=== PATIENT | female | born 1950 | race Caucasian/White ===

== ENCOUNTER → 2017-12-13 10:09 | Outpatient (CLI) | payer MEDICARE, SELFPAY ==
[2017-12-13 17:13] LABS: Anion Gap 7 (5-15); BUN 42 mg/dL (7-18); BUN/Creat Ratio 30.4 RATIO (10-20); Calcium,Total 9.6 mg/dL (8.5-10.1); Chloride 104 mmol/L (98-107); Creatinine, Serum 1.38 mg/dL (0.55-1.02); EST Glomerular Filtration Rate 40 mL/min (>60); Est Glom Filt Rate - Afr Amer 49 mL/min (>60); Glucose 86 mg/dL (74-106); Potassium 5.5 mmol/L (3.5-5.1); Sodium Level 139 mmol/L (136-145)
[2017-12-13 17:16] LABS: Absolute Lymphocyte Count 2.14 X10^3/ul (0.83-4.51); Absolute Neutrophil Count 5.7 X10^3/uL (2.0-7.7); Basophil# 0.07 X10^3/uL; Basophil% 0.8 % (0-1); Eosinophil# 0.08 X10^3/uL; Eosinophils% 0.9 % (0-5); Hemoglobin 6.2 g/dl (12.0-15.0); Lymphocyte # 2.14 X10^3/ul (4.0); Lymphocyte % 25.1 % (19-41); Mean Corp Hgb Conc 29.5 g/gl (32-36); Mean Corpuscular Hgb 25.9 pg (27.0-32.0); Mean Corpuscular Volume 87.9 fL (81-99); Mean Platelet Vol. 8.6 fl (6.2-12.0); Monocyte# 0.54 X10^3/uL; Monocyte% 6.3 % (0-10); Neutrophil # 5.69 X10^3/uL (2.7-7.7); Neutrophil % 66.8 % (47-70); Platelet Count 415 K/mm3 (150-450); RBC Distribution Width CV 15.2 % (11.6-14.6); RBC Distribution Width SD 49.8 fl (35.1-43.9); Red Blood Count 2.39 M/mm3 (4.2-5.4); White Blood Count 8.5 K/mm3 (4.4-11.0)
[2017-12-13 17:18] LABS: POSITIVE COUNT NO; POSITIVE DIFFERENTIAL NO; POSITIVE MORPHOLOGY NO
== END ==
PROVIDERS: Family Provider Family Medicine; PCP Family Medicine; Referring Provider Family Medicine; Visit Provider Family Medicine
DX: N18.3 Chronic kidney disease, stage 3 (moderate) (principal); D64.9 Anemia, unspecified
CPT/HCPCS: 36415; 80048; 85025

== ENCOUNTER 2017-12-17 10:31 | Emergency (ER) | payer MEDICARE, SELFPAY ==
[2017-12-17] VITALS (10 sets, daily range): BP systolic 116–158; BP diastolic 48–82; PULSE 64–98; RESP 15–22; TEMP 36.7–36.8; O2SAT 94–97; BMI 28.6
[2017-12-17 11:11] LABS: Absolute Lymphocyte Count 1.44 X10^3/ul (0.83-4.51); Absolute Neutrophil Count 4.5 X10^3/uL (2.0-7.7); Basophil# 0.04 X10^3/uL; Basophil% 0.6 % (0-1); Eosinophils% 1.5 % (0-5); Hematocrit 20.2 % (37-47); Lymphocyte # 1.44 X10^3/ul (4.0); Lymphocyte % 22.1 % (19-41); Mean Corp Hgb Conc 29.7 g/gl (32-36); Mean Corpuscular Volume 87.4 fL (81-99); Mean Platelet Vol. 7.6 fl (6.2-12.0); Monocyte# 0.46 X10^3/uL; Monocyte% 7.1 % (0-10); Neutrophil # 4.48 X10^3/uL (2.7-7.7); Neutrophil % 68.7 % (47-70); Platelet Count 316 K/mm3 (150-450); RBC Distribution Width CV 15.3 % (11.6-14.6); RBC Distribution Width SD 49.3 fl (35.1-43.9); Red Blood Count 2.31 M/mm3 (4.2-5.4); White Blood Count 6.5 K/mm3 (4.4-11.0)
[2017-12-17 11:12] LABS: POSITIVE COUNT NO; POSITIVE DIFFERENTIAL NO; POSITIVE MORPHOLOGY NO
[2017-12-17 11:24] LABS: AST(SGOT) 49 U/L (15-37); Alanine Aminotransfer ALT/SGPT 55 U/L (13-56); Albumin, Serum 3.9 g/dL (3.2-5.0); Alkaline Phosphatase 112 U/L (45-117); Anion Gap 7 (5-15); BUN 37 mg/dL (7-18); BUN/Creat Ratio 24.5 RATIO (10-20); Calcium,Total 9.2 mg/dL (8.5-10.1); Chloride 106 mmol/L (98-107); Creatinine, Serum 1.51 mg/dL (0.55-1.02); EST Glomerular Filtration Rate 36 mL/min (>60); Est Glom Filt Rate - Afr Amer 44 mL/min (>60); Estimated Creatinine Clearance 34.98 ml/min; Globulin 3.9 g/dL (2.2-4.2); Glucose 91 mg/dL (74-106); Potassium 5.2 mmol/L (3.5-5.1); Protein, Total 7.8 g/dL (6.4-8.2); Sodium Level 138 mmol/L (136-145)
--- NOTE | 2017-12-17 11:51 | ED.VISSUMM ---
- ER Visit Summary Date of Service: 12/17/17 Chief Complaint: Anemia History of Present Illness: The patient is a 67 F who presents with anemia. Patient had lab work done by her primary care physician 4 days ago. Patient states she was told to come to the emergency department because her blood counts are low. Patient admits to some shortness of breath but states she has a history of COPD and frequently gets short of breath. Patient denies any lightheadedness. Patient denies any chest pain. Patient denies any melena or hematochezia. Patient denies any abdominal pain. Patient denies any other symptoms. Patient states I feel good. Physical Examination: Vital signs are stable. Patient is afebrile. Patient is in no acute distress. Cranial nerves II through XII are intact. There are no focal motor or sensory deficits noted. Oral mucosa is pink and moist. Pupils are equal, round, and reactive to light bilaterally. Extraocular muscles are intact. Conjunctiva is clear. Neck is supple. Trachea is midline. There is no JVD noted. Heart was regular rate and rhythm. Lungs are diminished but clear bilaterally. There is good respiratory effort noted. Abdomen is soft nontender. Rectal exam showed brown stool which was Hemoccult negative. The remaining physical exam is within normal limits. Test Results: CBC shows a hemoglobin of 6.0. Hematocrit was 20.2. BUN and creatinine were slightly elevated at 37 1.51 but this is chronic for the patient. Emergency Department Course and Treatment: Patient was typed and crossmatched for 1 unit of packed red blood cells. Patient will be given a transfusion of 1 unit of packed red blood cells. Case was discussed with Dr. Trinidad, the patient's primary care physician. He will follow-up with patient as an outpatient. He recommended starting the patient on iron pills 325 mg twice daily. Patient understood and was agreeable with the plan. All questions were answered. Disposition: Discharged home Impression: Anemia This note was generated with [email or web address] dictation software. It may contain incorrect words, spelling, and punctuation that were not noted in review of the chart prior to signing ED Disposition - Plan for ED Patient: Disposition: Home or Assisted Living Chief Complaint: Abn Labs Diagnosis: Anemia Instructions: ED Anemia Type Not Specified Prescriptions: Ferrous Sulfate 325 mg PO BIDCM #20 tab Referrals: Akira Zhang MD [Primary Care Provider] -
--- NOTE | 2017-12-17 11:54 | ED.DCSUM_ITS ---
- ER Visit Summary Date of Service: 12/17/17 Chief Complaint: Anemia History of Present Illness: The patient is a 67 F who presents with anemia. Patient had lab work done by her primary care physician 4 days ago. Patient states she was told to come to the emergency department because her blood counts are low. Patient admits to some shortness of breath but states she has a history of COPD and frequently gets short of breath. Patient denies any lightheadedness. Patient denies any chest pain. Patient denies any melena or hematochezia. Patient denies any abdominal pain. Patient denies any other symptoms. Patient states I feel good. Physical Examination: Vital signs are stable. Patient is afebrile. Patient is in no acute distress. Cranial nerves II through XII are intact. There are no focal motor or sensory deficits noted. Oral mucosa is pink and moist. Pupils are equal, round, and reactive to light bilaterally. Extraocular muscles are intact. Conjunctiva is clear. Neck is supple. Trachea is midline. There is no JVD noted. Heart was regular rate and rhythm. Lungs are diminished but clear bilaterally. There is good respiratory effort noted. Abdomen is soft nontender. Rectal exam showed brown stool which was Hemoccult negative. The remaining physical exam is within normal limits. Test Results: CBC shows a hemoglobin of 6.0. Hematocrit was 20.2. BUN and creatinine were slightly elevated at 37 1.51 but this is chronic for the patient. Emergency Department Course and Treatment: Patient was typed and crossmatched for 1 unit of packed red blood cells. Patient will be given a transfusion of 1 unit of packed red blood cells. Case was discussed with Dr. Trinidad, the patient 's primary care physician. He will follow-up with patient as an outpatient. He recommended starting the patient on iron pills 325 mg twice daily. Patient understood and was agreeable with the plan. All questions were answered. Disposition: Discharged home Impression: Anemia This note was generated with [employer] dictation software. It may contain incorrect words, spelling, and punctuation that were not noted in review of the chart prior to signing ED Disposition - Plan for ED Patient: Disposition: Home or Assisted Living Chief Complaint: Abn Labs Diagnosis: Anemia Instructions: ED Anemia Type Not Specified Prescriptions: Ferrous Sulfate 325 mg PO BIDCM #20 tab Referrals: Akira Zhang MD [Primary Care Provider] -
== END 2017-12-17 15:30 | disposition home or self-care (01) ==
PROVIDERS: Emergency Provider Emergency Medicine; Family Provider Family Medicine; PCP Family Medicine
DX: D64.9 Anemia, unspecified (principal); J44.9 Chronic obstructive pulmonary disease, unspecified; I10 Essential (primary) hypertension; Z79.899 Other long term (current) drug therapy
CPT/HCPCS: 36430; 80053; 82274; 85025; 86850; 86900; 86920; 86921; 86922; 99285; J7040; P9016; A4216

== ENCOUNTER → 2017-12-22 14:13 | Outpatient (CLI) | payer MEDICARE, SELFPAY ==
[2017-12-22 16:31] LABS: Absolute Lymphocyte Count 1.68 X10^3/ul (0.83-4.51); Basophil# 0.04 X10^3/uL; Basophil% 0.5 % (0-1); Eosinophil# 0.16 X10^3/uL; Eosinophils% 1.9 % (0-5); Hematocrit 25.4 % (37-47); Hemoglobin 7.5 g/dl (12.0-15.0); Lymphocyte # 1.68 X10^3/ul (4.0); Lymphocyte % 19.6 % (19-41); Mean Corp Hgb Conc 29.5 g/gl (32-36); Mean Corpuscular Hgb 26.6 pg (27.0-32.0); Mean Corpuscular Volume 90.1 fL (81-99); Mean Platelet Vol. 8.9 fl (6.2-12.0); Monocyte# 0.66 X10^3/uL; Monocyte% 7.7 % (0-10); Neutrophil # 6.03 X10^3/uL (2.7-7.7); Neutrophil % 70.3 % (47-70); Platelet Count 413 K/mm3 (150-450); RBC Distribution Width CV 16.2 % (11.6-14.6); RBC Distribution Width SD 51.3 fl (35.1-43.9); Red Blood Count 2.82 M/mm3 (4.2-5.4); White Blood Count 8.6 K/mm3 (4.4-11.0)
[2017-12-22 16:33] LABS: POSITIVE COUNT NO; POSITIVE DIFFERENTIAL NO; POSITIVE MORPHOLOGY NO
[2017-12-22 16:43] LABS: Anion Gap 7 (5-15); BUN 34 mg/dL (7-18); BUN/Creat Ratio 28.6 RATIO (10-20); Calcium,Total 9.2 mg/dL (8.5-10.1); Chloride 106 mmol/L (98-107); Creatinine, Serum 1.19 mg/dL (0.55-1.02); EST Glomerular Filtration Rate 48 mL/min (>60); Est Glom Filt Rate - Afr Amer 58 mL/min (>60); Glucose 79 mg/dL (74-106); Potassium 4.7 mmol/L (3.5-5.1); Sodium Level 141 mmol/L (136-145)
== END ==
PROVIDERS: Family Provider Family Medicine; PCP Family Medicine; Visit Provider Family Medicine
DX: D64.9 Anemia, unspecified (principal); E61.1 Iron deficiency; E78.5 Hyperlipidemia, unspecified
CPT/HCPCS: 36415; 80048; 85025

== ENCOUNTER → 2018-02-03 15:25 | Outpatient (CLI) | payer MEDICARE, SELFPAY ==
[2018-02-03 18:00] LABS: Absolute Lymphocyte Count 1.83 X10^3/ul (0.83-4.51); Absolute Neutrophil Count 4.8 X10^3/uL (2.0-7.7); Basophil# 0.03 X10^3/uL; Basophil% 0.4 % (0-1); Eosinophil# 0.11 X10^3/uL; Eosinophils% 1.5 % (0-5); Hematocrit 32.3 % (37-47); Hemoglobin 10.3 g/dl (12.0-15.0); Lymphocyte # 1.83 X10^3/ul (4.0); Lymphocyte % 24.4 % (19-41); Mean Corp Hgb Conc 31.9 g/gl (32-36); Mean Corpuscular Hgb 30.9 pg (27.0-32.0); Mean Platelet Vol. 9.3 fl (6.2-12.0); Monocyte# 0.72 X10^3/uL; Monocyte% 9.6 % (0-10); Neutrophil # 4.82 X10^3/uL (2.7-7.7); Neutrophil % 64.1 % (47-70); Platelet Count 322 K/mm3 (150-450); RBC Distribution Width CV 19.3 % (11.6-14.6); RBC Distribution Width SD 67.2 fl (35.1-43.9); Red Blood Count 3.33 M/mm3 (4.2-5.4); White Blood Count 7.5 K/mm3 (4.4-11.0)
[2018-02-03 18:01] LABS: Differential Indicated SCAN CRITERIA MET; POSITIVE COUNT NO; POSITIVE DIFFERENTIAL NO; POSITIVE MORPHOLOGY YES
[2018-02-03 18:28] LABS: Anion Gap 9 (5-15); BUN 43 mg/dL (7-18); BUN/Creat Ratio 31.9 RATIO (10-20); Chloride 104 mmol/L (98-107); Creatinine, Serum 1.35 mg/dL (0.55-1.02); EST Glomerular Filtration Rate 41 mL/min (>60); Est Glom Filt Rate - Afr Amer 50 mL/min (>60); Ferritin 26 ng/mL (8-252); Glucose 95 mg/dL (74-106); Iron 55 ug/dL (50-170); Potassium 5.2 mmol/L (3.5-5.1); Sodium Level 139 mmol/L (136-145)
[2018-02-03 18:30] LABS: Anisocytosis 1+; Macrocytosis 1+; Platelet Estimate ADEQUATE (ADEQ)
== END ==
PROVIDERS: Family Provider Family Medicine; PCP Family Medicine; Visit Provider Family Medicine
DX: D64.9 Anemia, unspecified (principal); I10 Essential (primary) hypertension; K92.2 Gastrointestinal hemorrhage, unspecified
CPT/HCPCS: 36415; 80048; 82728; 83540; 85025

== ENCOUNTER → 2018-03-14 13:55 | Outpatient (CLI) | payer MEDICARE, SELFPAY ==
[2018-03-14 15:26] LABS: Absolute Lymphocyte Count 1.69 X10^3/ul (0.83-4.51); Absolute Neutrophil Count 3.7 X10^3/uL (2.0-7.7); Basophil# 0.04 X10^3/uL; Basophil% 0.6 % (0-1); Eosinophil# 0.13 X10^3/uL; Eosinophils% 2.1 % (0-5); Hematocrit 33.9 % (37-47); Hemoglobin 10.7 g/dl (12.0-15.0); Lymphocyte # 1.69 X10^3/ul (4.0); Lymphocyte % 27.4 % (19-41); Mean Corp Hgb Conc 31.6 g/gl (32-36); Mean Corpuscular Hgb 31.8 pg (27.0-32.0); Mean Corpuscular Volume 100.6 fL (81-99); Mean Platelet Vol. 9.2 fl (6.2-12.0); Monocyte# 0.62 X10^3/uL; Monocyte% 10.1 % (0-10); Neutrophil # 3.68 X10^3/uL (2.7-7.7); Neutrophil % 59.8 % (47-70); POSITIVE COUNT NO; POSITIVE DIFFERENTIAL NO; POSITIVE MORPHOLOGY NO; Platelet Count 330 K/mm3 (150-450); RBC Distribution Width CV 15.7 % (11.6-14.6); RBC Distribution Width SD 54.8 fl (35.1-43.9); Red Blood Count 3.37 M/mm3 (4.2-5.4); White Blood Count 6.2 K/mm3 (4.4-11.0)
[2018-03-14 15:42] LABS: Anion Gap 6 (5-15); BUN 25 mg/dL (7-18); BUN/Creat Ratio 20.3 RATIO (10-20); Calcium,Total 9.1 mg/dL (8.5-10.1); Chloride 105 mmol/L (98-107); Creatinine, Serum 1.23 mg/dL (0.55-1.02); EST Glomerular Filtration Rate 46 mL/min (>60); Est Glom Filt Rate - Afr Amer 56 mL/min (>60); Ferritin 33 ng/mL (8-252); Glucose 80 mg/dL (74-106); Iron 71 ug/dL (50-170); Potassium 5.2 mmol/L (3.5-5.1); Sodium Level 139 mmol/L (136-145)
== END ==
PROVIDERS: Family Provider Family Medicine; PCP Family Medicine; Visit Provider Family Medicine
DX: N18.3 Chronic kidney disease, stage 3 (moderate) (principal); D64.9 Anemia, unspecified
CPT/HCPCS: 36415; 80048; 82728; 83540; 85025

== ENCOUNTER → 2018-07-05 13:48 | Outpatient (CLI) | payer MEDICARE, SELFPAY ==
[2018-07-05 15:34] LABS: Absolute Lymphocyte Count 1.46 X10^3/ul (0.83-4.51); Absolute Neutrophil Count 4.3 X10^3/uL (2.0-7.7); Basophil# 0.03 X10^3/uL; Basophil% 0.5 % (0-1); Eosinophil# 0.09 X10^3/uL; Eosinophils% 1.4 % (0-5); Hematocrit 36.6 % (37-47); Hemoglobin 11.6 g/dl (12.0-15.0); Lymphocyte # 1.46 X10^3/ul (4.0); Lymphocyte % 23.3 % (19-41); Mean Corp Hgb Conc 31.7 g/gl (32-36); Mean Corpuscular Hgb 33.5 pg (27.0-32.0); Mean Corpuscular Volume 105.8 fL (81-99); Mean Platelet Vol. 9.4 fl (6.2-12.0); Monocyte# 0.41 X10^3/uL; Monocyte% 6.5 % (0-10); Neutrophil # 4.27 X10^3/uL (2.7-7.7); Neutrophil % 68.1 % (47-70); Platelet Count 329 K/mm3 (150-450); RBC Distribution Width CV 13.8 % (11.6-14.6); RBC Distribution Width SD 53.3 fl (35.1-43.9); Red Blood Count 3.46 M/mm3 (4.2-5.4); White Blood Count 6.3 K/mm3 (4.4-11.0)
[2018-07-05 15:36] LABS: POSITIVE COUNT NO; POSITIVE DIFFERENTIAL NO; POSITIVE MORPHOLOGY NO
[2018-07-05 15:47] LABS: Anion Gap 4 (5-15); BUN 24 mg/dL (7-18); BUN/Creat Ratio 18.8 RATIO (10-20); Chloride 104 mmol/L (98-107); Creatinine, Serum 1.28 mg/dL (0.55-1.02); EST Glomerular Filtration Rate 44 mL/min (>60); Est Glom Filt Rate - Afr Amer 53 mL/min (>60); Ferritin 27 ng/mL (8-252); Glucose 90 mg/dL (74-106); Iron 71 ug/dL (50-170); Potassium 4.6 mmol/L (3.5-5.1); Sodium Level 138 mmol/L (136-145)
== END ==
PROVIDERS: Family Provider Family Medicine; PCP Family Medicine; Visit Provider Family Medicine
DX: N18.3 Chronic kidney disease, stage 3 (moderate) (principal); D64.9 Anemia, unspecified
CPT/HCPCS: 36415; 80048; 82728; 83540; 85025

== ENCOUNTER → 2018-09-27 13:40 | Outpatient (CLI) | payer MEDICARE, SELFPAY ==
[2018-09-27 15:23] LABS: Absolute Lymphocyte Count 2.33 X10^3/ul (0.83-4.51); Absolute Neutrophil Count 5.1 X10^3/uL (2.0-7.7); Basophil# 0.05 X10^3/uL; Basophil% 0.6 % (0-1); Eosinophil# 0.19 X10^3/uL; Eosinophils% 2.3 % (0-5); Hematocrit 37.3 % (37-47); Hemoglobin 12.3 g/dl (12.0-15.0); Lymphocyte # 2.33 X10^3/ul (4.0); Mean Corpuscular Hgb 33.2 pg (27.0-32.0); Mean Corpuscular Volume 100.5 fL (81-99); Mean Platelet Vol. 9.6 fl (6.2-12.0); Monocyte# 0.68 X10^3/uL; Monocyte% 8.2 % (0-10); Neutrophil # 5.05 X10^3/uL (2.7-7.7); Neutrophil % 60.8 % (47-70); Platelet Count 359 K/mm3 (150-450); RBC Distribution Width CV 13.4 % (11.6-14.6); Red Blood Count 3.71 M/mm3 (4.2-5.4); White Blood Count 8.3 K/mm3 (4.4-11.0)
[2018-09-27 15:30] LABS: POSITIVE COUNT NO; POSITIVE DIFFERENTIAL NO; POSITIVE MORPHOLOGY NO
[2018-09-27 15:49] LABS: AST(SGOT) 33 U/L (15-37); Alanine Aminotransfer ALT/SGPT 52 U/L (13-56); Albumin, Serum 3.9 g/dL (3.2-5.0); Alkaline Phosphatase 108 U/L (45-117); Anion Gap 7 (5-15); BUN 28 mg/dL (7-18); BUN/Creat Ratio 24.3 RATIO (10-20); Calcium,Total 9.4 mg/dL (8.5-10.1); Chloride 104 mmol/L (98-107); Creatinine, Serum 1.15 mg/dL (0.55-1.02); EST Glomerular Filtration Rate 50 mL/min (>60); Est Glom Filt Rate - Afr Amer 60 mL/min (>60); Ferritin 23 ng/mL (8-252); Globulin 3.8 g/dL (2.2-4.2); Glucose 80 mg/dL (74-106); Iron 67 ug/dL (50-170); Potassium 4.8 mmol/L (3.5-5.1); Protein, Total 7.7 g/dL (6.4-8.2); Sodium Level 139 mmol/L (136-145); T4 Free Direct 1.03 ng/dL (0.76-1.46); Thyroid Stim Hormone (TSH) 1.46 uIU/mL (0.358-3.74)
== END ==
PROVIDERS: Family Provider Family Medicine; PCP Family Medicine; Visit Provider Family Medicine
DX: I12.9 Hypertensive chronic kidney disease with stage 1 through stage 4 chronic kidney disease, or unspecified chronic kidney disease (principal); N18.3 Chronic kidney disease, stage 3 (moderate); D64.9 Anemia, unspecified; R63.4 Abnormal weight loss
CPT/HCPCS: 36415; 80053; 82728; 83540; 84439; 84443; 85025

== ENCOUNTER → 2018-10-04 13:03 | Outpatient (CLI) | payer MEDICARE, SELFPAY ==
--- NOTE | 2018-10-04 13:10 | BD_ITS ---
STUDY: DUAL ENERGY X-RAY ABSORPTIOMETRY / DXA REASON FOR EXAM: Female, 68 years old. The patient is postmenopausal. Loss of height. TECHNIQUE: Bone Mineral Density (BMD) measurements of lumbar spine and bilateral hips were obtained. COMPARISON: None. FINDINGS: Lumbar Spine (L1-L4): g/cm2 (1.513) / T-score (2.9) / Z-score (4.6) Findings are suggestive of normal bone density with a low fracture risk. Left Femur Total: g/cm2 (0.743) / T-score (-2.1) / Z-score (-0.7) Left Femoral Neck: g/cm2 (0.722) / T-score (-2.3) / Z-score (-0.6) Right Femur Total: g/cm2 (0.679) / T-score (-2.6) / Z-score (-1.2) Right Femoral Neck: g/cm2 (0.672) / T-score (-2.6) / Z-score (-1.0) BD/Dexa Bone Density Study IMPRESSION: The patient is considered osteoporotic as outlined below according to World [employer] Organization (WHO) criteria with a high fracture risk. Reference Information: The T-score is the number of standard deviations above or below the standard which is normal for young adults at their peak bone mineral density. The World Health Organization (WHO) interprets the T-scores as follows: Above -1 Normal bone density Between -1 and -2.5 Osteopenia Equal to / or below -2.5 Osteoporosis As a practical clinical guideline, osteopenia may be graded as follows: Mild -1 through -1.5 Moderate -1.6 through -2.0 Severe -2.1 through -2.4 The Z-score is the number of standard deviations above or below age-matched controls. A Z-score of less than -1.5 would be considered abnormal. References: 1. NIH Osteoporosis and Related Bone Diseases http://www.osteo.org 2. International Society for Clinical Densitometry http://www.iscd.org 3. National Osteoporosis Foundation http://www.nof.org Electronically Signed: Shilo Lowe, at 14:47 EDT , Service support ,
== END ==
PROVIDERS: Family Provider Family Medicine; PCP Family Medicine; Referring Provider Family Medicine; Visit Provider Family Medicine
DX: Z78.0 Asymptomatic menopausal state (principal); M81.0 Age-related osteoporosis without current pathological fracture
CPT/HCPCS: 77080

== ENCOUNTER 2019-03-17 18:06 | Inpatient (IN) | payer MEDICARE, SELFPAY ==
[2019-03-17] VITALS (15 sets, daily range): BP systolic 104–137; BP diastolic 50–95; PULSE 59–100; RESP 12–53; TEMP 36.4–36.7; O2SAT 78–99; BMI 26.7; BMI 26.8; BMI 25.7
--- NOTE | 2019-03-17 18:40 | RAD_ITS ---
STUDY: X-RAY CHEST REASON FOR EXAM: Female, 69 years old. Chest pain. TECHNIQUE: Single frontal view of the chest. COMPARISON: None. FINDINGS: There is an ill-defined opacity projecting over the right mid and lower lung. There is a linear opacity within the right midlung. There is a left basilar patchy opacity. Normal size heart. Normal mediastinum and jazzy. Normal visualized pulmonary arteries. Normal visualized aortic arch and descending thoracic aorta. Normal visualized thoracic spine. Normal visualized ribs, clavicles, and shoulders. There are postsurgical changes of the lower cervical spine. There is no demonstrated abnormality of the visualized soft tissue structures of the upper abdomen. RAD/Chest 1 View (Portable) IMPRESSION: Indeterminate opacity within the right mid and lower lung this may be secondary to underlying atelectasis and or pneumonia with a possible associated effusion, cannot exclude an underlying neoplastic process. Consider a CT for further characterization. Electronically Signed: Sarai Smith MD at 19:12 EDT Tel , Service support ,
--- NOTE | 2019-03-17 18:41 | EKG12_ITS ---
Test Reason : DYSRHYTHMIA Blood Pressure : / mmHG Vent. Rate : 068 BPM Atrial Rate : 068 BPM P-R Int : 132 ms QRS Dur : 072 ms QT Int : 334 ms P-R-T Axes : 050 031 018 degrees QTc Int : 355 ms Normal sinus rhythm with sinus arrhythmia Normal ECG Confirmed by BO ESTEVEZ, MALICK ([id number]), school photograph editor JERONIMO MORENO ([id number]) on 03/22/2019 9:44:52 A M Referred By: CHU Confirmed By:JAVIER SORIANO MD
--- NOTE | 2019-03-17 18:44 | ED.VISSUMM ---
- ER Visit Summary Date of Service: 03/17/19 Chief Complaint: Shortness of breath History of Present Illness: The patient is a 69 F history of COPD not on home oxygen. Also hypertension, hiatal hernia and prior cervical stenosis. Patient states she has been more short of breath for the last 8 days starting last . No chest pain. No fever. No cough. No hemoptysis. She does have trace swelling in both hands and feet. No history of cardiac disease or CHF. No history of DVT or PE. No calf pain. No recent travel, surgery or immobilization. Physical Examination: Older female vital signs stable. Her initial pulse ox is 97% on room air. HEENT exam unremarkable. Neck nontender no JVD. No lymphadenopathy. Lungs prolonged expiratory phase bilaterally. Expiratory wheezing. No rales or rhonchi. Heart regular rhythm rate about 80 no murmur. Abdomen is soft and nontender normal bowel sounds no peritoneal signs. She is moving all 4 extremities. Calves are nontender without cords. Does have trace edema both feet and ankles. It symmetrical. Neurologically she is awake and alert with no focal motor deficits. Test Results: CBC shows a white count of 10. Hemoglobin is 6.4 previously hemoglobin was 12. No bands. Electrolytes potassium 6.1. CO2 35. BUN/creatinine 84 and 2.06 consistent with acute dehydration, prerenal azotemia and acute kidney injury. Troponin normal. Lactic acid is pending. Blood gas showed a pH 7.27 with PCO2 of 76 and a PO2 of 66. Consistent with a respiratory acidosis. Blood cultures pending. EKG sinus rhythm rate of 68 with no acute signs of AL or ischemia. Chest x-ray portable one view read both by myself and radiologist shows a right lower lobe pneumonia not rule out effusion or even mass. This will be treated as pneumonia until proven otherwise. Emergency Department Course and Treatment: Patient treated with IV Solu-Medrol along with both albuterol and DuoNeb aerosols. Patient was treated with BiPAP which she tolerated for period of time and then wanted that taken off. She was started on IV Rocephin and Zithromax for her right lower lobe pneumonia. Due to her dehydration she was given 2 L of normal saline IV. And she is been typed and crossed for 4 units of blood and being transfused 2. Repeat exam is setting some signs of improvement. Her lactic acid is pending. Treatment Plan: Admission to the ICU. I very spoken to the hospitalist and have the senior lead java developer on page. Disposition: Admission Impression: Acute dyspnea Acute exacerbation COPD and right lower lobe pneumonia Severe dehydration with acute kidney injury Acute hyperkalemia Acute anemia requiring blood transfusion x2 units Respiratory acidosis Critical care time 35 minutes. This note was generated with [employer] dictation software. It may contain incorrect words, spelling, and punctuation that were not noted in review of the chart prior to signing ED Disposition - Plan for ED Patient: Referrals: Akira Zhang MD [Primary Care Provider] -
[2019-03-17] MEDS: Ipratropium/Albuterol Sulfate 3 ML AMPUL.NEB INHALATION ×2 (18:53→23:00)
[2019-03-17] MEDS: MethylPREDNISolone 125 MG/2 ML Vial IV (18:56)
[2019-03-17 19:06] LABS: Absolute Neutrophil Count 8.6 X10^3/uL (2.0-7.7); Basophil# 0.05 X10^3/uL; Basophil% 0.5 % (0-1); Eosinophil# 0.08 X10^3/uL; Eosinophils% 0.7 % (0-5); Hematocrit 22.5 % (37-47); Hemoglobin 6.4 g/dL (12.0-15.0); Lymphocyte % 9.2 % (19-41); Mean Corp Hgb Conc 28.4 g/dL (32-36); Mean Corpuscular Hgb 26.3 pg (27.0-32.0); Mean Corpuscular Volume 92.6 fL (81-99); Mean Platelet Vol. 9.8 fl (6.2-12.0); Monocyte# 1.12 X10^3/uL; Monocyte% 10.3 % (0-10); NRBC Flagged by Analyzer 0.4 % (0-5); Neutrophil # 8.56 X10^3/uL (2.7-7.7); Neutrophil % 78.8 % (47-70); Platelet Count 450 K/mm3 (150-450); RBC Distribution Width CV 16.6 % (11.6-14.6); RBC Distribution Width SD 56.1 fl (35.1-43.9); Red Blood Count 2.43 M/mm3 (4.2-5.4); White Blood Count 10.9 K/mm3 (4.4-11.0)
[2019-03-17 19:35] LABS: Allen Test POS; Base Excess 8 mmol/L (-2 to +2); Bicarbonate 34.9 mmol/L (22-26); Blood Gas Specimen Type ART; O2 Delivery Device Nasal Can; PO2 66 mmHG (75-100); SITE L Radial; SO2 89 % (95-99); Time Given 1925; Total Carbon Dioxide 37 mmol/L; pCO2 76.1 mmHg (35-45); pH 7.27 (7.35-7.45)
[2019-03-17] MEDS: Ceftriaxone 1 GM/50 ML BAG IV (19:49)
[2019-03-17] MEDS: Albuterol 2.5 MG/3 ML VIAL.NEB. INHALATION ×3 (19:54)
--- NOTE | 2019-03-17 20:01 | CPS ---
Critical values read to Dr. Baig
--- NOTE | 2019-03-17 20:02 | CPS ---
Addendum entered and electronically signed by Morgan Barclay 03/17/19 20:05: Albuterol tx's started at 1953 Original Note: x3 Albuterol given to pt. in ED as well as the Duoneb
--- NOTE | 2019-03-17 20:10 | PCM.HP.STD ---
Problem List (1) Acute respiratory failure with hypoxia and hypercapnia Status: Acute (2) Bilateral pneumonia Status: Acute (3) COPD exacerbation Status: Acute (4) Acute anemia Status: Acute (5) Cervical spondylosis with myelopathy Status: Chronic (6) Acute renal failure superimposed on stage 3 chronic kidney disease Status: Acute (7) HH (hiatus hernia) Status: Chronic History of Present Illness Date of Admission: 03/17/19 Chief Complaint: SOB The patient is a 69 year old F WITH H/o COPD admitted with severe SOB FOR about 1 week, with gradual progressive worsening of shortness of breath for 1 week. She follows [facility] sorting grapple operator Dr Holley and is seen about a week ago. She just Pulmicort nebulization and albuterol nebulizer by sorting grapple operator. Symptoms got worse. She denies cough, sputum, fever or chills or chest pain/pressure. She denies URI symptoms including sinus congestion, sore throat or postnasal drip. She also has history of cervical spondylosis with myelopathy status post fusion and takes Motrin 800 mg 3 times daily for more than to 3 years. Denies obvious GI blood loss, hematuria or hemoptysis In ED, she was found severe short of breath, respiratory rate 53/min, blood pressure 104/50, heart rate 76 with no fever. Patient was 78% on room air. ABG 7.27/70 6/66 on 2 L of nasal cannula and then was put on BiPAP. CBC shows H&H 6.4/22.5, WBC 10.9 thousand with neutrophils 78%, lymphocyte 9%. Platelet count 450,000. BMP shows K6.1, BUN/creatinine 84/2.06, bicarb 35, anion gap 2, glucose 112 and troponin negative. Lactic acid 1.5. [] Past Medical History Past Medical History (Chronic Problems): Chronic Problems Cervical spondylosis with myelopathy (Chronic) HH (hiatus hernia) (Chronic) Allergies nickel Allergy (Verified 03/17/19 18:10) Other Home Medications: Ambulatory Orders Medication Instructions Recorded Albuterol IH (ProAir) [Proair Hfa] 2 puff INHALATION Q4H PRN 12/17/17 Furosemide [Lasix] 20 mg PO QODAY 12/17/17 Lisinopril [Zestril] 10 mg PO DAILY 12/17/17 Ascorbic Acid [Vitamin C] 500 mg PO BID 03/17/19 Aspirin E.C. [Ecotrin] 1 tab PO DAILY 03/17/19 Budesonide [Pulmicort] 0.5 mg IH DAILY 03/17/19 Cholecalciferol (VIT D3) [Vitamin 1,000 unit PO DAILY 03/17/19 D] Cyanocobalamin (Vitamin B-12) 1,000 mcg PO DAILY 03/17/19 [Vitamin B-12] Ipratropium/Albuterol Sulfate 3 ml INHALATION Q4HWA.RT 03/17/19 [Duoneb] Magnesium Chloride 70 mg PO DAILY 03/17/19 [place]-3 Fatty Acids/Fish Oil [Fish 2 ea PO DAILY 03/17/19 Oil 1,000 mg Capsule] Pyridoxine HCl (Vitamin B6) 600 mg PO DAILY 03/17/19 [Vitamin B-6] cycloBENZAPRine HCl [Flexeril] 10 mg PO BID 03/17/19 Smoking Status: Current every day smoker - *Family History Paternal History Items: COPD Review of Systems Constitutional: Denies: Chills, Fever, Weight Change HEENT: Denies: Head Aches, Sinus Congestion, Sinus Drainage Cardiovascular: Denies: Chest Pain, Palpitations Respiratory: Reports: Shortness of breath at rest, Wheezing. Denies: Cough, Sputum production Gastrointestinal: Denies: Abdominal Pain, Nausea, Vomiting Genitourinary: Denies: Dysuria, Frequency, Hematuria, Urgency Musculoskeletal: Reports: Back Pain, Joint Pain, Neck Pain. Denies: Joint Tenderness Skin: Denies: Rash, Wounds Neurological: Reports: Balance problems. Denies: Focal weakness, Numbness, Tingling Psychiatric: Denies: Anxiety, Depression, Homicidal Ideations, Suicidal Ideations Hematologic/ Lymphatic: Denies: Easy Bruising, Easy Bleeding VTE Information - Inpt Only VTE Present on Admission: No VTE Mechan Device Prophylaxis: SCD's Reason prophylaxis not ordered:: Medical Contraindication - Severe anemia Patient Problems: Active and Suspected Problems Acute respiratory failure with hypoxia and hypercapnia (Acute) Bilateral pneumonia (Acute) COPD exacerbation (Acute) Acute anemia (Acute) Acute renal failure superimposed on stage 3 chronic kidney disease (Acute) - Physical Exam General: Oriented x3, Cooperative, Lethargic - Lethargic very short of breath. HEENT: Atraumatic, PERRLA, EOMI, Normocephalic Oral: Dry Mucosa Neck: Supple, No JVD, Negative Carotid Bruits Lungs: Diminished - Air entry severely diminished in all lung fuller. Bilateral wheezing. Bilateral pleural effusion, right more than left, Rhonchi, Short of Breath, Tachypneic, Using Accessory Muscles, Wheezes Cardiovascular: Regular rate, Regular Rhythm, Normal S1, Normal S2, No murmurs Abdomen: Bowel Sounds Present, Soft, Non Tender, Non-Distended Extremities: No edema, Capillary Refill Less than 3 Seconds Skin: No rashes, No breakdown Musculoskeletal: No Tenderness to Palpation of Joints or Extremities, Arthritic Changes Neurological: Cranial nerves II-XII grossly intact, Deep Tendon Reflexes 2+/4 and Symmetrical, Neuro grossly intact Psych/Mental Status: Normal Affect, Appropriate Vital Signs Temp Pulse Resp BP Pulse Ox 97.8 F 59 L 24 H 109/95 H 99 03/17/19 19:21 03/17/19 19:58 03/17/19 19:58 03/17/19 19:21 03/17/19 19:58 Oxygen Flow Rate (L/min) 2.5 Oxygen Delivery Method Bi-pap Weight: 137 lb Body Mass Index (BMI) 26.7 Laboratory Tests Past 24 Hrs 03/17/19 03/17/19 03/17/19 18:35 18:35 19:28 WBC 10.9 RBC 2.43 L Hgb 6.4 L Hct 22.5 L MCV 92.6 MCH 26.3 L MCHC 28.4 L RDW Std Deviation 56.1 H RDW Coeff of Mya 16.6 H Plt Count 450 MPV 9.8 Immature Gran % (Auto) 0.500 Neut % (Auto) 78.8 H Lymph % (Auto) 9.2 L [place] % (Auto) 10.3 H Eos % (Auto) 0.7 Baso % (Auto) 0.5 Absolute Neuts (auto) 8.6 H Absolute Lymphs (auto) 1.00 Nucleated RBC % 0.4 Specimen Type ART Sample Site L Radial pH 7.27 L Bicarbonate Actual 34.9 H POC Total CO2 37 Base Excess 8 H O2 Saturation 89 L ABG pCO2 76.1 H* ABG pO2 66 L Kevin Test POS O2 Delivery Device Nasal Can Liter Flow 2.0 Blood Gas Notified Whom ED Blood Gas Notified Time 1924 Sodium Pending Potassium Pending Chloride Pending Carbon Dioxide Pending Anion Gap Pending BUN Pending Creatinine Pending Est GFR (MDRD) Af Amer Pending Est GFR (MDRD) Non-Af Pending BUN/Creatinine Ratio Pending Glucose Pending Calcium Pending Troponin I Pending Assessment/Plan All Active Problems Acute respiratory failure with hypoxia and hypercapnia (Acute) Bilateral pneumonia (Acute) COPD exacerbation (Acute) Acute anemia (Acute) Acute renal failure superimposed on stage 3 chronic kidney disease (Acute) The patient is a 69 year old F WITH H/o COPD admitted with severe SOB FOR about 1 week, with gradual progressive worsening of shortness of breath for 1 week. No fevers chills cough or chest pain. In ED, she was found severe short of breath, respiratory rate 53/min, blood pressure 104/50, heart rate 76 with no fever. Patient was 78% on room air. ABG 7.27/70 6/66 on 2 L of nasal cannula and then was put on BiPAP. CBC shows H&H 6.4/22.5, WBC 10.9 thousand with neutrophils 78%, lymphocyte 9%. Platelet count 450,000. BMP shows K6.1, BUN/creatinine 84/2.06, bicarb 35, anion gap 2, glucose 112 and troponin negative. Lactic acid 1.5. EKG normal sinus rhythm with sinus rhythm at 68 bpm. QTc 355 ms. [] 1. Acute hypoxic and hypercarbic combined respiratory failure secondary to COPD exacerbation and pneumonia: Patient is being admitted in ICU. Discussed with skin piler. IV fluid resuscitation as per severe sepsis protocol. Started on broad-spectrum IV antibiotic vancomycin and Zosyn. Patient got 1 dose of Rocephin and Zithromax in ED. Pneumonia/sepsis work-up ordered including blood cultures x2, urinary antigens, sputum culture and respiratory panel. MRSA nasal screen. 2. Severe sepsis (tachypnea, severe hypoxia, borderline leukocytosis with hypotension responded to IV fluid) bilateral lower lobe community-acquired pneumonia with bilateral small pleural effusion: Rest of the sepsis screen labs ordered including PT/INR and LFT. Lactic acid normal 3. COPD exacerbation with chronic smoker/nicotine dependence: On bronchodilator DuoNeb every 4 hourly. IV Solu-Medrol, incentive spirometry, BiPAP oxygen support. It seems patient is not a chronic retainer. CO2 was 28 on 09/27/2018. Patient has been smoking about a pack per day since teenage. Currently 3 to 4 cigars/day 4. Acute anemia mostly secondary to large dose of ibuprofen/NSAID use/obscure/slow GI bleed: Patient has been using Motrin milligrams 3 times daily for 2 to 3 years. Patient also has large hiatus hernia and as per the patient, she has stomach and bowel in thoracic cavity. IV Protonix 40 g every 12. Monitored H&H. 4 units of PRBC ordered by ER physician. Patient will need further EGD/colonoscopy evaluation after she is stabilized or as an outpatient. 5. Acute kidney injury on CKD stage III with hyperkalemia: Patient BUN/creatinine 84/2.06. Seems mainly prerenal with BUN/creatinine ratio more than 20: 1. IV fluid resuscitation. High BUN possible suggestive of GI bleed too. Monitor intake and output, kidney function electrolytes. 6. Other comorbidities include cervical spondylosis with myelopathy status post cervical spine fusion, chronic smoker with nicotine dependence, CKD stage III: Home medication reconciliation done. DVT prophylaxis: Pharmacological prophylaxis contraindicated because of severe anemia. Bilateral SCDs. Plan of care discussed with patient sister near the bedside. Advanced directive/living will: Patient stated she wants intubation if needed along with other resuscitation measures including CPR's, vasopressor with central line insertion, tube feed. Full code. Total time spent in [id number] encounter in discussion of advanced directive 18 minutes. Code Visit Inpatient E&M: 48011 Init Hosp L3 Procedures: 64946 Advncd Care Plan 30 Min
--- NOTE | 2019-03-17 20:13 | ED.RN ---
notified Dr. Baig of K+ 6.1
[2019-03-17 20:14] LABS: Anion Gap 2 (5-15); BUN 84 mg/dL (7-18); BUN/Creat Ratio 40.8 RATIO (10-20); Calcium,Total 9.3 mg/dL (8.5-10.1); Chloride 102 mmol/L (98-107); Creatinine, Serum 2.06 mg/dL (0.55-1.02); EST Glomerular Filtration Rate 25 mL/min (>60); Est Glom Filt Rate - Afr Amer 31 mL/min (>60); Estimated Creatinine Clearance 18.25 ml/min; Glucose 112 mg/dL (74-106); Potassium 6.1 mmol/L (3.5-5.1); Sodium Level 139 mmol/L (136-145)
--- NOTE | 2019-03-17 20:22 | CPS ---
Pt. wanted to be taken off BiPaP; pt. placed back on to 2L NC, O2 saturation 95%
[2019-03-17 20:33] LABS: Lactic Acid 1.5 mmol/L (0.4-2.0)
[2019-03-17] MEDS: 0.9% Normal Saline 1,000 ML 999 ML IV ×2 (20:44→21:56)
[2019-03-17] MEDS: Insulin Lispro 100 UNIT/ML INSULN.PEN SC (22:25)
[2019-03-17 22:30] LABS: Hematocrit 23.5 % (37-47); Hemoglobin 6.6 g/dL (12.0-15.0)
[2019-03-17 22:36] LABS: International Normalized Ratio 1.2; Partial Thromboplast Time 28.1 Seconds (24.1-36.2); Prothrombin Time (Protime)PT. 14.7 SECONDS (11.7-14.9)
[2019-03-17] MEDS: Sodium Bicarbonate 8.4% 50 ML Syringe 100 MEQ IV (22:38)
[2019-03-17] MEDS: Dextrose 50%-Water 25 GM/50 ML DISP.SYRIN IV (22:40)
[2019-03-17] MEDS: Insulin Lispro 10 UNIT in Syringe 0 ML 6 UNIT IV (22:45)
[2019-03-17] MEDS: Vancomycin IV 1,000 MG/200 ML BAG 200 MG IV (22:48)
[2019-03-17 22:51] LABS: AST(SGOT) 62 U/L (15-37); Alanine Aminotransfer ALT/SGPT 117 U/L (13-56); Albumin, Serum 3.1 g/dL (3.2-5.0); Alkaline Phosphatase 172 U/L (45-117); Bilirubin, Direct 0.12 mg/dL (0.00-0.30); Globulin 3.6 g/dL (2.2-4.2); Protein, Total 6.7 g/dL (6.4-8.2)
[2019-03-17] MEDS: 0.9% Normal Saline 1,000 ML 100 ML IV (22:51)
[2019-03-17 22:55] LABS: Bedside Glucose 168 mg/dL (70-110)
[2019-03-17 23:16] LABS: M R Staph aureus DNA By PCR Negative (Negative); Probe Check PASS; Specimen Processing Control PASS
--- NOTE | 2019-03-17 23:45 | PCM.RX.CS ---
Consult Pharmacy has been consulted to manage selected antiobiotic: Vancomycin Type of Consult: New start Suspected Infection: Pneumonia Prior Doses of Antibiotics Received/Current Regimen: Medications Discontinued Medications Vancomycin HCl (Vancomycin) 1,000 mg in 200 mls @ 200 mls/hr IV X1 ONE Stop: 03/17/19 22:59 Last Admin: 03/17/19 22:48 Dose: 200 mls/hr Documented by: Labs: Sodium 139 mmol/L (136-145) 03/17/19 18:35 Potassium 6.1 mmol/L (3.5-5.1) H* 03/17/19 18:35 Chloride 102 mmol/L (98-107) 03/17/19 18:35 Carbon Dioxide 35.0 mmol/L (21.0-32.0) H 03/17/19 18:35 Anion Gap 2 (5-15) L 03/17/19 18:35 BUN 84 mg/dL (7-18) H 03/17/19 18:35 Creatinine 2.06 mg/dL (0.55-1.02) H 03/17/19 18:35 Est GFR (MDRD) Af Amer 31 mL/min (>60) L 03/17/19 18:35 Est GFR (MDRD) Non-Af 25 mL/min (>60) L 03/17/19 18:35 BUN/Creatinine Ratio 40.8 RATIO (10-20) H 03/17/19 18:35 Glucose 112 mg/dL (74-106) H 03/17/19 18:35 Weight used for dosin kg Estimated Creatinine Clearance: 20 mL/min Goal Trough: 15-20 mcg/mL Pharmacy Plan for Drug Dosing: Initial vancomycin dose 1000mg IV x1, continue with 500mg IV q24h per policy with trough prior to 3rd dose. Pharmacy Service will continue to monitor and adjust dosing as required. Follow-Up Labs: Trough Vancomycin - 03/19 @ 4890
[2019-03-17 23:56] LABS: Bedside Glucose 164 mg/dL (70-110)
[2019-03-18] VITALS (45 sets, daily range): BP systolic 94–147; BP diastolic 45–78; PULSE 57–95; RESP 16–36; TEMP 36–37.3; O2SAT 88–100
[2019-03-18 00:06] LABS: Color, Urine Yellow (Yellow); Glucose, Dipstick Normal (Normal); Ketone-Dipstick Negative (Negative); Leukocyte Esterase-Dipstick Negative /ul (Negative); Nitrite-Dipstick Negative (Negative); Occult Blood-Urine Negative /ul (Negative); Protein-Dipstick 30 mg/dl (Negative); Urine Bilirubin Dipstick Negative (Negative); Urine Clarity Clear (Clear); Urine Urobilinogen Normal (Normal)
[2019-03-18 02:11] LABS: Allen Test POS; Base Excess 5 mmol/L (-2 to +2); Bicarbonate 34.4 mmol/L (22-26); Blood Gas Specimen Type ART; EPAP 7; FI02 45; IPAP 14; PO2 78 mmHG (75-100); RR 12; SITE R Radial; SO2 89 % (95-99); Total Carbon Dioxide 38 mmol/L; pCO2 105.7 mmHg (35-45); pH 7.12 (7.35-7.45)
--- NOTE | 2019-03-18 02:39 | NURSING ---
Dr. lincoln at bedside to intubate. RT present 0250 0252 etomidate given IV per dr lincoln. pt bagged prior to intubation 0253 attempt at intubation successful 0254 good color change noted IBETH breath sounds noted by RT
[2019-03-18] MEDS: Etomidate 20 MG/10 ML Vial 15 MG IV (02:53)
[2019-03-18] MEDS: fentaNYL drip 100 ML 5 MCG IV (03:00)
[2019-03-18] MEDS: Propofol 10MG/Ml 1,000 MG/100 ML Bottle 4 MG CONT INF (03:00)
--- NOTE | 2019-03-18 03:15 | RAD_ITS ---
STUDY: X-RAY CHEST REASON FOR EXAM: Female, 69 years old. Dyspnea. TECHNIQUE: Single AP portable view of the chest. COMPARISON: 03/17/2019 FINDINGS: Endotracheal tube is seen its tip is 4 cm superior to the debbie. An NG tube is seen its tip is below the diaphragm is in good position. There is worsening airspace disease in the right lower lobe and right middle lobe suggesting pneumonia. Ill-defined opacities are seen in left lung base also suggesting pneumonia. There is no demonstrated pleural abnormality. Normal size heart. Normal mediastinum and jazzy. Normal visualized pulmonary arteries. Normal visualized aortic arch and descending thoracic aorta. Normal visualized thoracic spine. There is degenerative osteoarthritis of the bilateral shoulders. There is no demonstrated abnormality of the visualized soft tissue structures of the upper abdomen. RAD/Chest 1 View (Portable) IMPRESSION: Worsening right middle lobe and right lower lobe pneumonia. Electronically Signed: Theodore Irizarry, at 7:09 EDT Tel , Service support ,
[2019-03-18 03:38] LABS: Absolute Lymphocyte Count 0.21 X10^3/uL (0.83-4.51); Absolute Neutrophil Count 10.1 X10^3/uL (2.0-7.7); Basophil# 0.02 X10^3/uL; Basophil% 0.2 % (0-1); Hematocrit 29.1 % (37-47); Hemoglobin 8.4 g/dL (12.0-15.0); Lymphocyte # 0.21 X10^3/ul (4.0); Mean Corp Hgb Conc 28.9 g/dL (32-36); Mean Corpuscular Hgb 27.4 pg (27.0-32.0); Mean Corpuscular Volume 94.8 fL (81-99); Mean Platelet Vol. 9.9 fl (6.2-12.0); Monocyte# 0.11 X10^3/uL; NRBC Flagged by Analyzer 0.5 % (0-5); Neutrophil # 10.06 X10^3/uL (2.7-7.7); Neutrophil % 95.8 % (47-70); POSITIVE DIFFERENTIAL YES; Platelet Count 450 K/mm3 (150-450); RBC Distribution Width CV 15.9 % (11.6-14.6); RBC Distribution Width SD 55.5 fl (35.1-43.9); Red Blood Count 3.07 M/mm3 (4.2-5.4); White Blood Count 10.5 K/mm3 (4.4-11.0)
[2019-03-18] MEDS: Ipratropium/Albuterol Sulfate 3 ML AMPUL.NEB INHALATION ×6 (03:38→22:43)
[2019-03-18 03:40] LABS: Differential Indicated SCAN CRITERIA MET
--- NOTE | 2019-03-18 03:48 | PCM.OP.PRO ---
Problem List (1) Acute respiratory failure with hypoxia and hypercapnia Status: Acute (2) Bilateral pneumonia Status: Acute (3) COPD exacerbation Status: Acute (4) Acute anemia Status: Acute (5) Cervical spondylosis with myelopathy Status: Chronic (6) Acute renal failure superimposed on stage 3 chronic kidney disease Status: Acute (7) HH (hiatus hernia) Status: Chronic Procedure Report Date of Procedure: 03/18/19 The patient was found very obtunded with minimal reflex. Not responding to verbal command. ABG repeated shows 7.12/105 0.7/78 on BiPAP at 14/7. Indication: Acute encephalopathy, metabolic from CO2 narcosis, it was decided to intubate With rapid sequence intubation, etomidate 15 mg IV given. Endoscope was inserted gradually and there was secretion noticed at the vallecula. Suction was done. Epiglottis was visualized and 7.5 mm endotracheal tube advanced. CO2 colorimeter gas change was noticed. Tube was secured at the patient of 21 cm at the level of an incisors Chest x-ray ordered and confirmed. ET tube about 2 cm proximal to the debbie. Right lower two third with dense consolidation possible effusion at the base. Left lower atelectasis. IV fentanyl and propofol to maintain for sedation. Code Visit Procedures: [id number] Insert Emergency Airway
[2019-03-18] MEDS: DiphenhydrAMINE 50 MG/ML Syringe 25 MG IV (03:55)
[2019-03-18 04:22] LABS: CPK Total, Creatine Kinase 71 U/L (26-192); Triglycerides 47 mg/dL
[2019-03-18 04:28] LABS: ALB/GLOB Ratio 0.8 RATIO (0.9-2.4); AST(SGOT) 68 U/L (15-37); Alanine Aminotransfer ALT/SGPT 122 U/L (13-56); Alkaline Phosphatase 163 U/L (45-117); Anion Gap 6 (5-15); BUN 76 mg/dL (7-18); BUN/Creat Ratio 41.5 RATIO (10-20); Calcium,Total 8.2 mg/dL (8.5-10.1); Chloride 108 mmol/L (98-107); Creatinine, Serum 1.83 mg/dL (0.55-1.02); EST Glomerular Filtration Rate 29 mL/min (>60); Est Glom Filt Rate - Afr Amer 35 mL/min (>60); Estimated Creatinine Clearance 23.66 ml/min; Globulin 3.6 g/dL (2.2-4.2); Glucose 105 mg/dL (74-106); Magnesium 3.7 mg/dL (1.6-2.6); Phosphorus 5.9 mg/dL (2.5-4.9); Potassium 6.6 mmol/L (3.5-5.1); Protein, Total 6.6 g/dL (6.4-8.2); Sodium Level 144 mmol/L (136-145); Thyroid Stim Hormone (TSH) 0.92 uIU/mL (0.358-3.74)
[2019-03-18 04:56] LABS: Allen Test POS; Base Excess 5 mmol/L (-2 to +2); Bicarbonate 30.4 mmol/L (22-26); Blood Gas Specimen Type ART; FI02 45; Mode A-C; O2 Delivery Device Vent; PEEP 5; PO2 64 mmHG (75-100); RR 16; SITE R Radial; SO2 91 % (95-99); Time Given 450; Total Carbon Dioxide 32 mmol/L; Vt 400; pCO2 54.5 mmHg (35-45); pH 7.35 (7.35-7.45)
--- NOTE | 2019-03-18 06:13 | PCM.CON.CC ---
Reason for Consult Date of Consultation: 03/18/19 Reason for Consultation: Acute respiratory failure History of Present Illness: The patient is a 69-year-old female, with a history as outlined below, who presented to the emergency department on March 17 with complaints of shortness of breath. History was obtained primarily via chart review, as the patient is currently intubated and there are no family members available at the bedside. On presentation to the emergency department, the patient was noted to be afebrile and hemodynamically stable. She was exceedingly tachypneic and hypoxic, initially requiring supplemental oxygen. Laboratory evaluation revealed no evidence of a leukocytosis. The patient was, nevertheless, anemic with a presenting hemoglobin of 6.4 g/dL. Previously, the patient was noted to have a hemoglobin of 12.3 g/dL in September 2018. Coagulation profile was within normal limits. Initial arterial blood gas obtained on 2 L/min revealed a pH of 7.27 with a corresponding PCO2 of 76 and PO2 of 66. Chemistry profile was notable for a potassium of 6.1, bicarbonate of 35 and creatinine of 2.06. Prior creatinine in September 2018 was noted to be 1.15. AST and ALT were increased to 62 and 117, respectively. Alkaline phosphatase was increased to 172. Troponin was negative. Urinalysis was largely unremarkable. MRSA screen was negative. Plain film chest x-ray revealed opacification of the right mid and lower lung fuller. The patient was initially treated with aerosols and IV Solu-Medrol. She was placed on BiPAP therapy and started on antimicrobials. Supplemental IV fluids were also administered. The patient was typed and crossed for 4 units of packed red blood cells with instructions to infuse 1 unit. She was subsequently admitted to the medical intensive care unit for further management. Overnight, the patient received 1 unit of packed red blood cells. Hemoglobin increased to 8.4 g/dL this morning. Unfortunately, despite the use of noninvasive positive pressure ventilation, the patient continued to decompensate from a respiratory perspective. A follow-up arterial blood gas on BiPAP revealed a pH of 7.12 with a corresponding PCO2 of 106 and PO2 of 78. Therefore, the decision was made to intubate the patient, as she had become progressively obtunded. A follow-up arterial blood gas after intubation revealed a pH of 7.35 with a corresponding PCO2 of 54 and PO2 of 64. The patient is currently on both propofol and fentanyl for sedation. Antibiotics were broadened last evening to include Zosyn and vancomycin. No significant amount of secretions were noted overnight by the nursing or respiratory staff. Past Medical History Past Medical History (Chronic Problems): Chronic Problems Cervical spondylosis with myelopathy (Chronic) HH (hiatus hernia) (Chronic) Allergies nickel Allergy (Verified 03/17/19 18:10) Other Home Medications: Ambulatory Orders Medication Instructions Recorded Albuterol IH (ProAir) [Proair Hfa] 2 puff INHALATION Q4H PRN 12/17/17 Furosemide [Lasix] 20 mg PO QODAY 12/17/17 Lisinopril [Zestril] 10 mg PO DAILY 12/17/17 Ascorbic Acid [Vitamin C] 500 mg PO BID 03/17/19 Aspirin E.C. [Ecotrin] 1 tab PO DAILY 03/17/19 Budesonide [Pulmicort] 0.5 mg IH DAILY 03/17/19 Cholecalciferol (VIT D3) [Vitamin 1,000 unit PO DAILY 03/17/19 D] Cyanocobalamin (Vitamin B-12) 1,000 mcg PO DAILY 03/17/19 [Vitamin B-12] Ipratropium/Albuterol Sulfate 3 ml INHALATION Q4HWA.RT 03/17/19 [Duoneb] Magnesium Chloride 70 mg PO DAILY 03/17/19 [place]-3 Fatty Acids/Fish Oil [Fish 2,000 mg PO DAILY 03/17/19 Oil 1,000 mg Capsule] Pyridoxine HCl (Vitamin B6) 600 mg PO DAILY 03/17/19 [Vitamin B-6] cycloBENZAPRine HCl [Flexeril] 10 mg PO BID PRN PRN 03/17/19 Smoking Status: Current every day smoker Tobacco Use: Cigarettes - *Family History Paternal History Items: COPD Review of Systems Unable to obtain accurate/complete ROS d/t: Due to current intubation and mechanical ventilation status Patient Problems: Active and Suspected Problems Acute respiratory failure with hypoxia and hypercapnia (Acute) Bilateral pneumonia (Acute) COPD exacerbation (Acute) Acute anemia (Acute) Acute renal failure superimposed on stage 3 chronic kidney disease (Acute) Objective: The patient's most recent lab work, culture data and imaging studies have all been personally reviewed. - Physical Exam General: - - Currently intubated, sedated and mechanically ventilated. HEENT: Atraumatic, PERRLA, Normocephalic Oral: No Gingival or Mucosal Lesions/ Ulcerations, - - Endotracheal and OG tubes currently in place. Neck: Supple, No Nodes, Trachea Midline Lungs: No rhonchi, No wheeze, No rales, Diminished Cardiovascular: Regular rate, Regular Rhythm, Normal S1, Normal S2, No murmurs Abdomen: Bowel Sounds Present, Soft, Non Tender Extremities: No clubbing, No cyanosis, Edema Skin: No breakdown Musculoskeletal: No Tenderness to Palpation of Joints or Extremities Lymphatic: No Cervical, Supraclavicular, or Inguinal Adenopathy Neurological: - - No focal neurological deficits. Currently sedated. Vital Signs Temp Pulse Resp BP Pulse Ox 96.9 F L 71 16 109/67 96 03/18/19 04:00 03/18/19 06:00 03/18/19 06:00 03/18/19 06:00 03/18/19 06:00 Oxygen Flow Rate (L/min) 45 Oxygen Delivery Method Mechanical Ventilator Weight: 151 lb 3.794 oz Body Mass Index (BMI) 25.7 Intake and Output for Last 24 Hours 03/16/19 03/17/19 03/18/19 23:59 23:59 23:59 Intake Total 2415 / 2414 1426.98 / 1426.98 Output Total 400 / 400 Balance 2414 1026.98 / 1026.98 Microbiology Past 72 Hours 03/17/19 23:40 Streptococcus pneumoniae Antigen (M - Final Urine Catheter - Catheter 03/17/19 23:40 Legionella Antigen - Final Urine Catheter - Catheter Laboratory Tests Past 24 Hrs 03/17/19 03/17/19 03/17/19 18:35 18:35 18:55 WBC 10.9 RBC 2.43 L Hgb 6.4 L Hct 22.5 L MCV 92.6 MCH 26.3 L MCHC 28.4 L RDW Std Deviation 56.1 H RDW Coeff of Mya 16.6 H Plt Count 450 MPV 9.8 Immature Gran % (Auto) 0.500 Neut % (Auto) 78.8 H Lymph % (Auto) 9.2 L Sharkey % (Auto) 10.3 H Eos % (Auto) 0.7 Baso % (Auto) 0.5 Absolute Neuts (auto) 8.6 H Absolute Lymphs (auto) 1.00 Nucleated RBC % 0.4 PT INR APTT Specimen Type Sample Site pH Bicarbonate Actual POC Total CO2 Base Excess O2 Saturation O2 % ABG pCO2 ABG pO2 Kevin Test Respiration Rate O2 Delivery Device Liter Flow Minute Volume Vent Mode Tidal Volume POC PEEP EPAP IPAP Blood Gas Notified Whom Blood Gas Notified Time Sodium 139 Potassium 6.1 H* Chloride 102 Carbon Dioxide 35.0 H Anion Gap 2 L BUN 84 H Creatinine 2.06 H Estim Creat Clear Calc 18.25 Est GFR (MDRD) Af Amer 31 L Est GFR (MDRD) Non-Af 25 L BUN/Creatinine Ratio 40.8 H Glucose 112 H Lactic Acid 1.5 Calcium 9.3 Phosphorus Magnesium Total Bilirubin Direct Bilirubin AST ALT Alkaline Phosphatase Total Creatine Kinase Troponin I < 0.015 Total Protein Albumin Globulin Albumin/Globulin Ratio Triglycerides TSH Urine Color Urine Clarity Urine pH Ur Specific [place] Urine Protein Urine Glucose (UA) Urine Ketones Urine Occult Blood Urine Nitrite Urine Bilirubin Urine Urobilinogen Ur Leukocyte Esterase MRSA (PCR) Blood Type Antibody Screen Crossmatch 03/17/19 03/17/19 03/17/19 19:28 22:00 22:05 WBC RBC Hgb Hct MCV MCH MCHC RDW Std Deviation RDW Coeff of Mya Plt Count MPV Immature Gran % (Auto) Neut % (Auto) Lymph % (Auto) Sharkey % (Auto) Eos % (Auto) Baso % (Auto) Absolute Neuts (auto) Absolute Lymphs (auto) Nucleated RBC % PT INR APTT Specimen Type ART Sample Site L Radial pH 7.27 L Bicarbonate Actual 34.9 H POC Total CO2 37 Base Excess 8 H O2 Saturation 89 L O2 % ABG pCO2 76.1 H* ABG pO2 66 L Kevin Test POS Respiration Rate O2 Delivery Device Nasal Can Liter Flow 2.0 Minute Volume Vent Mode Tidal Volume POC PEEP EPAP IPAP Blood Gas Notified Whom ED Blood Gas Notified Time 1924 Sodium Potassium Chloride Carbon Dioxide Anion Gap BUN Creatinine Estim Creat Clear Calc Est GFR (MDRD) Af Amer Est GFR (MDRD) Non-Af BUN/Creatinine Ratio Glucose Lactic Acid Calcium Phosphorus Magnesium Total Bilirubin Direct Bilirubin AST ALT Alkaline Phosphatase Total Creatine Kinase Troponin I Total Protein Albumin Globulin Albumin/Globulin Ratio Triglycerides TSH Urine Color Urine Clarity Urine pH Ur Specific [place] Urine Protein Urine Glucose (UA) Urine Ketones Urine Occult Blood Urine Nitrite Urine Bilirubin Urine Urobilinogen Ur Leukocyte Esterase MRSA (PCR) Negative Blood Type O POSITIVE Antibody Screen NEGATIVE Crossmatch See Detail 03/17/19 03/17/19 03/17/19 22:05 22:05 22:05 WBC RBC Hgb 6.6 L Hct 23.5 L MCV MCH MCHC RDW Std Deviation RDW Coeff of Mya Plt Count MPV Immature Gran % (Auto) Neut % (Auto) Lymph % (Auto) Sharkey % (Auto) Eos % (Auto) Baso % (Auto) Absolute Neuts (auto) Absolute Lymphs (auto) Nucleated RBC % PT 14.7 INR 1.2 APTT 28.1 Specimen Type Sample Site pH Bicarbonate Actual POC Total CO2 Base Excess O2 Saturation O2 % ABG pCO2 ABG pO2 Kevin Test Respiration Rate O2 Delivery Device Liter Flow Minute Volume Vent Mode Tidal Volume POC PEEP EPAP IPAP Blood Gas Notified Whom Blood Gas Notified Time Sodium Potassium Chloride Carbon Dioxide Anion Gap BUN Creatinine Estim Creat Clear Calc Est GFR (MDRD) Af Amer Est GFR (MDRD) Non-Af BUN/Creatinine Ratio Glucose Lactic Acid Calcium Phosphorus Magnesium Total Bilirubin 0.20 Direct Bilirubin 0.12 AST 62 H ALT 117 H Alkaline Phosphatase 172 H Total Creatine Kinase Troponin I Total Protein 6.7 Albumin 3.1 L Globulin 3.6 Albumin/Globulin Ratio Triglycerides TSH Urine Color Urine Clarity Urine pH Ur Specific [place] Urine Protein Urine Glucose (UA) Urine Ketones Urine Occult Blood Urine Nitrite Urine Bilirubin Urine Urobilinogen Ur Leukocyte Esterase MRSA (PCR) Blood Type Antibody Screen Crossmatch 03/17/19 03/18/19 03/18/19 23:40 02:04 03:30 WBC 10.5 RBC 3.07 L Hgb 8.4 L Hct 29.1 L MCV 94.8 MCH 27.4 MCHC 28.9 L RDW Std Deviation 55.5 H RDW Coeff of Mya 15.9 H Plt Count 450 MPV 9.9 Immature Gran % (Auto) 1.000 H Neut % (Auto) 95.8 H Lymph % (Auto) 2.0 L Sharkey % (Auto) 1.0 Eos % (Auto) 0.0 Baso % (Auto) 0.2 Absolute Neuts (auto) 10.1 H Absolute Lymphs (auto) 0.21 L Nucleated RBC % 0.5 PT INR APTT Specimen Type ART Sample Site R Radial pH 7.12 L* Bicarbonate Actual 34.4 H POC Total CO2 38 Base Excess 5 H O2 Saturation 89 L O2 % 45 ABG pCO2 105.7 H* ABG pO2 78 Kevin Test POS Respiration Rate 12 O2 Delivery Device Bi / C PAP Liter Flow Minute Volume Vent Mode Tidal Volume POC PEEP EPAP 7 IPAP 14 Blood Gas Notified Whom HOSP Blood Gas Notified Time Sodium Potassium Chloride Carbon Dioxide Anion Gap BUN Creatinine Estim Creat Clear Calc Est GFR (MDRD) Af Amer Est GFR (MDRD) Non-Af BUN/Creatinine Ratio Glucose Lactic Acid Calcium Phosphorus Magnesium Total Bilirubin Direct Bilirubin AST ALT Alkaline Phosphatase Total Creatine Kinase Troponin I Total Protein Albumin Globulin Albumin/Globulin Ratio Triglycerides TSH Urine Color Yellow Urine Clarity Clear Urine pH 6.0 Ur Specific [place] 1.020 Urine Protein 30 H Urine Glucose (UA) Normal Urine Ketones Negative Urine Occult Blood Negative Urine Nitrite Negative Urine Bilirubin Negative Urine Urobilinogen Normal Ur Leukocyte Esterase Negative MRSA (PCR) Blood Type Antibody Screen Crossmatch 03/18/19 03/18/19 03/18/19 03:30 03:30 04:52 WBC RBC Hgb Hct MCV MCH MCHC RDW Std Deviation RDW Coeff of Mya Plt Count MPV Immature Gran % (Auto) Neut % (Auto) Lymph % (Auto) Sharkey % (Auto) Eos % (Auto) Baso % (Auto) Absolute Neuts (auto) Absolute Lymphs (auto) Nucleated RBC % PT INR APTT Specimen Type ART Sample Site R Radial pH 7.35 Bicarbonate Actual 30.4 H POC Total CO2 32 Base Excess 5 H O2 Saturation 91 L O2 % 45 ABG pCO2 54.5 H ABG pO2 64 L Kevin Test POS Respiration Rate 16 O2 Delivery Device Vent Liter Flow Minute Volume 7.00 Vent Mode A-C Tidal Volume 400 POC PEEP 5 EPAP IPAP Blood Gas Notified Whom ICU Blood Gas Notified Time 450 Sodium 144 Potassium 6.6 H* Chloride 108 H Carbon Dioxide 30.0 Anion Gap 6 BUN 76 H Creatinine 1.83 H Estim Creat Clear Calc 23.66 Est GFR (MDRD) Af Amer 35 L Est GFR (MDRD) Non-Af 29 L BUN/Creatinine Ratio 41.5 H Glucose 105 Lactic Acid Calcium 8.2 L Phosphorus 5.9 H Magnesium 3.7 H Total Bilirubin 0.50 Direct Bilirubin AST 68 H ALT 122 H Alkaline Phosphatase 163 H Total Creatine Kinase 71 Troponin I Total Protein 6.6 Albumin 3.0 L Globulin 3.6 Albumin/Globulin Ratio 0.8 L Triglycerides 47 TSH 0.92 Urine Color Urine Clarity Urine pH Ur Specific [place] Urine Protein Urine Glucose (UA) Urine Ketones Urine Occult Blood Urine Nitrite Urine Bilirubin Urine Urobilinogen Ur Leukocyte Esterase MRSA (PCR) Blood Type Antibody Screen Crossmatch POC Glucose 03/17/19 03/17/19 23:49 22:21 POC Glucose 164 H 168 H Clinical Impression(s) from Imaging Studies Chest X-Ray 03/17/19 18:40 IMPRESSION: Indeterminate opacity within the right mid and lower lung this may be secondary to underlying atelectasis and or pneumonia with a possible associated effusion, cannot exclude an underlying neoplastic process. Consider a CT for further characterization. Electronically Signed: Sarai Smith MD at 19:12 EDT Tel , Service support , Assessment/Plan Active and Suspected Problems Acute respiratory failure with hypoxia and hypercapnia (Acute) Bilateral pneumonia (Acute) COPD exacerbation (Acute) Acute anemia (Acute) Acute renal failure superimposed on stage 3 chronic kidney disease (Acute) RECOMMENDATIONS: 1. Wean FiO2 to maintain oxygen saturations at or above 90%. 2. Obtain sputum and send for culture. 3. Continue broad-spectrum antimicrobial coverage, pending infectious work-up. 4. Medical management of hyperkalemia. 5. Monitor blood counts daily. No indication for transfusion of additional blood products. 6. Avoid NSAIDs. Continue PPI therapy twice daily. 7. Start tube feeds today. 8. Continue bronchodilators and steroids. IMPRESSIONS: 1. Acute combined respiratory failure The patient is apparently followed by Dr. Holley at [facility] for COPD. The patient was admitted with impending respiratory failure, which did not respond to the use of noninvasive positive pressure ventilatory support. Therefore, the patient had to be intubated. For now, she will remain on broad-spectrum antimicrobials, pending infectious work-up. FiO2 can be weaned to maintain an oxygen saturation at or above 90%. Continue bronchodilators as ordered along with IV steroids. Tube feeds can be initiated today from my perspective. Plan to perform spontaneous awakening and breathing trial beginning tomorrow. 2. Severe sepsis with concerns for underlying pulmonary infectious process The patient is currently on appropriate antimicrobials and remains hemodynamically stable following IV fluid resuscitation. Continue current supportive measures as noted above. 3. Anemia Potentially related to an upper GI source of blood loss in the setting of chronic NSAID utilization. The patient has been transfused 1 unit of packed red blood cells with appropriate incrementation in her hemoglobin. Plan to continue to monitor H&H daily, with plan to transfuse if hemoglobin drops below 7 g/dL. Continue to hold all NSAIDs. Continue PPI therapy as ordered. 4. Acute on chronic kidney disease/hyperkalemia Potentially prerenal in etiology in the setting of the above. Continue current medical management for underlying hyperkalemia. Recommend stopping continuous normal saline, as the patient's sodium and chloride levels are climbing. 5. Elevated transaminases Unclear etiology at this time. Recommend checking GGT level. We will also obtain right upper quadrant ultrasound. TIME: 45 minutes of critical care time, independent of procedures, was spent addressing the patient's acute combined respiratory failure, severe sepsis with concerns for underlying pulmonary infectious process, anemia, acute on chronic kidney disease, hyperkalemia, elevated transaminases, review of all data and collaboration with the care team. ([id number]) Code Visit 9xxxx: [id number] Critical care first hour
[2019-03-18] MEDS: Sodium Polystyrene Sulfonate 15 GM/60 ML UDC 30 GM NG (06:34)
[2019-03-18] MEDS: Sodium Bicarbonate 8.4% 50 ML Syringe 100 MEQ IV (06:48)
[2019-03-18 06:50] LABS: Bedside Glucose 89 mg/dL (70-110)
--- NOTE | 2019-03-18 07:01 | ECHOD_ITS ---
Reason For Study: Dyspnea/SOB Procedure This was a 2D Doppler, Color Flow transthoracic echocardiogram. The study was technically difficult. Patient on Vent. Exam performed portable in ICU/CCU. Left Ventricle Normal LV size. The estimated ejection fraction is 60 %. Normal diastology for age. No regional wall motion abnormalities noted. Right Ventricle Moderately dilated right ventricle. Normal systolic function. Atria Normal left atrium. Normal right atrium. No doppler evidence for ASD. Mitral Valve There is no mitral valve stenosis. No mitral valve insufficiency. Tricuspid Valve There is no tricuspid stenosis. Trivial tricuspid valve insufficiency. Pulmonary artery systolic pressure is 40-45 mmHg. Aortic Valve Trisinus/trileaflet aortic valve. There is no aortic stenosis. No aortic valve insufficiency. Pulmonic Valve There is no pulmonic valvular stenosis. No pulmonic valve insufficiency identified. Great Vessels Normal aortic root. Pericardium/Pleural No pericardial effusion. MMode/2D Measurements & Calculations LVIDd: 3.7 cm IVSd: 1.0 cm LAV(MOD-bp): 40.0 ml LVIDs: 2.3 cm LVPWd: 1.1 cm LAV(MOD-sp2): 46.3 ml FS: 38.2 % LAV(MOD-sp4): 32.8 ml LA A4 area: 14.9 cm2 RA A4 area: 14.2 cm2 Time Measurements MV dec time: 0.33 sec Doppler Measurements & Calculations MV E max jagdeep: 108.4 cm/sec Lat Peak E' Jagdeep: 12.5 cm/sec Med Peak E' Jagdeep: 10.5 cm/sec MV A max jagdeep: 120.2 cm/sec E/E' lat: 8.7 E/E' med: 10.4 MV E/A: 0.90 MV V2 max: 141.6 cm/sec MV P1/2t max jagdeep: 120.4 cm/sec Ao V2 max: 184.2 cm/sec MV max P.0 mmHg MV P1/2t: 102.7 msec Ao max P.6 mmHg MV V2 mean: 78.9 cm/sec MV dec slope: 343.3 cm/sec2 MV mean P.9 mmHg MVA(P1/2t): 2.1 cm2 MV V2 VTI: 42.2 cm LV V1 max: 177.9 cm/sec PA V2 max: 102.1 cm/sec TR max jagdeep: 307.8 cm/sec LV V1 max P.7 mmHg TR max P.9 mmHg Interpretation Summary The estimated ejection fraction is 60 %. Normal diastology for age. Pulmonary artery systolic pressure is 40-45 mmHg. Ordering Physician: Jose Hutson Referring Physician: Akira Zhang Performed By: Varghese Palacios RCS
--- NOTE | 2019-03-18 07:02 | US_ITS ---
STUDY: ABDOMINAL ULTRASOUND - RIGHT UPPER QUADRANT REASON FOR VISIT: Female, 69 years old. Elevated LFTs. TECHNIQUE: Ultrasound evaluation of the right upper quadrant was performed with real-time and static fernandez-scale imaging. TECHNICAL QUALITY: Limited by patient condition. COMPARISON: None. FINDINGS: Liver: The liver measures 17.5 cm. The left lobe of the liver is not well-visualized. There is normal echogenicity of the liver. The bile ducts are within normal limits. There is hepatic color flow. The direction of portal flow is hepatopetal. There is no demonstrated mass lesion. Gallbladder: Normal distended gallbladder. The gallbladder wall measures 2 mm. There is a negative sonographic Dudley's sign. There is no pericholecystic fluid. There are no gallstones. Common Bile Duct (C.B.D.): The common bile duct measures 4 mm. Pancreas: There is nonvisualization of the pancreas. Right Kidney: Normal size of the right kidney. The right kidney measures 11.5 cm. Normal renal cortex. There are cysts noted in the right kidney with the largest measuring 4.8 x 4.3 cm. There is no right hydronephrosis. US/Liver IMPRESSION: Limited study. Left lobe of the liver not well visualized. The visualized liver is within normal limits. Normal gallbladder. Pancreas not visualized. Right renal cysts. No hydronephrosis. Electronically Signed: Saurav Torres, at 13:12 EDT Tel , Service support ,
--- NOTE | 2019-03-18 07:12 | PN_ITS ---
Patient Problems: Active and Suspected Problems Acute respiratory failure with hypoxia and hypercapnia (Acute) Bilateral pneumonia (Acute) COPD exacerbation (Acute) Acute anemia (Acute) Acute renal failure superimposed on stage 3 chronic kidney disease (Acute) Subjective: CC follow-up acute respiratory failure Patient is a 69-year-old lady with history of COPD admitted with progressive shortness of breath and weakness. An assessment of acute hypoxic and hypercapnic respiratory failure was made admitted to the intensive care unit. Patient condition deteriorated resulting in patient being intubated Objective: GENERAL: Sedated on the vent HEENT: Tongue and lips swelling, ET tube in place EYES; Anicteric, Normal Conjunctiva NECK; supple, normal thyroid, RESPIRATORY: Diminished to auscultation with wheezes bilaterally CARDIOVASCULAR: Regular S1 S2, GI: soft, non-tender, normoactive bowel sounds, : No Renal angle tenderness; EXTREMITIES: Trace bipedal edema. MUSCULOSKELETAL: no muscle waisting NEURO: Sedated on the vent SKIN: No Rash PSYCH; unable to assess patient on the vent Vitals/I&O's: Vital Signs Temp Pulse Resp BP Pulse Ox 96.9 F L 71 16 122/66 H 100 03/18/19 04:00 03/18/19 06:59 03/18/19 06:59 03/18/19 06:59 03/18/19 06:59 Oxygen Flow Rate (L/min) 45 Oxygen Delivery Method Mechanical Ventilator Weight: 68.6 kg Body Mass Index (BMI) 25.7 Intake and Output for Last 24 Hours 03/16/19 03/17/19 03/18/19 23:59 23:59 23:59 Intake Total 2415 / 2415 1525.55 / 1525.55 Output Total 400 / 400 Balance 2414 1125.55 / 1125.55 Microbiology Past 72 Hours 03/17/19 23:40 Urine Catheter - Catheter Streptococcus pneumoniae Antigen (M - Final 03/17/19 23:40 Urine Catheter - Catheter Legionella Antigen - Final Laboratory Results 03/17/19 18:35: WBC 10.9, RBC 2.43 L, Hgb 6.4 L, Hct 22.5 L, MCV 92.6, MCH 26.3 L, MCHC 28.4 L, RDW Std Deviation 56.1 H, RDW Coeff of Mya 16.6 H, Plt Count 450, MPV 9.8, Immature Gran % (Auto) 0.500, Neut % (Auto) 78.8 H, Lymph % (Auto) 9.2 L, [place] % (Auto) 10.3 H, Eos % (Auto) 0.7, Baso % (Auto) 0.5, Absolute Neuts (auto) 8.6 H, Absolute Lymphs (auto) 1.00, Nucleated RBC % 0.4 03/17/19 18:35: Sodium 139, Potassium 6.1 H*, Chloride 102, Carbon Dioxide 35.0 H, Anion Gap 2 L, BUN 84 H, Creatinine 2.06 H, Estim Creat Clear Calc 18.25, Est GFR (MDRD) Af Amer 31 L, Est GFR (MDRD) Non-Af 25 L, BUN/Creatinine Ratio 40.8 H , Glucose 112 H, Calcium 9.3, Troponin I < 0.015 03/17/19 18:55: Lactic Acid 1.5 03/17/19 19:28: Specimen Type ART, Sample Site L Radial, pH 7.27 L, Bicarbonate Actual 34.9 H, POC Total CO2 37, Base Excess 8 H, O2 Saturation 89 L, ABG pCO2 76.1 H*, ABG pO2 66 L, Kevin Test POS, O2 Delivery Device Nasal Can, Liter Flow 2.0, Blood Gas Notified Whom ED , Blood Gas Notified Time 192403/17/19 22:00: MRSA (PCR) Negative 03/17/19 22:05: Blood Type O POSITIVE, Antibody Screen NEGATIVE, Crossmatch See Detail 03/17/19 22:05: Hgb 6.6 L, Hct 23.5 L 03/17/19 22:05: PT 14.7, INR 1.2, APTT 28.1 03/17/19 22:05: Total Bilirubin 0.20, Direct Bilirubin 0.12, AST 62 H, ALT 117 H , Alkaline Phosphatase 172 H, Total Protein 6.7, Albumin 3.1 L, Globulin 3.6 03/17/19 22:21: POC Glucose 168 H 03/17/19 23:40: Urine Color Yellow, Urine Clarity Clear, Urine pH 6.0, Ur Specific [place] 1.020, Urine Protein 30 H, Urine Glucose (UA) Normal, Urine Ketones Negative, Urine Occult Blood Negative, Urine Nitrite Negative, Urine Bilirubin Negative, Urine Urobilinogen Normal, Ur Leukocyte Esterase Negative 03/17/19 23:49: POC Glucose 164 H 03/18/19 02:04: Specimen Type ART, Sample Site R Radial, pH 7.12 L*, Bicarbonate Actual 34.4 H, POC Total CO2 38, Base Excess 5 H, O2 Saturation 89 L, O2 % 45, ABG pCO2 105.7 H*, ABG pO2 78, Kevin Test POS, Respiration Rate 12, O2 Delivery Device Bi / C PAP, EPAP 7, IPAP 14, Blood Gas Notified Whom HOSP 03/18/19 03:20: B-Natriuretic Peptide Pending 03/18/19 03:20: GGT Pending 03/18/19 03:30: WBC 10.5, RBC 3.07 L, Hgb 8.4 L, Hct 29.1 L, MCV 94.8, MCH 27.4, MCHC 28.9 L, RDW Std Deviation 55.5 H, RDW Coeff of Mya 15.9 H, Plt Count 450, MPV 9.9, Immature Gran % (Auto) 1.000 H, Neut % (Auto) 95.8 H, Lymph % (Auto) 2.0 L, [place] % (Auto) 1.0, Eos % (Auto) 0.0, Baso % (Auto) 0.2, Absolute Neuts (auto) 10.1 H, Absolute Lymphs (auto) 0.21 L, Nucleated RBC % 0.5 03/18/19 03:30: Sodium 144, Potassium 6.6 H*, Chloride 108 H, Carbon Dioxide 30.0, Anion Gap 6, BUN 76 H, Creatinine 1.83 H, Estim Creat Clear Calc 23.66, Est GFR (MDRD) Af Amer 35 L, Est GFR (MDRD) Non-Af 29 L, BUN/Creatinine Ratio 41.5 H, Glucose 105, Calcium 8.2 L, Phosphorus 5.9 H, Magnesium 3.7 H, Total Bilirubin 0.50, AST 68 H, ALT 122 H, Alkaline Phosphatase 163 H, Total Protein 6.6, Albumin 3.0 L, Globulin 3.6, Albumin/Globulin Ratio 0.8 L, TSH 0.92 03/18/19 03:30: Total Creatine Kinase 71, Triglycerides 47 03/18/19 04:52: Specimen Type ART, Sample Site R Radial, pH 7.35, Bicarbonate Actual 30.4 H, POC Total CO2 32, Base Excess 5 H, O2 Saturation 91 L, O2 % 45, ABG pCO2 54.5 H, ABG pO2 64 L, Kevin Test POS, Respiration Rate 16, O2 Delivery Device Vent, Minute Volume 7.00, Vent Mode A-C, Tidal Volume 400, POC PEEP 5, Blood Gas Notified Whom ICU MD, Blood Gas Notified Time 450 03/18/19 06:42: POC Glucose 89 Current Medications Acetaminophen (Tylenol Liquid) 650 mg PO Q6H PRN PRN PRN Reason: Pain Score 1-3/Temp > 100.7 F Albuterol Sulfate (Ventolin Aerosols) 2.5 mg INHALATION Q2H PRN PRN PRN Reason: SHORTNESS OF BREATH Albuterol/Ipratropium (Duoneb) 3 ml INHALATION Q4H.RT [facility] Last Admin: 03/18/19 06:44 Dose: 3 ml Documented by: Chlorhexidine Gluconate () 15 ml PO BID [facility] Chlorhexidine Gluconate () 1 each TOPICAL DAILY [facility] Dextrose (D50w Syringe) 0 gm IV X1 PRN; Protocol PRN Reason: Hypoglycemia Diphenhydramine HCl (Benadryl) 25 mg IV Q4H PRN PRN PRN Reason: allergy/rash Last Admin: 03/18/19 03:55 Dose: 25 mg Documented by: Glucagon () 1 mg IM .X1 PRN PRN Reason: Hypoglycemia Guaifenesin (Mucinex) 1,200 mg PO BID [facility] Last Admin: 03/17/19 22:46 Dose: Not Given Documented by: Piperacillin Sod/Tazobactam (Sod 3.375 gm/ Sodium Chloride) 50 mls @ 12.5 mls/hr IV Q12 [facility] Last Infusion: 03/18/19 04:01 Dose: Infused Documented by: Pantoprazole Sodium 40 mg/ (Sodium Chloride) 110 mls @ 330 mls/hr IV Q12 [facility] Last Infusion: 03/17/19 22:52 Dose: Infused Documented by: Vancomycin IV Pharmacy to Dose (1 ea/ Sodium Chloride) 500 mls @ 250 mls/hr IV PRN PRN; Protocol PRN Reason: VANC Vancomycin HCl () 500 mg in 100 mls @ 100 mls/hr IV Q24H [facility] Sodium Chloride () 250 mls @ 15 mls/hr IV .[id number] PRN PRN Reason: SALINE FLUSH Sodium Chloride () 500 mls @ 15 mls/hr IV .[id number] PRN PRN Reason: SALINE FLUSH Propofol (Diprivan) 1,000 mg in 100 mls @ 3.954 mls/hr CONT INF .Q12H [facility]; Protocol Last Titration: 03/18/19 07:00 Dose: 30 mcg/kg/min, 11.9 mls/hr Documented by: Fentanyl () 100 mls @ 5 mls/hr IV UD [facility]; Protocol Last Titration: 03/18/19 07:00 Dose: 150 mcg/hr, 15 mls/hr Documented by: Famotidine 20 mg/ Sodium (Chloride) 10 mls @ 300 mls/hr IV Q24 [facility] Insulin Human Lispro (Humalog Kwikpen (Bkc)) 0 unit SC ACHS [facility]; Protocol Last Admin: 03/18/19 06:54 Dose: Not Given Documented by: Methylprednisolone (Solu-Medrol) 40 mg IV Q8 [facility] Last Admin: 03/18/19 05:33 Dose: 40 mg Documented by: Ondansetron HCl (Zofran) 4 mg IV Q8H PRN PRN PRN Reason: NAUSEA/VOMITING Senna/Docusate Sodium (Senokot-S, Francoise-Colace) 2 tablet GT BID PRN PRN PRN Reason: Constipation Sodium Chloride () 5 - 15 ml IV UD PRN PRN Reason: SALINE FLUSH Medical Necessity - Tobacco Use Smoking Status: Current every day smoker Tobacco Use: Cigarettes Assessment/Plan All Active Problems Acute respiratory failure with hypoxia and hypercapnia (Acute) Bilateral pneumonia (Acute) COPD exacerbation (Acute) Acute anemia (Acute) Acute renal failure superimposed on stage 3 chronic kidney disease (Acute) Patient is a 69-year-old lady with history of COPD admitted with progressive shortness of breath and weakness. An assessment of acute hypoxic and hypercapnic respiratory failure was made admitted to the intensive care unit. Patient condition deteriorated resulting in patient being intubated 1. Acute hypoxic and hypercapnic respiratory failure ~Patient condition deteriorated resulting in patient being intubated on 1219. Currently being managed in the ICU management of the vent defer to the safety technician 2. COPD with acute exacerbation ~Contributed to above patient currently on broad-spectrum antibiotic therapy, aerosol treatment in addition to systemic steroids. Also on the vent. 3. Pneumonia with suspected drug resistance organisms ~Respiratory status deteriorated resulting in patient being intubated. Her antibiotic therapy was broadened to cover for Pseudomonas as well as MRSA subsequently started on Zosyn and vancomycin. Chest obtained on admission demonstrated Indeterminate opacity within the right mid and lower lung this may be secondary to underlying atelectasis and or pneumonia with a possible associated effusion, cannot exclude an underlying neoplastic process. Plan is to obtain CT of the chest to further evaluate once patient is medically stable 4. Hyperkalemia ~secondary to acute kidney injury superimposed on chronic kidney disease the patient did receive calcium gluconate in addition to serial cardiac enzymes subsequent serial BMPs ordered for monitoring 5. Acute kidney injury ~Baseline creatinine 1.2- 1.3 creatinine on admission was 2.06 started on fluids with subsequent monitoring of electrolyte 6. Chronic kidney disease ~stage II baseline creatinine 1.2-1.3 7. Anemia (normocytic anemia) ~Undetermined etiology however there was high suspicion for possible GI source given patient use of nonsteroidal anti-inflammatory medication. Patient did receive 1 unit PRBC. Subsequently started on Protonix plan is for patient to undergo endoscopic evaluation when medically stable 8. Tobacco dependence ~do plan to credit counselor once patient is extubated 9. History of cervical spondylosis with myelopathy ~status post cervical spine fusion 10. DVT prophylaxis Avoided the use of chemoprophylaxis in view of patient's severe anemia as well as suspicion for possible GI bleed. Subsequently initiated SCDs Active Medications Acetaminophen (Tylenol Liquid) 650 mg PO Q6H PRN PRN PRN Reason: Pain Score 1-3/Temp > 100.7 F Albuterol Sulfate (Ventolin Aerosols) 2.5 mg INHALATION Q2H PRN PRN PRN Reason: SHORTNESS OF BREATH Albuterol/Ipratropium (Duoneb) 3 ml INHALATION Q4H.RT [facility] Last Admin: 03/18/19 06:44 Dose: 3 ml Documented by: Chlorhexidine Gluconate () 15 ml PO BID [facility] Chlorhexidine Gluconate () 1 each TOPICAL DAILY [facility] Dextrose (D50w Syringe) 0 gm IV X1 PRN; Protocol PRN Reason: Hypoglycemia Diphenhydramine HCl (Benadryl) 25 mg IV Q4H PRN PRN PRN Reason: allergy/rash Last Admin: 03/18/19 03:55 Dose: 25 mg Documented by: Glucagon () 1 mg IM .X1 PRN PRN Reason: Hypoglycemia Guaifenesin (Mucinex) 1,200 mg PO BID [facility] Last Admin: 03/17/19 22:46 Dose: Not Given Documented by: Piperacillin Sod/Tazobactam (Sod 3.375 gm/ Sodium Chloride) 50 mls @ 12.5 mls/hr IV Q12 [facility] Last Infusion: 03/18/19 04:01 Dose: Infused Documented by: Pantoprazole Sodium 40 mg/ (Sodium Chloride) 110 mls @ 330 mls/hr IV Q12 [facility] Last Infusion: 03/17/19 22:52 Dose: Infused Documented by: Vancomycin IV Pharmacy to Dose (1 ea/ Sodium Chloride) 500 mls @ 250 mls/hr IV PRN PRN; Protocol PRN Reason: VANC Vancomycin HCl () 500 mg in 100 mls @ 100 mls/hr IV Q24H [facility] Sodium Chloride () 250 mls @ 15 mls/hr IV .[id number] PRN PRN Reason: SALINE FLUSH Sodium Chloride () 500 mls @ 15 mls/hr IV .[id number] PRN PRN Reason: SALINE FLUSH Propofol (Diprivan) 1,000 mg in 100 mls @ 4.116 mls/hr CONT INF .Q12H [facility]; Protocol Last Titration: 03/18/19 08:00 Dose: 30 mcg/kg/min, 12.3 mls/hr Documented by: Fentanyl () 100 mls @ 5 mls/hr IV UD [facility]; Protocol Last Titration: 03/18/19 08:01 Dose: 150 mcg/hr, 15 mls/hr Documented by: Famotidine 20 mg/ Sodium (Chloride) 10 mls @ 300 mls/hr IV Q24 [facility] Insulin Human Lispro (Humalog Kwikpen (Bkc)) 0 unit SC ACHS [facility]; Protocol Last Admin: 03/18/19 06:54 Dose: Not Given Documented by: Methylprednisolone (Solu-Medrol) 40 mg IV Q8 [facility] Last Admin: 03/18/19 05:33 Dose: 40 mg Documented by: Ondansetron HCl (Zofran) 4 mg IV Q8H PRN PRN PRN Reason: NAUSEA/VOMITING Senna/Docusate Sodium (Senokot-S, Francoise-Colace) 2 tablet GT BID PRN PRN PRN Reason: Constipation Sodium Chloride () 5 - 15 ml IV UD PRN PRN Reason: SALINE FLUSH Clinical Impression(s) from Imaging Studies Chest X-Ray 03/17/19 18:40 IMPRESSION: Indeterminate opacity within the right mid and lower lung this may be secondary to underlying atelectasis and or pneumonia with a possible associated effusion, cannot exclude an underlying neoplastic process. Consider a CT for further characterization. Electronically Signed: Sarai Smith MD at 19:12 EDT Tel , Service support , Chest X-Ray 03/18/19 03:15 IMPRESSION: Worsening right middle lobe and right lower lobe pneumonia. Electronically Signed: Theodore Irizarry, at 7:09 EDT Tel , Service support , Code Visit Inpatient E&M: [id number] Init Hosp L3
[2019-03-18 07:34] LABS: GGTP 85 U/L (5-55)
[2019-03-18] MEDS: TITRATION PARAMETER CHANGE 1 EACH IV (07:59)
--- NOTE | 2019-03-18 08:00 | NURSING ---
hold eval till 03/19. intubated less than 12 hours
[2019-03-18] MEDS: Propofol 10MG/Ml 1,000 MG/100 ML Bottle 12.3 MG CONT INF ×2 (09:34→17:47)
[2019-03-18] MEDS: Chlorhexidine 15 ML PO ×2 (09:35→21:22)
[2019-03-18] MEDS: fentaNYL drip 100 ML 15 MCG IV ×3 (09:56→23:36)
--- NOTE | 2019-03-18 10:16 | CM.UR ---
This CM participated in interdisciplinary rounds this am. No family present for rounds. Patient remains in droplet precautions. Patient was intubated and remains on mech vent at this time. Will attempted SBT tomorrow am.
--- NOTE | 2019-03-18 10:21 | CM.UR ---
RN CM Assessment Introduced role of RN CM to SisterVesta. [facility] showed up after rounds. [facility] to participate in RN CM Assessment. Care providers, pharmacy, and demographics verified. Presentation: Increasing sob Admit Dx: resp failure Re-Admit: no Barriers/Issues: Unable to fully assess at this time. PCP: Aviva Zhang Preferred Pharmacy: [facility] Insurance: [place] MCR LNOK: Sister Luanne lives with her. LW/HPOA: none on file. Living Arrangements: Lives with sister Luanne. Patient is on second floor. She crawls up and down stairs. ADL?s: Independent Transportation: drives self DME: cane and w/c. Sister thinks she has a nebulizer too. HHC: yes but sister vesta can't remember where. SNF: None previously that she is aware of. [facility] need [facility]. Goal: Unable to determine patient's goal at this time. DC PLAN: Instructed on possible need for SNF placement and sister's are agreeable if deemed necessary. Unable to discuss with patient d/t intubation and sedated. Will alert SW to possibility. Gina Sung RN, CCM.
[2019-03-18] MEDS: CHLORHEXIDINE GLUC 2% CLOTH 1 EACH TOWELETTE TOPICAL (10:27)
[2019-03-18 12:45] LABS: Bedside Glucose 83 mg/dL (70-110)
[2019-03-18] MEDS: 0.9% NaCl Peripheral Flush Adult/Peds IV ×4 (14:10→21:28)
[2019-03-18] MEDS: Vital AF 1.2 Cal Liq 1,500 ML 40 ML GT (15:48)
[2019-03-18 18:26] LABS: Bedside Glucose 111 mg/dL (70-110)
--- NOTE | 2019-03-18 19:34 | NURSING ---
Med titration not working appropriately for fentanyl. No changes made. Medication running at 15ml (150mcg)/hr through the left antecubital
--- NOTE | 2019-03-18 19:37 | NURSING ---
Med titration not working appropriately for fentanyl. No changes made. Medication running at 15ml (150mcg)/hr through the left antecubital
--- NOTE | 2019-03-18 20:28 | NURSING ---
Titrate button is missing from AUG. When I try to enter the current rate, it keeps telling this RN that the bag is infused. Fentanyl gtt is currently infusing at 150mcg/hr or 15ml/hr. No change from previous shift.
--- NOTE | 2019-03-18 21:00 | NURSING ---
Unable to chart titration on flowsheet for Fentanyl. Fentanyl gtt remains at 150mcg/hr or 15ml/hr.
[2019-03-18] MEDS: 0.9% NaCl IVPB Med Flush (250 mL) 15 ML IV (21:35)
[2019-03-18 21:57] LABS: Vancomycin, Trough Level 10.8 ug/mL (5.0-15.0)
--- NOTE | 2019-03-18 22:00 | NURSING ---
Unable to document on Fentanyl on titration flowsheet. Fentanyl gtt remains at 150mcg/hr or 15ml/hr.
[2019-03-18] MEDS: Vancomycin IV 500 MG/100 ML BAG 100 MG IV (22:32)
--- NOTE | 2019-03-18 23:00 | NURSING ---
Unable to chart on titration flowsheet for fentanyl gtt. Fentanyl gtt remains at 150mcg/hr or 15ml/hr.
--- NOTE | 2019-03-18 23:40 | NURSING ---
Unable to complete Fentanyl gtt under titration flowsheet. Wasted 10ml Fentanyl with Sherlyn Butcher RN. Documented intake of Fentanyl under I&O's.
[2019-03-19] VITALS (40 sets, daily range): BP systolic 96–123; BP diastolic 46–62; PULSE 60–114; RESP 16–22; TEMP 36.7–37.1; O2SAT 91–98
[2019-03-19] LABS: Bedside Glucose 128 mg/dL (70-110)
[2019-03-19] MEDS: Propofol 10MG/Ml 1,000 MG/100 ML Bottle 8.2 MG CONT INF (01:36)
[2019-03-19] MEDS: Ipratropium/Albuterol Sulfate 3 ML AMPUL.NEB INHALATION ×6 (02:25→22:20)
[2019-03-19 04:10] LABS: Absolute Neutrophil Count 12.2 X10^3/uL (2.0-7.7); Basophil# 0.01 X10^3/uL; Basophil% 0.1 % (0-1); Hematocrit 24.2 % (37-47); Hemoglobin 7.4 g/dL (12.0-15.0); Lymphocyte % 2.2 % (19-41); Mean Corp Hgb Conc 30.6 g/dL (32-36); Mean Corpuscular Hgb 27.7 pg (27.0-32.0); Mean Corpuscular Volume 90.6 fL (81-99); Mean Platelet Vol. 9.7 fl (6.2-12.0); Monocyte# 0.83 X10^3/uL; Monocyte% 6.2 % (0-10); NRBC Flagged by Analyzer 0.5 % (0-5); Neutrophil # 12.22 X10^3/uL (2.7-7.7); Neutrophil % 90.8 % (47-70); POSITIVE DIFFERENTIAL YES; Platelet Count 355 K/mm3 (150-450); RBC Distribution Width CV 16.2 % (11.6-14.6); RBC Distribution Width SD 53.6 fl (35.1-43.9); Red Blood Count 2.67 M/mm3 (4.2-5.4); White Blood Count 13.5 K/mm3 (4.4-11.0)
[2019-03-19 04:12] LABS: Differential Indicated SCAN CRITERIA MET
[2019-03-19 04:26] LABS: Anion Gap 6 (5-15); BUN 75 mg/dL (7-18); BUN/Creat Ratio 36.6 RATIO (10-20); Calcium,Total 8.2 mg/dL (8.5-10.1); Chloride 109 mmol/L (98-107); Creatinine, Serum 2.05 mg/dL (0.55-1.02); EST Glomerular Filtration Rate 25 mL/min (>60); Est Glom Filt Rate - Afr Amer 31 mL/min (>60); Estimated Creatinine Clearance 21.12 ml/min; Glucose 136 mg/dL (74-106); Magnesium 3.8 mg/dL (1.6-2.6); Potassium 4.9 mmol/L (3.5-5.1); Sodium Level 148 mmol/L (136-145)
[2019-03-19] MEDS: CHLORHEXIDINE GLUC 2% CLOTH 1 EACH TOWELETTE TOPICAL (04:52)
[2019-03-19] MEDS: 0.9% NaCl Peripheral Flush Adult/Peds IV ×3 (04:52→13:12)
[2019-03-19] MEDS: TITRATION PARAMETER CHANGE 1 EACH IV (05:14)
--- NOTE | 2019-03-19 05:31 | NURSING ---
Restarted sedation d/t increased work of breathing, high RR, and more tachycardic than previously. Failed SBT.
[2019-03-19 05:58] LABS: Differential Comment SCANNED; Hypochromasia 3+; Microcytosis 1+; Spherocyte 1+
[2019-03-19 05:59] LABS: Macrocytosis 2+
[2019-03-19] MEDS: Insulin Lispro 100 UNIT/ML INSULN.PEN SC (06:02)
[2019-03-19 06:06] LABS: Bedside Glucose 151 mg/dL (70-110)
--- NOTE | 2019-03-19 06:28 | PCM.PN.INT ---
Subjective: The patient was seen and examined at the bedside this morning. Events from the last 24 hours have been reviewed. The patient is currently afebrile, hemodynamically stable and maintaining appropriate oxygen saturations on assist control mode of mechanical ventilation with an FiO2 requirement of 35%. Although the patient did well with her spontaneous awakening trial this morning, she did fail her spontaneous breathing trial due to significant tachypnea, work of breathing and hypoxemia. The patient has since been placed back on propofol at 10 and fentanyl at 50. She is currently tolerating tube feeds without issue. She is currently documented to be overall net +4.1 L for the admission. Hemoglobin was noted to be 7.4 g/dL this morning, down from 8.4 yesterday. Creatinine remains elevated at 2.05. Objective: The patient's most recent lab work, culture data and imaging studies have all been personally reviewed. Surface echocardiogram revealed normal LV size and function with an ejection fraction of 60%. Pulmonary artery systolic pressure was estimated to be 40 to 45 mmHg. The RV was noted to be moderately dilated with normal systolic function. Liver ultrasound was largely unremarkable. Respiratory viral panel was negative. Strep and urine Legionella antigens were negative. Blood and sputum cultures are pending. General: - - Remains intubated, sedated and mechanically ventilated. HEENT: Atraumatic, PERRLA, Normocephalic Oral: No Gingival or Mucosal Lesions/ Ulcerations, - - Endotracheal and OG tubes remain in place Neck: Supple, No Nodes, Trachea Midline Lungs: No rhonchi, No wheeze, No rales, Diminished Cardiovascular: Regular rate, Regular Rhythm, Normal S1, Normal S2, No murmurs Abdomen: Bowel Sounds Present, Soft, Non Tender Extremities: No clubbing, No cyanosis, Edema Skin: No breakdown Musculoskeletal: No Tenderness to Palpation of Joints or Extremities Lymphatic: No Cervical, Supraclavicular, or Inguinal Adenopathy Neurological: Neuro grossly intact Vital Signs Temp Pulse Resp BP Pulse Ox 98.5 F 90 16 111/50 L 91 03/19/19 04:00 03/19/19 06:00 03/19/19 06:00 03/19/19 06:00 03/19/19 06:00 Oxygen Flow Rate (L/min) 50 Oxygen Delivery Method Mechanical Ventilator Weight: 154 lb 1.65 oz Body Mass Index (BMI) 25.7 Intake and Output for Last 24 Hours 03/17/19 03/18/19 03/19/19 23:59 23:59 23:59 Intake Total 241 / 241 2713.02 / 2731.32 548.85 / 548.85 Output Total 1400 / 1400 175 / 175 Balance 2414 1313.02 / 1331.32 373.85 / 373.85 Labs (Last 48 Hours) 03/17/19 03/17/19 03/17/19 18:35 18:35 18:55 WBC 10.9 RBC 2.43 L Hgb 6.4 L Hct 22.5 L MCV 92.6 MCH 26.3 L MCHC 28.4 L RDW Std Deviation 56.1 H RDW Coeff of Mya 16.6 H Plt Count 450 MPV 9.8 Immature Gran % (Auto) 0.500 Neut % (Auto) 78.8 H Lymph % (Auto) 9.2 L [place] % (Auto) 10.3 H Eos % (Auto) 0.7 Baso % (Auto) 0.5 Absolute Neuts (auto) 8.6 H Absolute Lymphs (auto) 1.00 Nucleated RBC % 0.4 Differential Comment Diff Path Review Hypochromasia Microcytosis Macrocytosis Spherocytes PT INR APTT Specimen Type Sample Site pH Bicarbonate Actual POC Total CO2 Base Excess O2 Saturation O2 % ABG pCO2 ABG pO2 Kevin Test Respiration Rate O2 Delivery Device Liter Flow Minute Volume Vent Mode Tidal Volume POC PEEP EPAP IPAP Blood Gas Notified Whom Blood Gas Notified Time Sodium 139 Potassium 6.1 H* Chloride 102 Carbon Dioxide 35.0 H Anion Gap 2 L BUN 84 H Creatinine 2.06 H Estim Creat Clear Calc 18.25 Est GFR (MDRD) Af Amer 31 L Est GFR (MDRD) Non-Af 25 L BUN/Creatinine Ratio 40.8 H Glucose 112 H Lactic Acid 1.5 Calcium 9.3 Phosphorus Magnesium Total Bilirubin Direct Bilirubin GGT AST ALT Alkaline Phosphatase Total Creatine Kinase Troponin I < 0.015 B-Natriuretic Peptide Total Protein Albumin Globulin Albumin/Globulin Ratio Triglycerides TSH Urine Color Urine Clarity Urine pH Ur Specific [place] Urine Protein Urine Glucose (UA) Urine Ketones Urine Occult Blood Urine Nitrite Urine Bilirubin Urine Urobilinogen Ur Leukocyte Esterase Vancomycin Trough MRSA (PCR) POC Glucose Blood Type Antibody Screen Crossmatch 03/17/19 03/17/19 03/17/19 19:28 22:00 22:05 WBC RBC Hgb Hct MCV MCH MCHC RDW Std Deviation RDW Coeff of Mya Plt Count MPV Immature Gran % (Auto) Neut % (Auto) Lymph % (Auto) [place] % (Auto) Eos % (Auto) Baso % (Auto) Absolute Neuts (auto) Absolute Lymphs (auto) Nucleated RBC % Differential Comment Diff Path Review Hypochromasia Microcytosis Macrocytosis Spherocytes PT INR APTT Specimen Type ART Sample Site L Radial pH 7.27 L Bicarbonate Actual 34.9 H POC Total CO2 37 Base Excess 8 H O2 Saturation 89 L O2 % ABG pCO2 76.1 H* ABG pO2 66 L Kevin Test POS Respiration Rate O2 Delivery Device Nasal Can Liter Flow 2.0 Minute Volume Vent Mode Tidal Volume POC PEEP EPAP IPAP Blood Gas Notified Whom ED MD Blood Gas Notified Time 1924 Sodium Potassium Chloride Carbon Dioxide Anion Gap BUN Creatinine Estim Creat Clear Calc Est GFR (MDRD) Af Amer Est GFR (MDRD) Non-Af BUN/Creatinine Ratio Glucose Lactic Acid Calcium Phosphorus Magnesium Total Bilirubin Direct Bilirubin GGT AST ALT Alkaline Phosphatase Total Creatine Kinase Troponin I B-Natriuretic Peptide Total Protein Albumin Globulin Albumin/Globulin Ratio Triglycerides TSH Urine Color Urine Clarity Urine pH Ur Specific [place] Urine Protein Urine Glucose (UA) Urine Ketones Urine Occult Blood Urine Nitrite Urine Bilirubin Urine Urobilinogen Ur Leukocyte Esterase Vancomycin Trough MRSA (PCR) Negative POC Glucose Blood Type O POSITIVE Antibody Screen NEGATIVE Crossmatch See Detail 03/17/19 03/17/19 03/17/19 22:05 22:05 22:05 WBC RBC Hgb 6.6 L Hct 23.5 L MCV MCH MCHC RDW Std Deviation RDW Coeff of Mya Plt Count MPV Immature Gran % (Auto) Neut % (Auto) Lymph % (Auto) [place] % (Auto) Eos % (Auto) Baso % (Auto) Absolute Neuts (auto) Absolute Lymphs (auto) Nucleated RBC % Differential Comment Diff Path Review Hypochromasia Microcytosis Macrocytosis Spherocytes PT 14.7 INR 1.2 APTT 28.1 Specimen Type Sample Site pH Bicarbonate Actual POC Total CO2 Base Excess O2 Saturation O2 % ABG pCO2 ABG pO2 Kevin Test Respiration Rate O2 Delivery Device Liter Flow Minute Volume Vent Mode Tidal Volume POC PEEP EPAP IPAP Blood Gas Notified Whom Blood Gas Notified Time Sodium Potassium Chloride Carbon Dioxide Anion Gap BUN Creatinine Estim Creat Clear Calc Est GFR (MDRD) Af Amer Est GFR (MDRD) Non-Af BUN/Creatinine Ratio Glucose Lactic Acid Calcium Phosphorus Magnesium Total Bilirubin 0.20 Direct Bilirubin 0.12 GGT AST 62 H ALT 117 H Alkaline Phosphatase 172 H Total Creatine Kinase Troponin I B-Natriuretic Peptide Total Protein 6.7 Albumin 3.1 L Globulin 3.6 Albumin/Globulin Ratio Triglycerides TSH Urine Color Urine Clarity Urine pH Ur Specific [place] Urine Protein Urine Glucose (UA) Urine Ketones Urine Occult Blood Urine Nitrite Urine Bilirubin Urine Urobilinogen Ur Leukocyte Esterase Vancomycin Trough MRSA (PCR) POC Glucose Blood Type Antibody Screen Crossmatch 03/17/19 03/17/19 03/17/19 22:21 23:40 23:49 WBC RBC Hgb Hct MCV MCH MCHC RDW Std Deviation RDW Coeff of Mya Plt Count MPV Immature Gran % (Auto) Neut % (Auto) Lymph % (Auto) [place] % (Auto) Eos % (Auto) Baso % (Auto) Absolute Neuts (auto) Absolute Lymphs (auto) Nucleated RBC % Differential Comment Diff Path Review Hypochromasia Microcytosis Macrocytosis Spherocytes PT INR APTT Specimen Type Sample Site pH Bicarbonate Actual POC Total CO2 Base Excess O2 Saturation O2 % ABG pCO2 ABG pO2 Kevin Test Respiration Rate O2 Delivery Device Liter Flow Minute Volume Vent Mode Tidal Volume POC PEEP EPAP IPAP Blood Gas Notified Whom Blood Gas Notified Time Sodium Potassium Chloride Carbon Dioxide Anion Gap BUN Creatinine Estim Creat Clear Calc Est GFR (MDRD) Af Amer Est GFR (MDRD) Non-Af BUN/Creatinine Ratio Glucose Lactic Acid Calcium Phosphorus Magnesium Total Bilirubin Direct Bilirubin GGT AST ALT Alkaline Phosphatase Total Creatine Kinase Troponin I B-Natriuretic Peptide Total Protein Albumin Globulin Albumin/Globulin Ratio Triglycerides TSH Urine Color Yellow Urine Clarity Clear Urine pH 6.0 Ur Specific [place] 1.020 Urine Protein 30 H Urine Glucose (UA) Normal Urine Ketones Negative Urine Occult Blood Negative Urine Nitrite Negative Urine Bilirubin Negative Urine Urobilinogen Normal Ur Leukocyte Esterase Negative Vancomycin Trough MRSA (PCR) POC Glucose 168 H 164 H Blood Type Antibody Screen Crossmatch 03/18/19 03/18/19 03/18/19 02:04 03:20 03:20 WBC RBC Hgb Hct MCV MCH MCHC RDW Std Deviation RDW Coeff of Mya Plt Count MPV Immature Gran % (Auto) Neut % (Auto) Lymph % (Auto) [place] % (Auto) Eos % (Auto) Baso % (Auto) Absolute Neuts (auto) Absolute Lymphs (auto) Nucleated RBC % Differential Comment Diff Path Review Hypochromasia Microcytosis Macrocytosis Spherocytes PT INR APTT Specimen Type ART Sample Site R Radial pH 7.12 L* Bicarbonate Actual 34.4 H POC Total CO2 38 Base Excess 5 H O2 Saturation 89 L O2 % 45 ABG pCO2 105.7 H* ABG pO2 78 Kevin Test POS Respiration Rate 12 O2 Delivery Device Bi / C PAP Liter Flow Minute Volume Vent Mode Tidal Volume POC PEEP EPAP 7 IPAP 14 Blood Gas Notified Whom [facility] Blood Gas Notified Time Sodium Potassium Chloride Carbon Dioxide Anion Gap BUN Creatinine Estim Creat Clear Calc Est GFR (MDRD) Af Amer Est GFR (MDRD) Non-Af BUN/Creatinine Ratio Glucose Lactic Acid Calcium Phosphorus Magnesium Total Bilirubin Direct Bilirubin GGT 85 H AST ALT Alkaline Phosphatase Total Creatine Kinase Troponin I B-Natriuretic Peptide 257.0 H Total Protein Albumin Globulin Albumin/Globulin Ratio Triglycerides TSH Urine Color Urine Clarity Urine pH Ur Specific [place] Urine Protein Urine Glucose (UA) Urine Ketones Urine Occult Blood Urine Nitrite Urine Bilirubin Urine Urobilinogen Ur Leukocyte Esterase Vancomycin Trough MRSA (PCR) POC Glucose Blood Type Antibody Screen Crossmatch 03/18/19 03/18/19 03/18/19 03:30 03:30 03:30 WBC 10.5 RBC 3.07 L Hgb 8.4 L Hct 29.1 L MCV 94.8 MCH 27.4 MCHC 28.9 L RDW Std Deviation 55.5 H RDW Coeff of Mya 15.9 H Plt Count 450 MPV 9.9 Immature Gran % (Auto) 1.000 H Neut % (Auto) 95.8 H Lymph % (Auto) 2.0 L [place] % (Auto) 1.0 Eos % (Auto) 0.0 Baso % (Auto) 0.2 Absolute Neuts (auto) 10.1 H Absolute Lymphs (auto) 0.21 L Nucleated RBC % 0.5 Differential Comment Diff Path Review Hypochromasia Microcytosis Macrocytosis Spherocytes PT INR APTT Specimen Type Sample Site pH Bicarbonate Actual POC Total CO2 Base Excess O2 Saturation O2 % ABG pCO2 ABG pO2 Kevin Test Respiration Rate O2 Delivery Device Liter Flow Minute Volume Vent Mode Tidal Volume POC PEEP EPAP IPAP Blood Gas Notified Whom Blood Gas Notified Time Sodium 144 Potassium 6.6 H* Chloride 108 H Carbon Dioxide 30.0 Anion Gap 6 BUN 76 H Creatinine 1.83 H Estim Creat Clear Calc 23.66 Est GFR (MDRD) Af Amer 35 L Est GFR (MDRD) Non-Af 29 L BUN/Creatinine Ratio 41.5 H Glucose 105 Lactic Acid Calcium 8.2 L Phosphorus 5.9 H Magnesium 3.7 H Total Bilirubin 0.50 Direct Bilirubin GGT AST 68 H ALT 122 H Alkaline Phosphatase 163 H Total Creatine Kinase 71 Troponin I B-Natriuretic Peptide Total Protein 6.6 Albumin 3.0 L Globulin 3.6 Albumin/Globulin Ratio 0.8 L Triglycerides 47 TSH 0.92 Urine Color Urine Clarity Urine pH Ur Specific [place] Urine Protein Urine Glucose (UA) Urine Ketones Urine Occult Blood Urine Nitrite Urine Bilirubin Urine Urobilinogen Ur Leukocyte Esterase Vancomycin Trough MRSA (PCR) POC Glucose Blood Type Antibody Screen Crossmatch 03/18/19 03/18/19 03/18/19 04:52 06:42 12:11 WBC RBC Hgb Hct MCV MCH MCHC RDW Std Deviation RDW Coeff of Mya Plt Count MPV Immature Gran % (Auto) Neut % (Auto) Lymph % (Auto) [place] % (Auto) Eos % (Auto) Baso % (Auto) Absolute Neuts (auto) Absolute Lymphs (auto) Nucleated RBC % Differential Comment Diff Path Review Hypochromasia Microcytosis Macrocytosis Spherocytes PT INR APTT Specimen Type ART Sample Site R Radial pH 7.35 Bicarbonate Actual 30.4 H POC Total CO2 32 Base Excess 5 H O2 Saturation 91 L O2 % 45 ABG pCO2 54.5 H ABG pO2 64 L Kevin Test POS Respiration Rate 16 O2 Delivery Device Vent Liter Flow Minute Volume 7.00 Vent Mode A-C Tidal Volume 400 POC PEEP 5 EPAP IPAP Blood Gas Notified Whom ICU MD Blood Gas Notified Time 450 Sodium Potassium Chloride Carbon Dioxide Anion Gap BUN Creatinine Estim Creat Clear Calc Est GFR (MDRD) Af Amer Est GFR (MDRD) Non-Af BUN/Creatinine Ratio Glucose Lactic Acid Calcium Phosphorus Magnesium Total Bilirubin Direct Bilirubin GGT AST ALT Alkaline Phosphatase Total Creatine Kinase Troponin I B-Natriuretic Peptide Total Protein Albumin Globulin Albumin/Globulin Ratio Triglycerides TSH Urine Color Urine Clarity Urine pH Ur Specific [place] Urine Protein Urine Glucose (UA) Urine Ketones Urine Occult Blood Urine Nitrite Urine Bilirubin Urine Urobilinogen Ur Leukocyte Esterase Vancomycin Trough MRSA (PCR) POC Glucose 89 83 Blood Type Antibody Screen Crossmatch 03/18/19 03/18/19 03/18/19 17:59 21:20 23:56 WBC RBC Hgb Hct MCV MCH MCHC RDW Std Deviation RDW Coeff of Mya Plt Count MPV Immature Gran % (Auto) Neut % (Auto) Lymph % (Auto) [place] % (Auto) Eos % (Auto) Baso % (Auto) Absolute Neuts (auto) Absolute Lymphs (auto) Nucleated RBC % Differential Comment Diff Path Review Hypochromasia Microcytosis Macrocytosis Spherocytes PT INR APTT Specimen Type Sample Site pH Bicarbonate Actual POC Total CO2 Base Excess O2 Saturation O2 % ABG pCO2 ABG pO2 Kevin Test Respiration Rate O2 Delivery Device Liter Flow Minute Volume Vent Mode Tidal Volume POC PEEP EPAP IPAP Blood Gas Notified Whom Blood Gas Notified Time Sodium Potassium Chloride Carbon Dioxide Anion Gap BUN Creatinine Estim Creat Clear Calc Est GFR (MDRD) Af Amer Est GFR (MDRD) Non-Af BUN/Creatinine Ratio Glucose Lactic Acid Calcium Phosphorus Magnesium Total Bilirubin Direct Bilirubin GGT AST ALT Alkaline Phosphatase Total Creatine Kinase Troponin I B-Natriuretic Peptide Total Protein Albumin Globulin Albumin/Globulin Ratio Triglycerides TSH Urine Color Urine Clarity Urine pH Ur Specific [place] Urine Protein Urine Glucose (UA) Urine Ketones Urine Occult Blood Urine Nitrite Urine Bilirubin Urine Urobilinogen Ur Leukocyte Esterase Vancomycin Trough 10.8 MRSA (PCR) POC Glucose 111 H 128 H Blood Type Antibody Screen Crossmatch 03/19/19 03/19/19 03/19/19 04:00 04:00 05:54 WBC 13.5 H RBC 2.67 L Hgb 7.4 L Hct 24.2 L MCV 90.6 MCH 27.7 MCHC 30.6 L RDW Std Deviation 53.6 H RDW Coeff of Mya 16.2 H Plt Count 355 MPV 9.7 Immature Gran % (Auto) 0.700 Neut % (Auto) 90.8 H Lymph % (Auto) 2.2 L [place] % (Auto) 6.2 Eos % (Auto) 0.0 Baso % (Auto) 0.1 Absolute Neuts (auto) 12.2 H Absolute Lymphs (auto) 0.30 L Nucleated RBC % 0.5 Differential Comment SCANNED Diff Path Review May foll Hypochromasia 3+ Microcytosis 1+ Macrocytosis 2+ Spherocytes 1+ H PT INR APTT Specimen Type Sample Site pH Bicarbonate Actual POC Total CO2 Base Excess O2 Saturation O2 % ABG pCO2 ABG pO2 Kevin Test Respiration Rate O2 Delivery Device Liter Flow Minute Volume Vent Mode Tidal Volume POC PEEP EPAP IPAP Blood Gas Notified Whom Blood Gas Notified Time Sodium 148 H Potassium 4.9 Chloride 109 H Carbon Dioxide 33.0 H Anion Gap 6 BUN 75 H Creatinine 2.05 H Estim Creat Clear Calc 21.12 Est GFR (MDRD) Af Amer 31 L Est GFR (MDRD) Non-Af 25 L BUN/Creatinine Ratio 36.6 H Glucose 136 H Lactic Acid Calcium 8.2 L Phosphorus Magnesium 3.8 H Total Bilirubin Direct Bilirubin GGT AST ALT Alkaline Phosphatase Total Creatine Kinase Troponin I B-Natriuretic Peptide Total Protein Albumin Globulin Albumin/Globulin Ratio Triglycerides TSH Urine Color Urine Clarity Urine pH Ur Specific [place] Urine Protein Urine Glucose (UA) Urine Ketones Urine Occult Blood Urine Nitrite Urine Bilirubin Urine Urobilinogen Ur Leukocyte Esterase Vancomycin Trough MRSA (PCR) POC Glucose 151 H Blood Type Antibody Screen Crossmatch Microbiology 03/18/19 06:52 Sputum, Tracheal Aspirate Gram Stain - Final 03/18/19 00:50 Mucosa - Nasopharyngeal Respiratory Panel (PCR) - Final 03/17/19 23:40 Urine Catheter - Catheter Streptococcus pneumoniae Antigen (M - Final 03/17/19 23:40 Urine Catheter - Catheter Legionella Antigen - Final Clinical Impression(s) from Imaging Studies Chest X-Ray 03/17/19 18:40 IMPRESSION: Indeterminate opacity within the right mid and lower lung this may be secondary to underlying atelectasis and or pneumonia with a possible associated effusion, cannot exclude an underlying neoplastic process. Consider a CT for further characterization. Electronically Signed: Sarai Smith MD at 19:12 EDT Tel , Service support , Chest X-Ray 03/18/19 03:15 IMPRESSION: Worsening right middle lobe and right lower lobe pneumonia. Electronically Signed: Theodore Irizarry at 7:09 EDT Tel , Service support , Liver Ultrasound 03/18/19 07:02 IMPRESSION: Limited study. Left lobe of the liver not well visualized. The visualized liver is within normal limits. Normal gallbladder. Pancreas not visualized. Right renal cysts. No hydronephrosis. Electronically Signed: Saurav Torres, at 13:12 EDT Tel , Service support , Medical Necessity - Tobacco Use Smoking Status: Current every day smoker Tobacco Use: Cigarettes Assessment/Plan All Active Problems Acute respiratory failure with hypoxia and hypercapnia (Acute) Bilateral pneumonia (Acute) COPD exacerbation (Acute) Acute anemia (Acute) Acute renal failure superimposed on stage 3 chronic kidney disease (Acute) RECOMMENDATIONS: 1. Wean FiO2 to maintain oxygen saturations at or above 90%. 2. Continue broad-spectrum antimicrobial coverage, pending infectious work-up. 3. Transfuse blood products if hemoglobin drops below 7 g/dL. 4. Recheck hepatic function profile. 5. Avoid NSAIDs. Continue PPI therapy twice daily. 6. Continue tube feeds. 7. Continue bronchodilators and steroids. IMPRESSIONS: 1. Acute combined respiratory failure The patient is apparently followed by Dr. Holley at [facility] for COPD. The patient was admitted with impending respiratory failure, which did not respond to the use of noninvasive positive pressure ventilatory support. Therefore, the patient had to be intubated. For now, she will remain on broad-spectrum antimicrobials, pending infectious work-up. FiO2 can be weaned to maintain an oxygen saturation at or above 90%. Continue bronchodilators as ordered along with IV steroids. Tube feeds can be continued. Plan to perform spontaneous awakening and breathing trial daily. 2. Severe sepsis with concerns for underlying pulmonary infectious process The patient is currently on appropriate antimicrobials and remains hemodynamically stable following IV fluid resuscitation. Continue current supportive measures as noted above. 3. Anemia Potentially related to an upper GI source of blood loss in the setting of chronic NSAID utilization. The patient has been transfused 1 unit of packed red blood cells with appropriate incrementation in her hemoglobin. Plan to continue to monitor H&H daily, with plan to transfuse if hemoglobin drops below 7 g/dL. Continue to hold all NSAIDs. Continue PPI therapy as ordered. 4. Acute on chronic kidney disease/hyperkalemia Potentially prerenal in etiology in the setting of the above. Creatinine is stable and hyperkalemia has resolved. Continue to monitor urine output. No current indication for renal replacement therapy. 5. Elevated transaminases Unclear etiology at this time. Although may be related to presenting sepsis. Liver ultrasound was unremarkable. Plan to recheck liver function profile today to ensure improvement. TIME: 38 minutes of critical care time, independent of procedures, was spent addressing the patient's acute combined respiratory failure, severe sepsis with concerns for underlying pulmonary infectious process, anemia, acute on chronic kidney disease, hyperkalemia, elevated transaminases, review of all data and collaboration with the care team. ([id number]) Code Visit [id number]: [id number] Critical care first hour
--- NOTE | 2019-03-19 07:21 | PCM.PN.HOSP ---
Patient Problems: Active and Suspected Problems Acute respiratory failure with hypoxia and hypercapnia (Acute) Bilateral pneumonia (Acute) COPD exacerbation (Acute) Acute anemia (Acute) Acute renal failure superimposed on stage 3 chronic kidney disease (Acute) Subjective: CC follow-up acute respiratory failure Patient seen still remains on the vent attempted weaning this a.m. was unsuccessful. Hemoglobin did drop to 7.4 Objective: GENERAL: awake on the vent HEENT: Tongue and lips swelling, ET tube in place EYES; Anicteric, Normal Conjunctiva NECK; supple, normal thyroid, RESPIRATORY: Diminished to auscultation with wheezes bilaterally CARDIOVASCULAR: Regular S1 S2, GI: soft, non-tender, normoactive bowel sounds, : No Renal angle tenderness; EXTREMITIES: Trace bipedal edema. MUSCULOSKELETAL: no muscle waisting NEURO: on the vent SKIN: No Rash PSYCH; unable to assess patient on the vent Vitals/I&O's: Vital Signs Temp Pulse Resp BP Pulse Ox 98.5 F 90 16 111/50 L 91 03/19/19 04:00 03/19/19 06:00 03/19/19 06:00 03/19/19 06:00 03/19/19 06:00 Oxygen Flow Rate (L/min) 50 Oxygen Delivery Method Mechanical Ventilator Weight: 69.9 kg Body Mass Index (BMI) 25.7 Intake and Output for Last 24 Hours 03/17/19 03/18/19 03/19/19 23:59 23:59 23:59 Intake Total 2415 / 2415 2713.02 / 2731.32 548.85 / 548.85 Output Total 1400 / 1400 175 / 175 Balance 2414 1313.02 / 1331.32 373.85 / 373.85 Microbiology Past 72 Hours 03/18/19 06:52 Sputum, Tracheal Aspirate Gram Stain - Final 03/18/19 00:50 Mucosa - Nasopharyngeal Respiratory Panel (PCR) - Final 03/17/19 23:40 Urine Catheter - Catheter Streptococcus pneumoniae Antigen (M - Final 03/17/19 23:40 Urine Catheter - Catheter Legionella Antigen - Final Laboratory Results 03/18/19 03:20: B-Natriuretic Peptide 257.0 H 03/18/19 03:20: GGT 85 H 03/18/19 12:11: POC Glucose 83 03/18/19 17:59: POC Glucose 111 H 03/18/19 21:20: Vancomycin Trough 10.8 03/18/19 23:56: POC Glucose 128 H 03/19/19 04:00: WBC 13.5 H, RBC 2.67 L, Hgb 7.4 L, Hct 24.2 L, MCV 90.6, MCH 27.7, MCHC 30.6 L, RDW Std Deviation 53.6 H, RDW Coeff of Mya 16.2 H, Plt Count 355, MPV 9.7, Immature Gran % (Auto) 0.700, Neut % (Auto) 90.8 H, Lymph % (Auto) 2.2 L, [place] % (Auto) 6.2, Eos % (Auto) 0.0, Baso % (Auto) 0.1, Absolute Neuts (auto) 12.2 H, Absolute Lymphs (auto) 0.30 L, Nucleated RBC % 0.5, Differential Comment SCANNED, Diff Path Review May foll, Hypochromasia 3+, Microcytosis 1+, Macrocytosis 2+, Spherocytes 1+ H 03/19/19 04:00: Sodium 148 H, Potassium 4.9, Chloride 109 H, Carbon Dioxide 33.0 H, Anion Gap 6, BUN 75 H, Creatinine 2.05 H, Estim Creat Clear Calc 21.12, Est GFR (MDRD) Af Amer 31 L, Est GFR (MDRD) Non-Af 25 L, BUN/Creatinine Ratio 36.6 H, Glucose 136 H, Calcium 8.2 L, Magnesium 3.8 H 03/19/19 04:00: Total Bilirubin Pending, Direct Bilirubin Pending, AST Pending, ALT Pending, Alkaline Phosphatase Pending, Total Protein Pending, Albumin Pending 03/19/19 05:54: POC Glucose 151 H Current Medications Acetaminophen (Tylenol Liquid) 650 mg PO Q6H PRN PRN PRN Reason: Pain Score 1-3/Temp > 100.7 F Albuterol Sulfate (Ventolin Aerosols) 2.5 mg INHALATION Q2H PRN PRN PRN Reason: SHORTNESS OF BREATH Albuterol/Ipratropium (Duoneb) 3 ml INHALATION Q4H.RT SARI Last Admin: 03/19/19 06:38 Dose: 3 ml Documented by: Chlorhexidine Gluconate () 15 ml PO BID SARI Last Admin: 03/18/19 21:22 Dose: 15 ml Documented by: Chlorhexidine Gluconate () 1 each TOPICAL DAILY SARI Last Admin: 03/19/19 04:52 Dose: 1 each Documented by: Dextrose (D50w Syringe) 0 gm IV X1 PRN; Protocol PRN Reason: Hypoglycemia Diphenhydramine HCl (Benadryl) 25 mg IV Q4H PRN PRN PRN Reason: allergy/rash Last Admin: 03/18/19 03:55 Dose: 25 mg Documented by: Glucagon () 1 mg IM .X1 PRN PRN Reason: Hypoglycemia Guaifenesin (Mucinex) 1,200 mg PO BID SARI Last Admin: 03/18/19 21:22 Dose: Not Given Documented by: Piperacillin Sod/Tazobactam (Sod 3.375 gm/ Sodium Chloride) 50 mls @ 12.5 mls/hr IV Q12 SARI Last Infusion: 03/19/19 01:42 Dose: Infused Documented by: Pantoprazole Sodium 40 mg/ (Sodium Chloride) 110 mls @ 330 mls/hr IV Q12 [facility] Last Infusion: 03/18/19 21:46 Dose: Infused Documented by: Vancomycin IV Pharmacy to Dose (1 ea/ Sodium Chloride) 500 mls @ 250 mls/hr IV PRN PRN; Protocol PRN Reason: VANC Vancomycin HCl () 500 mg in 100 mls @ 100 mls/hr IV Q24H [facility] Last Infusion: 03/18/19 23:32 Dose: Infused Documented by: Sodium Chloride () 250 mls @ 15 mls/hr IV .[id number] PRN PRN Reason: SALINE FLUSH Last Infusion: 03/19/19 03:30 Dose: 0 mls/hr Documented by: Sodium Chloride () 500 mls @ 15 mls/hr IV .[id number] PRN PRN Reason: SALINE FLUSH Propofol (Diprivan) 1,000 mg in 100 mls @ 4.194 mls/hr CONT INF .Q12H [facility]; Protocol Last Titration: 03/19/19 06:25 Dose: 10 mcg/kg/min, 4.2 mls/hr Documented by: Fentanyl () 100 mls @ 5 mls/hr IV UD [facility]; Protocol Last Titration: 03/19/19 06:25 Dose: 50 mcg/hr, 5 mls/hr Documented by: Nutritional Form-Impair Digest-Fibe (Vital Af 1.2 Matheus Liquid) 1,500 mls @ 40 mls/hr GT .[id number] [facility] Last Admin: 03/18/19 15:48 Dose: 40 mls/hr Documented by: Insulin Human Lispro (Humalog Kwikpen (Bkc)) 0 unit SC Q6H SARI; Protocol Last Admin: 03/19/19 06:02 Dose: 2 units Documented by: Methylprednisolone (Solu-Medrol) 40 mg IV Q8 SARI Last Admin: 03/19/19 05:05 Dose: 40 mg Documented by: Ondansetron HCl (Zofran) 4 mg IV Q8H PRN PRN PRN Reason: NAUSEA/VOMITING Senna/Docusate Sodium (Senokot-S, Francoise-Colace) 2 tablet GT BID PRN PRN PRN Reason: Constipation Sodium Chloride () 5 - 15 ml IV UD PRN PRN Reason: SALINE FLUSH Last Admin: 03/19/19 05:06 Dose: 10 ml Documented by: Medical Necessity - Tobacco Use Smoking Status: Current every day smoker Tobacco Use: Cigarettes Assessment/Plan All Active Problems Acute respiratory failure with hypoxia and hypercapnia (Acute) Bilateral pneumonia (Acute) COPD exacerbation (Acute) Acute anemia (Acute) Acute renal failure superimposed on stage 3 chronic kidney disease (Acute) Patient is a 69-year-old lady with history of COPD admitted with progressive shortness of breath and weakness. An assessment of acute hypoxic and hypercapnic respiratory failure was made admitted to the intensive care unit. Patient condition deteriorated resulting in patient being intubated 1. Acute hypoxic and hypercapnic respiratory failure ~Patient condition deteriorated resulting in patient being intubated on 1219. Currently being managed in the ICU management of the vent defer to the independent insurance adjuster ?03/19/2019: Patient seen still remains on the vent attempted weaning this a.m. was unsuccessful. 2. COPD with acute exacerbation ~Contributed to above patient currently on broad-spectrum antibiotic therapy, aerosol treatment in addition to systemic steroids. Also on the vent. 3. Pneumonia with suspected drug resistance organisms ~Respiratory status deteriorated resulting in patient being intubated. Her antibiotic therapy was broadened to cover for Pseudomonas as well as MRSA subsequently started on Zosyn and vancomycin. Chest obtained on admission demonstrated Indeterminate opacity within the right mid and lower lung this may be secondary to underlying atelectasis and or pneumonia with a possible associated effusion, cannot exclude an underlying neoplastic process. Plan is to obtain CT of the chest to further evaluate once patient is medically stable 03/19/2019. Cultures have so far remain negative to date did continue with current antibiotic therapy 4. Hyperkalemia ~secondary to acute kidney injury superimposed on chronic kidney disease the patient did receive calcium gluconate in addition to serial cardiac enzymes subsequent serial BMPs ordered for monitoring 5. Acute kidney injury ~Baseline creatinine 1.2- 1.3 creatinine on admission was 2.06 started on fluids with subsequent monitoring of electrolyte 6. Chronic kidney disease ~stage II baseline creatinine 1.2-1.3 7. Anemia (normocytic anemia) ~Undetermined etiology however there was high suspicion for possible GI source given patient use of nonsteroidal anti-inflammatory medication. Patient did receive 1 unit PRBC. Subsequently started on Protonix plan is for patient to undergo endoscopic evaluation when medically stable ?03/19/2019; patient hemoglobin did drop to 7.4 we will continue with monitoring and transfuse if hemoglobin drops below 7 8. Tobacco dependence ~do plan to certified travel counselor once patient is extubated 9. History of cervical spondylosis with myelopathy ~status post cervical spine fusion 10. DVT prophylaxis Avoided the use of chemoprophylaxis in view of patient's severe anemia as well as suspicion for possible GI bleed. Subsequently initiated SCDs Code Visit Inpatient E&M: [id number] [facility] Hosp L3
[2019-03-19 07:36] LABS: AST(SGOT) 44 U/L (15-37); Alanine Aminotransfer ALT/SGPT 99 U/L (13-56); Albumin, Serum 2.9 g/dL (3.2-5.0); Alkaline Phosphatase 125 U/L (45-117); Bilirubin, Direct 0.17 mg/dL (0.00-0.30); Globulin 3.1 g/dL (2.2-4.2)
[2019-03-19] MEDS: Chlorhexidine 15 ML PO ×2 (09:45→20:44)
[2019-03-19 11:51] LABS: Bedside Glucose 133 mg/dL (70-110)
[2019-03-19] MEDS: Propofol 10MG/Ml 1,000 MG/100 ML Bottle 4.2 MG CONT INF (13:11)
[2019-03-19] MEDS: fentaNYL drip 100 ML 5 MCG IV (17:19)
[2019-03-19 17:26] LABS: Bedside Glucose 122 mg/dL (70-110)
[2019-03-20] VITALS (44 sets, daily range): BP systolic 99–147; BP diastolic 54–71; PULSE 50–514; RESP 16–27; TEMP 36.3–37.1; O2SAT 89–99
[2019-03-20] MEDS: Insulin Lispro 100 UNIT/ML INSULN.PEN SC (00:19)
[2019-03-20 00:25] LABS: Bedside Glucose 150 mg/dL (70-110)
[2019-03-20] MEDS: Ipratropium/Albuterol Sulfate 3 ML AMPUL.NEB INHALATION ×6 (02:43→23:05)
[2019-03-20] MEDS: Propofol 10MG/Ml 1,000 MG/100 ML Bottle 4.2 MG CONT INF (03:02)
[2019-03-20] MEDS: Vital AF 1.2 Cal Liq 1,500 ML 40 ML GT (03:22)
[2019-03-20 04:36] LABS: Absolute Lymphocyte Count 0.32 X10^3/uL (0.83-4.51); Absolute Neutrophil Count 14.6 X10^3/uL (2.0-7.7); Basophil# 0.01 X10^3/uL; Basophil% 0.1 % (0-1); Hematocrit 25.5 % (37-47); Hemoglobin 7.5 g/dL (12.0-15.0); Lymphocyte # 0.32 X10^3/ul (4.0); Mean Corp Hgb Conc 29.4 g/dL (32-36); Mean Corpuscular Hgb 26.9 pg (27.0-32.0); Mean Corpuscular Volume 91.4 fL (81-99); Mean Platelet Vol. 10.1 fl (6.2-12.0); Monocyte# 0.88 X10^3/uL; Monocyte% 5.5 % (0-10); NRBC Flagged by Analyzer 0.2 % (0-5); Neutrophil # 14.63 X10^3/uL (2.7-7.7); Neutrophil % 91.6 % (47-70); POSITIVE DIFFERENTIAL YES; Platelet Count 342 K/mm3 (150-450); RBC Distribution Width CV 16.6 % (11.6-14.6); RBC Distribution Width SD 55.8 fl (35.1-43.9); Red Blood Count 2.79 M/mm3 (4.2-5.4)
[2019-03-20 04:41] LABS: Anion Gap 5 (5-15); BUN 84 mg/dL (7-18); BUN/Creat Ratio 41.4 RATIO (10-20); Calcium,Total 8.1 mg/dL (8.5-10.1); Chloride 111 mmol/L (98-107); Creatinine, Serum 2.03 mg/dL (0.55-1.02); EST Glomerular Filtration Rate 26 mL/min (>60); Est Glom Filt Rate - Afr Amer 31 mL/min (>60); Estimated Creatinine Clearance 21.33 ml/min; Glucose 130 mg/dL (74-106); Potassium 4.7 mmol/L (3.5-5.1); Sodium Level 149 mmol/L (136-145)
[2019-03-20 04:47] LABS: Differential Indicated SCAN CRITERIA MET
[2019-03-20] MEDS: CHLORHEXIDINE GLUC 2% CLOTH 1 EACH TOWELETTE TOPICAL (05:24)
[2019-03-20] MEDS: 0.9% NaCl Peripheral Flush Adult/Peds IV ×2 (05:25→10:02)
[2019-03-20 05:27] LABS: Differential Comment SCANNED; Hypochromasia 2+; Macrocytosis 3+; Target Cells 2+
[2019-03-20 05:36] LABS: Bedside Glucose 126 mg/dL (70-110)
[2019-03-20] MEDS: TITRATION PARAMETER CHANGE 1 EACH IV (05:51)
[2019-03-20 06:16] LABS: Allen Test POS; Base Excess 12 mmol/L (-2 to +2); Bicarbonate 35.5 mmol/L (22-26); Blood Gas Specimen Type ART; FI02 35; Mode CPAP PS; O2 Delivery Device Vent; PEEP 5; PO2 59 mmHG (75-100); PS 5; SITE L Radial; SO2 91 % (95-99); Time Given 602; Total Carbon Dioxide 37 mmol/L; pCO2 49.5 mmHg (35-45); pH 7.46 (7.35-7.45)
--- NOTE | 2019-03-20 07:04 | PCM.PN.INT ---
Subjective: Patient did well overnight. No acute issues were reported. Patient was able to have a spontaneous breathing trial this morning, but became hypoxic to 88% at the end of the trial and was placed back on assist control. Patient was very tearful following the news, but still has good vent synchrony. General: Alert, Cooperative, - - Good vent synchrony. RASS 0 to +1 during trial. Anasarca appreciated, right side greater than left HEENT: Atraumatic, PERRLA, EOMI, Normocephalic, - - No scleral icterus or injection noted Oral: Moist Mucosa, No Gingival or Mucosal Lesions/ Ulcerations Neck: Supple, No JVD, No Nodes, Trachea Midline Lungs: No rhonchi, No wheeze, No rales, Diminished, - - Symmetric expansion. Cardiovascular: Regular rate, Regular Rhythm, Normal S1, Normal S2, No murmurs, No rub noted, No Gallop Abdomen: Bowel Sounds Present, Soft, Non Tender, Non-Distended Extremities: No clubbing, No cyanosis, Capillary Refill Less than 3 Seconds, Edema - Bilateral feet and right upper extremity more than left Skin: No rashes, No breakdown Musculoskeletal: No Tenderness to Palpation of Joints or Extremities Lymphatic: No Cervical, Supraclavicular, or Inguinal Adenopathy Neurological: Cranial nerves II-XII grossly intact, Neuro grossly intact, Motor Exam 5/5 strength throughout Psych/Mental Status: Anxious, Impulsive Vital Signs Temp Pulse Resp BP Pulse Ox 37.1 C 71 25 H 133/68 H 91 03/20/19 04:00 03/20/19 06:00 03/20/19 06:00 03/20/19 06:00 03/20/19 06:00 Oxygen Flow Rate (L/min) 50 Oxygen Delivery Method Mechanical Ventilator Weight: 69.3 kg Body Mass Index (BMI) 25.7 Intake and Output for Last 24 Hours 03/18/19 03/19/19 03/20/19 23:59 23:59 23:59 Intake Total 2713.02 / 2731.32 2295.92 / 2305.12 441.75 / 441.75 Output Total 1400 / 1400 825 / 825 300 / 300 Balance 1313.02 / 1331.32 1470.92 / 1480.12 141.75 / 141.75 Labs (Last 48 Hours) 03/18/19 03/18/1903/18/19 03:20 03:20 12:11 WBC RBC Hgb Hct MCV MCH MCHC RDW Std Deviation RDW Coeff of Mya Plt Count MPV Immature Gran % (Auto) Neut % (Auto) Lymph % (Auto) [place] % (Auto) Eos % (Auto) Baso % (Auto) Absolute Neuts (auto) Absolute Lymphs (auto) Nucleated RBC % Differential Comment Diff Path Review Hypochromasia Microcytosis Macrocytosis Spherocytes Target Cells Specimen Type Sample Site pH Bicarbonate Actual POC Total CO2 Base Excess O2 Saturation O2 % ABG pCO2 ABG pO2 Kevin Test O2 Delivery Device Vent Mode POC PEEP POC Pressure Suppt Blood Gas Notified Whom Blood Gas Notified Time Sodium Potassium Chloride Carbon Dioxide Anion Gap BUN Creatinine Estim Creat Clear Calc Est GFR (MDRD) Af Amer Est GFR (MDRD) Non-Af BUN/Creatinine Ratio Glucose Calcium Magnesium Total Bilirubin Direct Bilirubin GGT 85 H AST ALT Alkaline Phosphatase B-Natriuretic Peptide 257.0 H Total Protein Albumin Globulin Vancomycin Trough POC Glucose 83 03/18/19 03/18/19 03/18/19 17:59 21:20 23:56 WBC RBC Hgb Hct MCV MCH MCHC RDW Std Deviation RDW Coeff of Mya Plt Count MPV Immature Gran % (Auto) Neut % (Auto) Lymph % (Auto) [place] % (Auto) Eos % (Auto) Baso % (Auto) Absolute Neuts (auto) Absolute Lymphs (auto) Nucleated RBC % Differential Comment Diff Path Review Hypochromasia Microcytosis Macrocytosis Spherocytes Target Cells Specimen Type Sample Site pH Bicarbonate Actual POC Total CO2 Base Excess O2 Saturation O2 % ABG pCO2 ABG pO2 Kevin Test O2 Delivery Device Vent Mode POC PEEP POC Pressure Suppt Blood Gas Notified Whom Blood Gas Notified Time Sodium Potassium Chloride Carbon Dioxide Anion Gap BUN Creatinine Estim Creat Clear Calc Est GFR (MDRD) Af Amer Est GFR (MDRD) Non-Af BUN/Creatinine Ratio Glucose Calcium Magnesium Total Bilirubin Direct Bilirubin GGT AST ALT Alkaline Phosphatase B-Natriuretic Peptide Total Protein Albumin Globulin Vancomycin Trough 10.8 POC Glucose 111 H 128 H 03/19/19 03/19/19 03/19/19 04:00 04:00 04:00 WBC 13.5 H RBC 2.67 L Hgb 7.4 L Hct 24.2 L MCV 90.6 MCH 27.7 MCHC 30.6 L RDW Std Deviation 53.6 H RDW Coeff of Mya 16.2 H Plt Count 355 MPV 9.7 Immature Gran % (Auto) 0.700 Neut % (Auto) 90.8 H Lymph % (Auto) 2.2 L [place] % (Auto) 6.2 Eos % (Auto) 0.0 Baso % (Auto) 0.1 Absolute Neuts (auto) 12.2 H Absolute Lymphs (auto) 0.30 L Nucleated RBC % 0.5 Differential Comment SCANNED Diff Path Review May foll Hypochromasia 3+ Microcytosis 1+ Macrocytosis 2+ Spherocytes 1+ H Target Cells Specimen Type Sample Site pH Bicarbonate Actual POC Total CO2 Base Excess O2 Saturation O2 % ABG pCO2 ABG pO2 Kevin Test O2 Delivery Device Vent Mode POC PEEP POC Pressure Suppt Blood Gas Notified Whom Blood Gas Notified Time Sodium 148 H Potassium 4.9 Chloride 109 H Carbon Dioxide 33.0 H Anion Gap 6 BUN 75 H Creatinine 2.05 H Estim Creat Clear Calc 21.12 Est GFR (MDRD) Af Amer 31 L Est GFR (MDRD) Non-Af 25 L BUN/Creatinine Ratio 36.6 H Glucose 136 H Calcium 8.2 L Magnesium 3.8 H Total Bilirubin 0.40 Direct Bilirubin 0.17 GGT AST 44 H ALT 99 H Alkaline Phosphatase 125 H B-Natriuretic Peptide Total Protein 6.0 L Albumin 2.9 L Globulin 3.1 Vancomycin Trough POC Glucose 03/19/19 03/19/19 03/19/19 05:54 11:46 17:18 WBC RBC Hgb Hct MCV MCH MCHC RDW Std Deviation RDW Coeff of Mya Plt Count MPV Immature Gran % (Auto) Neut % (Auto) Lymph % (Auto) [place] % (Auto) Eos % (Auto) Baso % (Auto) Absolute Neuts (auto) Absolute Lymphs (auto) Nucleated RBC % Differential Comment Diff Path Review Hypochromasia Microcytosis Macrocytosis Spherocytes Target Cells Specimen Type Sample Site pH Bicarbonate Actual POC Total CO2 Base Excess O2 Saturation O2 % ABG pCO2 ABG pO2 Kevin Test O2 Delivery Device Vent Mode POC PEEP POC Pressure Suppt Blood Gas Notified Whom Blood Gas Notified Time Sodium Potassium Chloride Carbon Dioxide Anion Gap BUN Creatinine Estim Creat Clear Calc Est GFR (MDRD) Af Amer Est GFR (MDRD) Non-Af BUN/Creatinine Ratio Glucose Calcium Magnesium Total Bilirubin Direct Bilirubin GGT AST ALT Alkaline Phosphatase B-Natriuretic Peptide Total Protein Albumin Globulin Vancomycin Trough POC Glucose 151 H 133 H 122 H 03/20/19 03/20/19 03/20/19 00:18 04:05 04:05 WBC 16.0 H RBC 2.79 L Hgb 7.5 L Hct 25.5 L MCV 91.4 MCH 26.9 L MCHC 29.4 L RDW Std Deviation 55.8 H RDW Coeff of Mya 16.6 H Plt Count 342 MPV 10.1 Immature Gran % (Auto) 0.800 Neut % (Auto) 91.6 H Lymph % (Auto) 2.0 L [place] % (Auto) 5.5 Eos % (Auto) 0.0 Baso % (Auto) 0.1 Absolute Neuts (auto) 14.6 H Absolute Lymphs (auto) 0.32 L Nucleated RBC % 0.2 Differential Comment SCANNED Diff Path Review Hypochromasia 2+ Microcytosis Macrocytosis 3+ Spherocytes Target Cells 2+ Specimen Type Sample Site pH Bicarbonate Actual POC Total CO2 Base Excess O2 Saturation O2 % ABG pCO2 ABG pO2 Kevin Test O2 Delivery Device Vent Mode POC PEEP POC Pressure Suppt Blood Gas Notified Whom Blood Gas Notified Time Sodium 149 H Potassium 4.7 Chloride 111 H Carbon Dioxide 33.0 H Anion Gap 5 BUN 84 H Creatinine 2.03 H Estim Creat Clear Calc 21.33 Est GFR (MDRD) Af Amer 31 L Est GFR (MDRD) Non-Af 26 L BUN/Creatinine Ratio 41.4 H Glucose 130 H Calcium 8.1 L Magnesium Total Bilirubin Direct Bilirubin GGT AST ALT Alkaline Phosphatase B-Natriuretic Peptide Total Protein Albumin Globulin Vancomycin Trough POC Glucose 150 H 03/20/19 03/20/19 05:28 06:12 WBC RBC Hgb Hct MCV MCH MCHC RDW Std Deviation RDW Coeff of Mya Plt Count MPV Immature Gran % (Auto) Neut % (Auto) Lymph % (Auto) [place] % (Auto) Eos % (Auto) Baso % (Auto) Absolute Neuts (auto) Absolute Lymphs (auto) Nucleated RBC % Differential Comment Diff Path Review Hypochromasia Microcytosis Macrocytosis Spherocytes Target Cells Specimen Type ART Sample Site L Radial pH 7.46 H Bicarbonate Actual 35.5 H POC Total CO2 37 Base Excess 12 H O2 Saturation 91 L O2 % 35 ABG pCO2 49.5 H ABG pO2 59 L Kevin Test POS O2 Delivery Device Vent Vent Mode CPAP PS POC PEEP 5 POC Pressure Suppt 5 Blood Gas Notified Whom ICU MD Blood Gas Notified Time 602 Sodium Potassium Chloride Carbon Dioxide Anion Gap BUN Creatinine Estim Creat Clear Calc Est GFR (MDRD) Af Amer Est GFR (MDRD) Non-Af BUN/Creatinine Ratio Glucose Calcium Magnesium Total Bilirubin Direct Bilirubin GGT AST ALT Alkaline Phosphatase B-Natriuretic Peptide Total Protein Albumin Globulin Vancomycin Trough POC Glucose 126 H Microbiology 03/18/19 06:52 Sputum, Tracheal Aspirate Gram Stain - Final 03/18/19 06:52 Sputum, Tracheal Aspirate Respiratory Culture - Preliminary Presumptive C albicans 03/18/19 00:50 Mucosa - Nasopharyngeal Respiratory Panel (PCR) - Final Medical Necessity - Tobacco Use Smoking Status: Current every day smoker Tobacco Use: Cigarettes Assessment/Plan All Active Problems Acute respiratory failure with hypoxia and hypercapnia (Acute) Bilateral pneumonia (Acute) COPD exacerbation (Acute) Acute anemia (Acute) Acute renal failure superimposed on stage 3 chronic kidney disease (Acute) RECOMMENDATIONS: 1. Wean FiO2 to maintain oxygen saturations at or above 90%. 2. Continue broad-spectrum antimicrobial coverage, pending infectious work-up to complete 7 days. 3. Transfuse blood products if hemoglobin drops below 7 g/dL. 4. Continue steroids at current dosing, along with bronchodilators 5. Avoid NSAIDs. Continue PPI therapy twice daily. 6. Continue tube feeds. Increase free water 7. Activity per mobility protocol IMPRESSIONS: 1. Acute combined respiratory failure Patient appears to be doing better today than described yesterday. Patient still with marginal saturations on spontaneous breathing trial. We will give patient another 24 hours of steroids at the current level and recheck. We will also attempt to increase free water to avoid hyperchloremic metabolic acidosis. Continue with spontaneous awakening and breathing trials per protocol. 2. Severe sepsis with concerns for underlying pulmonary infectious process The patient is currently on appropriate antimicrobials and remains hemodynamically stable following IV fluid resuscitation. Continue current supportive measures as noted above. Patient will likely be treated for 7 days empirically given baseline status 3. Anemia Potentially related to an upper GI source of blood loss in the setting of chronic NSAID utilization. The patient has been transfused 1 unit of packed red blood cells with appropriate incrementation in her hemoglobin. Plan to continue to monitor H&H daily, with plan to transfuse if hemoglobin drops below 7 g/dL. Continue to hold all NSAIDs. Continue PPI therapy as ordered. No indication for transfusion today. 4. Acute on chronic kidney disease/hyperkalemia Potentially prerenal in etiology in the setting of the above. Creatinine is stable and hyperkalemia has resolved. Continue to monitor urine output. No current indication for renal replacement therapy. Patient does have significant peripheral edema, but this appears to be secondary to low oncotic pressure with an albumin of 2.9 yesterday. Would NOT recommend albumin with Lasix. 5. Elevated transaminases Unclear etiology at this time. Although may be related to presenting sepsis. Liver ultrasound was unremarkable. Recheck liver functions periodically. TIME: 45 minutes of critical care time, independent of procedures, was spent addressing the patient's acute combined respiratory failure, severe sepsis with concerns for underlying pulmonary infectious process, anemia, acute on chronic kidney disease, hyperkalemia, elevated transaminases, review of all data and collaboration with the care team. (5:50 AM to 7 AM) Code Visit Procedures: [id number] [facility] Care 1st Hr
--- NOTE | 2019-03-20 09:58 | CASEMGMT ---
Social Work SW participated in interdisciplinary rounds. Pt awake and understanding however still on the vent. Pt sister Luanne present. After rounds SW met with pt and sister. Per Luanne, pt and Luanne live together but both are independent and able to care for themselves. Pt bed and bath are on the second floor and pt will need to be able to go upstairs when she returns home. SW discussed discharge options with pt and Luanne including short term stay in SNF and home with home health care. Written list of facilities provided to pt sister who states if pt needs SNF, family prefers [facility] or [facility]. SW will continue to follow for support and d/c planning. DESTIN Marroquin
[2019-03-20] MEDS: Chlorhexidine 15 ML PO ×2 (10:04→21:16)
[2019-03-20 12:05] LABS: Bedside Glucose 127 mg/dL (70-110)
[2019-03-20 12:27] LABS: Pathologist Review Reviewed
--- NOTE | 2019-03-20 15:04 | PN_ITS ---
Patient Problems: Active and Suspected Problems Acute respiratory failure with hypoxia and hypercapnia (Acute) Bilateral pneumonia (Acute) COPD exacerbation (Acute) Acute anemia (Acute) Acute renal failure superimposed on stage 3 chronic kidney disease (Acute) Subjective: Failed SBT. Vitals/I&O's: Vital Signs Temp Pulse Resp BP Pulse Ox 36.8 C 72 16 121/66 H 95 03/20/19 14:00 03/20/19 14:00 03/20/19 14:00 03/20/19 14:00 03/20/19 14:00 Oxygen Flow Rate (L/min) 50 Oxygen Delivery Method Mechanical Ventilator Weight: 69.3 kg Body Mass Index (BMI) 25.7 Intake and Output for Last 24 Hours 03/18/19 03/19/19 03/20/19 23:59 23:59 23:59 Intake Total 2713.02 / 2731.32 2295.92 / 2305.12 1157.96 / 1157.96 Output Total 1400 / 1400 825 / 825 650 / 650 Balance 1313.02 / 1331.32 1470.92 / 1480.12 507.96 / 507.96 General: - - awake, on vent. HEENT: Atraumatic, Normocephalic, - - ETT and OG in place. Oral: Moist Mucosa, No Gingival or Mucosal Lesions/ Ulcerations Neck: No Nodes, Thyroid Normal Size and Texture Lungs: - - coarse breath sounds bilaterally. Cardiovascular: Regular rate, Regular Rhythm, Normal S1, Normal S2, No murmurs Abdomen: Bowel Sounds Present, Soft, Non Tender, Non-Distended, No Hepato- splenomegaly Extremities: No edema, No Calf Tenderness Skin: No rashes, No breakdown Musculoskeletal: No Tenderness to Palpation of Joints or Extremities, No Muscle Wasting Neurological: Muscle tone normal, - - no clonus. Psych/Mental Status: Normal Affect, Appropriate Microbiology Past 72 Hours 03/18/19 06:52 Sputum, Tracheal Aspirate Gram Stain - Final 03/18/19 06:52 Sputum, Tracheal Aspirate Respiratory Culture - Final Presumptive C albicans Haemophilus influenzae 03/17/19 19:45 Blood Culture (Wb) - Left Forearm Blood Culture - Preliminary No growth in 48 hours. 03/17/19 18:55 Blood Culture (Wb) - Anticubital Left Blood Culture - Preliminary No growth in 48 hours. 03/18/19 00:50 Mucosa - Nasopharyngeal Respiratory Panel (PCR) - Final 03/17/19 23:40 Urine Catheter - Catheter Streptococcus pneumoniae Antigen (M - Final 03/17/19 23:40 Urine Catheter - Catheter Legionella Antigen - Final Laboratory Results 03/17/19 22:05: Crossmatch See Detail 03/19/19 04:00: Diff Path Review Reviewed 03/19/19 17:18: POC Glucose 122 H 03/20/19 00:18: POC Glucose 150 H 03/20/19 04:05: WBC 16.0 H, RBC 2.79 L, Hgb 7.5 L, Hct 25.5 L, MCV 91.4, MCH 26.9 L, MCHC 29.4 L, RDW Std Deviation 55.8 H, RDW Coeff of Mya 16.6 H, Plt Count 342, MPV 10.1, Immature Gran % (Auto) 0.800, Neut % (Auto) 91.6 H, Lymph % (Auto) 2.0 L, Mor[place] % (Auto) 5.5, Eos % (Auto) 0.0, Baso % (Auto) 0.1, Absolute Neuts (auto) 14.6 H, Absolute Lymphs (auto) 0.32 L, Nucleated RBC % 0.2, Differential Comment SCANNED, Hypochromasia 2+, Macrocytosis 3+, Target Cells 2+ 03/20/19 04:05: Sodium 149 H, Potassium 4.7, Chloride 111 H, Carbon Dioxide 33.0 H, Anion Gap 5, BUN 84 H, Creatinine 2.03 H, Estim Creat Clear Calc 21.33, Est GFR (MDRD) Af Amer 31 L, Est GFR (MDRD) Non-Af 26 L, BUN/Creatinine Ratio 41.4 H , Glucose 130 H, Calcium 8.1 L 03/20/19 05:28: POC Glucose 126 H 03/20/19 06:12: Specimen Type ART, Sample Site L Radial, pH 7.46 H, Bicarbonate Actual 35.5 H, POC Total CO2 37, Base Excess 12 H, O2 Saturation 91 L, O2 % 35, ABG pCO2 49.5 H, ABG pO2 59 L, Kevin Test POS, O2 Delivery Device Vent, Vent Mode CPAP PS, POC PEEP 5, POC Pressure Suppt 5, Blood Gas Notified Whom ICU MD, Blood Gas Notified Time 602 03/20/19 11:59: POC Glucose 127 H Current Medications Acetaminophen (Tylenol Liquid) 650 mg PO Q6H PRN PRN PRN Reason: Pain Score 1-3/Temp > 100.7 F Albuterol Sulfate (Ventolin Aerosols) 2.5 mg INHALATION Q2H PRN PRN PRN Reason: SHORTNESS OF BREATH Albuterol/Ipratropium (Duoneb) 3 ml INHALATION Q4H.RT SARI Last Admin: 03/20/19 10:36 Dose: 3 ml Documented by: Chlorhexidine Gluconate () 15 ml PO BID SARI Last Admin: 03/20/19 10:04 Dose: 15 ml Documented by: Chlorhexidine Gluconate () 1 each TOPICAL DAILY SARI Last Admin: 03/20/19 05:24 Dose: 1 each Documented by: Dextrose (D50w Syringe) 0 gm IV X1 PRN; Protocol PRN Reason: Hypoglycemia Glucagon () 1 mg IM .X1 PRN PRN Reason: Hypoglycemia Piperacillin Sod/Tazobactam (Sod 3.375 gm/ Sodium Chloride) 50 mls @ 12.5 mls/hr IV Q12 SARI Stop: 03/24/19 22:01 Last Infusion: 03/20/19 14:31 Dose: Infused Documented by: Pantoprazole Sodium 40 mg/ (Sodium Chloride) 110 mls @ 330 mls/hr IV Q12 SARI Last Infusion: 03/20/19 10:21 Dose: Infused Documented by: Sodium Chloride () 250 mls @ 15 mls/hr IV .[id number] PRN PRN Reason: SALINE FLUSH Last Infusion: 03/20/19 14:31 Dose: 15 mls/hr Documented by: Sodium Chloride () 500 mls @ 15 mls/hr IV .[id number] PRN PRN Reason: SALINE FLUSH Propofol (Diprivan) 1,000 mg in 100 mls @ 4.158 mls/hr CONT INF .Q12H SARI; Protocol Last Titration: 03/20/19 14:00 Dose: 20 mcg/kg/min, 8.3 mls/hr Documented by: Fentanyl () 100 mls @ 5 mls/hr IV UD [facility]; Protocol Last Titration: 03/20/19 14:00 Dose: 50 mcg/hr, 5 mls/hr Documented by: Nutritional Form-Impair Digest-Fibe (Vital Af 1.2 Matheus Liquid) 1,500 mls @ 40 mls/hr GT .[id number] [facility] Last Admin: 03/20/19 03:22 Dose: 40 mls/hr Documented by: Insulin Human Lispro (Humalog Kwikpen (Bkc)) 0 unit SC Q6H SARI; Protocol Last Admin: 03/20/19 12:06 Dose: Not Given Documented by: Methylprednisolone (Solu-Medrol) 40 mg IV Q8 SARI Last Admin: 03/20/19 14:16 Dose: 40 mg Documented by: Ondansetron HCl (Zofran) 4 mg IV Q8H PRN PRN PRN Reason: NAUSEA/VOMITING Senna/Docusate Sodium (Senokot-S, Francoise-Colace) 2 tablet GT BID PRN PRN PRN Reason: Constipation Sodium Chloride () 5 - 15 ml IV UD PRN PRN Reason: SALINE FLUSH Last Admin: 03/20/19 10:02 Dose: 10 ml Documented by: STROKE Vital Signs/Narrative: Vital Signs Temp Pulse Resp BP BP Pulse Ox 03/20/19 14:00 36.8 C 72 16 121/66 H 95 03/20/19 13:33 63 17 96 03/20/19 13:00 64 16 110/58 L 96 03/20/19 12:00 36.8 C 64 16 107/60 96 03/20/19 11:45 56 L Medical Necessity - Tobacco Use Smoking Status: Current every day smoker Tobacco Use: Cigarettes Assessment/Plan All Active Problems Acute respiratory failure with hypoxia and hypercapnia (Acute) Bilateral pneumonia (Acute) COPD exacerbation (Acute) Acute anemia (Acute) Acute renal failure superimposed on stage 3 chronic kidney disease (Acute) 1. acute hypoxic and hypercapnic respiratory failure * ongoing * + H flu pneumonia, COPD * on methylpred, pip/tazo, BDs * wean vent as able * CCM following. 2. H. flu pneumonia * on pip/tazo * pulm toilet 3. AECOPD * BDs * methylpred 4. CHANTEL * baseline around 1.15 * monitor 5. acute blood loss anemia * Hg in September was 12.3 * transfused 1 unit PRBCs * monitor 6. VTE prophylaxis: SCDs Code Visit Inpatient E&M: 98585 Subs Hosp L3
[2019-03-20 15:24] LABS: Magnesium 3.5 mg/dL (1.6-2.6); Phosphorus 4.4 mg/dL (2.5-4.9)
[2019-03-20] MEDS: Propofol 10MG/Ml 1,000 MG/100 ML Bottle 8.3 MG CONT INF (15:24)
[2019-03-20] MEDS: fentaNYL drip 100 ML 5 MCG IV (15:25)
[2019-03-20] MEDS: Senna/Docusate Sodium 1 Tablet 2 TABLET GT (17:11)
[2019-03-20 17:15] LABS: Bedside Glucose 130 mg/dL (70-110)
[2019-03-20 23:36] LABS: Bedside Glucose 133 mg/dL (70-110)
[2019-03-20] MEDS: Propofol 10MG/Ml 1,000 MG/100 ML Bottle 10.4 MG CONT INF (23:43)
[2019-03-21] VITALS (39 sets, daily range): BP systolic 104–182; BP diastolic 52–89; PULSE 46–114; RESP 14–32; TEMP 35.9–37.2; O2SAT 85–98
[2019-03-21] MEDS: CHLORHEXIDINE GLUC 2% CLOTH 1 EACH TOWELETTE TOPICAL (03:21)
[2019-03-21] MEDS: 0.9% NaCl Peripheral Flush Adult/Peds IV ×5 (03:21→21:00)
[2019-03-21] MEDS: TITRATION PARAMETER CHANGE 1 EACH IV (04:16)
[2019-03-21 05:14] LABS: Absolute Lymphocyte Count 0.44 X10^3/uL (0.83-4.51); Absolute Neutrophil Count 12.7 X10^3/uL (2.0-7.7); Basophil# 0.01 X10^3/uL; Basophil% 0.1 % (0-1); Hematocrit 26.9 % (37-47); Hemoglobin 7.8 g/dL (12.0-15.0); Lymphocyte # 0.44 X10^3/ul (4.0); Lymphocyte % 3.1 % (19-41); Mean Corpuscular Hgb 26.8 pg (27.0-32.0); Mean Corpuscular Volume 92.4 fL (81-99); Mean Platelet Vol. 10.3 fl (6.2-12.0); Monocyte# 0.93 X10^3/uL; Monocyte% 6.6 % (0-10); NRBC Flagged by Analyzer 0 % (0-5); Neutrophil # 12.72 X10^3/uL (2.7-7.7); Neutrophil % 89.6 % (47-70); POSITIVE DIFFERENTIAL YES; Platelet Count 284 K/mm3 (150-450); RBC Distribution Width CV 16.7 % (11.6-14.6); RBC Distribution Width SD 57.1 fl (35.1-43.9); Red Blood Count 2.91 M/mm3 (4.2-5.4); White Blood Count 14.2 K/mm3 (4.4-11.0)
[2019-03-21 05:25] LABS: Anion Gap 5 (5-15); BUN 81 mg/dL (7-18); BUN/Creat Ratio 48.2 RATIO (10-20); Calcium,Total 8.1 mg/dL (8.5-10.1); Chloride 112 mmol/L (98-107); Creatinine, Serum 1.68 mg/dL (0.55-1.02); EST Glomerular Filtration Rate 32 mL/min (>60); Est Glom Filt Rate - Afr Amer 39 mL/min (>60); Estimated Creatinine Clearance 25.78 ml/min; Glucose 137 mg/dL (74-106); Potassium 4.5 mmol/L (3.5-5.1); Sodium Level 148 mmol/L (136-145)
[2019-03-21 05:26] LABS: Bedside Glucose 134 mg/dL (70-110)
[2019-03-21 05:58] LABS: Differential Indicated SCAN CRITERIA MET
[2019-03-21 06:20] LABS: Differential Comment SCANNED; Hypochromasia 2+; Macrocytosis 2+; Target Cells 2+
[2019-03-21 06:36] LABS: Allen Test POS; Base Excess 8 mmol/L (-2 to +2); Bicarbonate 32.2 mmol/L (22-26); Blood Gas Specimen Type ART; FI02 35; Mode CPAP PS; O2 Delivery Device Vent; PEEP 5; PO2 62 mmHG (75-100); PS 5; SITE L Radial; SO2 91 % (95-99); Time Given 615; Total Carbon Dioxide 34 mmol/L; pCO2 50.5 mmHg (35-45); pH 7.41 (7.35-7.45)
--- NOTE | 2019-03-21 06:40 | NURSING ---
Pt. extubated by respiratory to 4L NC. Pt. tolerated well.
--- NOTE | 2019-03-21 06:51 | NURSING ---
After pt. extubated took Fentnayl bag down and wasted 60ml of Fentanyl with Da Piper RN.
[2019-03-21] MEDS: Ipratropium/Albuterol Sulfate 3 ML AMPUL.NEB INHALATION ×5 (06:56→23:02)
--- NOTE | 2019-03-21 07:15 | PN_ITS ---
Subjective: Patient did well overnight. No acute issues were reported. Nursing did report patient having more oral secretions than endotracheal secretions. Patient did have a spontaneous awakening and breathing trial this morning and was successfully liberated from the ventilator. Patient does report a mild sore throat, but otherwise is doing well. Patient had tolerated tube feeds up until extubation. General: Alert, Oriented x3, Cooperative, No apparent distress, Well developed, Well nourished, - - Slightly hoarse voice. No stridor appreciated. HEENT: Atraumatic, PERRLA, EOMI, Normocephalic, - - No scleral icterus or injection noted Oral: Moist Mucosa, No Gingival or Mucosal Lesions/ Ulcerations Neck: Supple, No JVD, No Nodes, Trachea Midline Lungs: No rhonchi, No rales, Diminished, - - End expiratory wheezes noted. Cardiovascular: Regular Rhythm, Normal S1, Normal S2, No murmurs, Bradycardic, No rub noted, No Gallop Abdomen: Bowel Sounds Present, Soft, Non Tender, Non-Distended Extremities: No clubbing, No cyanosis, Edema Skin: No rashes, No breakdown Musculoskeletal: No Tenderness to Palpation of Joints or Extremities Lymphatic: No Cervical, Supraclavicular, or Inguinal Adenopathy Neurological: Cranial nerves II-XII grossly intact, Neuro grossly intact, Motor Exam 5/5 strength throughout Psych/Mental Status: Alert and oriented to time, place, person, mood and affect Vital Signs Temp Pulse Resp BP Pulse Ox 36.2 C L 84 15 136/71 H 91 03/21/19 04:00 03/21/19 06:58 03/21/19 06:58 03/21/19 06:00 03/21/19 06:58 Oxygen Flow Rate (L/min) 4 Oxygen Delivery Method Nasal Cannula Weight: 71.4 kg Body Mass Index (BMI) 25.7 Intake and Output for Last 24 Hours 03/19/19 03/20/19 03/21/19 23:59 23:59 23:59 Intake Total 2295.92 / 2305.12 2263.49 / 2263.49 523.92 / 523.92 Output Total 825 / 825 1275 / 1275 275 / 275 Balance 1470.92 / 1480.12 988.49 / 988.49 248.92 / 248.92 Labs (Last 48 Hours) 03/17/19 03/19/19 03/19/19 22:05 04:00 04:00 WBC RBC Hgb Hct MCV MCH MCHC RDW Std Deviation RDW Coeff of Mya Plt Count MPV Immature Gran % (Auto) Neut % (Auto) Lymph % (Auto) [place] % (Auto) Eos % (Auto) Baso % (Auto) Absolute Neuts (auto) Absolute Lymphs (auto) Nucleated RBC % Differential Comment Diff Path Review Reviewed Hypochromasia Macrocytosis Target Cells Specimen Type Sample Site pH Bicarbonate Actual POC Total CO2 Base Excess O2 Saturation O2 % ABG pCO2 ABG pO2 Kevin Test O2 Delivery Device Vent Mode POC PEEP POC Pressure Suppt Blood Gas Notified Whom Blood Gas Notified Time Sodium Potassium Chloride Carbon Dioxide Anion Gap BUN Creatinine Estim Creat Clear Calc Est GFR (MDRD) Af Amer Est GFR (MDRD) Non-Af BUN/Creatinine Ratio Glucose Calcium Phosphorus Magnesium Total Bilirubin 0.40 Direct Bilirubin 0.17 AST 44 H ALT 99 H Alkaline Phosphatase 125 H Total Protein 6.0 L Albumin 2.9 L Globulin 3.1 POC Glucose Crossmatch See Detail 03/19/19 03/19/19 03/20/19 11:46 17:18 00:18 WBC RBC Hgb Hct MCV MCH MCHC RDW Std Deviation RDW Coeff of Mya Plt Count MPV Immature Gran % (Auto) Neut % (Auto) Lymph % (Auto) [place] % (Auto) Eos % (Auto) Baso % (Auto) Absolute Neuts (auto) Absolute Lymphs (auto) Nucleated RBC % Differential Comment Diff Path Review Hypochromasia Macrocytosis Target Cells Specimen Type Sample Site pH Bicarbonate Actual POC Total CO2 Base Excess O2 Saturation O2 % ABG pCO2 ABG pO2 Kevin Test O2 Delivery Device Vent Mode POC PEEP POC Pressure Suppt Blood Gas Notified Whom Blood Gas Notified Time Sodium Potassium Chloride Carbon Dioxide Anion Gap BUN Creatinine Estim Creat Clear Calc Est GFR (MDRD) Af Amer Est GFR (MDRD) Non-Af BUN/Creatinine Ratio Glucose Calcium Phosphorus Magnesium Total Bilirubin Direct Bilirubin AST ALT Alkaline Phosphatase Total Protein Albumin Globulin POC Glucose 133 H 122 H 150 H Crossmatch 03/20/19 03/20/19 03/20/19 04:05 04:05 04:05 WBC 16.0 H RBC 2.79 L Hgb 7.5 L Hct 25.5 L MCV 91.4 MCH 26.9 L MCHC 29.4 L RDW Std Deviation 55.8 H RDW Coeff of Mya 16.6 H Plt Count 342 MPV 10.1 Immature Gran % (Auto) 0.800 Neut % (Auto) 91.6 H Lymph % (Auto) 2.[address] % (Auto) 5.5 Eos % (Auto) 0.0 Baso % (Auto) 0.1 Absolute Neuts (auto) 14.6 H Absolute Lymphs (auto) 0.32 L Nucleated RBC % 0.2 Differential Comment SCANNED Diff Path Review Hypochromasia 2+ Macrocytosis 3+ Target Cells 2+ Specimen Type Sample Site pH Bicarbonate Actual POC Total CO2 Base Excess O2 Saturation O2 % ABG pCO2 ABG pO2 Kevin Test O2 Delivery Device Vent Mode POC PEEP POC Pressure Suppt Blood Gas Notified Whom Blood Gas Notified Time Sodium 149 H Potassium 4.7 Chloride 111 H Carbon Dioxide 33.0 H Anion Gap 5 BUN 84 H Creatinine 2.03 H Estim Creat Clear Calc 21.33 Est GFR (MDRD) Af Amer 31 L Est GFR (MDRD) Non-Af 26 L BUN/Creatinine Ratio 41.4 H Glucose 130 H Calcium 8.1 L Phosphorus 4.4 Magnesium 3.5 H Total Bilirubin Direct Bilirubin AST ALT Alkaline Phosphatase Total Protein Albumin Globulin POC Glucose Crossmatch 03/20/19 03/20/19 03/20/19 05:28 06:12 11:59 WBC RBC Hgb Hct MCV MCH MCHC RDW Std Deviation RDW Coeff of Mya Plt Count MPV Immature Gran % (Auto) Neut % (Auto) Lymph % (Auto) [place] % (Auto) Eos % (Auto) Baso % (Auto) Absolute Neuts (auto) Absolute Lymphs (auto) Nucleated RBC % Differential Comment Diff Path Review Hypochromasia Macrocytosis Target Cells Specimen Type ART Sample Site L Radial pH 7.46 H Bicarbonate Actual 35.5 H POC Total CO2 37 Base Excess 12 H O2 Saturation 91 L O2 % 35 ABG pCO2 49.5 H ABG pO2 59 L Kevin Test POS O2 Delivery Device Vent Vent Mode CPAP PS POC PEEP 5 POC Pressure Suppt 5 Blood Gas Notified Whom ICU MD Blood Gas Notified Time 602 Sodium Potassium Chloride Carbon Dioxide Anion Gap BUN Creatinine Estim Creat Clear Calc Est GFR (MDRD) Af Amer Est GFR (MDRD) Non-Af BUN/Creatinine Ratio Glucose Calcium Phosphorus Magnesium Total Bilirubin Direct Bilirubin AST ALT Alkaline Phosphatase Total Protein Albumin Globulin POC Glucose 126 H 127 H Crossmatch 03/20/19 03/20/19 03/21/19 17:06 23:32 05:00 WBC 14.2 H RBC 2.91 L Hgb 7.8 L Hct 26.9 L MCV 92.4 MCH 26.8 L MCHC 29.0 L RDW Std Deviation 57.1 H RDW Coeff of Mya 16.7 H Plt Count 284 MPV 10.3 Immature Gran % (Auto) 0.600 Neut % (Auto) 89.6 H Lymph % (Auto) 3.[address] % (Auto) 6.6 Eos % (Auto) 0.0 Baso % (Auto) 0.1 Absolute Neuts (auto) 12.7 H Absolute Lymphs (auto) 0.44 L Nucleated RBC % 0 Differential Comment SCANNED Diff Path Review Hypochromasia 2+ Macrocytosis 2+ Target Cells 2+ Specimen Type Sample Site pH Bicarbonate Actual POC Total CO2 Base Excess O2 Saturation O2 % ABG pCO2 ABG pO2 Kevin Test O2 Delivery Device Vent Mode POC PEEP POC Pressure Suppt Blood Gas Notified Whom Blood Gas Notified Time Sodium Potassium Chloride Carbon Dioxide Anion Gap BUN Creatinine Estim Creat Clear Calc Est GFR (MDRD) Af Amer Est GFR (MDRD) Non-Af BUN/Creatinine Ratio Glucose Calcium Phosphorus Magnesium Total Bilirubin Direct Bilirubin AST ALT Alkaline Phosphatase Total Protein Albumin Globulin POC Glucose 130 H 133 H Crossmatch 03/21/19 03/21/19 03/21/19 05:00 05:11 06:28 WBC RBC Hgb Hct MCV MCH MCHC RDW Std Deviation RDW Coeff of Mya Plt Count MPV Immature Gran % (Auto) Neut % (Auto) Lymph % (Auto) [place] % (Auto) Eos % (Auto) Baso % (Auto) Absolute Neuts (auto) Absolute Lymphs (auto) Nucleated RBC % Differential Comment Diff Path Review Hypochromasia Macrocytosis Target Cells Specimen Type ART Sample Site L Radial pH 7.41 Bicarbonate Actual 32.2 H POC Total CO2 34 Base Excess 8 H O2 Saturation 91 L O2 % 35 ABG pCO2 50.5 H ABG pO2 62 L Kevin Test POS O2 Delivery Device Vent Vent Mode CPAP PS POC PEEP 5 POC Pressure Suppt 5 Blood Gas Notified Whom ICU MD Blood Gas Notified Time 615 Sodium 148 H Potassium 4.5 Chloride 112 H Carbon Dioxide 31.0 Anion Gap 5 BUN 81 H Creatinine 1.68 H Estim Creat Clear Calc 25.78 Est GFR (MDRD) Af Amer 39 L Est GFR (MDRD) Non-Af 32 L BUN/Creatinine Ratio 48.2 H Glucose 137 H Calcium 8.1 L Phosphorus Magnesium Total Bilirubin Direct Bilirubin AST ALT Alkaline Phosphatase Total Protein Albumin Globulin POC Glucose 134 H Crossmatch Microbiology 03/18/19 06:52 Sputum, Tracheal Aspirate Gram Stain - Final 03/18/19 06:52 Sputum, Tracheal Aspirate Respiratory Culture - Final Presumptive C albicans Haemophilus influenzae 03/17/19 19:45 Blood Culture (Wb) - Left Forearm Blood Culture - Preliminary No growth in 48 hours. 03/17/19 18:55 Blood Culture (Wb) - Anticubital Left Blood Culture - Preliminary No growth in 48 hours. Medical Necessity - Tobacco Use Smoking Status: Current every day smoker Tobacco Use: Cigarettes Assessment/Plan All Active Problems Acute respiratory failure with hypoxia and hypercapnia (Acute) Bilateral pneumonia (Acute) COPD exacerbation (Acute) Acute anemia (Acute) Acute renal failure superimposed on stage 3 chronic kidney disease (Acute) RECOMMENDATIONS: 1. Wean FiO2 to maintain oxygen saturations at or above 90%. 2. Wean antibiotic spectrum once sensitivities are available and complete 7 days. 3. Transfuse blood products if hemoglobin drops below 7 g/dL. 4. Continue steroids at current dosing, along with bronchodilators. Likely wean steroids tomorrow 5. Avoid NSAIDs. Continue PPI therapy twice daily. 6. Bedside swallow evaluation 7. Activity per mobility protocol IMPRESSIONS: 1. Acute combined respiratory failure secondary to H. influenzae pneumonia Able to be liberated from the ventilator this morning. Patient has come back positive for H. influenzae and is on appropriate antibiotics at this time. Likely narrow antibiotic spectrum once sensitivities are available. C albicans likely contaminant. Wean oxygen as tolerated. No indication for BiPAP at this time, but will monitor closely. Increase activity as tolerated 2. Severe sepsis with concerns for underlying H. influenzae pneumonia The patient is currently on appropriate antimicrobials and remains hemodynamically stable following IV fluid resuscitation. Continue current supportive measures as noted above. Patient will likely be treated for 7 days empirically given baseline status 3. Anemia Potentially related to an upper GI source of blood loss in the setting of chronic NSAID utilization. The patient has been transfused 1 unit of packed red blood cells with appropriate incrementation in her hemoglobin. Plan to continue to monitor H&H daily, with plan to transfuse if hemoglobin drops below 7 g/dL. Continue to hold all NSAIDs. Continue PPI therapy as ordered. No indication for transfusion today. 4. Acute on chronic kidney disease/hyperkalemia Potentially prerenal in etiology in the setting of the above. Creatinine is stable and hyperkalemia has resolved. Continue to monitor urine output. No current indication for renal replacement therapy. Patient does have significant peripheral edema, but this appears to be secondary to low oncotic pressure with an albumin of 2.9. Would NOT recommend albumin with Lasix. Potentially treat with diuretics in the next 24 to 48 hours 5. Elevated transaminases Unclear etiology at this time. Although may be related to presenting sepsis. Liver ultrasound was unremarkable. Recheck liver functions periodically. TIME: 33 minutes of critical care time, independent of procedures, was spent addressing the patient's acute combined respiratory failure, severe sepsis with concerns for underlying pulmonary infectious process, anemia, acute on chronic kidney disease, hyperkalemia, elevated transaminases, review of all data and collaboration with the care team. (5:50 AM to 6:50 AM) Code Visit Procedures: [id number]
--- NOTE | 2019-03-21 08:35 | PN_ITS ---
Patient Problems: Active and Suspected Problems Acute respiratory failure with hypoxia and hypercapnia (Acute) Bilateral pneumonia (Acute) COPD exacerbation (Acute) Acute anemia (Acute) Acute renal failure superimposed on stage 3 chronic kidney disease (Acute) Subjective: Extubated this AM. Breathing well post-extubation. Vitals/I&O's: Vital Signs Temp Pulse Resp BP Pulse Ox 36.2 C L 96 26 H 152/75 H 93 03/21/19 04:00 03/21/19 07:51 03/21/19 07:00 03/21/19 07:00 03/21/19 07:00 Oxygen Flow Rate (L/min) 4 Oxygen Delivery Method Nasal Cannula Weight: 71.4 kg Body Mass Index (BMI) 25.7 Intake and Output for Last 24 Hours 03/19/19 03/20/19 03/21/19 23:59 23:59 23:59 Intake Total 2295.92 / 2305.12 2263.49 / 2263.49 523.92 / 523.92 Output Total 825 / 825 1275 / 1275 275 / 275 Balance 1470.92 / 1480.12 988.49 / 988.49 248.92 / 248.92 General: Alert, No apparent distress, - - no respiratory distress. no conversational dyspnea. HEENT: Atraumatic, Normocephalic Oral: Moist Mucosa, No Gingival or Mucosal Lesions/ Ulcerations Neck: No Nodes, Trachea Midline Lungs: Normal air movement, - - coarse breath sounds bilaterally. Cardiovascular: Regular rate, Regular Rhythm, Normal S1, Normal S2, No murmurs Abdomen: Bowel Sounds Present, Soft, Non Tender, Non-Distended, No Hepato- splenomegaly Extremities: No edema, No Calf Tenderness Skin: No rashes, No breakdown Musculoskeletal: No Tenderness to Palpation of Joints or Extremities, No Muscle Wasting Psych/Mental Status: Normal Affect, Appropriate Microbiology Past 72 Hours 03/18/19 06:52 Sputum, Tracheal Aspirate Gram Stain - Final 03/18/19 06:52 Sputum, Tracheal Aspirate Respiratory Culture - Final Presumptive C albicans Haemophilus influenzae 03/17/19 19:45 Blood Culture (Wb) - Left Forearm Blood Culture - Preliminary No growth in 48 hours. 03/17/19 18:55 Blood Culture (Wb) - Anticubital Left Blood Culture - Preliminary No growth in 48 hours. 03/18/19 00:50 Mucosa - Nasopharyngeal Respiratory Panel (PCR) - Final Laboratory Results 03/17/19 22:05: Crossmatch See Detail 03/19/19 04:00: Diff Path Review Reviewed 03/20/19 04:05: Phosphorus 4.4, Magnesium 3.5 H 03/20/19 11:59: POC Glucose 127 H 03/20/19 17:06: POC Glucose 130 H 03/20/19 23:32: POC Glucose 133 H 03/21/19 05:00: WBC 14.2 H, RBC 2.91 L, Hgb 7.8 L, Hct 26.9 L, MCV 92.4, MCH 26.8 L, MCHC 29.0 L, RDW Std Deviation 57.1 H, RDW Coeff of Mya 16.7 H, Plt Count 284, MPV 10.3, Immature Gran % (Auto) 0.600, Neut % (Auto) 89.6 H, Lymph % (Auto) 3.1 L, [place] % (Auto) 6.6, Eos % (Auto) 0.0, Baso % (Auto) 0.1, Absolute Neuts (auto) 12.7 H, Absolute Lymphs (auto) 0.44 L, Nucleated RBC % 0, Differential Comment SCANNED, Hypochromasia 2+, Macrocytosis 2+, Target Cells 2+ 03/21/19 05:00: Sodium 148 H, Potassium 4.5, Chloride 112 H, Carbon Dioxide 31.0, Anion Gap 5, BUN 81 H, Creatinine 1.68 H, Estim Creat Clear Calc 25.78, Est GFR (MDRD) Af Amer 39 L, Est GFR (MDRD) Non-Af 32 L, BUN/Creatinine Ratio 48.2 H, Glucose 137 H, Calcium 8.1 L 03/21/19 05:11: POC Glucose 134 H 03/21/19 06:28: Specimen Type ART, Sample Site L Radial, pH 7.41, Bicarbonate Actual 32.2 H, POC Total CO2 34, Base Excess 8 H, O2 Saturation 91 L, O2 % 35, ABG pCO2 50.5 H, ABG pO2 62 L, Kevin Test POS, O2 Delivery Device Vent, Vent Mode CPAP PS, POC PEEP 5, POC Pressure Suppt 5, Blood Gas Notified Whom ICU MD, Blood Gas Notified Time 615 Current Medications Acetaminophen (Tylenol Liquid) 650 mg PO Q6H PRN PRN PRN Reason: Pain Score 1-3/Temp > 100.7 F Albuterol Sulfate (Ventolin Aerosols) 2.5 mg INHALATION Q2H PRN PRN PRN Reason: SHORTNESS OF BREATH Albuterol/Ipratropium (Duoneb) 3 ml INHALATION Q4H.RT [facility] Last Admin: 03/21/19 06:56 Dose: 3 ml Documented by: Chlorhexidine Gluconate () 1 each TOPICAL DAILY [facility] Last Admin: 03/21/19 03:21 Dose: 1 each Documented by: Dextrose (D50w Syringe) 0 gm IV X1 PRN; Protocol PRN Reason: Hypoglycemia Glucagon () 1 mg IM .X1 PRN PRN Reason: Hypoglycemia Piperacillin Sod/Tazobactam (Sod 3.375 gm/ Sodium Chloride) 50 mls @ 12.5 mls/hr IV Q12 [facility] Stop: 03/24/19 22:01 Last Infusion: 03/21/19 02:31 Dose: Infused Documented by: Pantoprazole Sodium 40 mg/ (Sodium Chloride) 110 mls @ 330 mls/hr IV Q12 [facility] Last Infusion: 03/20/19 21:27 Dose: Infused Documented by: Sodium Chloride () 250 mls @ 15 mls/hr IV .[id number] PRN PRN Reason: SALINE FLUSH Last Infusion: 03/21/19 03:24 Dose: 0 mls/hr Documented by: Sodium Chloride () 500 mls @ 15 mls/hr IV .[id number] PRN PRN Reason: SALINE FLUSH Insulin Human Lispro (Humalog Kwmainpen (Bkc)) 0 unit SC Q6H [facility]; Protocol Last Admin: 03/21/19 05:20 Dose: Not Given Documented by: Methylprednisolone (Solu-Medrol) 40 mg IV Q8 [facility] Last Admin: 03/21/19 05:07 Dose: 40 mg Documented by: Ondansetron HCl (Zofran) 4 mg IV Q8H PRN PRN PRN Reason: NAUSEA/VOMITING Senna/Docusate Sodium (Senokot-S, Francoise-Colace) 2 tablet PO BID PRN PRN PRN Reason: Constipation Sodium Chloride () 5 - 15 ml IV UD PRN PRN Reason: SALINE FLUSH Last Admin: 03/21/19 05:07 Dose: 15 ml Documented by: STROKE Vital Signs/Narrative: Vital Signs Pulse Resp BP Pulse Ox 03/21/19 07:51 96 03/21/19 07:00 98 26 H 152/75 H 93 03/21/19 06:58 84 15 91 03/21/19 06:00 60 24 H 136/71 H 93 03/21/19 05:10 56 L 15 93 03/21/19 05:00 62 15 118/64 93 Medical Necessity - Tobacco Use Smoking Status: Current every day smoker Tobacco Use: Cigarettes Assessment/Plan All Active Problems Acute respiratory failure with hypoxia and hypercapnia (Acute) Bilateral pneumonia (Acute) COPD exacerbation (Acute) Acute anemia (Acute) Acute renal failure superimposed on stage 3 chronic kidney disease (Acute) 1. acute hypoxic and hypercapnic respiratory failure * improved * extubated 03/21 * + H flu pneumonia, COPD * on methylpred, pip/tazo, BDs * wean vent as able * CCM following. 2. H. flu pneumonia * Beta-lactamase positive * DC pip/tazo, start CTX * pulm toilet 3. AECOPD * BDs * methylpred 4. CHANTEL * improving * baseline around 1.15 * suspect prerenal etiology * monitor 5. acute blood loss anemia * Hg in September was 12.3 * transfused 1 unit PRBCs * currently stable. * check iron studies, B12, folate * TSH normal on 03/18 6. VTE prophylaxis: SCDs Code Visit Inpatient E&M: 30296 Subs Hosp L2
[2019-03-21 09:31] LABS: Ferritin 11 ng/mL (8-252); Iron 18 ug/dL (50-170); Iron Binding Capacity,Total 407 ug/dL (250-450); PERCENT IRON SATURATION 4.4 % (15.0-55.0)
[2019-03-21 09:38] LABS: Vitamin B12 1049 pg/mL (211-911)
[2019-03-21] MEDS: Ceftriaxone 1 GM/50 ML BAG IV (10:41)
--- NOTE | 2019-03-21 13:54 | CASEMGMT ---
Addendum entered by Moira Wright 03/21/19 14:47: [facility] does have beds available. Referral information faxed. DESTIN Marroquin Original Note: SW met with pt and sister and reviewed d/c plan with pt. Pt stating she would like to return home but feels she will likely need short term SNF for rehab prior to returning home. Written list of in network facilities provided to pt. Pt first choice is [facility]. Phone call to TCU and they do not have any beds available. Pt made aware of this and second choice is [facility] and third choice [facility]. Phone call to [facility] and left checking bed availability. SW will await return call. DESTIN Marroquin
[2019-03-22] VITALS (42 sets, daily range): BP systolic 118–177; BP diastolic 60–94; PULSE 56–108; RESP 14–36; TEMP 36.6–37.2; O2SAT 85–100
[2019-03-22] MEDS: Ipratropium/Albuterol Sulfate 3 ML AMPUL.NEB INHALATION ×6 (03:45→23:05)
[2019-03-22] MEDS: 0.9% NaCl Peripheral Flush Adult/Peds IV ×2 (05:15→21:20)
--- NOTE | 2019-03-22 08:42 | PN_ITS ---
Patient Problems: Active and Suspected Problems Acute respiratory failure with hypoxia and hypercapnia (Acute) Bilateral pneumonia (Acute) COPD exacerbation (Acute) Acute anemia (Acute) Acute renal failure superimposed on stage 3 chronic kidney disease (Acute) Subjective: Breathing well, though did require BiPAP rescue last night. Vitals/I&O's: Vital Signs Temp Pulse Resp BP Pulse Ox 36.6 C 71 30 H 136/61 H 92 03/22/19 04:00 03/22/19 08:00 03/22/19 08:00 03/22/19 08:00 03/22/19 08:00 Oxygen Flow Rate (L/min) 6 Oxygen Delivery Method Bi-pap Weight: 70.6 kg Body Mass Index (BMI) 25.7 Intake and Output for Last 24 Hours 03/20/19 03/21/19 03/22/19 23:59 23:59 23:59 Intake Total 2263.49 / 2263.49 1594.42 / 1594.42 240 / 240 Output Total 1275 / 1275 1050 / 1050 250 / 250 Balance 988.49 / 988.49 544.42 / 544.42 -10 10 General: Alert, No apparent distress, - - on BiPAP HEENT: Atraumatic, Normocephalic Oral: Moist Mucosa, No Gingival or Mucosal Lesions/ Ulcerations Neck: No Nodes, Thyroid Normal Size and Texture Lungs: Normal air movement, - - coarse breath sounds bilaterally. Cardiovascular: Regular rate, Regular Rhythm, Normal S1, Normal S2, No murmurs Abdomen: Bowel Sounds Present, Soft, Non Tender, Non-Distended Extremities: No edema, No Calf Tenderness Skin: No rashes, No breakdown Psych/Mental Status: Normal Affect, Appropriate Microbiology Past 72 Hours 03/18/19 06:52 Sputum, Tracheal Aspirate Gram Stain - Final 03/18/19 06:52 Sputum, Tracheal Aspirate Respiratory Culture - Final Presumptive C albicans Haemophilus influenzae 03/17/19 19:45 Blood Culture (Wb) - Left Forearm Blood Culture - Preliminary No growth in 48 hours. 03/17/19 18:55 Blood Culture (Wb) - Anticubital Left Blood Culture - Preliminary No growth in 48 hours. Laboratory Results 03/21/19 05:00: Vitamin B12 1049 H 03/21/19 05:00: Iron 18 L, TIBC 407, Iron Saturation 4.4 L, Ferritin 11 03/21/19 11:00: RBC Folate Hemolysate Pending, RBC Folate Pending, Hematocrit Pending Current Medications Acetaminophen (Tylenol Liquid) 650 mg PO Q6H PRN PRN PRN Reason: Pain Score 1-3/Temp > 100.7 F Albuterol Sulfate (Ventolin Aerosols) 2.5 mg INHALATION Q2H PRN PRN PRN Reason: SHORTNESS OF BREATH Albuterol/Ipratropium (Duoneb) 3 ml INHALATION Q4H.RT [facility] Last Admin: 03/22/19 06:30 Dose: 3 ml Documented by: Chlorhexidine Gluconate () 1 each TOPICAL DAILY [facility] Last Admin: 03/21/19 03:21 Dose: 1 each Documented by: Dextrose (D50w Syringe) 0 gm IV X1 PRN; Protocol PRN Reason: Hypoglycemia Glucagon () 1 mg IM .X1 PRN PRN Reason: Hypoglycemia Ceftriaxone Sodium (Rocephin) 1 gm in 50 mls @ 100 mls/hr IV Q24 [facility] Stop: 03/24/19 10:01 Last Infusion: 03/21/19 11:11 Dose: Infused Documented by: Sodium Chloride () 250 mls @ 15 mls/hr IV .[id number] PRN PRN Reason: Saline Flush Last Infusion: 03/21/19 15:12 Dose: 0 mls/hr Documented by: Methylprednisolone (Solu-Medrol) 40 mg IV Q8 [facility] Last Admin: 03/22/19 05:15 Dose: 40 mg Documented by: Ondansetron HCl (Zofran) 4 mg IV Q8H PRN PRN PRN Reason: NAUSEA/VOMITING Senna/Docusate Sodium (Senokot-S, Francoise-Colace) 2 tablet PO BID PRN PRN PRN Reason: Constipation Sodium Chloride () 5 - 15 ml IV UD PRN PRN Reason: SALINE FLUSH Last Admin: 03/22/19 05:15 Dose: 15 ml Documented by: STROKE Vital Signs/Narrative: Vital Signs Pulse Resp BP Pulse Ox 03/22/19 08:00 71 30 H 136/61 H 92 03/22/19 07:53 60 03/22/19 07:05 65 18 95 03/22/19 07:00 63 28 H 131/71 H 94 03/22/19 06:30 59 L 22 H 96 03/22/19 06:00 75 17 135/66 H 95 03/22/19 05:00 66 17 133/68 H 96 03/22/19 04:56 62 23 H 96 Medical Necessity - Tobacco Use Smoking Status: Current every day smoker Tobacco Use: Cigarettes Assessment/Plan All Active Problems Acute respiratory failure with hypoxia and hypercapnia (Acute) Bilateral pneumonia (Acute) COPD exacerbation (Acute) Acute anemia (Acute) Acute renal failure superimposed on stage 3 chronic kidney disease (Acute) 1. acute hypoxic and hypercapnic respiratory failure * improved * extubated 03/21 * + H flu pneumonia, COPD * on methylpred, CTX, BDs * on BiPAP currently, will continue to monitor in ICU for now, could possibly be deescalated to PCU later today or tomorrow. * CCM following. 2. H. flu pneumonia * Beta-lactamase positive * continue CTX, continue abx through 03/24 * pulm toilet 3. AECOPD * BDs * methylpred 4. CHANTEL * iron-deficient * improving * baseline around 1.15 * suspect prerenal etiology * monitor 5. acute blood loss anemia * Hg in September was 12.3 * transfused 1 unit PRBCs * currently stable. * iron, ferritin low * B12 high * folate pending * TSH normal on 03/18 * 03/22: give dose of iron sucrose 6. VTE prophylaxis: SCDs ERIC Lopez. Code Visit Inpatient E&M: 04139 Subs Hosp L2
[2019-03-22 09:08] LABS: Absolute Lymphocyte Count 0.47 X10^3/uL (0.83-4.51); Absolute Neutrophil Count 13.8 X10^3/uL (2.0-7.7); Basophil# 0.01 X10^3/uL; Basophil% 0.1 % (0-1); Hematocrit 32.4 % (37-47); Hemoglobin 9.2 g/dL (12.0-15.0); Lymphocyte # 0.47 X10^3/ul (4.0); Lymphocyte % 3.1 % (19-41); Mean Corp Hgb Conc 28.4 g/dL (32-36); Mean Corpuscular Hgb 26.6 pg (27.0-32.0); Mean Corpuscular Volume 93.6 fL (81-99); Mean Platelet Vol. 9.9 fl (6.2-12.0); Monocyte# 0.84 X10^3/uL; Monocyte% 5.5 % (0-10); NRBC Flagged by Analyzer 0.1 % (0-5); Neutrophil # 13.77 X10^3/uL (2.7-7.7); Neutrophil % 90.6 % (47-70); POSITIVE DIFFERENTIAL YES; Platelet Count 295 K/mm3 (150-450); RBC Distribution Width CV 16.7 % (11.6-14.6); RBC Distribution Width SD 57.1 fl (35.1-43.9); Red Blood Count 3.46 M/mm3 (4.2-5.4); White Blood Count 15.2 K/mm3 (4.4-11.0)
[2019-03-22 09:10] LABS: Differential Indicated SCAN CRITERIA MET
[2019-03-22 09:24] LABS: Anion Gap 4 (5-15); BUN 60 mg/dL (7-18); BUN/Creat Ratio 49.2 RATIO (10-20); Calcium,Total 8.9 mg/dL (8.5-10.1); Chloride 107 mmol/L (98-107); Creatinine, Serum 1.22 mg/dL (0.55-1.02); EST Glomerular Filtration Rate 46 mL/min (>60); Est Glom Filt Rate - Afr Amer 56 mL/min (>60); Estimated Creatinine Clearance 35.49 ml/min; Glucose 94 mg/dL (74-106); Sodium Level 146 mmol/L (136-145)
[2019-03-22 09:36] LABS: Hypochromasia 1+
--- NOTE | 2019-03-22 10:01 | CASEMGMT ---
SW received a message from Lori at [facility] stating they can likely take pt, asked about bi-kelvin and if pt is getting a blood transfusion. Lori also reminded SW that they are a no smoking facility and asked when to start precert. SW spoke w/pt and pt's sister in room. SW explained that [facility] can likely take pt. Pt and sister not certain if pt will need bipapp at discharge at night, but it is anticipated she will. Pt does not have bipapp at home. SW reminded pt and pt's sister that pt cannot smoke at [facility]. Pt states understanding, does not plan to smoke. Pt talked about being on the vent and states that she does not ever want to go through that again. Support given. SW explained that once we have a better idea when pt is ready for discharge, we will go to insurance to ask for authorization. Pt and sister state understanding. SW called Lori at [facility] back, message left. SW explained that pt did get a blood transfusion. Also, SW let her know pt does not have bipapp but will likely need it when she comes there. Additionally, SW left in message pt does not plan to smoke, and that SW will let her know when to start precert. SW also faxed clinical updates to [facility]. SW will continue to follow for plan of discharge to [facility], and will let [facility] know when to start precert. CHRISTOPHER Saravia
[2019-03-22] MEDS: Ceftriaxone 1 GM/50 ML BAG IV (10:17)
--- NOTE | 2019-03-22 10:26 | PN_ITS ---
Subjective: Patient did okay overnight. Patient has been requiring high flow nasal cannula oxygen at 50% to maintain saturations and did use BiPAP overnight. Patient reported subjective improvement following BiPAP therapy. Patient denies any chest pain. Patient continues to have edema. General: Alert, Oriented x3, Cooperative, - - Mild conversational dyspnea. HEENT: Atraumatic, PERRLA, EOMI, Normocephalic, - - Slight scleral injection Oral: Moist Mucosa, No Gingival or Mucosal Lesions/ Ulcerations Neck: Supple, No Nodes, Trachea Midline, JVD, Right Lungs: No rhonchi, No wheeze, Diminished, Rales, - - Symmetric expansion. Cardiovascular: Regular rate, Regular Rhythm, Normal S1, Normal S2, No murmurs, No rub noted, No Gallop Abdomen: Bowel Sounds Present, Soft, Non Tender, Non-Distended Extremities: No cyanosis, Capillary Refill Less than 3 Seconds, Clubbing, Edema Skin: - - No change compared to previous Musculoskeletal: No Tenderness to Palpation of Joints or Extremities Lymphatic: No Cervical, Supraclavicular, or Inguinal Adenopathy Neurological: Cranial nerves II-XII grossly intact, Neuro grossly intact, Motor Exam 5/5 strength throughout Psych/Mental Status: Appropriate, Anxious Vital Signs Temp Pulse Resp BP Pulse Ox 36.6 C 71 30 H 136/61 H 92 03/22/19 04:00 03/22/19 08:00 03/22/19 08:00 03/22/19 08:00 03/22/19 08:00 Oxygen Flow Rate (L/min) 6 Oxygen Delivery Method Bi-pap Weight: 70.6 kg Body Mass Index (BMI) 25.7 Intake and Output for Last 24 Hours 03/20/19 03/21/19 03/22/19 23:59 23:59 23:59 Intake Total 2263.49 / 2263.49 1594.42 / 1594.42 240 / 240 Output Total 1275 / 1275 1050 / 1050 250 / 250 Balance 988.49 / 988.49 544.42 / 544.42 -10 10 Labs (Last 48 Hours) 03/17/19 03/19/19 03/20/19 22:05 04:00 04:05 WBC RBC Hgb Hct MCV MCH MCHC RDW Std Deviation RDW Coeff of Mya Plt Count MPV Immature Gran % (Auto) Neut % (Auto) Lymph % (Auto) [place] % (Auto) Eos % (Auto) Baso % (Auto) Absolute Neuts (auto) Absolute Lymphs (auto) Nucleated RBC % Differential Comment Diff Path Review Reviewed Hypochromasia Macrocytosis Target Cells Specimen Type Sample Site pH Bicarbonate Actual POC Total CO2 Base Excess O2 Saturation O2 % ABG pCO2 ABG pO2 Kevin Test O2 Delivery Device Vent Mode POC PEEP POC Pressure Suppt Blood Gas Notified Whom Blood Gas Notified Time Sodium Potassium Chloride Carbon Dioxide Anion Gap BUN Creatinine Estim Creat Clear Calc Est GFR (MDRD) Af Amer Est GFR (MDRD) Non-Af BUN/Creatinine Ratio Glucose Calcium Phosphorus 4.4 Magnesium 3.5 H Iron TIBC Iron Saturation Ferritin Vitamin B12 RBC Folate Hemolysate RBC Folate Hematocrit POC Glucose Crossmatch See Detail 03/20/19 03/20/19 03/20/19 11:59 17:06 23:32 WBC RBC Hgb Hct MCV MCH MCHC RDW Std Deviation RDW Coeff of Mya Plt Count MPV Immature Gran % (Auto) Neut % (Auto) Lymph % (Auto) [place] % (Auto) Eos % (Auto) Baso % (Auto) Absolute Neuts (auto) Absolute Lymphs (auto) Nucleated RBC % Differential Comment Diff Path Review Hypochromasia Macrocytosis Target Cells Specimen Type Sample Site pH Bicarbonate Actual POC Total CO2 Base Excess O2 Saturation O2 % ABG pCO2 ABG pO2 Kevin Test O2 Delivery Device Vent Mode POC PEEP POC Pressure Suppt Blood Gas Notified Whom Blood Gas Notified Time Sodium Potassium Chloride Carbon Dioxide Anion Gap BUN Creatinine Estim Creat Clear Calc Est GFR (MDRD) Af Amer Est GFR (MDRD) Non-Af BUN/Creatinine Ratio Glucose Calcium Phosphorus Magnesium Iron TIBC Iron Saturation Ferritin Vitamin B12 RBC Folate Hemolysate RBC Folate Hematocrit POC Glucose 127 H 130 H 133 H Crossmatch 03/21/19 03/21/19 03/21/19 05:00 05:00 05:00 WBC 14.2 H RBC 2.91 L Hgb 7.8 L Hct 26.9 L MCV 92.4 MCH 26.8 L MCHC 29.0 L RDW Std Deviation 57.1 H RDW Coeff of Mya 16.7 H Plt Count 284 MPV 10.3 Immature Gran % (Auto) 0.600 Neut % (Auto) 89.6 H Lymph % (Auto) 3.1 L [place] % (Auto) 6.6 Eos % (Auto) 0.0 Baso % (Auto) 0.1 Absolute Neuts (auto) 12.7 H Absolute Lymphs (auto) 0.44 L Nucleated RBC % 0 Differential Comment SCANNED Diff Path Review Hypochromasia 2+ Macrocytosis 2+ Target Cells 2+ Specimen Type Sample Site pH Bicarbonate Actual POC Total CO2 Base Excess O2 Saturation O2 % ABG pCO2 ABG pO2 Kevin Test O2 Delivery Device Vent Mode POC PEEP POC Pressure Suppt Blood Gas Notified Whom Blood Gas Notified Time Sodium 148 H Potassium 4.5 Chloride 112 H Carbon Dioxide 31.0 Anion Gap 5 BUN 81 H Creatinine 1.68 H Estim Creat Clear Calc 25.78 Est GFR (MDRD) Af Amer 39 L Est GFR (MDRD) Non-Af 32 L BUN/Creatinine Ratio 48.2 H Glucose 137 H Calcium 8.1 L Phosphorus Magnesium Iron TIBC Iron Saturation Ferritin Vitamin B12 1049 H RBC Folate Hemolysate RBC Folate Hematocrit POC Glucose Crossmatch 03/21/19 03/21/19 03/21/19 05:00 05:11 06:28 WBC RBC Hgb Hct MCV MCH MCHC RDW Std Deviation RDW Coeff of Mya Plt Count MPV Immature Gran % (Auto) Neut % (Auto) Lymph % (Auto) [place] % (Auto) Eos % (Auto) Baso % (Auto) Absolute Neuts (auto) Absolute Lymphs (auto) Nucleated RBC % Differential Comment Diff Path Review Hypochromasia Macrocytosis Target Cells Specimen Type ART Sample Site L Radial pH 7.41 Bicarbonate Actual 32.2 H POC Total CO2 34 Base Excess 8 H O2 Saturation 91 L O2 % 35 ABG pCO2 50.5 H ABG pO2 62 L Kevin Test POS O2 Delivery Device Vent Vent Mode CPAP PS POC PEEP 5 POC Pressure Suppt 5 Blood Gas Notified Whom ICU MD Blood Gas Notified Time 615 Sodium Potassium Chloride Carbon Dioxide Anion Gap BUN Creatinine Estim Creat Clear Calc Est GFR (MDRD) Af Amer Est GFR (MDRD) Non-Af BUN/Creatinine Ratio Glucose Calcium Phosphorus Magnesium Iron 18 L TIBC 407 Iron Saturation 4.4 L Ferritin 11 Vitamin B12 RBC Folate Hemolysate RBC Folate Hematocrit POC Glucose 134 H Crossmatch 03/21/19 03/22/19 03/22/19 11:00 08:50 08:50 WBC 15.2 H RBC 3.46 L Hgb 9.2 L Hct 32.4 L MCV 93.6 MCH 26.6 L MCHC 28.4 L RDW Std Deviation 57.1 H RDW Coeff of Mya 16.7 H Plt Count 295 MPV 9.9 Immature Gran % (Auto) 0.700 Neut % (Auto) 90.6 H Lymph % (Auto) 3.1 L [place] % (Auto) 5.5 Eos % (Auto) 0.0 Baso % (Auto) 0.1 Absolute Neuts (auto) 13.8 H Absolute Lymphs (auto) 0.47 L Nucleated RBC % 0.1 Differential Comment Diff Path Review Hypochromasia 1+ Macrocytosis Target Cells Specimen Type Sample Site pH Bicarbonate Actual POC Total CO2 Base Excess O2 Saturation O2 % ABG pCO2 ABG pO2 Kevin Test O2 Delivery Device Vent Mode POC PEEP POC Pressure Suppt Blood Gas Notified Whom Blood Gas Notified Time Sodium 146 H Potassium 5.0 Chloride 107 Carbon Dioxide 35.0 H Anion Gap 4 L BUN 60 H Creatinine 1.22 H Estim Creat Clear Calc 35.49 Est GFR (MDRD) Af Amer 56 L Est GFR (MDRD) Non-Af 46 L BUN/Creatinine Ratio 49.2 H Glucose 94 Calcium 8.9 Phosphorus Magnesium Iron TIBC Iron Saturation Ferritin Vitamin B12 RBC Folate Hemolysate Pending RBC Folate Pending Hematocrit Pending POC Glucose Crossmatch Microbiology 03/18/19 06:52 Sputum, Tracheal Aspirate Gram Stain - Final 03/18/19 06:52 Sputum, Tracheal Aspirate Respiratory Culture - Final Presumptive C albicans Haemophilus influenzae 03/17/19 19:45 Blood Culture (Wb) - Left Forearm Blood Culture - Preliminary No growth in 48 hours. 03/17/19 18:55 Blood Culture (Wb) - Anticubital Left Blood Culture - Pre liminary No growth in 48 hours. Medical Necessity - Tobacco Use Smoking Status: Current every day smoker Tobacco Use: Cigarettes Assessment/Plan All Active Problems Acute respiratory failure with hypoxia and hypercapnia (Acute) Bilateral pneumonia (Acute) COPD exacerbation (Acute) Acute anemia (Acute) Acute renal failure superimposed on stage 3 chronic kidney disease (Acute) RECOMMENDATIONS: 1. Wean FiO2 to maintain oxygen saturations at or above 90%. 2. Complete 7 days total of antibiotic therapy. 3. Transfuse blood products if hemoglobin drops below 7 g/dL. 4. Continue steroids at current dosing, along with bronchodilators. Likely wean steroids tomorrow 5. Avoid NSAIDs. Continue PPI therapy twice daily. 6. Trial of diuretic therapy 7. Activity per mobility protocol IMPRESSIONS: 1. Acute combined respiratory failure secondary to H. influenzae pneumonia Able to be liberated from the ventilator, but is still having significant oxygen requirements. Patient has come back positive for H. influenzae and is on appropriate antibiotics at this time. Antibiotic spectrum has been narrowed and should complete 7 days. C albicans likely contaminant. Wean oxygen as tolerated. Continue to use BiPAP with sleep. Increase activity as tolerated patient will be given a trial of diuretic therapy 2. Severe sepsis with concerns for underlying H. influenzae pneumonia The patient is currently on appropriate antimicrobials and remains hemodynamically stable following IV fluid resuscitation. Continue current supportive measures as noted above. Patient will likely be treated for 7 days empirically given baseline status 3. Anemia Potentially related to an upper GI source of blood loss in the setting of chronic NSAID utilization. The patient has been transfused 1 unit of packed red blood cells with appropriate incrementation in her hemoglobin. Plan to continue to monitor H&H daily, with plan to transfuse if hemoglobin drops below 7 g/dL. Continue to hold all NSAIDs. Continue PPI therapy as ordered. No indication for transfusion today. Patient is to receive iron today. 4. Acute on chronic kidney disease/hyperkalemia Potentially prerenal in etiology in the setting of the above. Creatinine is stable and hyperkalemia has resolved. Continue to monitor urine output. No current indication for renal replacement therapy. Patient does have significant peripheral edema, but this appears to be secondary to low oncotic pressure with an albumin of 2.9. Would NOT recommend albumin with Lasix. Will attempt Lasix alone given renal function improvement. 5. Elevated transaminases Unclear etiology at this time. Although may be related to presenting sepsis. Liver ultrasound was unremarkable. Recheck liver functions periodically. Code Visit Inpatient E&M: 47697 [facility] Hosp L3
--- NOTE | 2019-03-22 10:53 | VDUE_ITS ---
Reason For Study: Possible clot, Swelling Right Proximal Left Proximal Right jugular vein is spontaneous, widely Left subclavian vein is spontaneous, widely patent, phasic, with no intraluminal patent, phasic, with no intraluminal echogenicity noted. echogenicity noted. Right subclavian vein is spontaneous, widely patent, phasic, with no intraluminal echogenicity noted. Right Lower Arm Right radial vein is compressible. Right ulnar vein is compressible. Right Arm Right axillary vein is spontaneous, patent, phasic, competent, compressible and demonstrates augmentation. Right brachial vein is compressible. Acute superficial vein thrombosis is noted in the right cephalic vein from wrist to below antecube. Rt Cephalic vein is difficult to visualize above antecube. Acute superficial vein thombosis is noted throughout the right basilic vein. Interpretation Summary There is no evidence of right upper extremity deep vein thrombosis. Superficial thrombophlebitis right forearm cephalic vein Superficial thrombophlebitis right basilic vein Normal flow patterns left subclavian vein Ordering Physician: Heriberto Satnana Referring Physician: Akira Zhang Performed By: Viry Chen RVT ?
[2019-03-22] MEDS: Furosemide 20 MG/2 ML VIAL IV (12:13)
[2019-03-22 16:07] LABS: Folate, Hemolysate Test > 620.0 ng/mL (Not Estab.); Folate, RBC (Hct) Test 28.1 % (34.0-46.6)
[2019-03-23] VITALS (38 sets, daily range): BP systolic 115–154; BP diastolic 54–82; PULSE 58–119; RESP 14–35; TEMP 36.1–37.1; O2SAT 85–98
[2019-03-23] MEDS: Ipratropium/Albuterol Sulfate 3 ML AMPUL.NEB INHALATION ×5 (03:30→18:34)
[2019-03-23 04:31] LABS: Absolute Lymphocyte Count 0.52 X10^3/uL (0.83-4.51); Absolute Neutrophil Count 13.3 X10^3/uL (2.0-7.7); Basophil# 0.01 X10^3/uL; Basophil% 0.1 % (0-1); Hematocrit 27.9 % (37-47); Lymphocyte # 0.52 X10^3/ul (4.0); Lymphocyte % 3.5 % (19-41); Mean Corp Hgb Conc 28.7 g/dL (32-36); Mean Corpuscular Hgb 26.8 pg (27.0-32.0); Mean Corpuscular Volume 93.6 fL (81-99); Mean Platelet Vol. 9.9 fl (6.2-12.0); Monocyte# 0.95 X10^3/uL; Monocyte% 6.4 % (0-10); NRBC Flagged by Analyzer 0.2 % (0-5); Neutrophil # 13.33 X10^3/uL (2.7-7.7); Neutrophil % 89.5 % (47-70); POSITIVE DIFFERENTIAL YES; POSITIVE MORPHOLOGY YES; Platelet Count 238 K/mm3 (150-450); RBC Distribution Width CV 16.6 % (11.6-14.6); RBC Distribution Width SD 56.2 fl (35.1-43.9); Red Blood Count 2.98 M/mm3 (4.2-5.4); White Blood Count 14.9 K/mm3 (4.4-11.0)
[2019-03-23 04:33] LABS: Differential Indicated SCAN CRITERIA MET
[2019-03-23 04:42] LABS: Anion Gap 3 (5-15); BUN 54 mg/dL (7-18); BUN/Creat Ratio 52.9 RATIO (10-20); Calcium,Total 8.7 mg/dL (8.5-10.1); Chloride 105 mmol/L (98-107); Creatinine, Serum 1.02 mg/dL (0.55-1.02); EST Glomerular Filtration Rate 57 mL/min (>60); Est Glom Filt Rate - Afr Amer 69 mL/min (>60); Estimated Creatinine Clearance 42.45 ml/min; Glucose 113 mg/dL (74-106); Sodium Level 143 mmol/L (136-145)
[2019-03-23 05:06] LABS: Differential Comment SCANNED
[2019-03-23] MEDS: 0.9% NaCl Peripheral Flush Adult/Peds IV ×5 (05:47→22:19)
[2019-03-23] MEDS: Furosemide 20 MG/2 ML VIAL IV ×2 (06:38→17:09)
--- NOTE | 2019-03-23 07:31 | RAD_ITS ---
STUDY: X-RAY CHEST REASON FOR EXAM: Female, 69 years old. Shortness of breath. TECHNIQUE: Single AP portable view of the chest. COMPARISON: Comparison is made with prior study dated March 18, 2019. FINDINGS: The endotracheal tube and nasogastric tube have been removed. EKG electrodes are seen. There is a opacification of the right hemithorax. There has been improved aeration of the right lung. Findings are suggestive of a right diaphragmatic hernia versus possible abscesses within the lung. Correlation with the CT scan of the thorax is recommended. There is blunting of both costophrenic angles. There is mild cardiac enlargement. Normal mediastinum and jazzy. Normal visualized pulmonary arteries. There is atherosclerotic tortuosity of the aortic arch and descending thoracic aorta. Normal visualized thoracic spine. Prior laminectomy fusion of the lower cervical and upper thoracic spine. There is no demonstrated abnormality of the visualized soft tissue structures of the upper abdomen. RAD/Chest 1 View (Portable) IMPRESSION: Improved aeration of the right hemithorax as compared to prior study. 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 Correlation with the CT scan of the thorax is recommended for further evaluation. Electronically Signed: Shilo Lowe, at 13:09 EDT , Service support ,
--- NOTE | 2019-03-23 09:43 | PCM.PN.INT ---
Subjective: Patient did okay overnight. Patient continues to have significant desaturation with exertion. Patient does have occasional SVT, but no significant V. tach or other ventricular rhythms appreciated. Patient has been able to come down slightly on flow with high flow nasal cannula, but oxygen remains at 50%. Patient has not had a bowel movement. Objective: Chest x-ray from this morning was personally reviewed. Predominantly right-sided infiltrates, but appears improved compared to previous General: Alert, Oriented x3, Cooperative, - - Mild to moderate conversational dyspnea. HEENT: Atraumatic, PERRLA, EOMI, Normocephalic, - - Slight scleral injection without icterus Oral: Moist Mucosa, No Gingival or Mucosal Lesions/ Ulcerations Neck: Supple, No Nodes, Trachea Midline, JVD, Right Lungs: No wheeze, Diminished, Rales - Right greater than left, - - Symmetric expansion. No dullness to percussion. Cardiovascular: Regular rate, Regular Rhythm, Normal S1, Normal S2, No murmurs, No rub noted, No Gallop Abdomen: Bowel Sounds Present, Soft, Non Tender, Non-Distended Extremities: No clubbing, No cyanosis, Edema - Improved Skin: - - No change compared to previous Musculoskeletal: No Tenderness to Palpation of Joints or Extremities Lymphatic: No Cervical, Supraclavicular, or Inguinal Adenopathy Neurological: Cranial nerves II-XII grossly intact, Neuro grossly intact, Motor Exam 5/5 strength throughout Psych/Mental Status: Appropriate, Anxious Vital Signs Temp Pulse Resp BP Pulse Ox 36.8 C 85 18 135/65 H 96 03/23/19 00:00 03/23/19 07:50 03/23/19 07:00 03/23/19 07:00 03/23/19 07:00 Oxygen Flow Rate (L/min) 60 Oxygen Delivery Method Bi-pap Weight: 70.2 kg Body Mass Index (BMI) 25.7 Intake and Output for Last 24 Hours 03/21/19 03/22/19 03/23/19 23:59 23:59 23:59 Intake Total 1594.42 / 1594.42 1120 / 1340 310 / 310 Output Total 1050 / 1050 1850 / 2250 950 / 950 Balance 544.42 / 544.42 -730 / -910 -640 / -640 Labs (Last 48 Hours) 03/21/19 03/22/19 03/22/19 11:00 08:50 08:50 WBC 15.2 H RBC 3.46 L Hgb 9.2 L Hct 32.4 L MCV 93.6 MCH 26.6 L MCHC 28.4 L RDW Std Deviation 57.1 H RDW Coeff of Mya 16.7 H Plt Count 295 MPV 9.9 Immature Gran % (Auto) 0.700 Neut % (Auto) 90.6 H Lymph % (Auto) 3.[address] [place] % (Auto) 5.5 Eos % (Auto) 0.0 Baso % (Auto) 0.1 Absolute Neuts (auto) 13.8 H Absolute Lymphs (auto) 0.47 L Nucleated RBC % 0.1 Differential Comment Hypochromasia 1+ Sodium 146 H Potassium 5.0 Chloride 107 Carbon Dioxide 35.0 H Anion Gap 4 L BUN 60 H Creatinine 1.22 H Estim Creat Clear Calc 35.49 Est GFR (MDRD) Af Amer 56 L Est GFR (MDRD) Non-Af 46 L BUN/Creatinine Ratio 49.2 H Glucose 94 Calcium 8.9 RBC Folate Hemolysate > 620.0 RBC Folate > 2206 Hematocrit 28.1 L 03/23/19 03/23/19 04:20 04:20 WBC 14.9 H RBC 2.98 L Hgb 8.0 L Hct 27.9 L MCV 93.6 MCH 26.8 L MCHC 28.7 L RDW Std Deviation 56.2 H RDW Coeff of Mya 16.6 H Plt Count 238 MPV 9.9 Immature Gran % (Auto) 0.500 Neut % (Auto) 89.5 H Lymph % (Auto) 3.[address] [place] % (Auto) 6.4 Eos % (Auto) 0.0 Baso % (Auto) 0.1 Absolute Neuts (auto) 13.3 H Absolute Lymphs (auto) 0.52 L Nucleated RBC % 0.2 Differential Comment SCANNED Hypochromasia Sodium 143 Potassium 5.0 Chloride 105 Carbon Dioxide 35.0 H Anion Gap 3 L BUN 54 H Creatinine 1.02 Estim Creat Clear Calc 42.45 Est GFR (MDRD) Af Amer 69 Est GFR (MDRD) Non-Af 57 L BUN/Creatinine Ratio 52.9 H Glucose 113 H Calcium 8.7 RBC Folate Hemolysate RBC Folate Hematocrit Microbiology 03/17/19 19:45 Blood Culture (Wb) - Left Forearm Blood Culture - Final No growth in 5 days. 03/17/19 18:55 Blood Culture (Wb) - Anticubital Left Blood Culture - Final No growth in 5 days. Medical Necessity - Tobacco Use Smoking Status: Current every day smoker Tobacco Use: Cigarettes Assessment/Plan All Active Problems Acute respiratory failure with hypoxia and hypercapnia (Acute) Bilateral pneumonia (Acute) COPD exacerbation (Acute) Acute anemia (Acute) Acute renal failure superimposed on stage 3 chronic kidney disease (Acute) RECOMMENDATIONS: 1. Wean FiO2 to maintain oxygen saturations at or above 90%. 2. Complete 7 days total of antibiotic therapy. 3. Transfuse blood products if hemoglobin drops below 7 g/dL. 4. Continue steroids at current dosing, along with bronchodilators. Okay to transition to p.o. prednisone 5. Avoid NSAIDs. Continue PPI therapy twice daily. 6. Transition to more aggressive diuretic use. Goal -1 to 2 L by tomorrow 7. Activity per mobility protocol IMPRESSIONS: 1. Acute combined respiratory failure secondary to H. influenzae pneumonia Able to be liberated from the ventilator, but is still having significant oxygen requirements. Patient has come back positive for H. influenzae and is on appropriate antibiotics at this time. Antibiotic spectrum has been narrowed and should complete 7 days. C albicans likely contaminant. Wean oxygen as tolerated. Continue to use BiPAP with sleep. Patient appears to have tolerated diuretic trial well. Will schedule diuretic therapy with a goal of -1 to 2 L by tomorrow. 2. Severe sepsis with concerns for underlying H. influenzae pneumonia The patient is currently on appropriate antimicrobials and remains hemodynamically stable following IV fluid resuscitation. Continue current supportive measures as noted above. Patient will likely be treated for 7 days empirically given baseline status. Patient has remained hemodynamically stable. 3. Anemia Potentially related to an upper GI source of blood loss in the setting of chronic NSAID utilization. The patient has been transfused 1 unit of packed red blood cells with appropriate incrementation in her hemoglobin. Plan to continue to monitor H&H daily, with plan to transfuse if hemoglobin drops below 7 g/dL. Continue to hold all NSAIDs. Continue PPI therapy as ordered. No indication for transfusion today. 4. Acute on chronic kidney disease/hyperkalemia Potentially prerenal in etiology in the setting of the above. Creatinine is stable and hyperkalemia has resolved. Continue to monitor urine output. No current indication for renal replacement therapy. Patient does have significant peripheral edema, but this appears to be secondary to low oncotic pressure with an albumin of 2.9. Would NOT recommend albumin with Lasix. Patient has responded well to Lasix alone. Renal function improved to the point that cardiac diet is likely sufficient. 5. Elevated transaminases Unclear etiology at this time. Although may be related to presenting sepsis. Liver ultrasound was unremarkable. Recheck liver functions periodically. Code Visit Inpatient E&M: 38546 [facility] L3
[2019-03-23] MEDS: Ceftriaxone 1 GM/50 ML BAG IV (09:50)
[2019-03-23] MEDS: CHLORHEXIDINE GLUC 2% CLOTH 1 EACH TOWELETTE TOPICAL (09:50)
--- NOTE | 2019-03-23 09:55 | CASEMGMT ---
Addendum entered by Fifi Kennedy 03/23/19 10:40: SW left message for Lori at [facility] letting her know pt is not ready for discharge yet, and is too soon to start precert. SW will call Lori again tomorrow in regard to pt and anticipated discharge time frame. CHRISTOPHER Saravia Original Note: SW spoke w/pt and two of pt's sisters in room. SW will continue to follow, plan continues to be for pt to go to [facility], however pt continues to be on high flow oxygen and is not ready for discharge. CHRISTOPHER Saravia
[2019-03-23] MEDS: Pantoprazole Sodium 40 MG Tablet PO ×2 (10:02→21:29)
[2019-03-23] MEDS: Magnesium Hydroxide 30 ML UDC PO (10:02)
--- NOTE | 2019-03-23 12:44 | PN_ITS ---
Patient Problems: Active and Suspected Problems Acute respiratory failure with hypoxia and hypercapnia (Acute) Bilateral pneumonia (Acute) COPD exacerbation (Acute) Acute anemia (Acute) Acute renal failure superimposed on stage 3 chronic kidney disease (Acute) Subjective: Breathing well. Vitals/I&O's: Vital Signs Temp Pulse Resp BP Pulse Ox 36.9 C 111 H 27 H 127/74 H 95 03/23/19 12:00 03/23/19 12:00 03/23/19 12:00 03/23/19 12:00 03/23/19 12:00 Oxygen Flow Rate (L/min) 60 Oxygen Delivery Method Nasal Cannula Weight: 70.2 kg Body Mass Index (BMI) 25.7 Intake and Output for Last 24 Hours 03/21/19 03/22/19 03/23/19 23:59 23:59 23:59 Intake Total 1594.42 / 1594.42 1120 / 1340 865.25 / 865.25 Output Total 1050 / 1050 1850 / 2250 2150 / 2150 Balance 544.42 / 544.42 -730 / -910 -1284.75 / -1284.75 General: Alert, No apparent distress HEENT: Atraumatic, Normocephalic Oral: Moist Mucosa, No Gingival or Mucosal Lesions/ Ulcerations Neck: No Nodes, Thyroid Normal Size and Texture Lungs: Normal air movement, - - coarse breath sounds bilaterally. Cardiovascular: Regular rate, Regular Rhythm, Normal S1, Normal S2 Abdomen: Bowel Sounds Present, Soft, Non Tender, Non-Distended Microbiology Past 72 Hours 03/17/19 19:45 Blood Culture (Wb) - Left Forearm Blood Culture - Final No growth in 5 days. 03/17/19 18:55 Blood Culture (Wb) - Anticubital Left Blood Culture - Final No growth in 5 days. 03/18/19 06:52 Sputum, Tracheal Aspirate Gram Stain - Final 03/18/19 06:52 Sputum, Tracheal Aspirate Respiratory Culture - Final Presumptive C albicans Haemophilus influenzae Laboratory Results 03/21/19 11:00: RBC Folate Hemolysate > 620.0, RBC Folate > 2206, Hematocrit 28.1 L 03/23/19 04:20: WBC 14.9 H, RBC 2.98 L, Hgb 8.0 L, Hct 27.9 L, MCV 93.6, MCH 26.8 L, MCHC 28.7 L, RDW Std Deviation 56.2 H, RDW Coeff of Mya 16.6 H, Plt Count 238, MPV 9.9, Immature Gran % (Auto) 0.500, Neut % (Auto) 89.5 H, Lymph % (Auto) 3.5 L, [place] % (Auto) 6.4, Eos % (Auto) 0.0, Baso % (Auto) 0.1, Absolute Neuts (auto) 13.3 H, Absolute Lymphs (auto) 0.52 L, Nucleated RBC % 0.2, Differential Comment SCANNED 03/23/19 04:20: Sodium 143, Potassium 5.0, Chloride 105, Carbon Dioxide 35.0 H, Anion Gap 3 L, BUN 54 H, Creatinine 1.02, Estim Creat Clear Calc 42.45, Est GFR (MDRD) Af Amer 69, Est GFR (MDRD) Non-Af 57 L, BUN/Creatinine Ratio 52.9 H, Glucose 113 H, Calcium 8.7 Current Medications Acetaminophen (Tylenol Liquid) 650 mg PO Q6H PRN PRN PRN Reason: Pain Score 1-3/Temp > 100.7 F Albuterol Sulfate (Ventolin Aerosols) 2.5 mg INHALATION Q2H PRN PRN PRN Reason: SHORTNESS OF BREATH Albuterol/Ipratropium (Duoneb) 3 ml INHALATION Q4H.RT SARI Last Admin: 03/23/19 11:10 Dose: 3 ml Documented by: Chlorhexidine Gluconate () 1 each TOPICAL DAILY SARI Last Admin: 03/23/19 09:50 Dose: 1 each Documented by: Dextrose (D50w Syringe) 0 gm IV X1 PRN; Protocol PRN Reason: Hypoglycemia Furosemide (Lasix) 20 mg IV BID@1000,1800 SARI Glucagon () 1 mg IM .X1 PRN PRN Reason: Hypoglycemia Ceftriaxone Sodium (Rocephin) 1 gm in 50 mls @ 100 mls/hr IV Q24 SARI Stop: 03/24/19 10:01 Last Infusion: 03/23/19 10:20 Dose: Infused Documented by: Sodium Chloride () 250 mls @ 15 mls/hr IV .[id number] PRN PRN Reason: Saline Flush Last Infusion: 03/23/19 12:01 Dose: 0 mls/hr Documented by: Methylprednisolone (Solu-Medrol) 40 mg IV Q12 SARI Ondansetron HCl (Zofran) 4 mg IV Q8H PRN PRN PRN Reason: NAUSEA/VOMITING Pantoprazole Sodium (Protonix) 40 mg PO BID SARI Last Admin: 03/23/19 10:02 Dose: 40 mg Documented by: Senna/Docusate Sodium (Senokot-S, Francoise-Colace) 2 tablet PO BID PRN PRN PRN Reason: Constipation Sodium Chloride () 5 - 15 ml IV UD PRN PRN Reason: SALINE FLUSH Last Admin: 03/23/19 09:50 Dose: 10 ml Documented by: STROKE Vital Signs/Narrative: Vital Signs Temp Pulse Resp BP BP Pulse Ox 03/23/19 12:00 36.9 C 111 H 27 H 127/74 H 95 03/23/19 11:54 106 H 03/23/19 11:10 86 22 H 93 03/23/19 11:00 101 H 26 H 134/80 H 93 03/23/19 10:00 36.6 C 103 H 35 H 134/61 H 91 03/23/19 09:30 94 03/23/19 09:00 102 H 23 H 154/82 H 95 Medical Necessity - Tobacco Use Smoking Status: Current every day smoker Tobacco Use: Cigarettes Assessment/Plan All Active Problems Acute respiratory failure with hypoxia and hypercapnia (Acute) Bilateral pneumonia (Acute) COPD exacerbation (Acute) Acute anemia (Acute) Acute renal failure superimposed on stage 3 chronic kidney disease (Acute) 1. acute hypoxic and hypercapnic respiratory failure * improved * extubated 03/21 * + H flu pneumonia, COPD * on methylpred, CTX, BDs * on BiPAP currently, will continue to monitor in ICU for now, could possibly be deescalated to PCU later today or tomorrow. * CCM following. 2. H. flu pneumonia * Beta-lactamase positive * continue CTX, continue abx through 03/24 * pulm toilet 3. AECOPD * BDs * methylpred 4. CHANTEL * iron-deficient * improving * baseline around 1.15 * suspect prerenal etiology * monitor 5. acute blood loss anemia * Hg in September was 12.3 * transfused 1 unit PRBCs * currently stable. * iron, ferritin low * B12 high * folate pending * TSH normal on 03/18 * 03/22: give dose of iron sucrose 6. VTE prophylaxis: SCDs 7. acute HFpEF * EF 60% * weight up 8kg from admission * continue furosemide. Code Visit Inpatient E&M: 46046 [facility] L2
[2019-03-23] MEDS: Calcium Carbonate 500 MG Tablet 1000 MG PO (22:14)
[2019-03-23] MEDS: 0.9% Saline Lock 10 ML Syringe IV (22:19)
[2019-03-24] VITALS (32 sets, daily range): BP systolic 105–141; BP diastolic 45–87; PULSE 61–113; RESP 13–33; TEMP 36–36.9; O2SAT 86–100
--- NOTE | 2019-03-24 02:50 | NURSING ---
Report received, care of pt taken over.
[2019-03-24 06:17] LABS: Absolute Lymphocyte Count 1.71 X10^3/uL (0.83-4.51); Absolute Neutrophil Count 13.3 X10^3/uL (2.0-7.7); Basophil# 0.01 X10^3/uL; Basophil% 0.1 % (0-1); Eosinophil# 0.11 X10^3/uL; Eosinophils% 0.7 % (0-5); Hematocrit 30.2 % (37-47); Hemoglobin 8.8 g/dL (12.0-15.0); Lymphocyte # 1.71 X10^3/ul (4.0); Lymphocyte % 10.2 % (19-41); Mean Corp Hgb Conc 29.1 g/dL (32-36); Mean Corpuscular Hgb 26.6 pg (27.0-32.0); Mean Corpuscular Volume 91.2 fL (81-99); Mean Platelet Vol. 10.5 fl (6.2-12.0); Monocyte# 1.54 X10^3/uL; Monocyte% 9.2 % (0-10); NRBC Flagged by Analyzer 0 % (0-5); Neutrophil # 13.25 X10^3/uL (2.7-7.7); Neutrophil % 79.1 % (47-70); POSITIVE DIFFERENTIAL YES; Platelet Count 263 K/mm3 (150-450); RBC Distribution Width CV 16.6 % (11.6-14.6); RBC Distribution Width SD 55.5 fl (35.1-43.9); Red Blood Count 3.31 M/mm3 (4.2-5.4); White Blood Count 16.7 K/mm3 (4.4-11.0)
[2019-03-24 06:28] LABS: Differential Indicated SCAN CRITERIA MET
[2019-03-24 06:39] LABS: Anion Gap 1 (5-15); BUN 45 mg/dL (7-18); BUN/Creat Ratio 48.9 RATIO (10-20); Chloride 104 mmol/L (98-107); Creatinine, Serum 0.92 mg/dL (0.55-1.02); EST Glomerular Filtration Rate 64 mL/min (>60); Est Glom Filt Rate - Afr Amer 78 mL/min (>60); Estimated Creatinine Clearance 47.07 ml/min; Glucose 85 mg/dL (74-106); Potassium 4.9 mmol/L (3.5-5.1); Sodium Level 141 mmol/L (136-145)
[2019-03-24 06:42] LABS: Anisocytosis 1+; Hypochromasia 1+
[2019-03-24 06:43] LABS: Macrocytosis RARE
--- NOTE | 2019-03-24 07:05 | CT_ITS ---
STUDY: CT CHEST WITH CONTRAST REASON FOR EXAM: Female, 69 years old. Acute respiratory failure and hypoxia. RADIATION DOSAGE (If Supplied By Facility): CTDIvol = ( 10.78 ) mGy, DLP = ( 416.07 ) mGycm TECHNIQUE: Transaxial imaging was performed following intravenous administration of IV Isovue 300 100. Multiplanar coronal and sagittal images were reformatted. Individualized dose optimization techniques were used for this CT. COMPARISON: None. FINDINGS: Inhomogeneous enlargement of the thyroid worse on the left side with substernal extension. Focal calcifications are seen within a hypodense nodule in the posterior inferior aspect of the left lobe of the thyroid. There is a 6.6 mm hypodensity in the midportion of the right lobe of the thyroid. Mild degree of emphysematous changes. There is evidence of eventration of the right hemidiaphragm with the distended colon with fecal material within the right hemithorax. Small right pleural effusion with underlying atelectasis and/or infiltration. Small left pleural effusion with left basilar atelectasis and/or infiltration. There are calcifications of the coronary arteries. Normal mediastinum. Normal hilar regions. Normal enhanced pulmonary arteries. There is atherosclerotic calcification of the aortic arch with tortuosity and elongation of the aortic arch and descending thoracic aorta. There are multi-level degenerative changes of the thoracic spine. There is no demonstrated abnormality of the visualized upper abdomen. 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 Small bilateral pleural effusions with bibasilar atelectasis and/or infiltrate slightly worse on the left side. Inhomogeneous enlargement of the thyroid as described. Electronically Signed: Shilo Lowe, at 10:46 EDT , Service support ,
[2019-03-24] MEDS: Ipratropium/Albuterol Sulfate 3 ML AMPUL.NEB INHALATION ×4 (07:06→18:50)
--- NOTE | 2019-03-24 07:20 | PCM.PN.INT ---
Subjective: Patient did well overnight. Patient has had multiple bowel movements overnight. Patient feels subjectively improved and her dyspnea. Nursing reports patient had better stability with getting to the bedside commode overnight. Patient will still get tachycardic, but is not desaturating as quickly. Patient was able to be weaned to 40% FiO2 via high flow nasal cannula. General: Alert, Oriented x3, Cooperative, - - Improved conversational dyspnea HEENT: Atraumatic, PERRLA, EOMI, Normocephalic, - - No scleral icterus or injection noted Oral: Moist Mucosa, No Gingival or Mucosal Lesions/ Ulcerations Neck: Supple, No JVD, No Nodes, Trachea Midline Lungs: No rhonchi, No wheeze, Diminished, Rales, - - Symmetric expansion. Cardiovascular: Regular rate, Normal S1, Normal S2, No murmurs, No rub noted, No Gallop Abdomen: Bowel Sounds Present, Soft, Non Tender, Non-Distended Extremities: No clubbing, No cyanosis, Edema - Improving Skin: - - No change compared to previous Musculoskeletal: No Tenderness to Palpation of Joints or Extremities, No Muscle Wasting Lymphatic: No Cervical, Supraclavicular, or Inguinal Adenopathy Neurological: Cranial nerves II-XII grossly intact, Neuro grossly intact, Motor Exam 5/5 strength throughout Psych/Mental Status: Alert and oriented to time, place, person, mood and affect Vital Signs Temp Pulse Resp BP Pulse Ox 36.8 C 66 30 H 125/64 H 96 03/24/19 04:00 03/24/19 06:00 03/24/19 06:00 03/24/19 06:00 03/24/19 06:00 Oxygen Flow Rate (L/min) 60 Oxygen Delivery Method Bi-pap Weight: 67.4 kg Body Mass Index (BMI) 25.7 Intake and Output for Last 24 Hours 03/22/19 03/23/19 03/24/19 23:59 23:59 23:59 Intake Total 1120 / 1340 1705.25 / 1705.25 Output Total 1850 / 2250 3300 / 3300 500 / 500 Balance -730 / -910 -1594.75 / -1594.75 -500 / -500 Labs (Last 48 Hours) 03/21/19 03/22/19 03/22/19 11:00 08:50 08:50 WBC 15.2 H RBC 3.46 L Hgb 9.2 L Hct 32.4 L MCV 93.6 MCH 26.6 L MCHC 28.4 L RDW Std Deviation 57.1 H RDW Coeff of Mya 16.7 H Plt Count 295 MPV 9.9 Immature Gran % (Auto) 0.700 Neut % (Auto) 90.6 H Lymph % (Auto) 3.1 L [place] % (Auto) 5.5 Eos % (Auto) 0.0 Baso % (Auto) 0.1 Absolute Neuts (auto) 13.8 H Absolute Lymphs (auto) 0.47 L Nucleated RBC % 0.1 Differential Comment Diff Path Review Hypochromasia 1+ Anisocytosis Macrocytosis Sodium 146 H Potassium 5.0 Chloride 107 Carbon Dioxide 35.0 H Anion Gap 4 L BUN 60 H Creatinine 1.22 H Estim Creat Clear Calc 35.49 Est GFR (MDRD) Af Amer 56 L Est GFR (MDRD) Non-Af 46 L BUN/Creatinine Ratio 49.2 H Glucose 94 Calcium 8.9 RBC Folate Hemolysate > 620.0 RBC Folate > 2206 Hematocrit 28.1 L 03/23/19 03/23/19 03/24/19 04:20 04:20 06:07 WBC 14.9 H 16.7 H RBC 2.98 L 3.31 L Hgb 8.0 L 8.8 L Hct 27.9 L 30.2 L MCV 93.6 91.2 MCH 26.8 L 26.6 L MCHC 28.7 L 29.1 L RDW Std Deviation 56.2 H 55.5 H RDW Coeff of Mya 16.6 H 16.6 H Plt Count 238 263 MPV 9.9 10.5 Immature Gran % (Auto) 0.500 0.700 Neut % (Auto) 89.5 H 79.1 H Lymph % (Auto) 3.5 L 10.2 L [place] % (Auto) 6.4 9.2 Eos % (Auto) 0.0 0.7 Baso % (Auto) 0.1 0.1 Absolute Neuts (auto) 13.3 H 13.3 H Absolute Lymphs (auto) 0.52 L 1.71 Nucleated RBC % 0.2 0 Differential Comment SCANNED Diff Path Review May foll Hypochromasia 1+ Anisocytosis 1+ Macrocytosis RARE Sodium 143 Potassium 5.0 Chloride 105 Carbon Dioxide 35.0 H Anion Gap 3 L BUN 54 H Creatinine 1.02 Estim Creat Clear Calc 42.45 Est GFR (MDRD) Af Amer 69 Est GFR (MDRD) Non-Af 57 L BUN/Creatinine Ratio 52.9 H Glucose 113 H Calcium 8.7 RBC Folate Hemolysate RBC Folate Hematocrit 03/24/19 06:07 WBC RBC Hgb Hct MCV MCH MCHC RDW Std Deviation RDW Coeff of Mya Plt Count MPV Immature Gran % (Auto) Neut % (Auto) Lymph % (Auto) [place] % (Auto) Eos % (Auto) Baso % (Auto) Absolute Neuts (auto) Absolute Lymphs (auto) Nucleated RBC % Differential Comment Diff Path Review Hypochromasia Anisocytosis Macrocytosis Sodium 141 Potassium 4.9 Chloride 104 Carbon Dioxide 36.0 H Anion Gap 1 L BUN 45 H Creatinine 0.92 Estim Creat Clear Calc 47.07 Est GFR (MDRD) Af Amer 78 Est GFR (MDRD) Non-Af 64 BUN/Creatinine Ratio 48.9 H Glucose 85 Calcium 9.0 RBC Folate Hemolysate RBC Folate Hematocrit Microbiology 03/17/19 19:45 Blood Culture (Wb) - Left Forearm Blood Culture - Final No growth in 5 days. 03/17/19 18:55 Blood Culture (Wb) - Anticubital Left Blood Culture - Final No growth in 5 days. Clinical Impression(s) from Imaging Studies Chest X-Ray 03/23/19 07:31 IMPRESSION: Improved aeration of the right hemithorax as compared to prior study. 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 Correlation with the CT scan of the thorax is recommended for further evaluation. Electronically Signed: Shilo Lowe, at 13:09 EDT , Service support , Medical Necessity - Tobacco Use Smoking Status: Current every day smoker Tobacco Use: Cigarettes Assessment/Plan All Active Problems Acute respiratory failure with hypoxia and hypercapnia (Acute) Bilateral pneumonia (Acute) COPD exacerbation (Acute) Acute anemia (Acute) Acute renal failure superimposed on stage 3 chronic kidney disease (Acute) RECOMMENDATIONS: 1. Wean FiO2 to maintain oxygen saturations at or above 90%. 2. Completed 7 days total of antibiotic therapy. 3. Transfuse blood products if hemoglobin drops below 7 g/dL. 4. Wean steroids over the next 12 to 14 days, continue bronchodilators. 5. Avoid NSAIDs. Continue PPI therapy twice daily. 6. Transition to more aggressive diuretic use. Goal -1 to 2 L by tomorrow 7. Activity per mobility protocol 8. Okay to leave the intensive care unit from my perspective IMPRESSIONS: 1. Acute combined respiratory failure secondary to H. influenzae pneumonia Able to be liberated from the ventilator, but is still having significant oxygen requirements. Patient has come back positive for H. influenzae has completed antibiotic course. C albicans likely contaminant. Wean oxygen as tolerated. Continue to use BiPAP with sleep. Patient appears to have tolerated diuretic trial well. Will continue diuretic therapy with a goal of -1 to 2 L by tomorrow. 2. Severe sepsis with concerns for underlying H. influenzae pneumonia The patient is currently on appropriate antimicrobials and remains hemodynamically stable following IV fluid resuscitation. Continue current supportive measures as noted above. Patient has been treated for 7 days empirically given baseline status. Patient has remained hemodynamically stable. 3. Anemia Potentially related to an upper GI source of blood loss in the setting of chronic NSAID utilization. The patient has been transfused 1 unit of packed red blood cells with appropriate incrementation in her hemoglobin. Plan to continue to monitor H&H daily, with plan to transfuse if hemoglobin drops below 7 g/dL. Continue to hold all NSAIDs. Continue PPI therapy as ordered. No indication for transfusion today. 4. Acute on chronic kidney disease/hyperkalemia Potentially prerenal in etiology in the setting of the above. Creatinine is stable and hyperkalemia has resolved. Continue to monitor urine output. No current indication for renal replacement therapy. Patient does have significant peripheral edema, but this appears to be secondary to low oncotic pressure with an albumin of 2.9. Would NOT recommend albumin with Lasix. Patient has responded well to Lasix alone. Renal function improved to the point that cardiac diet is likely sufficient. 5. Elevated transaminases Unclear etiology at this time. Although may be related to presenting sepsis. Liver ultrasound was unremarkable. Recheck liver functions periodically. Code Visit Inpatient E&M: [id number] [place] [id number]
[2019-03-24] MEDS: predniSONE 20 MG Tablet 40 MG PO (08:10)
--- NOTE | 2019-03-24 10:10 | CASEMGMT ---
Addendum entered by Fifi Kennedy 03/24/19 10:38: SW spoke w/pt. SW explained that given pt's oxygen needs being uncertain at this time, we will start the precert process on Wednesday w/[facility]. Pt states understanding. SW will follow up Wednesday. CHRISTOPHER Saravia Addendum entered by Fifi Kennedy 03/24/19 10:16: SW spoke w/Hoda at [facility]. They would need to know the bipapp settings today for pt to order it, if pt were to come to [facility] on the weekend. Given this and that we don't yet know pt's oxygen needs at discharge or bipapp settings, [facility] will wait until Wednesday to reassess pt's oxygen needs, find out the bipapp settings, and start precert then. SW will follow up on Wednesday. CHRISTOPHER Saravia Original Note: SW received a message yesterday from Lori at [facility] stating if pt would be ready on the weekend they would need to know today about bipapp and settings so it can be ordered, and to follow up w/Hoda at [facility] as Lori will be out today. SW spoke w/HALEY. As per physician, pt may be needing less oxygen by Wednesday and may be ready for discharge. However, pt is still on high flow oxygen at present. KAY faxed updates to [facility] and called Hoda, message left. It may not be possible to start the precert and get pt to [facility] on Wednesday as her oxygen needs are unknown at this time. KAY will wait for call back from Hoda at [facility]. CHRISTOPHER Saravia
[2019-03-24] MEDS: Ceftriaxone 1 GM/50 ML BAG IV (11:04)
[2019-03-24] MEDS: Furosemide 20 MG/2 ML VIAL IV ×2 (11:05→17:18)
[2019-03-24] MEDS: CHLORHEXIDINE GLUC 2% CLOTH 1 EACH TOWELETTE TOPICAL (11:05)
[2019-03-24] MEDS: Pantoprazole Sodium 40 MG Tablet PO ×2 (11:05→21:25)
--- NOTE | 2019-03-24 13:52 | PN_ITS ---
Patient Problems: Active and Suspected Problems Acute respiratory failure with hypoxia and hypercapnia (Acute) Bilateral pneumonia (Acute) COPD exacerbation (Acute) Acute anemia (Acute) Acute renal failure superimposed on stage 3 chronic kidney disease (Acute) Subjective: Breathing better. Vitals/I&O's: Vital Signs Temp Pulse Resp BP Pulse Ox 36.9 C 112 H 24 H 110/71 98 03/24/19 12:00 03/24/19 13:00 03/24/19 13:00 03/24/19 13:00 03/24/19 13:00 Oxygen Flow Rate (L/min) 5 Oxygen Delivery Method Nasal Cannula Weight: 67.4 kg Body Mass Index (BMI) 25.7 Intake and Output for Last 24 Hours 03/22/19 03/23/19 03/24/19 23:59 23:59 23:59 Intake Total 1120 / 1340 1705.25 / 1705.25 50 / 50 Output Total 1850 / 2250 3300 / 3300 1050 / 1050 Balance -730 / -910 -1594.75 / -1594.75 -1000 / -1000 General: Alert, No apparent distress HEENT: Atraumatic, Normocephalic Neck: No Nodes, Thyroid Normal Size and Texture Lungs: Diminished, - - coarse breath sounds bilaterally. Cardiovascular: Regular rate, Regular Rhythm, Normal S1, Normal S2, No murmurs Abdomen: Bowel Sounds Present, Soft, Non Tender, Non-Distended, No Hepato- splenomegaly Extremities: No edema, No Calf Tenderness Psych/Mental Status: Normal Affect, Appropriate Microbiology Past 72 Hours 03/17/19 19:45 Blood Culture (Wb) - Left Forearm Blood Culture - Final No growth in 5 days. 03/17/19 18:55 Blood Culture (Wb) - Anticubital Left Blood Culture - Final No growth in 5 days. Laboratory Results 03/24/19 06:07: WBC 16.7 H, RBC 3.31 L, Hgb 8.8 L, Hct 30.2 L, MCV 91.2, MCH 26.6 L, MCHC 29.1 L, RDW Std Deviation 55.5 H, RDW Coeff of Mya 16.6 H, Plt Count 263, MPV 10.5, Immature Gran % (Auto) 0.700, Neut % (Auto) 79.1 H, Lymph % (Auto) 10.2 L, [place] % (Auto) 9.2, Eos % (Auto) 0.7, Baso % (Auto) 0.1, Absolute Neuts (auto) 13.3 H, Absolute Lymphs (auto) 1.71, Nucleated RBC % 0, Differential Comment , Diff Path Review May foll, Hypochromasia 1+, Anisocytosis 1+, Macrocytosis RARE 03/24/19 06:07: Sodium 141, Potassium 4.9, Chloride 104, Carbon Dioxide 36.0 H, Anion Gap 1 L, BUN 45 H, Creatinine 0.92, Estim Creat Clear Calc 47.07, Est GFR (MDRD) Af Amer 78, Est GFR (MDRD) Non-Af 64, BUN/Creatinine Ratio 48.9 H, Glucose 85, Calcium 9.0 Current Medications Acetaminophen (Tylenol Liquid) 650 mg PO Q6H PRN PRN PRN Reason: Pain Score 1-3/Temp > 100.7 F Albuterol Sulfate (Ventolin Aerosols) 2.5 mg INHALATION Q2H PRN PRN PRN Reason: SHORTNESS OF BREATH Albuterol/Ipratropium (Duoneb) 3 ml INHALATION Q4H.RT [facility] Last Admin: 03/24/19 10:53 Dose: 3 ml Documented by: Calcium Carbonate (Tums) 1,000 mg PO Q4H PRN PRN PRN Reason: DYSPEPSIA Last Admin: 03/23/19 22:14 Dose: 1,000 mg Documented by: Chlorhexidine Gluconate () 1 each TOPICAL DAILY [facility] Last Admin: 03/24/19 11:05 Dose: 1 each Documented by: Dextrose (D50w Syringe) 0 gm IV X1 PRN; Protocol PRN Reason: Hypoglycemia Furosemide (Lasix) 20 mg IV BID@1000,1800 [facility] Last Admin: 03/24/19 11:05 Dose: 20 mg Documented by: Glucagon () 1 mg IM .X1 PRN PRN Reason: Hypoglycemia Ondansetron HCl (Zofran) 4 mg IV Q8H PRN PRN PRN Reason: NAUSEA/VOMITING Pantoprazole Sodium (Protonix) 40 mg PO BID [facility] Last Admin: 03/24/19 11:05 Dose: 40 mg Documented by: Prednisone () 40 mg PO DAILY@0800 [facility] Last Admin: 03/24/19 08:10 Dose: 40 mg Documented by: Senna/Docusate Sodium (Senokot-S, Francoise-Colace) 2 tablet PO BID PRN PRN PRN Reason: Constipation Sodium Chloride () 5 - 15 ml IV UD PRN PRN Reason: SALINE FLUSH Last Admin: 03/23/19 22:19 Dose: 10 ml Documented by: Sodium Chloride () 10 - 40 ml IV UD PRN PRN Reason: Midline Flush Last Admin: 03/23/19 22:19 Dose: 10 ml Documented by: Sodium Chloride (0.9% Nacl (Sterile) Posiflush) 10 - 40 ml IV UD PRN PRN Reason: Port access or dressing change STROKE Vital Signs/Narrative: Vital Signs Temp Pulse Resp BP BP Pulse Ox 03/24/19 13:00 112 H 24 H 110/71 98 03/24/19 12:00 36.9 C 106 H 18 117/73 95 03/24/19 11:44 103 H 03/24/19 11:05 96 03/24/19 11:00 104 H 26 H 139/87 H 94 03/24/19 10:00 78 21 H 123/64 H 88 Medical Necessity - Tobacco Use Smoking Status: Current every day smoker Tobacco Use: Cigarettes Assessment/Plan All Active Problems Acute respiratory failure with hypoxia and hypercapnia (Acute) Bilateral pneumonia (Acute) COPD exacerbation (Acute) Acute anemia (Acute) Acute renal failure superimposed on stage 3 chronic kidney disease (Acute) 1. acute hypoxic and hypercapnic respiratory failure * improved * extubated 03/21 * + H flu pneumonia, COPD * on methylpred, CTX, BDs * onn high-flow oxygen. * CCM following. 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 Colon full of stool 2. H. flu pneumonia * Beta-lactamase positive * continue CTX, continue abx through 03/24 * pulm toilet 3. AECOPD * BDs * methylpred 4. CHANTEL * improving * baseline around 1.15 * suspect prerenal etiology * monitor 5. acute blood loss anemia * iron-deficient * Hg in September was 12.3 * transfused 1 unit PRBCs * currently stable. * iron, ferritin low * B12 high * folate pending * TSH normal on 03/18 * 03/22: give dose of iron sucrose 6. VTE prophylaxis: SCDs 7. acute HFpEF * EF 60% * weight up 8kg from admission, though trending down. * continue furosemide. 8. constipation * eventration of colon in right hemidiaphragm with stool * already on senna. * will give bisacodyl Code Visit Inpatient E&M: 63808 Subs Hosp L2
[2019-03-24 14:34] LABS: Pathologist Review Reviewed
[2019-03-24] MEDS: Bisacodyl 5 MG Tablet 10 MG PO (17:17)
[2019-03-25] VITALS (18 sets, daily range): BP systolic 99–117; BP diastolic 50–66; PULSE 48–77; RESP 14–24; TEMP 36.5–36.9; O2SAT 90–99
[2019-03-25] MEDS: Ipratropium/Albuterol Sulfate 3 ML AMPUL.NEB INHALATION ×4 (06:47→22:58)
[2019-03-25 07:43] LABS: Anion Gap 4 (5-15); BUN 39 mg/dL (7-18); BUN/Creat Ratio 47.7 RATIO (10-20); Calcium,Total 8.8 mg/dL (8.5-10.1); Chloride 103 mmol/L (98-107); Creatinine, Serum 0.82 mg/dL (0.55-1.02); EST Glomerular Filtration Rate 74 mL/min (>60); Est Glom Filt Rate - Afr Amer 89 mL/min (>60); Estimated Creatinine Clearance 52.81 ml/min; Glucose 84 mg/dL (74-106); Potassium 4.5 mmol/L (3.5-5.1); Sodium Level 142 mmol/L (136-145)
[2019-03-25 07:44] LABS: Absolute Lymphocyte Count 1.66 X10^3/uL (0.83-4.51); Basophil# 0.01 X10^3/uL; Basophil% 0.1 % (0-1); Eosinophil# 0.18 X10^3/uL; Eosinophils% 1.1 % (0-5); Hematocrit 28.2 % (37-47); Hemoglobin 8.3 g/dL (12.0-15.0); Lymphocyte # 1.66 X10^3/ul (4.0); Lymphocyte % 10.1 % (19-41); Mean Corp Hgb Conc 29.4 g/dL (32-36); Mean Corpuscular Hgb 26.8 pg (27.0-32.0); Monocyte# 1.45 X10^3/uL; Monocyte% 8.8 % (0-10); NRBC Flagged by Analyzer 0 % (0-5); Neutrophil # 12.97 X10^3/uL (2.7-7.7); Platelet Count 233 K/mm3 (150-450); RBC Distribution Width CV 16.8 % (11.6-14.6); RBC Distribution Width SD 55.2 fl (35.1-43.9); White Blood Count 16.4 K/mm3 (4.4-11.0)
--- NOTE | 2019-03-25 07:50 | PN_ITS ---
Subjective: Patient transferred out of the intensive care unit yesterday. Patient much improved subjectively. Patient is only requiring 3 L nasal cannula at rest. Patient states my swelling is much better than it has been. Patient still reports dyspnea on exertion, but states this is improving also. Objective: Review of CT of the chest shows relatively normal lung parenchyma, but significant invasion of the thoracic cavity through a diaphragmatic hernia. Mild pleural effusions are noted General: Alert, Oriented x3, Cooperative, No apparent distress, Well developed, Well nourished, - - Mild conversational dyspnea HEENT: Atraumatic, PERRLA, EOMI, Normocephalic, - - No scleral icterus or injection noted Oral: Moist Mucosa, No Gingival or Mucosal Lesions/ Ulcerations Neck: Supple, No JVD, No Nodes, Trachea Midline Lungs: No rhonchi, No rales, Diminished, Wheezes - Sporadic Cardiovascular: Regular rate, Regular Rhythm, Normal S1, Normal S2, No murmurs, No rub noted, No Gallop Abdomen: Bowel Sounds Present, Soft, Non Tender, Non-Distended Extremities: No clubbing, No cyanosis, Edema - Continues to improve Skin: - - No change compared to previous Musculoskeletal: No Tenderness to Palpation of Joints or Extremities Lymphatic: No Cervical, Supraclavicular, or Inguinal Adenopathy Neurological: Cranial nerves II-XII grossly intact, Neuro grossly intact, Motor Exam 5/5 strength throughout Psych/Mental Status: Alert and oriented to time, place, person, mood and affect Vital Signs Temp Pulse Resp BP Pulse Ox 36.6 C 48 L 16 99/50 L 90 03/25/19 02:30 03/25/19 06:47 03/25/19 06:47 03/25/19 02:30 03/25/19 06:47 Oxygen Flow Rate (L/min) 3 Oxygen Delivery Method Nasal Cannula Weight: 69 kg Body Mass Index (BMI) 25.7 Intake and Output for Last 24 Hours 03/23/19 03/24/19 03/25/19 23:59 23:59 23:59 Intake Total 1705.25 / 1705.25 590 / 590 60 / 60 Output Total 3300 / 3300 1550 / 1550 200 / 200 Balance -1594.75 / -1594.75 -960 / -960 -140 / -140 Labs (Last 48 Hours) 03/24/19 03/24/19 03/25/19 06:07 06:07 07:20 WBC 16.7 H 16.4 H RBC 3.31 L 3.10 L Hgb 8.8 L 8.3 L Hct 30.2 L 28.2 L MCV 91.2 91.0 MCH 26.6 L 26.8 L MCHC 29.1 L 29.4 L RDW Std Deviation 55.5 H 55.2 H RDW Coeff of Mya 16.6 H 16.8 H Plt Count 263 233 MPV 10.5 11.0 Immature Gran % (Auto) 0.700 0.900 Neut % (Auto) 79.1 H 79.0 H Lymph % (Auto) 10.2 L 10.1 L [place] % (Auto) 9.2 8.8 Eos % (Auto) 0.7 1.1 Baso % (Auto) 0.1 0.1 Absolute Neuts (auto) 13.3 H 13.0 H Absolute Lymphs (auto) 1.71 1.66 Nucleated RBC % 0 0 Differential Comment Diff Path Review Reviewed Hypochromasia 1+ Anisocytosis 1+ Macrocytosis RARE Sodium 141 Potassium 4.9 Chloride 104 Carbon Dioxide 36.0 H Anion Gap 1 L BUN 45 H Creatinine 0.92 Estim Creat Clear Calc 47.07 Est GFR (MDRD) Af Amer 78 Est GFR (MDRD) Non-Af 64 BUN/Creatinine Ratio 48.9 H Glucose 85 Calcium 9.0 03/25/19 07:20 WBC RBC Hgb Hct MCV MCH MCHC RDW Std Deviation RDW Coeff of Mya Plt Count MPV Immature Gran % (Auto) Neut % (Auto) Lymph % (Auto) [place] % (Auto) Eos % (Auto) Baso % (Auto) Absolute Neuts (auto) Absolute Lymphs (auto) Nucleated RBC % Differential Comment Diff Path Review Hypochromasia Anisocytosis Macrocytosis Sodium 142 Potassium 4.5 Chloride 103 Carbon Dioxide 35.0 H Anion Gap 4 L BUN 39 H Creatinine 0.82 Estim Creat Clear Calc 52.81 Est GFR (MDRD) Af Amer 89 Est GFR (MDRD) Non-Af 74 BUN/Creatinine Ratio 47.7 H Glucose 84 Calcium 8.8 Microbiology 03/17/19 19:45 Blood Culture (Wb) - Left Forearm Blood Culture - Final No growth in 5 days. 03/17/19 18:55 Blood Culture (Wb) - Anticubital Left Blood Culture - Final No growth in 5 days. Clinical Impression(s) from Imaging Studies Chest CT 03/24/19 07:05 IMPRESSION: Eventration of the right hemidiaphragm with a large amount of bone colon seen in the right hemithorax. Small bilateral pleural effusions with bibasilar atelectasis and/or infiltrate slightly worse on the left side. Inhomogeneous enlargement of the thyroid as described. Electronically Signed: Shilo Chrissy, at 10:46 EDT , Service support , Medical Necessity - Tobacco Use Smoking Status: Current every day smoker Tobacco Use: Cigarettes Assessment/Plan All Active Problems Acute respiratory failure with hypoxia and hypercapnia (Acute) Bilateral pneumonia (Acute) COPD exacerbation (Acute) Acute anemia (Acute) Acute renal failure superimposed on stage 3 chronic kidney disease (Acute) RECOMMENDATIONS: 1. Wean FiO2 to maintain oxygen saturations at or above 90%. 2. Completed 7 days total of antibiotic therapy. 3. Transfuse blood products if hemoglobin drops below 7 g/dL. 4. Wean steroids over the next 12 to 14 days, continue bronchodilators. 5. Avoid NSAIDs. Continue PPI therapy twice daily. 6. We will decrease diuretic therapy. Goal 500 to 1000 mL's by tomorrow 7. Activity per mobility protocol 8. Potential discharge from a pulmonary perspective Wednesday or Wednesday. IMPRESSIONS: 1. Acute combined respiratory failure secondary to H. influenzae pneumonia Able to be liberated from the ventilator, but was having significant oxygen requirements. Patient has come back positive for H. influenzae has completed antibiotic course. C albicans likely contaminant. Wean oxygen as tolerated. Continue to use BiPAP with sleep. Patient appears to have tolerated diuretic trial well. We will decrease diuretic therapy as patient appears to be approaching euvolemia. Goal is -500 to 1000 mL's by tomorrow. Respiratory status is compromised by significant impingement of the thoracic cavity by abdominal contents. This is likely chronic. 2. Severe sepsis with concerns for underlying H. influenzae pneumonia The patient is currently on appropriate antimicrobials and remains hemodynamically stable following IV fluid resuscitation. Continue current supportive measures as noted above. Patient has been treated for 7 days empirically given baseline status. Patient has remained hemodynamically stable. 3. Anemia Potentially related to an upper GI source of blood loss in the setting of chronic NSAID utilization. The patient has been transfused 1 unit of packed red blood cells with appropriate incrementation in her hemoglobin. Plan to continue to monitor H&H daily, with plan to transfuse if hemoglobin drops below 7 g/dL. Continue to hold all NSAIDs. Continue PPI therapy as ordered. No indication for transfusion today. 4. Acute on chronic kidney disease/hyperkalemia Potentially prerenal in etiology in the setting of the above. Creatinine is stable and hyperkalemia has resolved. Continue to monitor urine output. No current indication for renal replacement therapy. Patient does have significant peripheral edema, but this appears to be secondary to low oncotic pressure with an albumin of 2.9. Would NOT recommend albumin with Lasix. Patient has responded well to Lasix alone. Renal function improved to the point that cardiac diet is likely sufficient. 5. Elevated transaminases/diaphragmatic hernia Unclear etiology at this time. Although may be related to presenting sepsis. Liver ultrasound was unremarkable. Recheck liver functions periodically. Code Visit Inpatient E&M: 32648 Subs Hosp L2
[2019-03-25] MEDS: Pantoprazole Sodium 40 MG Tablet PO ×2 (09:38→21:05)
[2019-03-25] MEDS: Furosemide 20 MG Tablet PO ×2 (09:38→18:45)
[2019-03-25] MEDS: predniSONE 20 MG Tablet 40 MG PO (09:38)
--- NOTE | 2019-03-25 09:57 | PCM.PN.HOSP ---
Patient Problems: Active and Suspected Problems Acute respiratory failure with hypoxia and hypercapnia (Acute) Bilateral pneumonia (Acute) COPD exacerbation (Acute) Acute anemia (Acute) Acute renal failure superimposed on stage 3 chronic kidney disease (Acute) Subjective: breathing better. Patient aware of colon in her chest from previous, but did not know why. Had a large BM today. Vitals/I&O's: Vital Signs Temp Pulse Resp BP Pulse Ox 36.6 C 63 18 111/55 L 96 03/25/19 08:30 03/25/19 08:30 03/25/19 08:30 03/25/19 08:30 03/25/19 08:30 Oxygen Flow Rate (L/min) 3 Oxygen Delivery Method Nasal Cannula Weight: 69 kg Body Mass Index (BMI) 25.7 Intake and Output for Last 24 Hours 03/23/19 03/24/19 03/25/19 23:59 23:59 23:59 Intake Total 1705.25 / 1705.25 590 / 590 60 / 60 Output Total 3300 / 3300 1550 / 1550 200 / 200 Balance -1594.75 / -1594.75 -960 / -960 -140 / -140 General: Alert, No apparent distress HEENT: Atraumatic, Normocephalic Oral: Moist Mucosa, No Gingival or Mucosal Lesions/ Ulcerations Neck: No Nodes, Thyroid Normal Size and Texture Lungs: Clear to auscultation, No wheeze, Diminished Cardiovascular: Regular rate, Regular Rhythm, Normal S1, Normal S2 Abdomen: Bowel Sounds Present, Soft, Non Tender, Non-Distended, No Hepato-splenomegaly Extremities: No Calf Tenderness Skin: No rashes, No breakdown Psych/Mental Status: Normal Affect, Appropriate Microbiology Past 72 Hours 03/17/19 19:45 Blood Culture (Wb) - Left Forearm Blood Culture - Final No growth in 5 days. 03/17/19 18:55 Blood Culture (Wb) - Anticubital Left Blood Culture - Final No growth in 5 days. Laboratory Results 03/24/19 06:07: Diff Path Review Reviewed 03/25/19 07:20: WBC 16.4 H, RBC 3.10 L, Hgb 8.3 L, Hct 28.2 L, MCV 91.0, MCH 26.8 L, MCHC 29.4 L, RDW Std Deviation 55.2 H, RDW Coeff of Mya 16.8 H, Plt Count 233, MPV 11.0, Immature Gran % (Auto) 0.900, Neut % (Auto) 79.0 H, Lymph % (Auto) 10.1 L, [place] % (Auto) 8.8, Eos % (Auto) 1.1, Baso % (Auto) 0.1, Absolute Neuts (auto) 13.0 H, Absolute Lymphs (auto) 1.66, Nucleated RBC % 0 03/25/19 07:20: Sodium 142, Potassium 4.5, Chloride 103, Carbon Dioxide 35.0 H, Anion Gap 4 L, BUN 39 H, Creatinine 0.82, Estim Creat Clear Calc 52.81, Est GFR (MDRD) Af Amer 89, Est GFR (MDRD) Non-Af 74, BUN/Creatinine Ratio 47.7 H, Glucose 84, Calcium 8.8 Current Medications Acetaminophen (Tylenol Liquid) 650 mg PO Q6H PRN PRN PRN Reason: Pain Score 1-3/Temp > 100.7 F Albuterol Sulfate (Ventolin Aerosols) 2.5 mg INHALATION Q2H PRN PRN PRN Reason: SHORTNESS OF BREATH Albuterol/Ipratropium (Duoneb) 3 ml INHALATION Q4H.RT [facility] Last Admin: 03/25/19 06:47 Dose: 3 ml Documented by: Bisacodyl (Dulcolax) 5 mg PO DAILY [facility] Last Admin: 03/25/19 09:35 Dose: Not Given Documented by: Calcium Carbonate (Tums) 1,000 mg PO Q4H PRN PRN PRN Reason: DYSPEPSIA Last Admin: 03/23/19 22:14 Dose: 1,000 mg Documented by: Chlorhexidine Gluconate () 1 each TOPICAL DAILY [facility] Last Admin: 03/25/19 09:34 Dose: Not Given Documented by: Dextrose (D50w Syringe) 0 gm IV X1 PRN; Protocol PRN Reason: Hypoglycemia Furosemide (Lasix) 20 mg PO BID@1000,1800 [facility] Last Admin: 03/25/19 09:38 Dose: 20 mg Documented by: Glucagon () 1 mg IM .X1 PRN PRN Reason: Hypoglycemia Ondansetron HCl (Zofran) 4 mg IV Q8H PRN PRN PRN Reason: NAUSEA/VOMITING Pantoprazole Sodium (Protonix) 40 mg PO BID [facility] Last Admin: 03/25/19 09:38 Dose: 40 mg Documented by: Prednisone () 40 mg PO DAILY@0800 [facility] Last Admin: 03/25/19 09:38 Dose: 40 mg Documented by: Senna/Docusate Sodium (Senokot-S, Francoise-Colace) 2 tablet PO BID PRN PRN PRN Reason: Constipation Sodium Chloride () 5 - 15 ml IV UD PRN PRN Reason: SALINE FLUSH Last Admin: 03/23/19 22:19 Dose: 10 ml Documented by: Sodium Chloride () 10 - 40 ml IV UD PRN PRN Reason: Midline Flush Last Admin: 03/23/19 22:19 Dose: 10 ml Documented by: Sodium Chloride (0.9% Nacl (Sterile) Posiflush) 10 - 40 ml IV UD PRN PRN Reason: Port access or dressing change STROKE Vital Signs/Narrative: Vital Signs Temp Pulse Resp BP Pulse Ox 03/25/19 08:30 36.6 C 63 18 111/55 L 96 03/25/19 07:09 64 03/25/19 06:47 48 L 16 90 Medical Necessity - Tobacco Use Smoking Status: Current every day smoker Tobacco Use: Cigarettes Assessment/Plan All Active Problems Acute respiratory failure with hypoxia and hypercapnia (Acute) Bilateral pneumonia (Acute) COPD exacerbation (Acute) Acute anemia (Acute) Acute renal failure superimposed on stage 3 chronic kidney disease (Acute) 1. acute hypoxic and hypercapnic respiratory failure improved extubated 03/21 + H flu pneumonia, COPD on prednisone and BDs oxygen weaned down CCM following. complicated by eventration of the right hemidiaphragm with colon. Colon full of stool 2. H. flu pneumonia Beta-lactamase positive completed ceftriaxone pulm toilet 3. AECOPD BDs prednisone 4. CHANTEL improving baseline around 1.15 suspect prerenal etiology monitor 5. acute blood loss anemia resolved iron-deficient Hg in September was 12.3 transfused 1 unit PRBCs currently stable. iron, ferritin low B12 high folate pending TSH normal on 03/18 03/22: give dose of iron sucrose 6. VTE prophylaxis: SCDs 7. acute HFpEF EF 60% weight up 8kg from admission, though trending down. continue furosemide. 8. constipation resolved eventration of colon in right hemidiaphragm with stool already on senna. 9. disposition: to [facility] hopefully next 1-2 days Code Visit Inpatient E&M: 05310 Subs Hosp L2
[2019-03-25] MEDS: 0.9% Saline Lock 10 ML Syringe IV (18:46)
[2019-03-26] VITALS (17 sets, daily range): BP systolic 109–123; BP diastolic 46–70; PULSE 51–68; RESP 14–24; TEMP 36.4–36.9; O2SAT 93–97
[2019-03-26 06:50] LABS: Absolute Lymphocyte Count 1.43 X10^3/uL (0.83-4.51); Absolute Neutrophil Count 13.4 X10^3/uL (2.0-7.7); Basophil# 0.02 X10^3/uL; Basophil% 0.1 % (0-1); Eosinophil# 0.13 X10^3/uL; Eosinophils% 0.8 % (0-5); Hematocrit 26.2 % (37-47); Hemoglobin 7.7 g/dL (12.0-15.0); Lymphocyte # 1.43 X10^3/ul (4.0); Lymphocyte % 8.6 % (19-41); Mean Corp Hgb Conc 29.4 g/dL (32-36); Mean Corpuscular Hgb 27.1 pg (27.0-32.0); Mean Corpuscular Volume 92.3 fL (81-99); Mean Platelet Vol. 10.7 fl (6.2-12.0); Monocyte# 1.53 X10^3/uL; Monocyte% 9.2 % (0-10); NRBC Flagged by Analyzer 0 % (0-5); Neutrophil # 13.42 X10^3/uL (2.7-7.7); Neutrophil % 80.3 % (47-70); POSITIVE DIFFERENTIAL YES; Platelet Count 239 K/mm3 (150-450); RBC Distribution Width CV 17.2 % (11.6-14.6); RBC Distribution Width SD 56.9 fl (35.1-43.9); Red Blood Count 2.84 M/mm3 (4.2-5.4); White Blood Count 16.7 K/mm3 (4.4-11.0)
[2019-03-26 06:57] LABS: Differential Indicated SCAN CRITERIA MET
[2019-03-26 07:05] LABS: Anion Gap 2 (5-15); BUN 37 mg/dL (7-18); Calcium,Total 8.5 mg/dL (8.5-10.1); Chloride 103 mmol/L (98-107); Creatinine, Serum 0.82 mg/dL (0.55-1.02); EST Glomerular Filtration Rate 73 mL/min (>60); Est Glom Filt Rate - Afr Amer 88 mL/min (>60); Estimated Creatinine Clearance 52.81 ml/min; Glucose 87 mg/dL (74-106); Potassium 4.6 mmol/L (3.5-5.1); Sodium Level 141 mmol/L (136-145)
[2019-03-26] MEDS: Ipratropium/Albuterol Sulfate 3 ML AMPUL.NEB INHALATION ×5 (07:09→22:38)
[2019-03-26 07:33] LABS: Hypersegmented Neutrophils RARE
--- NOTE | 2019-03-26 08:12 | PN_ITS ---
Patient Problems: Active and Suspected Problems Acute respiratory failure with hypoxia and hypercapnia (Acute) Bilateral pneumonia (Acute) COPD exacerbation (Acute) Acute anemia (Acute) Acute renal failure superimposed on stage 3 chronic kidney disease (Acute) Subjective: Patient did well overnight. Patient is subjectively unchanged compared to previous. Patient states that she feels that she is having better exercise tolerance. No dyspnea at rest has been reported. Inputs and outputs are inaccurate secondary to incontinence. - Physical Exam General: Alert, Oriented x3, Cooperative, No apparent distress, Well developed, Well nourished, - - Speaking in full sentences. HEENT: Atraumatic, PERRLA, EOMI, Normocephalic, - - No scleral icterus or injection noted Oral: Moist Mucosa, No Gingival or Mucosal Lesions/ Ulcerations Neck: Supple, No JVD, No Nodes, Trachea Midline Lungs: No rhonchi, No wheeze, No rales, Diminished, - - Symmetric expansion. No dullness to percussion. Cardiovascular: Regular rate, Normal S1, Normal S2, No murmurs, No rub noted, No Gallop Abdomen: Bowel Sounds Present, Soft, Non Tender, Non-Distended Extremities: No clubbing, No cyanosis, Edema Skin: No rashes - Continues to improve, No breakdown Vital Signs Temp Pulse Resp BP Pulse Ox 36.4 C L 64 16 123/70 H 95 03/26/19 03:55 03/26/19 07:09 03/26/19 07:09 03/26/19 03:55 03/26/19 07:09 Oxygen Flow Rate (L/min) 3.5 Oxygen Delivery Method Nasal Cannula Weight: 69 kg Body Mass Index (BMI) 25.7 Intake and Output for Last 24 Hours 03/24/19 03/25/19 03/26/19 23:59 23:59 23:59 Intake Total 590 / 590 1220 / 1220 0 / 0 Output Total 1550 / 1550 200 / 200 75 / 75 Balance -960 / -960 1020 / 1020 -75 / -75 Microbiology Past 72 Hours 03/17/19 19:45 Blood Culture - Final Blood Culture (Wb) - Left Forearm No growth in 5 days. 03/17/19 18:55 Blood Culture - Final Blood Culture (Wb) - Anticubital Left No growth in 5 days. Laboratory Tests Past 24 Hrs 03/26/19 03/26/19 06:30 06:30 WBC 16.7 H RBC 2.84 L Hgb 7.7 L Hct 26.2 L MCV 92.3 MCH 27.1 MCHC 29.4 L RDW Std Deviation 56.9 H RDW Coeff of Mya 17.2 H Plt Count 239 MPV 10.7 Immature Gran % (Auto) 1.000 H Neut % (Auto) 80.3 H Lymph % (Auto) 8.6 L [place] % (Auto) 9.2 Eos % (Auto) 0.8 Baso % (Auto) 0.1 Absolute Neuts (auto) 13.4 H Absolute Lymphs (auto) 1.43 Nucleated RBC % 0 Diff Path Review May foll Hypersegmented Neuts RARE Sodium 141 Potassium 4.6 Chloride 103 Carbon Dioxide 36.0 H Anion Gap 2 L BUN 37 H Creatinine 0.82 Estim Creat Clear Calc 52.81 Est GFR (MDRD) Af Amer 88 Est GFR (MDRD) Non-Af 73 BUN/Creatinine Ratio 45.0 H Glucose 87 Calcium 8.5 Medical Necessity - Tobacco Use Smoking Status: Current every day smoker Tobacco Use: Cigarettes Assessment/Plan All Active Problems Acute respiratory failure with hypoxia and hypercapnia (Acute) Bilateral pneumonia (Acute) COPD exacerbation (Acute) Acute anemia (Acute) Acute renal failure superimposed on stage 3 chronic kidney disease (Acute) RECOMMENDATIONS: 1. Wean FiO2 to maintain oxygen saturations at or above 90%. 2. Completed 7 days total of antibiotic therapy. 3. Transfuse blood products if hemoglobin drops below 7 g/dL. 4. Wean steroids to 30 mg and continue over the next 9-12 days, continue bronchodilators. 5. Avoid NSAIDs. Continue PPI therapy twice daily. 6. Discontinue diuretic therapy 7. Activity per mobility protocol 8. Potential discharge from a pulmonary perspective today or Wednesday. IMPRESSIONS: 1. Acute combined respiratory failure secondary to H. influenzae pneumonia Able to be liberated from the ventilator, but was having significant oxygen requirements. Patient has come back positive for H. influenzae has completed antibiotic course. C albicans likely contaminant. Wean oxygen as tolerated. Continue to use BiPAP with sleep. Patient appears to have tolerated diuretic trial well. Patient starting to show contraction alkalosis. Will discontinue diuretic therapy. Respiratory status is compromised by significant impingement of the thoracic cavity by abdominal contents. This is likely chronic. If discharged, patient can follow-up 2 weeks after completing rehab stay. 2. Severe sepsis with concerns for underlying H. influenzae pneumonia The patient is currently on appropriate antimicrobials and remains hemodynamically stable following IV fluid resuscitation. Continue current supportive measures as noted above. Patient has been treated for 7 days empirically given baseline status. Patient has remained hemodynamically stable. 3. Anemia Potentially related to an upper GI source of blood loss in the setting of chronic NSAID utilization. The patient has been transfused 1 unit of packed red blood cells with appropriate incrementation in her hemoglobin. Plan to continue to monitor H&H daily, with plan to transfuse if hemoglobin drops below 7 g/dL. Continue to hold all NSAIDs. Continue PPI therapy as ordered. No indication for transfusion today. 4. Acute on chronic kidney disease/hyperkalemia Potentially prerenal in etiology in the setting of the above. Creatinine is stable and hyperkalemia has resolved. Continue to monitor urine output. No current indication for renal replacement therapy. Patient does have significant peripheral edema, but this appears to be secondary to low oncotic pressure with an albumin of 2.9. Renal function is back to normal. 5. Elevated transaminases/diaphragmatic hernia Unclear etiology at this time. Although may be related to presenting sepsis. Liver ultrasound was unremarkable. Recheck liver functions periodically. Code Visit Inpatient E&M: 82413 Subs Hosp L2
[2019-03-26] MEDS: predniSONE 20 MG Tablet 30 MG PO (08:48)
[2019-03-26] MEDS: Pantoprazole Sodium 40 MG Tablet PO ×2 (08:49→20:12)
--- NOTE | 2019-03-26 08:57 | PN_ITS ---
Patient Problems: Active and Suspected Problems Acute respiratory failure with hypoxia and hypercapnia (Acute) Bilateral pneumonia (Acute) COPD exacerbation (Acute) Acute anemia (Acute) Acute renal failure superimposed on stage 3 chronic kidney disease (Acute) Subjective: No events overnight. Breathing well. Vitals/I&O's: Vital Signs Temp Pulse Resp BP Pulse Ox 36.4 C L 64 16 123/70 H 95 03/26/19 03:55 03/26/19 07:09 03/26/19 07:09 03/26/19 03:55 03/26/19 07:09 Oxygen Flow Rate (L/min) 3.5 Oxygen Delivery Method Nasal Cannula Weight: 69 kg Body Mass Index (BMI) 25.7 Intake and Output for Last 24 Hours 03/24/19 03/25/19 03/26/19 23:59 23:59 23:59 Intake Total 590 / 590 1220 / 1220 0 / 0 Output Total 1550 / 1550 200 / 200 75 / 75 Balance -960 / -960 1020 / 1020 -75 / -75 General: Alert, No apparent distress, - - no respiratory distress. no conversational dyspnea. HEENT: Atraumatic, Normocephalic Oral: Moist Mucosa, No Gingival or Mucosal Lesions/ Ulcerations Neck: No Nodes, Thyroid Normal Size and Texture Lungs: Diminished, Wheezes Cardiovascular: Regular rate, Regular Rhythm, Normal S1, Normal S2 Abdomen: Bowel Sounds Present, Soft, Non Tender, Non-Distended, No Hepato- splenomegaly Extremities: No Calf Tenderness, Edema Skin: No rashes, No breakdown Musculoskeletal: No Tenderness to Palpation of Joints or Extremities, No Muscle Wasting Neurological: Muscle tone normal, Coordination normal Psych/Mental Status: Normal Affect, Appropriate Microbiology Past 72 Hours 03/17/19 19:45 Blood Culture (Wb) - Left Forearm Blood Culture - Final No growth in 5 days. 03/17/19 18:55 Blood Culture (Wb) - Anticubital Left Blood Culture - Final No growth in 5 days. Laboratory Results 03/26/19 06:30: WBC 16.7 H, RBC 2.84 L, Hgb 7.7 L, Hct 26.2 L, MCV 92.3, MCH 27.1, MCHC 29.4 L, RDW Std Deviation 56.9 H, RDW Coeff of Mya 17.2 H, Plt Count 239, MPV 10.7, Immature Gran % (Auto) 1.000 H, Neut % (Auto) 80.3 H, Lymph % (Auto) 8.6 L, [place] % (Auto) 9.2, Eos % (Auto) 0.8, Baso % (Auto) 0.1, Absolute Neuts (auto) 13.4 H, Absolute Lymphs (auto) 1.43, Nucleated RBC % 0, Diff Path Review May foll, Hypersegmented Neuts RARE 03/26/19 06:30: Sodium 141, Potassium 4.6, Chloride 103, Carbon Dioxide 36.0 H, Anion Gap 2 L, BUN 37 H, Creatinine 0.82, Estim Creat Clear Calc 52.81, Est GFR (MDRD) Af Amer 88, Est GFR (MDRD) Non-Af 73, BUN/Creatinine Ratio 45.0 H, Glucose 87, Calcium 8.5 Current Medications Acetaminophen (Tylenol Liquid) 650 mg PO Q6H PRN PRN PRN Reason: Pain Score 1-3/Temp > 100.7 F Albuterol Sulfate (Ventolin Aerosols) 2.5 mg INHALATION Q2H PRN PRN PRN Reason: SHORTNESS OF BREATH Albuterol/Ipratropium (Duoneb) 3 ml INHALATION Q4H.RT [facility] Last Admin: 03/26/19 07:09 Dose: 3 ml Documented by: Bisacodyl (Dulcolax) 5 mg PO DAILY [facility] Last Admin: 03/26/19 08:49 Dose: Not Given Documented by: Calcium Carbonate (Tums) 1,000 mg PO Q4H PRN PRN PRN Reason: DYSPEPSIA Last Admin: 03/23/19 22:14 Dose: 1,000 mg Documented by: Dextrose (D50w Syringe) 0 gm IV X1 PRN; Protocol PRN Reason: Hypoglycemia Glucagon () 1 mg IM .X1 PRN PRN Reason: Hypoglycemia Ondansetron HCl (Zofran) 4 mg IV Q8H PRN PRN PRN Reason: NAUSEA/VOMITING Pantoprazole Sodium (Protonix) 40 mg PO BID [facility] Last Admin: 03/26/19 08:49 Dose: 40 mg Documented by: Prednisone () 30 mg PO DAILY@0800 [facility] Last Admin: 03/26/19 08:48 Dose: 30 mg Documented by: Senna/Docusate Sodium (Senokot-S, Francoise-Colace) 2 tablet PO BID PRN PRN PRN Reason: Constipation Sodium Chloride () 5 - 15 ml IV UD PRN PRN Reason: SALINE FLUSH Last Admin: 03/23/19 22:19 Dose: 10 ml Documented by: Sodium Chloride () 10 - 40 ml IV UD PRN PRN Reason: Midline Flush Last Admin: 03/25/19 18:46 Dose: 20 ml Documented by: Sodium Chloride (0.9% Nacl (Sterile) Posiflush) 10 - 40 ml IV UD PRN PRN Reason: Port access or dressing change STROKE Vital Signs/Narrative: Vital Signs Pulse Resp Pulse Ox 03/26/19 07:09 64 16 95 03/26/19 06:48 61 Medical Necessity - Tobacco Use Smoking Status: Current every day smoker Tobacco Use: Cigarettes Assessment/Plan All Active Problems Acute respiratory failure with hypoxia and hypercapnia (Acute) Bilateral pneumonia (Acute) COPD exacerbation (Acute) Acute anemia (Acute) Acute renal failure superimposed on stage 3 chronic kidney disease (Acute) 1. acute hypoxic and hypercapnic respiratory failure * improved, slowly * multifactorial * extubated 03/21 * + H flu pneumonia, COPD * on prednisone and BDs * oxygen weaned down * CCM following. 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 2. H. flu pneumonia * Beta-lactamase positive * completed ceftriaxone * pulm toilet 3. AECOPD * BDs * prednisone 4. CHANTEL * improving * suspect prerenal etiology * monitor 5. acute blood loss anemia * resolved * iron-deficient * Hg in September was 12.3 * transfused 1 unit PRBCs * currently stable. * iron, ferritin low * B12 high * folate pending * TSH normal on 03/18 * 03/22: give dose of iron sucrose. Will given another dose today, 03/26. 6. VTE prophylaxis: SCDs 7. acute HFpEF * EF 60% * weight up 8kg from admission, though trending down. * furosemide d/c'd today for contraction alkalosis. * resume lisinopril now that CHANTEL resolved 8. constipation * resolved * eventration of colon in right hemidiaphragm with stool * already on senna. 9. disposition: to [facility] hopefully 03/27, will need to ensure BiPAP is available at [facility]. 10. leukocytosis: persistent and up slightly. overall improved. monitor. Code Visit Inpatient E&M: [id number] Subs Hosp L3
[2019-03-26] MEDS: Lisinopril 10 MG Tablet PO (10:03)
[2019-03-26] MEDS: Cyanocobalamin 500 MCG Tablet 1000 MCG PO (10:03)
[2019-03-26] MEDS: 0.9% NaCl Peripheral Flush Adult/Peds IV (10:51)
[2019-03-27] VITALS (15 sets, daily range): BP systolic 104–133; BP diastolic 45–59; PULSE 47–90; RESP 14–22; TEMP 36.2–36.8; O2SAT 92–96
--- NOTE | 2019-03-27 01:00 | CPS ---
PT TOOK BIPAP OFF AND REFUSED TO PUT IT BACK ON.
[2019-03-27] MEDS: 0.9% NaCl Peripheral Flush Adult/Peds IV (04:49)
[2019-03-27 05:48] LABS: Absolute Lymphocyte Count 0.69 X10^3/uL (0.83-4.51); Absolute Neutrophil Count 9.7 X10^3/uL (2.0-7.7); Basophil# 0.07 X10^3/uL; Basophil% 0.6 % (0-1); Eosinophil# 0.06 X10^3/uL; Eosinophils% 0.5 % (0-5); Hematocrit 43.1 % (37-47); Hemoglobin 13.2 g/dL (12.0-15.0); Lymphocyte # 0.69 X10^3/ul (4.0); Lymphocyte % 6.2 % (19-41); Mean Corp Hgb Conc 30.6 g/dL (32-36); Mean Corpuscular Volume 101.2 fL (81-99); Mean Platelet Vol. 10.9 fl (6.2-12.0); Monocyte# 0.55 X10^3/uL; Monocyte% 4.9 % (0-10); NRBC Flagged by Analyzer 0 % (0-5); Neutrophil % 87.4 % (47-70); Platelet Count 125 K/mm3 (150-450); RBC Distribution Width CV 13.6 % (11.6-14.6); RBC Distribution Width SD 50.5 fl (35.1-43.9); Red Blood Count 4.26 M/mm3 (4.2-5.4); White Blood Count 11.1 K/mm3 (4.4-11.0)
[2019-03-27 06:16] LABS: Anion Gap 5 (5-15); BUN 19 mg/dL (7-18); BUN/Creat Ratio 19.3 RATIO (10-20); Calcium,Total 8.6 mg/dL (8.5-10.1); Chloride 105 mmol/L (98-107); Creatinine, Serum 0.99 mg/dL (0.55-1.02); EST Glomerular Filtration Rate 59 mL/min (>60); Est Glom Filt Rate - Afr Amer 72 mL/min (>60); Estimated Creatinine Clearance 43.74 ml/min; Glucose 109 mg/dL (74-106); Potassium 4.1 mmol/L (3.5-5.1); Sodium Level 138 mmol/L (136-145)
[2019-03-27] MEDS: Ipratropium/Albuterol Sulfate 3 ML AMPUL.NEB INHALATION ×4 (06:38→23:00)
--- NOTE | 2019-03-27 06:48 | PCM.PN.PUL ---
Patient Problems: Active and Suspected Problems Acute respiratory failure with hypoxia and hypercapnia (Acute) Bilateral pneumonia (Acute) COPD exacerbation (Acute) Acute anemia (Acute) Acute renal failure superimposed on stage 3 chronic kidney disease (Acute) Subjective: The patient was seen and examined at the bedside this morning. Events from the last 24 hours have been reviewed. The patient is currently afebrile, hemodynamically stable and maintaining appropriate oxygen saturations on 4 L/min via nasal cannula. The patient feels well this morning. She denies any resting shortness of breath. She is agreeable to following up in the pulmonary medicine clinic upon discharge from the hospital. Objective: The patient's most recent lab work, culture data and imaging studies have all been personally reviewed. Sputum aspirate dated March 18 was positive for Haemophilus influenza. Surface echocardiogram dated March 18 revealed normal LV size with an ejection fraction of 60%. Pulmonary artery systolic pressure was estimated to be 40 to 45 mmHg. - Physical Exam General: Alert, Oriented x3, Cooperative, No apparent distress HEENT: Atraumatic, PERRLA, Normocephalic Oral: No Gingival or Mucosal Lesions/ Ulcerations Neck: Supple, No Nodes, Trachea Midline Lungs: No rhonchi, No wheeze, No rales, Diminished Cardiovascular: Regular rate, Regular Rhythm, Normal S1, Normal S2 Abdomen: Bowel Sounds Present, Soft, Non Tender, Non-Distended Extremities: No clubbing, No cyanosis Skin: No breakdown Musculoskeletal: No Tenderness to Palpation of Joints or Extremities Lymphatic: No Cervical, Supraclavicular, or Inguinal Adenopathy Neurological: Cranial nerves II-XII grossly intact, Neuro grossly intact Psych/Mental Status: Normal Affect, Appropriate Vital Signs Temp Pulse Resp BP Pulse Ox 98.0 F 60 20 H 119/56 L 93 03/27/19 05:00 03/27/19 05:00 03/27/19 05:00 03/27/19 05:00 03/27/19 05:00 Oxygen Flow Rate (L/min) 4 Oxygen Delivery Method Nasal Cannula Weight: 145 lb 15.136 oz Body Mass Index (BMI) 25.7 Intake and Output for Last 24 Hours 03/25/19 03/26/19 03/27/19 23:59 23:59 23:59 Intake Total 1220 / 1220 1100 / 1220 120 / 120 Output Total 200 / 200 75 / 75 Balance 1020 / 1020 1025 / 1145 120 / 120 Laboratory Tests Past 24 Hrs 03/26/19 03/26/19 03/27/19 06:30 06:30 05:35 WBC 16.7 H 11.1 H RBC 2.84 L 4.26 Hgb 7.7 L 13.2 Hct 26.2 L 43.1 MCV 92.3 101.2 H D MCH 27.1 31.0 MCHC 29.4 L 30.6 L RDW Std Deviation 56.9 H 50.5 H RDW Coeff of Mya 17.2 H 13.6 Plt Count 239 125 L MPV 10.7 10.9 Immature Gran % (Auto) 1.000 H 0.400 Neut % (Auto) 80.3 H 87.4 H Lymph % (Auto) 8.6 L 6.2 L Hidalgo % (Auto) 9.2 4.9 Eos % (Auto) 0.8 0.5 Baso % (Auto) 0.1 0.6 Absolute Neuts (auto) 13.4 H 9.7 H Absolute Lymphs (auto) 1.43 0.69 L Nucleated RBC % 0 0 Diff Path Review May foll Hypersegmented Neuts RARE Sodium 141 Potassium 4.6 Chloride 103 Carbon Dioxide 36.0 H Anion Gap 2 L BUN 37 H Creatinine 0.82 Estim Creat Clear Calc 52.81 Est GFR (MDRD) Af Amer 88 Est GFR (MDRD) Non-Af 73 BUN/Creatinine Ratio 45.0 H Glucose 87 Calcium 8.5 03/27/19 05:35 WBC RBC Hgb Hct MCV MCH MCHC RDW Std Deviation RDW Coeff of Mya Plt Count MPV Immature Gran % (Auto) Neut % (Auto) Lymph % (Auto) Hidalgo % (Auto) Eos % (Auto) Baso % (Auto) Absolute Neuts (auto) Absolute Lymphs (auto) Nucleated RBC % Diff Path Review Hypersegmented Neuts Sodium 138 Potassium 4.1 Chloride 105 Carbon Dioxide 28.0 Anion Gap 5 BUN 19 H Creatinine 0.99 Estim Creat Clear Calc 43.74 Est GFR (MDRD) Af Amer 72 Est GFR (MDRD) Non-Af 59 L BUN/Creatinine Ratio 19.3 Glucose 109 H Calcium 8.6 Clinical Impression(s) from Imaging Studies Chest X-Ray 03/17/19 18:40 IMPRESSION: Indeterminate opacity within the right mid and lower lung this may be secondary to underlying atelectasis and or pneumonia with a possible associated effusion, cannot exclude an underlying neoplastic process. Consider a CT for further characterization. Electronically Signed: Sarai Smith MD at 19:12 EDT Tel , Service support , Chest X-Ray 03/18/19 03:15 IMPRESSION: Worsening right middle lobe and right lower lobe pneumonia. Electronically Signed: Theodore Irizarry, at 7:09 EDT Tel , Service support , Liver Ultrasound 03/18/19 07:02 IMPRESSION: Limited study. Left lobe of the liver not well visualized. The visualized liver is within normal limits. Normal gallbladder. Pancreas not visualized. Right renal cysts. No hydronephrosis. Electronically Signed: Saurav Torres, at 13:12 EDT Tel , Service support , Chest X-Ray 03/23/19 07:31 IMPRESSION: Improved aeration of the right hemithorax as compared to prior study. 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 Correlation with the CT scan of the thorax is recommended for further evaluation. Electronically Signed: Shilo Lowe, at 13:09 EDT , Service support , Chest CT 03/24/19 07:05 IMPRESSION: Eventration of the right hemidiaphragm with a large amount of bone colon seen in the right hemithorax. Small bilateral pleural effusions with bibasilar atelectasis and/or infiltrate slightly worse on the left side. Inhomogeneous enlargement of the thyroid as described. Electronically Signed: Shilo Lowe, at 10:46 EDT , Service support , Medical Necessity - Tobacco Use Smoking Status: Current every day smoker Tobacco Use: Cigarettes Assessment/Plan All Active Problems Acute respiratory failure with hypoxia and hypercapnia (Acute) Bilateral pneumonia (Acute) COPD exacerbation (Acute) Acute anemia (Acute) Acute renal failure superimposed on stage 3 chronic kidney disease (Acute) RECOMMENDATIONS: 1. Wean supplemental oxygen saturations at or above 90%. 2. Transfuse blood products if hemoglobin drops below 7 g/dL. 3. Wean steroids over the next 9-12 days. Continue bronchodilators. 4. Avoid NSAIDs. Continue PPI therapy twice daily. 5. Encourage incentive spirometer use and mobilize patient as tolerated. 6. Outpatient pulmonary follow-up within 2 weeks of discharge. IMPRESSIONS: 1. Acute combined respiratory failure secondary to H. influenzae pneumonia The patient is apparently followed by Dr. Holley at [facility] for COPD. The patient was admitted with impending respiratory failure, which did not respond to the use of noninvasive positive pressure ventilatory support. Therefore, the patient had to be intubated. The patient was able to be successfully extubated, following treatment for Haemophilus influenza infection. For now, BiPAP utilization is recommended with sleep. Respiratory status is compromised by significant impingement of the thoracic cavity by abdominal contents. This is likely chronic. Continue to wean supplemental oxygen as tolerated to maintain saturations at or above 90%. Encourage incentive spirometer use and mobilize patient as tolerated. If discharged, patient can follow-up 2 weeks after completing rehab stay. 2. Severe sepsis with concerns for underlying H. influenzae pneumonia The patient completed a course of appropriate antimicrobials and remains hemodynamically stable. 3. Anemia Potentially related to an upper GI source of blood loss in the setting of chronic NSAID utilization. The patient has been transfused 1 unit of packed red blood cells with appropriate incrementation in her hemoglobin. Plan to continue to monitor H&H daily, with plan to transfuse if hemoglobin drops below 7 g/dL. Continue to hold all NSAIDs. Continue PPI therapy as ordered. 4. Acute on chronic kidney disease/hyperkalemia Potentially prerenal in etiology in the setting of the above. Creatinine is stable and hyperkalemia has resolved. Continue to monitor urine output. No current indication for renal replacement therapy. 5. Elevated transaminases/diaphragmatic hernia Unclear etiology at this time. Although may be related to presenting sepsis. Liver ultrasound was unremarkable. This note was generated with Dragon dictation software. It may contain incorrect words, spelling, and punctuation that were not noted in checking the note before signing. Code Visit Inpatient E&M: 57655 Subs Hosp L2
[2019-03-27] MEDS: predniSONE 20 MG Tablet 30 MG PO (08:37)
[2019-03-27] MEDS: Lisinopril 10 MG Tablet PO (08:38)
[2019-03-27] MEDS: Cyanocobalamin 500 MCG Tablet 1000 MCG PO (08:39)
[2019-03-27] MEDS: Pantoprazole Sodium 40 MG Tablet PO ×2 (08:40→21:13)
--- NOTE | 2019-03-27 09:25 | CASEMGMT ---
KAY faxed updates to [facility]. KAY wrote on fax face sheet that patient is ready for d/c so please start the pre-cert. Plan: [facility] pending insurance approval. June LEMUS MSW
[2019-03-27 12:07] LABS: Pathologist Review Reviewed
[2019-03-27] MEDS: Sodium Chloride 0.65% 1 SPRAY SPRAY.BTL NASAL (12:15)
--- NOTE | 2019-03-27 13:20 | PCM.PROGNOTE ---
<Jalen Coley - Last Filed: 03/27/19 13:20> Patient Problems: Active and Suspected Problems Acute respiratory failure with hypoxia and hypercapnia (Acute) Bilateral pneumonia (Acute) COPD exacerbation (Acute) Acute anemia (Acute) Acute renal failure superimposed on stage 3 chronic kidney disease (Acute) Subjective: Pt reports excellent improvement in breathing since extubation and now no SOB. No fever/chills. no cough. No chest pain. Patient is waiting for SNF placement. She has completed a course of abx for H flu pna. She does not appear volume overloaded. She did not previously use o2 or Bipap, plan is to continue these post discharge. - Physical Exam Vitals/I&O's: Vital Signs Temp Pulse Resp BP Pulse Ox 97.4 F L 57 L 20 H 104/52 L 94 03/27/19 08:30 03/27/19 11:17 03/27/19 08:30 03/27/19 08:30 03/27/19 08:30 Oxygen Flow Rate (L/min) 2 Oxygen Delivery Method Nasal Cannula Weight: 145 lb 15.136 oz Body Mass Index (BMI) 25.7 Intake and Output for Last 24 Hours 03/25/19 03/26/19 03/27/19 23:59 23:59 23:59 Intake Total 1220 / 1220 1100 / 1220 745 / 745 Output Total 200 / 200 75 / 75 Balance 1020 / 1020 1025 / 1145 745 / 745 General: Alert, Oriented x3, Cooperative HEENT: Atraumatic, PERRLA, EOMI, Normocephalic Neck: Supple, No JVD, Negative Carotid Bruits Lungs: Clear to auscultation, Diminished Cardiovascular: Regular rate, No murmurs Abdomen: Bowel Sounds Present, Soft, Non Tender Extremities: No edema, Capillary Refill Less than 3 Seconds Skin: No rashes, No breakdown Musculoskeletal: No Tenderness to Palpation of Joints or Extremities Neurological: Cranial nerves II-XII grossly intact Psych/Mental Status: Normal Affect, Appropriate, Alert and oriented to time, place, person, mood and affect Laboratory Results 03/17/19 22:05: Crossmatch See Detail 03/26/19 06:30: Diff Path Review Reviewed 03/27/19 05:35: WBC 11.1 H, RBC 4.26, Hgb 13.2, Hct 43.1, MCV 101.2 H D, MCH 31.0, MCHC 30.6 L, RDW Std Deviation 50.5 H, RDW Coeff of Mya 13.6, Plt Count 125 L, MPV 10.9, Immature Gran % (Auto) 0.400, Neut % (Auto) 87.4 H, Lymph % (Auto) 6.2 L, Eaton % (Auto) 4.9, Eos % (Auto) 0.5, Baso % (Auto) 0.6, Absolute Neuts (auto) 9.7 H, Absolute Lymphs (auto) 0.69 L, Nucleated RBC % 0 03/27/19 05:35: Sodium 138, Potassium 4.1, Chloride 105, Carbon Dioxide 28.0, Anion Gap 5, BUN 19 H, Creatinine 0.99, Estim Creat Clear Calc 43.74, Est GFR (MDRD) Af Amer 72, Est GFR (MDRD) Non-Af 59 L, BUN/Creatinine Ratio 19.3, Glucose 109 H, Calcium 8.6 Current Medications Acetaminophen (Tylenol Liquid) 650 mg PO Q6H PRN PRN PRN Reason: Pain Score 1-3/Temp > 100.7 F Albuterol Sulfate (Ventolin Aerosols) 2.5 mg INHALATION Q2H PRN PRN PRN Reason: SHORTNESS OF BREATH Albuterol/Ipratropium (Duoneb) 3 ml INHALATION Q4H.RT [facility] Last Admin: 03/27/19 10:17 Dose: Not Given Documented by: Bisacodyl (Dulcolax) 5 mg PO DAILY [facility] Last Admin: 03/27/19 08:31 Dose: Not Given Documented by: Calcium Carbonate (Tums) 1,000 mg PO Q4H PRN PRN PRN Reason: DYSPEPSIA Last Admin: 03/23/19 22:14 Dose: 1,000 mg Documented by: Cholecalciferol (Vitamin D) 1,000 unit PO DAILY [facility] Last Admin: 03/27/19 08:39 Dose: 1,000 unit Documented by: Cyanocobalamin (Vitamin B12) 1,000 mcg PO DAILY [facility] Last Admin: 03/27/19 08:39 Dose: 1,000 mcg Documented by: Dextrose (D50w Syringe) 0 gm IV X1 PRN; Protocol PRN Reason: Hypoglycemia Glucagon () 1 mg IM .X1 PRN PRN Reason: Hypoglycemia Lisinopril (Zestril) 10 mg PO DAILY [facility] Last Admin: 03/27/19 08:38 Dose: 10 mg Documented by: Ondansetron HCl (Zofran) 4 mg IV Q8H PRN PRN PRN Reason: NAUSEA/VOMITING Pantoprazole Sodium (Protonix) 40 mg PO BID [facility] Last Admin: 03/27/19 08:40 Dose: 40 mg Documented by: Prednisone () 30 mg PO DAILY@0800 [facility] Last Admin: 03/27/19 08:37 Dose: 30 mg Documented by: Senna/Docusate Sodium (Senokot-S, Francoise-Colace) 2 tablet PO BID PRN PRN PRN Reason: Constipation Sodium Chloride () 5 - 15 ml IV UD PRN PRN Reason: SALINE FLUSH Last Admin: 03/27/19 04:49 Dose: 10 ml Documented by: Sodium Chloride () 10 - 40 ml IV UD PRN PRN Reason: Midline Flush Last Admin: 03/25/19 18:46 Dose: 20 ml Documented by: Sodium Chloride (0.9% Nacl (Sterile) Posiflush) 10 - 40 ml IV UD PRN PRN Reason: Port access or dressing change Sodium Chloride (Dane Nasal Manning) 1 spray NASAL Q1H PRN PRN PRN Reason: NASAL DRYNESS Last Admin: 03/27/19 12:15 Dose: 1 spray Documented by: Medical Necessity - Tobacco Use Smoking Status: Current every day smoker Tobacco Use: Cigarettes Assessment/Plan All Active Problems Acute respiratory failure with hypoxia and hypercapnia (Acute) Bilateral pneumonia (Acute) COPD exacerbation (Acute) Acute anemia (Acute) Acute renal failure superimposed on stage 3 chronic kidney disease (Acute) 1. Acute mixed respiratory failure-status post extubation 03/21. This is resolved at this point. Continue 2 L oxygen via nasal cannula during the day and BiPAP at night. 2. H. influenzae pneumonia-completed Rocephin course. Continued leukocytosis likely from steroids. Trending down. No fever. 3. Acute COPD exacerbation-continue prednisone taper and aerosols, no wheezing 4. Acute kidney injury-resolved 5. Acute blood loss anemia, iron deficiency-received 1 unit of packed red blood cells during this stay 03/18/19, continue iron replacement. Folate and B12 high. TSH normal. Hgb improved, 6. Acute on chronic diastolic congestive heart failure-resolved. Continue oral Lasix. 7. Constipation-resolved 8. Nicotine abuse-was smoking up to this admission, plans to completely discontinue at discharge. DVT prophylaxis:SCDs Discharge planning: SNF This patient was seen by Jalen Coley PA-C under the supervision of Doctor Yaquelin. <Silvestre Jamison - Last Filed: 03/27/19 15:13> - Physical Exam Vitals/I&O's: Vital Signs Temp Pulse Resp BP Pulse Ox 97.4 F L 57 L 20 H 104/52 L 94 03/27/19 08:30 03/27/19 11:17 03/27/19 08:30 03/27/19 08:30 03/27/19 08:30 Oxygen Flow Rate (L/min) 2 Oxygen Delivery Method Nasal Cannula Weight: 66.2 kg Body Mass Index (BMI) 25.7 Intake and Output for Last 24 Hours 03/25/19 03/26/19 03/27/19 23:59 23:59 23:59 Intake Total 1220 / 1220 1100 / 1220 745 / 745 Output Total 200 / 200 75 / 75 Balance 1020 / 1020 1025 / 1145 745 / 745 Laboratory Results 03/17/19 22:05: Crossmatch See Detail 03/26/19 06:30: Diff Path Review Reviewed 03/27/19 05:35: WBC 11.1 H, RBC 4.26, Hgb 13.2, Hct 43.1, MCV 101.2 H D, MCH 31.0, MCHC 30.6 L, RDW Std Deviation 50.5 H, RDW Coeff of Mya 13.6, Plt Count 125 L, MPV 10.9, Immature Gran % (Auto) 0.400, Neut % (Auto) 87.4 H, Lymph % (Auto) 6.2 L, Eaton % (Auto) 4.9, Eos % (Auto) 0.5, Baso % (Auto) 0.6, Absolute Neuts (auto) 9.7 H, Absolute Lymphs (auto) 0.69 L, Nucleated RBC % 0 03/27/19 05:35: Sodium 138, Potassium 4.1, Chloride 105, Carbon Dioxide 28.0, Anion Gap 5, BUN 19 H, Creatinine 0.99, Estim Creat Clear Calc 43.74, Est GFR (MDRD) Af Amer 72, Est GFR (MDRD) Non-Af 59 L, BUN/Creatinine Ratio 19.3, Glucose 109 H, Calcium 8.6 Current Medications Acetaminophen (Tylenol Liquid) 650 mg PO Q6H PRN PRN PRN Reason: Pain Score 1-3/Temp > 100.7 F Albuterol Sulfate (Ventolin Aerosols) 2.5 mg INHALATION Q2H PRN PRN PRN Reason: SHORTNESS OF BREATH Albuterol/Ipratropium (Duoneb) 3 ml INHALATION Q4H.RT [facility] Last Admin: 03/27/19 14:28 Dose: 3 ml Documented by: Bisacodyl (Dulcolax) 5 mg PO DAILY [facility] Last Admin: 03/27/19 08:31 Dose: Not Given Documented by: Calcium Carbonate (Tums) 1,000 mg PO Q4H PRN PRN PRN Reason: DYSPEPSIA Last Admin: 03/23/19 22:14 Dose: 1,000 mg Documented by: Cholecalciferol (Vitamin D) 1,000 unit PO DAILY [facility] Last Admin: 03/27/19 08:39 Dose: 1,000 unit Documented by: Cyanocobalamin (Vitamin B12) 1,000 mcg PO DAILY [facility] Last Admin: 03/27/19 08:39 Dose: 1,000 mcg Documented by: Dextrose (D50w Syringe) 0 gm IV X1 PRN; Protocol PRN Reason: Hypoglycemia Glucagon () 1 mg IM .X1 PRN PRN Reason: Hypoglycemia Lisinopril (Zestril) 10 mg PO DAILY [facility] Last Admin: 03/27/19 08:38 Dose: 10 mg Documented by: Ondansetron HCl (Zofran) 4 mg IV Q8H PRN PRN PRN Reason: NAUSEA/VOMITING Pantoprazole Sodium (Protonix) 40 mg PO BID [facility] Last Admin: 03/27/19 08:40 Dose: 40 mg Documented by: Polysaccharide Iron Complex (Ferrex 150) [facility] Prednisone () 30 mg PO DAILY@0800 [facility] Last Admin: 03/27/19 08:37 Dose: 30 mg Documented by: Senna/Docusate Sodium (Senokot-S, Francoise-Colace) 2 tablet PO BID PRN PRN PRN Reason: Constipation Sodium Chloride () 5 - 15 ml IV UD PRN PRN Reason: SALINE FLUSH Last Admin: 03/27/19 04:49 Dose: 10 ml Documented by: Sodium Chloride () 10 - 40 ml IV UD PRN PRN Reason: Midline Flush Last Admin: 03/25/19 18:46 Dose: 20 ml Documented by: Sodium Chloride (0.9% Nacl (Sterile) Posiflush) 10 - 40 ml IV UD PRN PRN Reason: Port access or dressing change Sodium Chloride (Dane Nasal Manning) 1 spray NASAL Q1H PRN PRN PRN Reason: NASAL DRYNESS Last Admin: 03/27/19 12:15 Dose: 1 spray Documented by: Assessment/Plan This patient was seen in conjunction with Jalen Coley PA-C . I have independently interviewed and examined the patient and reviewed pertinent historical, laboratory, and other data. Please refer to Jalen Coley PA-C note for details of this patient's presentation, findings, and recommendations. I have reviewed Jalen Coley PA-C note and concur with documented findings. In brief, patient 69-year-old lady admitted with acute respiratory failure resulting in intubation and subsequent intubation on 03/21/2019. Patient acute respiratory failure was attributed to H. influenzae pneumonia for which she has received appropriate treatment. Physical Examination: GENERAL: cooperative HEENT: Atraumatic; EYES; Anicteric, Normal Conjunctiva NECK; supple, normal thyroid, RESPIRATORY: Diminished to auscultation CARDIOVASCULAR: Regular S1 S2, GI: soft, non-tender, normoactive bowel sounds, : No Renal angle tenderness; EXTREMITIES: No edema, no clubbing, MUSCULOSKELETAL: No Joint Tenderness; NEURO: Awake; no lateralizing signs. SKIN: No Rash PSYCH; Normal affect Assessment: 1. Acute hypoxic and hypercapnic respiratory failure 2. COPD with acute exacerbation 3. H influenza pneumonia 4. Hyperkalemia 5. Acute kidney injury?resolved 6. Chronic kidney disease stage II 7. Anemia with previous blood transfusion 8. Tobacco dependence 9. History of cervical spondylosis with myelopathy status post cervical spine fusion 10. DVT prophylaxis Recommendations: 1. I have discussed the results of my overview and impressions with the patient 2. Options for management were reviewed Code Visit Inpatient E&M: 03872 Subs Hosp L2
--- NOTE | 2019-03-27 15:54 | CASEMGMT ---
Awaiting PT notes as insurance wants updated therapy notes. June LEMUS PRESS HELPER
[2019-03-27] MEDS: Bisacodyl 5 MG Tablet PO (21:13)
[2019-03-28] VITALS (10 sets, daily range): BP systolic 106–128; BP diastolic 55–72; PULSE 48–88; RESP 14–22; TEMP 36.7–37.2; O2SAT 93–100
--- NOTE | 2019-03-28 03:30 | NURSING ---
Pt. requested to take bipap off at this time, stated I'm done.Taken off bipap at this time , placed on oxygen nasal cannula 4L. no distress noted.
--- NOTE | 2019-03-28 06:45 | PN_ITS ---
Subjective: The patient was seen and examined at the bedside this morning. Events from the last 24 hours have been reviewed. The patient is currently afebrile, hemodynamically stable and maintaining appropriate oxygen saturations on 4 L/min via nasal cannula. No overnight issues were noted. [facility] disposition is pending. Objective: The patient's most recent lab work, culture data and imaging studies have all been personally reviewed. Sputum aspirate dated March 18 was positive for Haemophilus influenza. Surface echocardiogram dated March 18 revealed normal LV size with an ejection fraction of 60%. Pulmonary artery systolic pressure was estimated to be 40 to 45 mmHg. - Physical Exam Vitals/I&O's: Vital Signs Temp Pulse Resp BP Pulse Ox 98.0 F 55 L 20 H 128/55 H 93 03/28/19 03:00 03/28/19 03:00 03/28/19 03:00 03/28/19 03:00 03/28/19 03:00 Oxygen Flow Rate (L/min) 4 Oxygen Delivery Method Nasal Cannula Weight: 148 lb 2.41 oz Body Mass Index (BMI) 25.7 Intake and Output for Last 24 Hours 03/26/19 03/27/19 03/28/19 23:59 23:59 23:59 Intake Total 1100 / 1220 1570 / 1570 50 / 50 Output Total 75 / 75 Balance 1025 / 1145 1570 / 1570 50 / 50 General: Alert, Cooperative, No apparent distress HEENT: Atraumatic, PERRLA, Normocephalic Oral: No Gingival or Mucosal Lesions/ Ulcerations Neck: Supple, No Nodes, Trachea Midline Lungs: No rhonchi, No wheeze, No rales, Diminished Cardiovascular: Regular rate, Regular Rhythm, Normal S1, Normal S2, No murmurs Abdomen: Bowel Sounds Present, Soft, Non Tender Extremities: No clubbing, No cyanosis, No edema Skin: No breakdown Musculoskeletal: No Tenderness to Palpation of Joints or Extremities, No Muscle Wasting Lymphatic: No Cervical, Supraclavicular, or Inguinal Adenopathy Neurological: Cranial nerves II-XII grossly intact, Neuro grossly intact Psych/Mental Status: Normal Affect, Appropriate Laboratory Results 03/17/19 22:05: Crossmatch See Detail 03/26/19 06:30: Diff Path Review Reviewed Labs (Last 48 Hours) 03/17/19 03/26/19 03/26/19 22:05 06:30 06:30 WBC 16.7 H RBC 2.84 L Hgb 7.7 L Hct 26.2 L MCV 92.3 MCH 27.1 MCHC 29.4 L RDW Std Deviation 56.9 H RDW Coeff of Mya 17.2 H Plt Count 239 MPV 10.7 Immature Gran % (Auto) 1.000 H Neut % (Auto) 80.3 H Lymph % (Auto) 8.6 L Webb % (Auto) 9.2 Eos % (Auto) 0.8 Baso % (Auto) 0.1 Absolute Neuts (auto) 13.4 H Absolute Lymphs (auto) 1.43 Nucleated RBC % 0 Diff Path Review Reviewed Hypersegmented Neuts RARE Sodium 141 Potassium 4.6 Chloride 103 Carbon Dioxide 36.0 H Anion Gap 2 L BUN 37 H Creatinine 0.82 Estim Creat Clear Calc 52.81 Est GFR (MDRD) Af Amer 88 Est GFR (MDRD) Non-Af 73 BUN/Creatinine Ratio 45.0 H Glucose 87 Calcium 8.5 Crossmatch See Detail 03/27/19 03/27/19 05:35 05:35 WBC 11.1 H RBC 4.26 Hgb 13.2 Hct 43.1 MCV 101.2 H D MCH 31.0 MCHC 30.6 L RDW Std Deviation 50.5 H RDW Coeff of Mya 13.6 Plt Count 125 L MPV 10.9 Immature Gran % (Auto) 0.400 Neut % (Auto) 87.4 H Lymph % (Auto) 6.2 L Webb % (Auto) 4.9 Eos % (Auto) 0.5 Baso % (Auto) 0.6 Absolute Neuts (auto) 9.7 H Absolute Lymphs (auto) 0.69 L Nucleated RBC % 0 Diff Path Review Hypersegmented Neuts Sodium 138 Potassium 4.1 Chloride 105 Carbon Dioxide 28.0 Anion Gap 5 BUN 19 H Creatinine 0.99 Estim Creat Clear Calc 43.74 Est GFR (MDRD) Af Amer 72 Est GFR (MDRD) Non-Af 59 L BUN/Creatinine Ratio 19.3 Glucose 109 H Calcium 8.6 Crossmatch Clinical Impression(s) from Imaging Studies Chest X-Ray 03/17/19 18:40 IMPRESSION: Indeterminate opacity within the right mid and lower lung this may be secondary to underlying atelectasis and or pneumonia with a possible associated effusion, cannot exclude an underlying neoplastic process. Consider a CT for further characterization. Electronically Signed: Sarai Smith MD at 19:12 EDT Tel , Service support , Chest X-Ray 03/18/19 03:15 IMPRESSION: Worsening right middle lobe and right lower lobe pneumonia. Electronically Signed: Theodore Irizarry, at 7:09 EDT Tel , Service support , Liver Ultrasound 03/18/19 07:02 IMPRESSION: Limited study. Left lobe of the liver not well visualized. The visualized liver is within normal limits. Normal gallbladder. Pancreas not visualized. Right renal cysts. No hydronephrosis. Electronically Signed: Saurav Torres, at 13:12 EDT Tel , Service support , Chest X-Ray 03/23/19 07:31 IMPRESSION: Improved aeration of the right hemithorax as compared to prior study. 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 Correlation with the CT scan of the thorax is recommended for further evaluation. Electronically Signed: Shilo Lowe, at 13:09 EDT , Service support , Chest CT 03/24/19 07:05 IMPRESSION: Eventration of the right hemidiaphragm with a large amount of bone colon seen in the right hemithorax. Small bilateral pleural effusions with bibasilar atelectasis and/or infiltrate slightly worse on the left side. Inhomogeneous enlargement of the thyroid as described. Electronically Signed: Shilo Lowe, at 10:46 EDT , Service support , Current Medications Acetaminophen (Tylenol Liquid) 650 mg PO Q6H PRN PRN PRN Reason: Pain Score 1-3/Temp > 100.7 F Albuterol Sulfate (Ventolin Aerosols) 2.5 mg INHALATION Q2H PRN PRN PRN Reason: SHORTNESS OF BREATH Albuterol/Ipratropium (Duoneb) 3 ml INHALATION Q4H.RT ON LICENSE OF [facility] Last Admin: 03/28/19 03:28 Dose: Not Given Documented by: Bisacodyl (Dulcolax) 5 mg PO DAILY ON LICENSE OF [facility] Last Admin: 03/27/19 21:13 Dose: 5 mg Documented by: Calcium Carbonate (Tums) 1,000 mg PO Q4H PRN PRN PRN Reason: DYSPEPSIA Last Admin: 03/23/19 22:14 Dose: 1,000 mg Documented by: Cholecalciferol (Vitamin D) 1,000 unit PO DAILY ON LICENSE OF [facility] Last Admin: 03/27/19 08:39 Dose: 1,000 unit Documented by: Cyanocobalamin (Vitamin B12) 1,000 mcg PO DAILY ON LICENSE OF [facility] Last Admin: 03/27/19 08:39 Dose: 1,000 mcg Documented by: Dextrose (D50w Syringe) 0 gm IV X1 PRN; Protocol PRN Reason: Hypoglycemia Glucagon () 1 mg IM .X1 PRN PRN Reason: Hypoglycemia Lisinopril (Zestril) 10 mg PO DAILY ON LICENSE OF [facility] Last Admin: 03/27/19 08:38 Dose: 10 mg Documented by: Ondansetron HCl (Zofran) 4 mg IV Q8H PRN PRN PRN Reason: NAUSEA/VOMITING Pantoprazole Sodium (Protonix) 40 mg PO BID ON LICENSE OF [facility] Last Admin: 03/27/19 21:13 Dose: 40 mg Documented by: Polysaccharide Iron Complex (Ferrex 150) [facility]nisone () 30 mg PO DAILY@0800 ON LICENSE OF [facility] Last Admin: 03/27/19 08:37 Dose: 30 mg Documented by: Senna/Docusate Sodium (Senokot-S, Francoise-Colace) 2 tablet PO BID PRN PRN PRN Reason: Constipation Sodium Chloride () 5 - 15 ml IV UD PRN PRN Reason: SALINE FLUSH Last Admin: 03/27/19 04:49 Dose: 10 ml Documented by: Sodium Chloride () 10 - 40 ml IV UD PRN PRN Reason: Midline Flush Last Admin: 03/25/19 18:46 Dose: 20 ml Documented by: Sodium Chloride (0.9% Nacl (Sterile) Posiflush) 10 - 40 ml IV UD PRN PRN Reason: Port access or dressing change Sodium Chloride ([place] Nasal [place]) 1 spray NASAL Q1H PRN PRN PRN Reason: NASAL DRYNESS Last Admin: 03/27/19 12:15 Dose: 1 spray Documented by: Medical Necessity - Tobacco Use Smoking Status: Current every day smoker Tobacco Use: Cigarettes Assessment/Plan All Active Problems Acute respiratory failure with hypoxia and hypercapnia (Acute) Bilateral pneumonia (Acute) COPD exacerbation (Acute) Acute anemia (Acute) Acute renal failure superimposed on stage 3 chronic kidney disease (Acute) Iron deficiency anemia (Acute) Acute on chronic diastolic CHF (congestive heart failure) (Acute) RECOMMENDATIONS: 1. Wean supplemental oxygen saturations at or above 90%. 2. Transfuse blood products if hemoglobin drops below 7 g/dL. 3. Wean steroids over the next 9-12 days. Continue bronchodilators. 4. Avoid NSAIDs. Continue PPI therapy twice daily. 5. Encourage incentive spirometer use and mobilize patient as tolerated. 6. Outpatient pulmonary follow-up within 2 weeks of discharge. IMPRESSIONS: 1. Acute combined respiratory failure secondary to H. influenzae pneumonia Improved. The patient is apparently followed by Dr. Holley at [facility] for [facility]. The patient was admitted with impending respiratory failure, which did not respond to the use of noninvasive positive pressure ventilatory support. Therefore, the patient had to be intubated. The patient was able to be successfully extubated, following treatment for Haemophilus influenza infection. For now, BiPAP utilization is recommended with sleep. Respiratory status is compromised by significant impingement of the thoracic cavity by abdominal contents. This is likely chronic. Continue to wean supplemental oxygen as tolerated to maintain saturations at or above 90%. Encourage incentive spirometer use and mobilize patient as tolerated. If discharged, patient can follow-up 2 weeks after completing rehab stay. 2. Severe sepsis with concerns for underlying H. influenzae pneumonia Resolved. The patient completed a course of appropriate antimicrobials and remains hemodynamically stable. 3. Anemia Stable. Potentially related to an upper GI source of blood loss in the setting of chronic NSAID utilization. The patient has been transfused 1 unit of packed red blood cells with appropriate incrementation in her hemoglobin. Plan to continue to monitor H&H daily, with plan to transfuse if hemoglobin drops below 7 g/dL. Continue to hold all NSAIDs. Continue PPI therapy as ordered. 4. Elevated transaminases/diaphragmatic hernia Unclear etiology at this time. Although may be related to presenting sepsis. Liver ultrasound was unremarkable. This note was generated with [employer] dictation software. It may contain incorrect words, spelling, and punctuation that were not noted in checking the note before signing. Code Visit Inpatient E&M: 08529 Subs Hosp L2
[2019-03-28] MEDS: Ipratropium/Albuterol Sulfate 3 ML AMPUL.NEB INHALATION ×2 (06:50→10:15)
[2019-03-28] MEDS: Iron Polysaccharide Complex 150 MG CAPSULE PO (08:41)
[2019-03-28] MEDS: predniSONE 20 MG Tablet 30 MG PO (08:41)
--- NOTE | 2019-03-28 08:41 | CASEMGMT ---
KAY faxed PT/OT notes to [facility] per insurance request. Await pre-cert. June LEMUS MEDICAL ASSISTANT OB GYN
[2019-03-28] MEDS: Lisinopril 10 MG Tablet PO (08:45)
[2019-03-28] MEDS: Cyanocobalamin 500 MCG Tablet 1000 MCG PO (08:45)
[2019-03-28] MEDS: Pantoprazole Sodium 40 MG Tablet PO (08:45)
--- NOTE | 2019-03-28 12:05 | PCM.EXTCARCO ---
- Diet 03/23/19 09:35 Diet: Cardiac/Low Cholesterol Is pt able to select menu?: Yes - Routine Orders/Code Status Suppository Type: Dulcolax 10mg Suppository Frequency: Daily PRN O2 Frequency: Continuous Keep PO Greater than or Equal to (%): 90 Routine Lab Work: CBC - 1 week, BMP - 1 week Code Status: Full Code - Wound(s) L interior AC Wound Type: Hematoma lower back Wound Type: Abrasion - Therapies Physical Therapy: Eval and Treat Occupational Therapy: Eval and Treat - Problem/Diagnosis (1) Iron deficiency anemia Status: Acute Current Visit: Yes (2) Acute anemia Status: Acute Current Visit: Yes (3) Acute renal failure superimposed on stage 3 chronic kidney disease Status: Acute Current Visit: Yes (4) Acute respiratory failure with hypoxia and hypercapnia Status: Acute Current Visit: Yes (5) Bilateral pneumonia Status: Acute Current Visit: Yes (6) COPD exacerbation Status: Acute Current Visit: Yes (7) Cervical spondylosis with myelopathy Status: Chronic Current Visit: Yes (8) HH (hiatus hernia) Status: Chronic Current Visit: Yes (9) Acute on chronic diastolic CHF (congestive heart failure) Status: Acute Current Visit: Yes - Allergies/Procedures Done in Hospital Allergies/Adverse Reactions: Allergies nickel Allergy (Verified 03/17/19 18:10) Other Procedures: 2-D Echocardiogram, Intubation - Type of Care/Length of Stay Estimated LOS: Convalescent Care Less Than 30 days Type of Care Needed: Skilled Rehab Potential: Fair Prognosis: Fair - Additional Orders/Day of Discharge Additional Orders: BIPAP QHS IPAP 14 EPAP 6 Day of Discharge: 03/28/19 - Dietary and Speech Recommendations Dietitian Recommendations/Changes: Suggest diet change to cardiac/low sodium diet with fluid restriction as needed. - Follow Up Care Primary Care Physician: Akira Zhang MD [Primary Care Provider] - Please follow up with your Primary Care Physician in: 2 weeks Please Follow Up With: Geraldo Lopez MD When: 2 weeks
--- NOTE | 2019-03-28 12:50 | CASEMGMT ---
KAY received a call from Lori and patient was approved. KAY notified PA. KAY also notified patient. Await orders. June LEMUS MSW
--- NOTE | 2019-03-28 13:21 | CASEMGMT ---
Faxed orders to [facility]. Completed convalescent on HENS. KAY called [facility] and arranged for patient to get picked up 2p via wc van. KAY notified RN, patient, pocket secretary assembler, and left message for Lori. KAY also told patient that insurance does not pay for wc van and it will cost around $62. She was in agreement with proceeding with this plan. Plan: d/c to [facility] under skilled level of care on a convalescent stay. [facility] transported patient via wc van. June LEMUS MSW
--- NOTE | 2019-03-28 13:55 | PHA.DC.MR ---
Pharmacy Service has performed discharge medication reconciliation for this patient. Home Medications Albuterol IH (ProAir) [Proair Hfa] 2 puff INHALATION Q4H PRN 12/17/17 Lisinopril [Zestril] 10 mg PO DAILY 12/17/17 Ascorbic Acid [Vitamin C] 500 mg PO BID 03/17/19 Aspirin E.C. [Ecotrin] 1 tab PO DAILY 03/17/19 Budesonide [Pulmicort] 0.5 mg IH DAILY 03/17/19 Cholecalciferol (VIT D3) [Vitamin D3] 1,000 unit PO DAILY 03/17/19 Cyanocobalamin (Vitamin B-12) [Vitamin B-12] 1,000 mcg PO DAILY 03/17/19 [place]-3 Fatty Acids/Fish Oil [Fish Oil 1,000 mg Capsule] 2,000 mg PO DAILY 03/17/19 Pyridoxine HCl (Vitamin B6) [Vitamin B-6] 600 mg PO DAILY 03/17/19 Albuterol Aerosols [Ventolin Aerosols] 2.5 mg INHALATION Q2H PRN PRN vial.neb. 03/28/19 Calcium Carbonate [Tums] 1,000 mg PO Q4H PRN PRN tab 03/28/19 Ipratropium/Albuterol Sulfate [Duoneb] 3 ml INHALATION Q6H PRN PRN ampul.neb 03/28/19 Iron Polysaccharide Complex [Ferrex 150] 150 mg PO DAILYCM cap 03/28/19 Pantoprazole Sodium [Protonix] 40 mg PO BID tab 03/28/19 Senna/Docusate Sodium [Senokot-S] 2 tab PO BID PRN PRN tab 03/28/19 Sodium Chloride 0.65% [[place] Nasal [place]] 1 spray NASAL Q1H PRN PRN spray.btl 03/28/19 predniSONE tablet 30 mg PO DAILY@0800 tab 03/28/19 The patient's discharge medication list was reviewed for discrepancies and discrepancies were resolved.
--- NOTE | 2019-03-28 14:15 | PCM.DC.SUM ---
<Jalen Coley - Last Filed: 03/28/19 14:15> Discharge Date and Diagnosis Date of Admission: 03/17/19 Date of Discharge: 03/28/19 - Primary Discharge Diagnosis Active and Suspected Problems Acute respiratory failure with hypoxia and hypercapnia (Acute) Bilateral pneumonia (Acute) COPD exacerbation (Acute) Acute on chronic diastolic CHF (congestive heart failure) (Acute) Acute anemia (Acute) Acute renal failure superimposed on stage 3 chronic kidney disease (Acute) Iron deficiency anemia (Acute) Nicotine abuse - Secondary Discharge Diagnosis Chronic Problems Cervical spondylosis with myelopathy (Chronic) HH (hiatus hernia) (Chronic) Hospital Course and Treatment Imaging Results: IMAGING: RAD/Chest 1 View (Portable) IMPRESSION: Indeterminate opacity within the right mid and lower lung this may be secondary to underlying atelectasis and or pneumonia with a possible associated effusion, cannot exclude an underlying neoplastic process. Consider a CT for further characterization. RAD/Chest 1 View (Portable) IMPRESSION: Worsening right middle lobe and right lower lobe pneumonia. Echo: Interpretation Summary The estimated ejection fraction is 60 %. Normal diastology for age. Pulmonary artery systolic pressure is 40-45 mmHg. Venous duplex US: Interpretation Summary There is no evidence of right upper extremity deep vein thrombosis. Superficial thrombophlebitis right forearm cephalic vein Superficial thrombophlebitis right basilic vein Normal flow patterns left subclavian vein RAD/Chest 1 View (Portable) IMPRESSION: Improved aeration of the right hemithorax as compared to prior study. 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 Correlation with the CT scan of the thorax is recommended for further evaluation. 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 Small bilateral pleural effusions with bibasilar atelectasis and/or infiltrate slightly worse on the left side. Inhomogeneous enlargement of the thyroid as described. Consults: Haresh/John - pulmonology/Critical care Operations: None Procedures: 2-D Echocardiogram, Intubation Summary of Care Provided: Hospital course: The patient is a 69 year old F with past medical history of COPD, ongoing smoking, diastolic congestive heart failure, cervical spondylosis, CKD stage III, hiatal hernia, who presented to the emergency room with complaints of shortness of breath. This is been progressively worsening over the past week leading up to admission. She came to the emergency room and was 78% oxygen on room air, ABG showed pH of 7.27, she was markedly tachypneic, and chest x-ray demonstrated pneumonia. She was also markedly anemic with a hemoglobin of 6.4. Potassium was elevated at 6.1, and her BUN and creatinine were elevated consistent with acute kidney injury. She had been taking a significant amount of ibuprofen which was felt to be a cause of her anemia and acute kidney injury. She was admitted to the intensive care unit and placed on Vanc and Zosyn for pneumonia, steroids and aerosols for COPD exacerbation, Protonix for suspected GI bleed due to NSAIDs, 4 units of packed red blood cells were transfused, and she was given IV fluids for CHANTEL. Her breathing remained poor. She was placed on BiPAP and then subsequently was intubated on 1012, successfully extubated on 1015. She developed evidence of acute exacerbation of diastolic heart failure, her weight went up 8 kg from admission. Fluids were stopped and she was given IV Lasix. She was transitioned to a prednisone taper. Her sputum culture demonstrated Haemophilus influenza and she was transitioned to Rocephin. She completed a course of antibiotics while here. Hgb remained stable. Blood cultures were negative. She had some contraction alkylosis with lasix so this was discontinued and she appeared Euvolemic. She was transitioned to the PCU for stepdown. We continued her on BiPAP at night. She continued to require up to 4 L of oxygen during the day. She will be discharged on home oxygen, will continue BiPAP at night. She will continue to wean prednisone orally. She will continue on Protonix twice per day. She remains significantly debilitated and care home was recommended. She was discharged to care home in stable condition. She will need close follow-up with her PCP and pulmonology, ideally 2 weeks. Please continue nightly bipap at [id number] which were here settings here that she tolerated nightly. This patient was seen by Jalen Coley PA-C under the supervision of Doctor Jamison. [] - Physical Exam Vitals/I&O's: Vital Signs Temp Pulse Resp BP Pulse Ox 98.9 F 78 22 H 106/62 97 03/28/19 13:38 03/28/19 13:38 03/28/19 13:38 03/28/19 13:38 03/28/19 13:38 Oxygen Flow Rate (L/min) 4 Oxygen Delivery Method Nasal Cannula Weight: 148 lb 2.41 oz Body Mass Index (BMI) 25.7 Intake and Output for Last 24 Hours 03/26/19 03/27/19 03/28/19 23:59 23:59 23:59 Intake Total 1100 / 1220 1570 / 1570 450 / 450 Output Total 75 / 75 Balance 1025 / 1145 1570 / 1570 450 / 450 General: Alert, Oriented x3, Cooperative HEENT: Atraumatic, PERRLA, EOMI, Normocephalic Neck: Supple, No JVD, Negative Carotid Bruits Lungs: Clear to auscultation, Diminished Cardiovascular: Regular rate, No murmurs Abdomen: Bowel Sounds Present, Soft, Non Tender Extremities: No edema, Capillary Refill Less than 3 Seconds Skin: No rashes, No breakdown Musculoskeletal: No Tenderness to Palpation of Joints or Extremities Neurological: Cranial nerves II-XII grossly intact Psych/Mental Status: Normal Affect, Appropriate, Alert and oriented to time, place, person, mood and affect Current Medications Acetaminophen (Tylenol Liquid) 650 mg PO Q6H PRN PRN PRN Reason: Pain Score 1-3/Temp > 100.7 F Albuterol Sulfate (Ventolin Aerosols) 2.5 mg INHALATION Q2H PRN PRN PRN Reason: SHORTNESS OF BREATH Albuterol/Ipratropium (Duoneb) 3 ml INHALATION Q4H.RT [facility] Last Admin: 03/28/19 10:15 Dose: 3 ml Documented by: Bisacodyl (Dulcolax) 5 mg PO DAILY [facility] Last Admin: 03/28/19 08:42 Dose: Not Given Documented by: Calcium Carbonate (Tums) 1,000 mg PO Q4H PRN PRN PRN Reason: DYSPEPSIA Last Admin: 03/23/19 22:14 Dose: 1,000 mg Documented by: Cholecalciferol (Vitamin D) 1,000 unit PO DAILY [facility] Last Admin: 03/28/19 08:45 Dose: 1,000 unit Documented by: Cyanocobalamin (Vitamin B12) 1,000 mcg PO DAILY [facility] Last Admin: 03/28/19 08:45 Dose: 1,000 mcg Documented by: Dextrose (D50w Syringe) 0 gm IV X1 PRN; Protocol PRN Reason: Hypoglycemia Glucagon () 1 mg IM .X1 PRN PRN Reason: Hypoglycemia Lisinopril (Zestril) 10 mg PO DAILY [facility] Last Admin: 03/28/19 08:45 Dose: 10 mg Documented by: Ondansetron HCl (Zofran) 4 mg IV Q8H PRN PRN PRN Reason: NAUSEA/VOMITING Pantoprazole Sodium (Protonix) 40 mg PO BID [facility] Last Admin: 03/28/19 08:45 Dose: 40 mg Documented by: Polysaccharide Iron Complex (Ferrex 150) 150 mg PO DAILYCM [facility] Last Admin: 03/28/19 08:41 Dose: 150 mg Documented by: Prednisone () 30 mg PO DAILY@0800 [facility] Last Admin: 03/28/19 08:41 Dose: 30 mg Documented by: Senna/Docusate Sodium (Senokot-S, Francoise-Colace) 2 tablet PO BID PRN PRN PRN Reason: Constipation Sodium Chloride () 5 - 15 ml IV UD PRN PRN Reason: SALINE FLUSH Last Admin: 03/27/19 04:49 Dose: 10 ml Documented by: Sodium Chloride () 10 - 40 ml IV UD PRN PRN Reason: Midline Flush Last Admin: 03/25/19 18:46 Dose: 20 ml Documented by: Sodium Chloride (0.9% Nacl (Sterile) Posiflush) 10 - 40 ml IV UD PRN PRN Reason: Port access or dressing change Sodium Chloride ([place] Nasal [place]) 1 spray NASAL Q1H PRN PRN PRN Reason: NASAL DRYNESS Last Admin: 03/27/19 12:15 Dose: 1 spray Documented by: Discharge Diet: Low fat/ Low Cholesterol, 2000 mg Sodium Diet Discharge Activity: Return to Normal Activity Home Medications: Medications to take at Discharge Albuterol IH (ProAir) [Proair Hfa] 2 puff INHALATION Q4H PRN 12/17/17 Lisinopril [Zestril] 10 mg PO DAILY 12/17/17 Ascorbic Acid [Vitamin C] 500 mg PO BID 03/17/19 Aspirin E.C. [Ecotrin] 1 tab PO DAILY 03/17/19 Budesonide [Pulmicort] 0.5 mg IH DAILY 03/17/19 Cholecalciferol (VIT D3) [Vitamin D3] 1,000 unit PO DAILY 03/17/19 Cyanocobalamin (Vitamin B-12) [Vitamin B-12] 1,000 mcg PO DAILY 03/17/19 [place]-3 Fatty Acids/Fish Oil [Fish Oil 1,000 mg Capsule] 2,000 mg PO DAILY 03/17/19 Pyridoxine HCl (Vitamin B6) [Vitamin B-6] 600 mg PO DAILY 03/17/19 Albuterol Aerosols [Ventolin Aerosols] 2.5 mg INHALATION Q2H PRN PRN vial.neb. 03/28/19 Calcium Carbonate [Tums] 1,000 mg PO Q4H PRN PRN tab 03/28/19 Ipratropium/Albuterol Sulfate [Duoneb] 3 ml INHALATION Q6H PRN PRN ampul.neb 03/28/19 Iron Polysaccharide Complex [Ferrex 150] 150 mg PO DAILYCM cap 03/28/19 Pantoprazole Sodium [Protonix] 40 mg PO BID tab 03/28/19 Senna/Docusate Sodium [Senokot-S] 2 tab PO BID PRN PRN tab 03/28/19 Sodium Chloride 0.65% [[place] Nasal [place]] 1 spray NASAL Q1H PRN PRN spray.btl 03/28/19 predniSONE tablet 30 mg PO DAILY@0800 tab 03/28/19 Primary Care Physician: Akira Zhang MD [Primary Care Provider] - Please follow up with your Primary Care Physician in: 2 weeks Please Follow Up With: Geraldo Lopez MD When: 2 weeks Medical Necessity - Tobacco Use Smoking Status: Current every day smoker Tobacco Use: Cigarettes Meaningful Use Info Meaningful Use Diagnoses (Choose all that apply): CHF - CHF NICKY/ARB ordered at discharge?: Yes Documented LVEF (%): 60 <Silvestre Jamison - Last Filed: 03/28/19 14:59> Discharge Date and Diagnosis - Secondary Discharge Diagnosis Chronic Problems Cervical spondylosis with myelopathy (Chronic) HH (hiatus hernia) (Chronic) Hospital Course and Treatment Summary of Care Provided: This patient was seen in conjunction with Jalen Coley PA-C . I have independently interviewed and examined the patient and reviewed pertinent historical, laboratory, and other data. Please refer to Jalen Coley PA-C note for details of this patient's presentation, findings, and recommendations. I have reviewed Jalen Coley PA-C note and concur with documented findings. In brief, patient 69-year-old lady admitted with acute respiratory failure resulting in intubation and subsequent intubation on 03/21/2019. Patient acute respiratory failure was attributed to H. influenzae pneumonia for which she has received appropriate treatment. Assessment: 1. Acute hypoxic and hypercapnic respiratory failure 2. COPD with acute exacerbation 3. H influenza pneumonia 4. Hyperkalemia 5. Acute kidney injury?resolved 6. Chronic kidney disease stage II 7. Anemia with previous blood transfusion 8. Tobacco dependence 9. History of cervical spondylosis with myelopathy status post cervical spine fusion 10. DVT prophylaxis Hospital course: As documented above - Physical Exam Vitals/I&O's: Vital Signs Temp Pulse Resp BP Pulse Ox 98.9 F 78 22 H 106/62 97 03/28/19 13:38 03/28/19 13:38 03/28/19 13:38 03/28/19 13:38 03/28/19 13:38 Oxygen Flow Rate (L/min) 4 Oxygen Delivery Method Nasal Cannula Weight: 67.2 kg Body Mass Index (BMI) 25.7 Intake and Output for Last 24 Hours 03/26/19 03/27/19 03/28/19 23:59 23:59 23:59 Intake Total 1100 / 1220 1570 / 1570 450 / 450 Output Total 75 / 75 Balance 1025 / 1145 1570 / 1570 450 / 450 Code Visit Inpatient E&M: 12400 Disch Hosp
== END 2019-03-28 14:20 | disposition skilled nursing facility (03) | DRG 208 ==
LOC: ED 19:01 → ICU 20:36 → PCU 03-24 14:53
PROVIDERS: Internal Medicine Critical Care Medicine; Admitting Provider Internal Medicine; Emergency Provider Emergency Medicine; Family Provider Family Medicine; PCP Family Medicine; Visit Provider Internal Medicine
DX: J96.01 Acute respiratory failure with hypoxia (principal); I50.33 Acute on chronic diastolic (congestive) heart failure; J14 Pneumonia due to Hemophilus influenzae; J44.1 Chronic obstructive pulmonary disease with (acute) exacerbation; N17.9 Acute kidney failure, unspecified; J44.0 Chronic obstructive pulmonary disease with (acute) lower respiratory infection; I13.0 Hypertensive heart and chronic kidney disease with heart failure and stage 1 through stage 4 chronic kidney disease, or unspecified chronic kidney disease; J96.02 Acute respiratory failure with hypercapnia; F17.210 Nicotine dependence, cigarettes, uncomplicated; E87.5 Hyperkalemia; N18.3 Chronic kidney disease, stage 3 (moderate); K44.9 Diaphragmatic hernia without obstruction or gangrene; Z98.1 Arthrodesis status; D50.9 Iron deficiency anemia, unspecified
CPT/HCPCS: 31500; 31720; 36415; 36600; 71045; 71260; 76705; 80048; 80053; 80076; 80202; 81002; 82550; 82607; 82728; 82747; 82803; 82962; 82977; 83540; 83550; 83605; 83735; 83880; 84100; 84443; 84478; 84484; 85014; 85018; 85025; 85610; 85730; 86850; 86900; 86901; 86920; 86922; 87040; 87070; 87077; 87205; 87449; 87633; 87641; 93005; 93306; 93971; 94002; 94003; 94640; 94660; 94667; 94668; 95831; 97110; 97116; 97162; 97165; 97530; 97535; 97802; 97803; 99251; 99285; J1756; J7030; J7050; P9016; Q9967; A4216; G0463; J0610; J1940; J3490

== ENCOUNTER → 2019-04-05 08:36 | Outpatient (CLI) | payer MEDICARE, SELFPAY ==
[2019-03-17 21:25] VITALS: BMI 25.7
[2019-04-05] VITALS (8 sets, daily range): BP systolic 96–126; BP diastolic 44–57; PULSE 67–101; RESP 16–20; TEMP 36.3–36.8; O2SAT 97–100; BMI 31.7
[2019-04-05] MEDS: Acetaminophen 325 MG Tablet 650 MG PO (09:54)
[2019-04-05] MEDS: Furosemide 20 MG/2 ML VIAL IV (12:35)
== END ==
PROVIDERS: Family Provider Family Medicine; PCP Family Medicine; Referring Provider Family Medicine; Visit Provider Family Medicine
DX: D64.9 Anemia, unspecified (principal)
CPT/HCPCS: 36430; 86850; 86900; 86901; 86920; 86922; J7040; P9016; A4216; J1940

== ENCOUNTER 2019-04-13 09:35 | Inpatient (IN) | payer MEDICARE, SELFPAY ==
[2019-04-05 08:45] VITALS: BMI 31.7
[2019-04-13] VITALS (17 sets, daily range): BP systolic 105–165; BP diastolic 57–86; PULSE 65–111; RESP 18–24; TEMP 35.8–37.1; O2SAT 94–99; BMI 33.9; BMI 32.6; BMI 32.7
[2019-04-13 10:21] LABS: Prothrombin Time (Protime)PT. 12.7 SECONDS (11.7-14.9)
[2019-04-13 10:22] LABS: Partial Thromboplast Time 27.5 Seconds (24.1-36.2)
--- NOTE | 2019-04-13 10:24 | ED.DCSUM_ITS ---
History of Present Illness Chief Complaint: Abn Labs Detail of Chief Complaint: Anemia Informant: Patient, SNF Onset: Weeks Narrative: [facility] secondary to recurrent anemia. Patient was recently hospitalized. Her anemia at that time was felt to be secondary to excessive ibuprofen use. Dr. Reed has been following her at the [facility]. He states that her hemoglobin had dropped and she received 2 units of blood 6 days ago. She had repeat labs done today that showed her hemoglobin down to 5.7. On April 07 she had been 7.8. Patient denies any obvious source of blood loss. She does have black stool, but states it is always been this way since she has been on iron. She denies vomiting. She has chronic shortness of breath, but states on her oxygen she has no symptoms. Past Medical History - Allergies and Home Meds Allergies/Adverse Reactions: Allergies nickel Allergy (Verified 03/17/19 18:10) Other Primary Care Physician: Akira Zhang MD [Primary Care Provider] - Prior records reviewed: Yes Past Medical History: - - Reviewed Lives: [facility] For [facility] Smoking Status: Former smoker - Family History Paternal Family History: Reports: COPD Review of Systems General: Denies: Chills, Fever Eyes: Denies: Visual changes - bilaterally ENT: Denies: Bilateral ear pain Cardiovascular: Denies: Chest pain, Palpitations Respiratory: Reports: Dyspnea - Chronic and unchanged. Denies: Cough, Sputum Genitourinary: Denies: Dysuria Skin: Denies: Rash Neurological: Denies: Headache, Parasthesia, Numbness Allergy: Denies: Uticaria Physical Exam Vital Signs/Narrative: Vital Signs Temp Pulse Resp BP Pulse Ox 04/13/19 09:37 96.5 F L 111 H 22 H 126/63 H 97 Inital Vital Signs reviewed: Yes General: Well nourished, Well developed Head: Normocephalic ENT: Moist mucous membranes Neck: Supple Cardiovascular: Tachycardia Respiratory: No distress, CTA bilaterally Abdomen: Soft, Nontender Rectal: - - Dark black stool on gloved finger. Extremities: Nontender, Edema - 2-3+ lower extremity edema Skin: Pallor - Slightly pale Neurological: Alert, Oriented x3 Psychological: Normal affect Diagnostic/Tx/Re-eval 04/13/19 10:05 Stool Stool Occult Blood (EVIE) - Final Occult Blood Positive Laboratory Results 04/13/19 04/13/19 09:49 09:49 PT 12.7 INR 1.0 APTT 27.5 Crossmatch See Detail - Medical Decision Making Labs were drawn this morning and are reviewed. Hemoglobin is 5.7 and hematocrit is 19.4. Platelet count is 340,000. Chemistry studies reveal BUN of 39 and creatinine 1.09. Stool guaiac here is positive. Test results are discussed with the patient. She has been ordered 2 units of blood to be transfused. I spoke with nurse for Dr. Ann as she is in a procedure. She is happy to follow along with the patient to perform colonoscopy as needed. I will speak with hospitalist regarding admission. ED Disposition - Plan for ED Patient: Disposition: Acute Care Hospital [facility] Diagnosis: Anemia, GI bleed Referrals: Akira Zhang MD [Primary Care Provider] -
--- NOTE | 2019-04-13 12:33 | HP.PCM_ITS ---
Problem List (1) Anemia Status: Acute Qualifiers: Anemia type: iron deficiency Iron deficiency anemia type: chronic blood loss Qualified Code(s): D50.0 - Iron deficiency anemia secondary to blood loss (chronic) (2) GI bleed Status: Acute (3) Acute anemia Status: Acute (4) Acute on chronic diastolic CHF (congestive heart failure) Status: Acute (5) Acute renal failure superimposed on stage 3 chronic kidney disease Status: Inactive (6) Acute respiratory failure with hypoxia and hypercapnia Status: Inactive (7) Bilateral pneumonia Status: Resolved (8) COPD exacerbation Status: Inactive (9) Iron deficiency anemia Status: Chronic (10) Cervical spondylosis with myelopathy Status: Chronic (11) HH (hiatus hernia) Status: Chronic History of Present Illness Date of Admission: 04/13/19 Chief Complaint: Low hemoglobin The patient is a 69 year old F with multiple comorbidities including COPD with chronic hypoxic hypercarbic combined respiratory failure who on oxygen 28/12, last admission in March 2019 for acute combined respiratory failure secondary to bilateral pneumonia and COPD exacerbation and anemia in ICU came to ER with low H&H. Patient was supposed to be discharged on Wednesday from SNF and then follow-up with Dr. Lopez/Dr. Hutson. Patient has large hiatus hernia and right lower hemithorax is occupied by colon and stomach. Patient could not tell about obvious GI bleed as she is on iron but occult test for stool is positive. H&H done by PCP Dr. Reed 5.12/23.. MCV normal. Platelet count 340 K. Patient has also bilateral lower extremity edema and is on diuretic. Patient also has weeping/oozing from left lower leg with bandage on, Past Medical History Past Medical History (Chronic Problems): Chronic Problems Cervical spondylosis with myelopathy (Chronic) HH (hiatus hernia) (Chronic) Iron deficiency anemia (Chronic) Allergies nickel Allergy (Verified 03/17/19 18:10) Other Home Medications: Ambulatory Orders Medication Instructions Recorded Albuterol IH (ProAir) [Proair Hfa] 2 puff INHALATION Q4H PRN 12/17/17 Ascorbic Acid [Vitamin C] 500 mg PO BID 03/17/19 Aspirin E.C. [Ecotrin] 1 tab PO DAILY 03/17/19 Budesonide [Pulmicort] 0.5 mg IH DAILY 03/17/19 Cholecalciferol (VIT D3) [Vitamin 1,000 unit PO DAILY 03/17/19 D3] Cyanocobalamin (Vitamin B-12) 1,000 mcg PO DAILY 03/17/19 [Vitamin B-12] [place]-3 Fatty Acids/Fish Oil [Fish 2,000 mg PO DAILY 03/17/19 Oil 1,000 mg Capsule] Pyridoxine HCl (Vitamin B6) 600 mg PO DAILY 03/17/19 [Vitamin B-6] Calcium Carbonate [Tums] 1,000 mg PO Q4H PRN PRN tab 03/28/19 Ipratropium/Albuterol Sulfate 3 ml INHALATION Q6H PRN PRN 03/28/19 [Duoneb] ampul.neb Iron Polysaccharide Complex 150 mg PO DAILYCM cap 03/28/19 [Ferrex 150] Senna/Docusate Sodium [Senokot-S] 2 tab PO BID PRN PRN tab 03/28/19 Sodium Chloride 0.65% [[place] Nasal 1 spray NASAL Q1H PRN PRN 03/28/19 [place]] spray.btl Acetaminophen [Tylenol] 625 mg PO Q4H PRN 04/13/19 Albuterol Aerosols [Ventolin 2.5 mg INHALATION Q3H PRN 04/13/19 Aerosols] Bisacodyl [Dulcolax] 10 mg RECTAL DAILY PRN 04/13/19 Omeprazole 20 mg PO DAILY 04/13/19 Lives: Residential - For rehab Smoking Status: Former smoker - *Family History Paternal History Items: COPD Review of Systems Constitutional: Reports: Malaise, Weakness. Denies: Chills, Fever HEENT: Denies: Head Aches, Sinus Congestion, Sinus Drainage Cardiovascular: Reports: Edema. Denies: Chest Pain, Palpitations Respiratory: Reports: Cough - Tonic cough, COPD, Shortness of breath upon exertion. Denies: Shortness of breath at rest, Sputum production Gastrointestinal: Denies: Abdominal Pain, Nausea, Vomiting Genitourinary: Denies: Dysuria, Frequency Musculoskeletal: Reports: Joint Pain. Denies: Joint Tenderness Skin: Denies: Rash, Wounds Neurological: Denies: Numbness, Tingling, Focal weakness Psychiatric: Denies: Anxiety, Depression, Homicidal Ideations, Suicidal Ideations Hematologic/ Lymphatic: Denies: Easy Bruising, Easy Bleeding VTE Information - Inpt Only VTE Present on Admission: No VTE Mechan Device Prophylaxis: SCD's VTE Pharm Prophylaxis ordered?: No Reason prophylaxis not ordered:: Medical Contraindication - GI bleed Patient Problems: Active and Suspected Problems Anemia (Acute) GI bleed (Acute) - Physical Exam Vitals/I&O's: Vital Signs Temp Pulse Resp BP Pulse Ox 96.5 F L 107 H 21 H 125/61 H 99 04/13/19 11:38 04/13/19 11:38 04/13/19 11:38 04/13/19 11:38 04/13/19 11:38 Oxygen Flow Rate (L/min) 4 Oxygen Delivery Method Nasal Cannula Weight: 167 lb 15.876 oz Body Mass Index (BMI) 33.9 General: Alert, Oriented x3, Cooperative HEENT: Atraumatic, PERRLA, EOMI, Normocephalic Oral: Dry Mucosa Neck: Supple, No JVD, Negative Carotid Bruits Lungs: No wheeze, No rales, Diminished - Air entry is diminished in the right lower half of chest. Bilateral expiratory rhonchi present., Rhonchi Cardiovascular: Regular rate, Regular Rhythm, Normal S1, Normal S2, No murmurs Abdomen: Bowel Sounds Present, Soft, Non Tender, Non-Distended, No Hepato- splenomegaly Extremities: No edema, Capillary Refill Less than 3 Seconds Skin: No rashes, No breakdown Musculoskeletal: No Tenderness to Palpation of Joints or Extremities Neurological: Cranial nerves II-XII grossly intact Psych/Mental Status: Normal Affect, Appropriate Microbiology Past 72 Hours 04/13/19 10:05 Stool Stool Occult Blood (EVIE) - Final Occult Blood Positive Laboratory Results 04/13/19 09:49: PT 12.7, INR 1.0, APTT 27.5 04/13/19 09:49: Blood Type O POSITIVE, Antibody Screen NEGATIVE, Crossmatch See Detail Assessment/Plan All Active Problems Bilateral pneumonia (Resolved) Acute anemia (Acute) Acute on chronic diastolic CHF (congestive heart failure) (Acute) Anemia (Acute) GI bleed (Acute) The patient is a 69 year old F with multiple comorbidities including COPD with chronic hypoxic hypercarbic combined respiratory failure who on oxygen 24/7, last admission in March 17, 2019 for acute combined respiratory failure secondary to bilateral pneumonia and COPD exacerbation and anemia in ICU and discharged on 03/28 was sent to ER with low H&H from SNF. Patient was supposed to be discharged on Wednesday from SNF and then follow-up with Dr. Lopez/Dr. Hutson. Patient could not tell about obvious GI bleed as she is on iron but occult test for stool is positive. H&H done by PCP Dr. Reed 5.7.4. MCV normal. Platelet count 340 K. 1. Acute on recurrent anemia probably secondary to GI bleed: During previous admission in March 2019 patient was transfused 4 units PRBC and also had 2 units last week by PCP. Patient is being admitted in PCU. Cardiac monitoring. Surgery consult to Dr. Ann for EGD/colonoscopy. Patient was taking Motrin 3 times daily for 2 to 3 years but she stopped after last admission. 2 units of PRBC ordered from ER physician. Monitor H&H. CBC and BMP tomorrow. 2. Chronic hypoxic and hypercarbic combined respiratory failure secondary to COPD and and volume loss from right lower hemithorax large hiatus hernia/elevation of right hemidiaphragm: Subjectively, patient denies new URI symptoms, chest pain or shortness of breath. On oxygen. Continue incentive spirometry. Pneumonia was treated last time. Continue bronchodilator and Pulmicort. Patient has been smoking about a pack per day since teenage. Quit after last admission. 3. Bilateral lower extremity edema with weeping from left leg most probably from right sided heart failure: Patient had echo in April 04 reported as EF 60% with normal diastole and no regional wall motion abnormality. Moderately dilated RV with normal systolic function. Normal left and right atria. Trivial TR, RVSP 40 to 45 mmHg. BNP ordered. CKD stage III : Patient BUN/creatinine 39/1.09. BUN elevated secondary to diuretic/GI bleed. Last time patient had acute kidney injury BUN/creatinine 84/2.06, resolved. 6. Other comorbidities include cervical spondylosis with myelopathy status post cervical spine fusion: Home medication reconciliation done. DVT prophylaxis: Pharmacological prophylaxis contraindicated because of severe anemia. Bilateral SCDs. Advanced directive/CODE STATUS: As per the residential paperwork, full code. Discussed with the patient again and she wants full code including intubation, CPR and chest compression but does not want to go to vegetative state if life support is prolonged Code Visit Inpatient E&M: 38333 Init Hosp L3
--- NOTE | 2019-04-13 12:40 | EKG12_ITS ---
Test Reason : ANEMIA Blood Pressure : / mmHG Vent. Rate : 105 BPM Atrial Rate : 105 BPM P-R Int : 156 ms QRS Dur : 064 ms QT Int : 312 ms P-R-T Axes : 074 029 041 degrees QTc Int : 412 ms Sinus tachycardia Otherwise normal ECG When compared with ECG of 17-MAR-2019 18:57, Vent. rate has increased BY 37 BPM QT has lengthened Confirmed by STACY ESTEVEZ, ALEM ([id number]), newspaper managing editor CAROL LAIRD ([id number]) on 04/18/2019 3:01:57 PM Referred By: Donny Quijano Confirmed By:ALEM KUMAR MD
[2019-04-13 13:35] LABS: Magnesium 1.9 mg/dL (1.6-2.6)
[2019-04-13 14:14] LABS: BNP,B-Type NATRIURETIC PEPTIDE 69.9 pg/mL (0-100)
[2019-04-13] MEDS: oxyCODONE 5 MG Tablet PO ×2 (14:53→20:20)
[2019-04-13] MEDS: 0.9% Saline Lock 10 ML Syringe IV (15:34)
--- NOTE | 2019-04-13 18:00 | PCM.DC.SUM ---
Discharge Date and Diagnosis Date of Admission: 04/13/19 Date of Discharge: 04/13/19 - Primary Discharge Diagnosis Active and Suspected Problems Anemia (Acute) GI bleed (Acute) - Secondary Discharge Diagnosis Chronic Problems Cervical spondylosis with myelopathy (Chronic) HH (hiatus hernia) (Chronic) Iron deficiency anemia (Chronic) Hospital Course and Treatment Imaging Results: 04/13/19 12:40 Chest PA and Lateral [RAD] Routine Operations: None Summary of Care Provided: [] The patient is a 69 year old F with multiple comorbidities including COPD with chronic hypoxic hypercarbic combined respiratory failure who on oxygen 28/12, was admitted through ER with low H&H from SNF. Patient could not tell about obvious GI bleed as she is on iron but occult test for stool is positive. H&H done by PCP Dr. Reed 5.12/23.4. MCV normal. Platelet count 340 K. 1. Acute on recurrent anemia probably secondary to GI bleed: Patient has history of transfusion every week since last admission about 2 weeks ago. This was discussed with surgeon Dr. Ann. 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 Her suspicion is he might be bleeding from ulcer, possible upper GI bleed or stretched mesenteric vessel of right diaphragmatic hernia. She recommended transfer to tertiary care center. I talked to the surgeon Dr Finley, [facility] surgeon to transfer center. He accepted the patient. Patient is going to to be admitted and surgical service in [facility]. Transfer papers signed. This was communicated to the patient. In the meantime follow H&H as mentioned above. 2. Chronic hypoxic and hypercarbic combined respiratory failure secondary to COPD and and volume loss from right lower hemithorax large hiatus hernia/elevation of right hemidiaphragm: Subjectively, patient denies new URI symptoms, chest pain or shortness of breath. On oxygen. Continue incentive spirometry. Pneumonia was treated last time. Continue bronchodilator and Pulmicort. Patient has been smoking about a pack per day since teenage. Quit after last admission. 3. Bilateral lower extremity edema with weeping from left leg most probably from right sided heart failure: Patient had echo in April 04 reported as EF 60% with normal diastole and no regional wall motion abnormality. Moderately dilated RV with normal systolic function. Normal left and right atria. Trivial TR, RVSP 40 to 45 mmHg. BNP ordered. CKD stage III : Patient BUN/creatinine 39/1.09. BUN elevated secondary to diuretic/GI bleed. Last time patient had acute kidney injury BUN/creatinine 84/2.06, resolved. 6. Other comorbidities include cervical spondylosis with myelopathy status post cervical spine fusion: Home medication reconciliation done. DVT prophylaxis: Pharmacological prophylaxis contraindicated because of severe anemia. Bilateral SCDs. Patient transferred to [facility] as mentioned above. Subjective: Patient was seen and examined on the day of transfer. She has large diaphragmatic hernia, eventration of right hemidiaphragm with COLON And small bowel. This was discussed with surgeon Dr. Ann. No change in physical finding. Please see H&P of same day for physical finding.. - Physical Exam Vitals/I&O's: Vital Signs Temp Pulse Resp BP Pulse Ox 97.9 F 103 H 18 147/78 H 98 04/13/19 16:00 04/13/19 16:00 04/13/19 16:00 04/13/19 16:00 04/13/19 16:00 Oxygen Flow Rate (L/min) 4 Oxygen Delivery Method Nasal Cannula Weight: 161 lb 13.109 oz Body Mass Index (BMI) 32.6 Intake and Output for Last 24 Hours 04/11/19 04/12/19 04/13/19 23:59 23:59 23:59 Intake Total 510 / 510 Balance 510 / 510 Microbiology Past 72 Hours 04/13/19 10:05 Stool Stool Occult Blood (EVIE) - Final Occult Blood Positive Laboratory Results 04/13/19 09:49: PT 12.7, INR 1.0, APTT 27.5 04/13/19 09:49: Blood Type O POSITIVE, Antibody Screen NEGATIVE, Crossmatch See Detail 04/13/19 09:49: B-Natriuretic Peptide 69.9 04/13/19 09:49: Magnesium 1.9 Current Medications Acetaminophen (Tylenol) 650 mg PO Q6H PRN PRN PRN Reason: Pain Score 1-3/Temp > 100.7 F Albuterol Sulfate (Ventolin Aerosols) 2.5 mg INHALATION Q3H PRN PRN Reason: SHORTNESS OF BREATH Albuterol/Ipratropium (Duoneb) 3 ml INHALATION Q6H.RT SARI Last Admin: 11/07/19 13:58 Dose: 3 ml Documented by: Ascorbic Acid (Vitamin C) 500 mg PO BID [facility] Bisacodyl (Dulcolax) 10 mg RECTAL DAILY PRN PRN Reason: Constipation Budesonide (Pulmicort Aerosol) 0.5 mg INHALATION DAILY.RT [facility] Cholecalciferol (Vitamin D) 1,000 unit PO DAILY [facility] Last Admin: 04/13/19 14:23 Dose: Not Given Documented by: Dextrose (D50w Syringe) 0 gm IV X1 PRN; Protocol PRN Reason: Hypoglycemia Glucagon () 1 mg IM .X1 PRN PRN Reason: Hypoglycemia Guaifenesin (Robitussin) 20 ml PO Q4H PRN PRN PRN Reason: COUGH Sodium Chloride () 1,000 mls @ 50 mls/hr IV .Q20H SARI Pantoprazole Sodium 40 mg/ (Sodium Chloride) 110 mls @ 330 mls/hr IV Q12 [facility] Last Infusion: 04/13/19 15:34 Dose: Infused Documented by: Sodium Chloride () 250 mls @ 15 mls/hr IV .[id number] PRN PRN Reason: Saline Flush Morphine Sulfate () 2 mg IV Q3H PRN PRN PRN Reason: Pain Score 6-10/10 Nutritional Formula (Lactose Free) (Ensure Clear) 120 ml PO 4X/DAY [facility] Ondansetron HCl (Zofran) 4 mg IV Q8H PRN PRN PRN Reason: NAUSEA/VOMITING Oxycodone HCl (Oxyir) 5 mg PO Q4H PRN PRN PRN Reason: Pain Score 4-5/10 Last Admin: 04/13/19 14:53 Dose: 5 mg Documented by: Polysaccharide Iron Complex (Ferrex 150) 150 mg PO DAILYCM [facility] Prochlorperazine Edisylate (Compazine Iv) 5 mg IV Q4H PRN PRN PRN Reason: Breakthrough Nausea/Vomiting Pyridoxine HCl (Vitamin B-6) 600 mg PO DAILY [facility] Senna/Docusate Sodium (Senokot-S, Francoise-Colace) 2 tablet PO BID PRN PRN PRN Reason: Constipation Sodium Chloride ([place] Nasal [place]) 1 spray NASAL Q1H PRN PRN PRN Reason: NASAL DRYNESS Sodium Chloride () 10 - 40 ml IV UD PRN PRN Reason: SALINE FLUSH Last Admin: 04/13/19 15:34 Dose: 10 ml Documented by: Home Medications: Medications to take at Discharge Ascorbic Acid [Vitamin C] 500 mg PO BID 03/17/19 Aspirin E.C. [Ecotrin] 1 tab PO DAILY 03/17/19 Budesonide [Pulmicort] 0.5 mg IH DAILY 03/17/19 Cholecalciferol (VIT D3) [Vitamin D3] 1,000 unit PO DAILY 03/17/19 Cyanocobalamin (Vitamin B-12) [Vitamin B-12] 1,000 mcg PO DAILY 03/17/19 [place]-3 Fatty Acids/Fish Oil [Fish Oil 1,000 mg Capsule] 2,000 mg PO DAILY 03/17/19 Pyridoxine HCl (Vitamin B6) [Vitamin B-6] 600 mg PO DAILY 03/17/19 Calcium Carbonate [Tums] 1,000 mg PO Q4H PRN PRN tab 03/28/19 Ipratropium/Albuterol Sulfate [Duoneb] 3 ml INHALATION Q6H PRN PRN ampul.neb 03/28/19 Senna/Docusate Sodium [Senokot-S] 2 tab PO BID PRN PRN tab 03/28/19 Sodium Chloride 0.65% [[place] Nasal [place]] 1 spray NASAL Q1H PRN PRN spray.btl 03/28/19 Acetaminophen [Tylenol] 625 mg PO Q4H PRN 04/13/19 Albuterol Aerosols [Ventolin Aerosols] 2.5 mg INHALATION Q3H PRN 04/13/19 Bisacodyl [Dulcolax] 10 mg RECTAL DAILY PRN 04/13/19 Furosemide [Lasix] 20 mg PO BIDLX 04/13/19 Iron Polysaccharide Complex [Ferrex 150] 150 mg PO BID 04/13/19 Omeprazole 20 mg PO DAILY 04/13/19 Primary Care Physician: Akira Zhang MD [Primary Care Provider] - Medical Necessity - Tobacco Use Smoking Status: Former smoker Meaningful Use Info Meaningful Use Diagnoses (Choose all that apply): None applicable Code Visit Inpatient E&M: 04651 Disch Hosp
[2019-04-13] MEDS: 0.9% Normal Saline 1,000 ML 50 ML IV (18:24)
--- NOTE | 2019-04-13 18:24 | PCM.CONS.B ---
- Consult Date of Consult: 04/13/19 - Reason for Consult Chief Complaint: asked to see patient for GI work up of anemia - hgb of 5 History of Present Illness: 69 y/o WF presents with hgb of 5. Last colonoscopy about 10 years ago Has black tarry stools but is on iron. Does not notice any gross blood in her stools Denies nausea/emesis. Denies abdominal pain. Has right diaphragmatic hernia with bowel in right chest. PAST?MEDICAL?HISTORY ? COPD (chronic obstructive pulmonary disease) (HCC) ? ? HTN (hypertension) ? ? PAST?SURGICAL?HISTORY PAST SURGICAL HISTORY OF ?Hand surgery cervical surgery ? FAMILY?HISTORY ? Stroke Mother ? ? Cancer Brother ? ? SOCIAL?HISTORY ? Smoking status: Current Every Day Smoker ? Smokeless tobacco: Never Used ? Alcohol use Yes ? MEDICATIONS omega-3 fatty acids (FISH OIL CONCENTRATE) 1,000 mg cap Take 2 g by mouth once daily. Disp: Rfl: 09/15/2017 at Unknown time ibuprofen (MOTRIN) 800 mg tablet Take 800 mg by mouth four times daily as needed. Disp: Rfl: 09/15/2017 at MAGNESIUM CHLORIDE ORAL Take 1 tablet by mouth once daily. Disp: Rfl: 09/20/2017 at Unknown time lisinopril (ZESTRIL, PRINIVIL) 10 mg tablet Take 10 mg by mouth once daily. Disp: Rfl: 5 09/21/2017 at Unknown time furosemide (LASIX) 20 mg tablet Take 5 mg by mouth every other day. Disp: Rfl: 3 09/21/2017 at Unknown time cyclobenzaprine (FLEXERIL) 10 mg tablet Take 10 mg by mouth twice daily as needed. Disp: Rfl: 11 09/22/2017 at 0500AM HYDROcodone-acetaminophen (NORCO) 5-325 mg per tablet 1 tablet every 6 hours as needed. Disp: Rfl: 0 09/22/2017 at PROAIR HFA 90 mcg/actuation inhaler Inhale 2 Puffs as instructed every 4 hours as needed. Disp: Rfl: 11 Past Week at cholecalciferol (VITAMIN D) 1,000 unit tab tablet Take 1,000 Units by mouth once daily. Disp: Rfl: 09/15/2017 at Unknown time cyanocobalamin (VITAMIN B-12) 1,000 mcg tab Take 1,000 mcg by mouth once daily. Disp: Rfl: 09/15/2017 at Unknown time pyridoxine, vitamin B6, (VITAMIN B6) 100 mg tablet Take 600 mg by mouth once daily. Disp: Rfl: 09/15/2017 at aspirin, enteric coated (ASPIRIN, ENTERIC COATED) 81 mg EC tablet Take 81 mg by mouth once daily. Disp: Rfl: ? ALLERGIES ? Nickel Review of Systems: General - denies fevers Cardiovascular denies chest pain Pulmonary denies shortness of breath, denies coughing up blood Gastrointestinal has black stools but is on iron, doesn't notice any gross blood in stools, denies abdominal pain Neurological had urgent cervical surgery for numbness of hands Genitourinary denies burning with urination, denies blood in urine Hematological denies spontaneous/prolonged bleeding Skin denies open nonhealing wounds Musculoskeletal has arthritis Endocrine denies diabetes Psychological denies hallucinations Physical examination: Vital signs Temp 98F RR 16 BP 110/66 HR 82 General WD/WN WF in no apparent distress, alert and oriented, not septic appearing HEENT Normocephalic. EOM intact with sclera clear and no icterus noted. Neck is supple with no jugular venous distention noted. Trachea is midline. Lungs normal breath sounds - no chest pain except decreased on right lower side. No rales/rhonchi/wheezing noted. No labored breathing noted, such as retractions. No cough heard. Heart normal heart sound. No rubs/clicks/murmurs noted. Normal size and location by auscultation. Abdomen soft and benign. bowel sounds right lower quadrant mainly, No abdominal bruits noted. No distention noted. No masses noted. Extremities no calf tenderness or swelling noted. No pitting edema noted. No obvious deformity noted. Genitourinary/Rectal deferred Skin noormal skin integrity. Neurological non focal Psychological normal affect, patient is calm and appropriate Impression: diaphragmatic hernia with eventration of colon and small bowel in right thoracic cavity Discussion/Plan: I have discussed the above with the patient. I have reviewed her previous chest CT scan. She has a right diaphragmatic hernia with bowel in her right chest, I would recommend transfer to a tertiary medical center. Patient would prefer main [facility]. I have answered all questions to the patient?s satisfaction and the patient has no further questions.
--- NOTE | 2019-04-13 19:45 | RAD_ITS ---
STUDY: X-RAY CHEST REASON FOR EXAM: Female, 69 years old. Shortness of breath TECHNIQUE: Frontal and lateral views of the chest. COMPARISON: Chest x-ray 03/23/2019, CT of the chest 03/24/2019. FINDINGS: No significant change. Opacification of the lower half of the right hemithorax consistent with patient's known eventration of the right hemidiaphragm with much of the colon in the right hemithorax. Blunting of the right costophrenic angle consistent with effusion. Scarring or atelectasis in the aerated portion of the upper right lung. Left lung is clear. Mild cardiomegaly. Degenerative changes of the spine and previous cervical spine surgery. RAD/Chest PA and Lateral IMPRESSION: No definite change. Markedly abnormal right hemithorax much of which is filled with colon as seen on prior studies. Electronically Signed: Celestino Warren MD at 20:43 EST , Service support ,
[2019-04-13] MEDS: Ipratropium/Albuterol Sulfate 3 ML AMPUL.NEB INHALATION (20:32)
[2019-04-13] MEDS: Ascorbic Acid 500 MG Tablet PO (21:08)
--- NOTE | 2019-04-13 21:44 | NURSING ---
Called report to Josie JOHNS at [facility] on MICU floor
== END 2019-04-13 22:05 | disposition short-term general hospital (02) | DRG 812 ==
LOC: ED 12:06 → PCU 12:27
PROVIDERS: Admitting Provider Internal Medicine; Emergency Provider Emergency Medicine; Family Provider Family Medicine; PCP Family Medicine; Referring Provider Internal Medicine; Visit Provider Internal Medicine
DX: D50.0 Iron deficiency anemia secondary to blood loss (chronic) (principal); J96.12 Chronic respiratory failure with hypercapnia; J96.11 Chronic respiratory failure with hypoxia; Z99.81 Dependence on supplemental oxygen; J44.9 Chronic obstructive pulmonary disease, unspecified; K44.9 Diaphragmatic hernia without obstruction or gangrene; Z98.1 Arthrodesis status; Z87.891 Personal history of nicotine dependence; N18.3 Chronic kidney disease, stage 3 (moderate)
CPT/HCPCS: 71046; 82274; 83735; 83880; 85610; 85730; 86850; 86900; 86901; 86920; 86922; 93005; 94640; 97802; 99251; 99285; J7030; J7040; P9016; P9040; A4216; G0463

== ENCOUNTER 2019-05-02 10:58 | Emergency (ER) | payer MEDICARE, SELFPAY ==
[2019-05-02] VITALS (9 sets, daily range): BP systolic 116–121; BP diastolic 61–76; PULSE 78–115; RESP 22–29; TEMP 36.6–37.3; O2SAT 80–95; BMI 36.8; BMI 36.3
--- NOTE | 2019-05-02 11:19 | EKG12_ITS ---
Test Reason : SOB Blood Pressure : / mmHG Vent. Rate : 105 BPM Atrial Rate : 105 BPM P-R Int : 148 ms QRS Dur : 068 ms QT Int : 328 ms P-R-T Axes : 050 029 018 degrees QTc Int : 433 ms Sinus tachycardia with Premature supraventricular complexes Otherwise normal ECG Confirmed by DAIJA PETERSON ([id number]), legal editor BINU MOILNA ([id number] on 05/05/2019 11:25:58 AM Referred By: JENI Confirmed By:DAIJA PETERSON
[2019-05-02 11:28] LABS: Absolute Lymphocyte Count 0.97 X10^3/uL (0.83-4.51); Absolute Neutrophil Count 6.9 X10^3/uL (2.0-7.7); Basophil# 0.02 X10^3/uL; Basophil% 0.2 % (0-1); Eosinophil# 0.06 X10^3/uL; Eosinophils% 0.7 % (0-5); Hematocrit 21.3 % (37-47); Hemoglobin 6.2 g/dL (12.0-15.0); Lymphocyte # 0.97 X10^3/ul (4.0); Lymphocyte % 11.2 % (19-41); Mean Corp Hgb Conc 29.1 g/dL (32-36); Mean Corpuscular Hgb 30.2 pg (27.0-32.0); Mean Corpuscular Volume 103.9 fL (81-99); Mean Platelet Vol. 8.4 fl (6.2-12.0); Monocyte# 0.65 X10^3/uL; Monocyte% 7.5 % (0-10); NRBC Flagged by Analyzer 0 % (0-5); Neutrophil # 6.88 X10^3/uL (2.7-7.7); Neutrophil % 79.6 % (47-70); POSITIVE MORPHOLOGY YES; Platelet Count 473 K/mm3 (150-450); RBC Distribution Width CV 21.2 % (11.6-14.6); RBC Distribution Width SD 80.9 fl (35.1-43.9); Red Blood Count 2.05 M/mm3 (4.2-5.4); White Blood Count 8.7 K/mm3 (4.4-11.0)
--- NOTE | 2019-05-02 11:28 | RAD_ITS ---
STUDY: X-RAY CHEST REASON FOR EXAM: Female, 69 years old. TECHNIQUE: 1 view COMPARISON: April 13, 2019 FINDINGS: There is now noted opacity involving both bases could be related to bilateral pleural effusion or consolidation. The upper half of both lung fuller are otherwise clear. There has been relatively some resolution of the changes in the right lower lung. That was seen earlier. There is evidence of hardware transfixing the thoracic spine. The visualized bony structures are intact. There is no demonstrated abnormality of the visualized soft tissue structures of the upper abdomen. RAD/Chest 1 View (Portable) IMPRESSION: Bilateral basal infiltrate and/or atelectasis with the possible bilateral effusion. Electronically Signed: Paulo Hooper, at 15:54 EST Tel , Service support ,
[2019-05-02 11:29] LABS: Differential Indicated SCAN CRITERIA MET
[2019-05-02 11:41] LABS: ALB/GLOB Ratio 0.8 RATIO (0.9-2.4); AST(SGOT) 25 U/L (15-37); Alanine Aminotransfer ALT/SGPT 22 U/L (13-56); Albumin, Serum 2.9 g/dL (3.2-5.0); Alkaline Phosphatase 108 U/L (45-117); Anion Gap 3 (5-15); BUN 24 mg/dL (7-18); BUN/Creat Ratio 20.5 RATIO (10-20); Calcium,Total 9.2 mg/dL (8.5-10.1); Chloride 97 mmol/L (98-107); Creatinine, Serum 1.17 mg/dL (0.55-1.02); EST Glomerular Filtration Rate 49 mL/min (>60); Est Glom Filt Rate - Afr Amer 59 mL/min (>60); Estimated Creatinine Clearance 55.66 ml/min; Globulin 3.7 g/dL (2.2-4.2); Glucose 98 mg/dL (74-106); Potassium 4.5 mmol/L (3.5-5.1); Protein, Total 6.6 g/dL (6.4-8.2); Sodium Level 141 mmol/L (136-145)
[2019-05-02 11:50] LABS: Anisocytosis 2+; Hypochromasia 3+; Macrocytosis 1+; Platelet Estimate ADEQUATE (ADEQ); Polychromasia 1+; Stomatocyte 1+
--- NOTE | 2019-05-02 13:07 | ED.DCSUM_ITS ---
History of Present Illness Chief Complaint: Shortness of Breath Narrative: Patient presents to the emergency department with feeling short of breath tachycardic and weak. She also tells me she is pale. She has a history of anemia and GI bleed. She was admitted recently for GI bleed but was sent to [facility] for a hiatal hernia repair. She had a hiatal hernia repair, she presents with similar symptoms today. Past Medical History - Allergies and Home Meds Allergies/Adverse Reactions: Allergies nickel Allergy (Verified 05/02/19 11:03) Other Primary Care Physician: Akira Zhang MD [Primary Care Provider] - Past Medical History: - - COPD, on home oxygen, anemia Smoking Status: Former smoker - Family History Paternal Family History: Reports: COPD Review of Systems General: Reports: - - Generalized weakness. Denies: Fever Eyes: Denies: Visual changes - bilaterally ENT: Denies: Rhinorrhea, Sore throat Cardiovascular: Reports: Palpitations. Denies: Chest pain Respiratory: Reports: Dyspnea, Cough. Denies: Sputum Gastrointestinal: Denies: Abdominal pain, Nausea Genitourinary: Denies: Dysuria Skin: Denies: Abscess Neurological: Reports: Weakness Psych: Denies: Depression, Anxiety Endocrine: Denies: Polyuria Hematologic: Denies: Easy bruising Allergy: Denies: Uticaria Physical Exam Vital Signs/Narrative: Vital Signs Temp Pulse Resp BP Pulse Ox 05/02/19 11:03 99.1 F 109 H 22 H 117/63 92 05/02/19 10:59 99.1 F 108 H 22 H 117/63 95 General: - - She appears in some respiratory distress Head: Normocephalic Eyes: Perrl, Pale conjunctiva ENT: Moist mucous membranes Neck: Supple Cardiovascular: Regular rate, Regular rhythm, Tachycardia Respiratory: - - Course bilateral breath sounds with some wheezing Abdomen: Soft, Nontender, - - Surgical scars are intact Back: Nontender, Normal Inspection Extremities: Nontender, No edema Skin: Normal color Neurological: Alert, Oriented x3 Psychological: Normal affect Diagnostic/Tx/Re-eval Chest X-Ray - ED: 1 View, Read by ED Physician, Normal, - - Chronic scarring secondary to COPD improvement from prior x-ray - Rhythm Strip Rhythm Strip: Sinus Rhythm Rate: 105 Ectopy: PVC(s) - EKG Initial EKG Interpretation: - - Normal sinus rhythm with a rate of 105. Normal MD and QTc intervals. No ischemic changes. No normal QRS complex Interpreted by emergency doctor - Medical Decision Making Patient has a normal exam other than she is again anemic at 6.2 hemoglobin. I will transfuse her. I discussed the patient with Dr. Ann who recommended transfer again. She has no abdominal pain a CT of the abdomen was not done, this is chronic anemia but she had recent surgery at [facility]. She may need a colonoscopy which was deferred on her last transfer - Critical Care Time Critical care time (excluding procedures): 30-74 minutes, Discussing w/Patient &/or Family/Parts Cataloger, Discussing w/Consultants, Arranging Admission or Transfer, Performing Direct Patient Care at Bedside ED Disposition - Plan for ED Patient: Disposition: [facility] Diagnosis: Acute anemia, GI bleed Referrals: Akira Zhang MD [Primary Care Provider] -
[2019-05-02] MEDS: Ondansetron 4 MG/2 ML Vial IV (14:55)
[2019-05-02] MEDS: Morphine 4 MG/ML Syringe IV (14:55)
--- NOTE | 2019-05-02 18:44 | ED.RN ---
REPORT CALLED TO [facility] TO NAT DECKER IN THE ED.
== END 2019-05-02 18:31 | disposition short-term general hospital (02) ==
PROVIDERS: Emergency Provider Emergency Medicine; Family Provider Family Medicine; PCP Family Medicine
DX: K92.2 Gastrointestinal hemorrhage, unspecified (principal); D64.9 Anemia, unspecified; R06.03 Acute respiratory distress; R00.0 Tachycardia, unspecified; Z99.81 Dependence on supplemental oxygen; Z79.899 Other long term (current) drug therapy; Z86.2 Personal history of diseases of the blood and blood-forming organs and certain disorders involving the immune mechanism; Z87.19 Personal history of other diseases of the digestive system; Z87.891 Personal history of nicotine dependence
CPT/HCPCS: 36430; 71045; 80053; 84484; 85025; 86850; 86900; 86901; 86920; 93005; 96361; 96374; 96375; 99284; J7040; P9016; A4216; J2405

== ENCOUNTER → 2019-06-02 14:40 | Outpatient (CLI) | payer MEDICARE, SELFPAY ==
[2019-05-02 10:59] VITALS: BMI 36.3
[2019-06-02 16:30] LABS: Absolute Lymphocyte Count 1.68 X10^3/uL (0.83-4.51); Absolute Neutrophil Count 4.9 X10^3/uL (2.0-7.7); Basophil# 0.02 X10^3/uL; Basophil% 0.3 % (0-1); Eosinophil# 0.13 X10^3/uL; Eosinophils% 1.8 % (0-5); Hematocrit 27.2 % (37-47); Hemoglobin 8.5 g/dL (12.0-15.0); Lymphocyte # 1.68 X10^3/ul (4.0); Lymphocyte % 22.9 % (19-41); Mean Corp Hgb Conc 31.3 g/dL (32-36); Mean Corpuscular Hgb 30.7 pg (27.0-32.0); Mean Corpuscular Volume 98.2 fL (81-99); Mean Platelet Vol. 9.8 fl (6.2-12.0); Monocyte# 0.63 X10^3/uL; Monocyte% 8.6 % (0-10); NRBC Flagged by Analyzer 0 % (0-5); Neutrophil # 4.85 X10^3/uL (2.7-7.7); Neutrophil % 65.9 % (47-70); Platelet Count 325 K/mm3 (150-450); RBC Distribution Width CV 15.2 % (11.6-14.6); RBC Distribution Width SD 54.9 fl (35.1-43.9); Red Blood Count 2.77 M/mm3 (4.2-5.4); White Blood Count 7.4 K/mm3 (4.4-11.0)
[2019-06-02 17:24] LABS: Anion Gap 5 (5-15); BUN 100 mg/dL (7-18); BUN/Creat Ratio 43.3 RATIO (10-20); Calcium,Total 9.1 mg/dL (8.5-10.1); Chloride 90 mmol/L (98-107); Creatinine, Serum 2.31 mg/dL (0.55-1.02); EST Glomerular Filtration Rate 22 mL/min (>60); Est Glom Filt Rate - Afr Amer 27 mL/min (>60); Ferritin 76 ng/mL (8-252); Glucose 89 mg/dL (74-106); Iron 49 ug/dL (50-170); Potassium 4.1 mmol/L (3.5-5.1); Sodium Level 135 mmol/L (136-145)
== END ==
LOC: BFHLAB 14:42
PROVIDERS: Family Provider Family Medicine; PCP Family Medicine; Visit Provider Family Medicine
DX: N18.3 Chronic kidney disease, stage 3 (moderate) (principal); D64.9 Anemia, unspecified
CPT/HCPCS: 36415; 80048; 82728; 83540; 85025

== ENCOUNTER → 2019-06-09 14:51 | Outpatient (CLI) | payer MEDICARE, SELFPAY ==
[2019-05-02 10:59] VITALS: BMI 36.3
[2019-06-09 18:11] LABS: Anion Gap 8 (5-15); BUN 89 mg/dL (7-18); BUN/Creat Ratio 44.9 RATIO (10-20); Calcium,Total 10.1 mg/dL (8.5-10.1); Chloride 90 mmol/L (98-107); Creatinine, Serum 1.98 mg/dL (0.55-1.02); EST Glomerular Filtration Rate 27 mL/min (>60); Est Glom Filt Rate - Afr Amer 32 mL/min (>60); Glucose 90 mg/dL (74-106); Sodium Level 135 mmol/L (136-145)
== END ==
LOC: LAB.FUTURE 14:53 → MTLAB 06-13 07:57
PROVIDERS: Family Provider Family Medicine; PCP Family Medicine; Referring Provider Family Medicine; Visit Provider Family Medicine
DX: N18.3 Chronic kidney disease, stage 3 (moderate) (principal)
CPT/HCPCS: 36415; 80048

== ENCOUNTER → 2019-06-26 13:10 | Outpatient (CLI) | payer MEDICARE, SELFPAY ==
[2019-05-02 10:59] VITALS: BMI 36.3
[2019-06-26 15:31] LABS: Absolute Lymphocyte Count 1.68 X10^3/uL (0.83-4.51); Absolute Neutrophil Count 5.5 X10^3/uL (2.0-7.7); Basophil# 0.03 X10^3/uL; Basophil% 0.4 % (0-1); Eosinophil# 0.14 X10^3/uL; Eosinophils% 1.7 % (0-5); Hematocrit 25.9 % (37-47); Hemoglobin 7.8 g/dL (12.0-15.0); Lymphocyte # 1.68 X10^3/ul (4.0); Lymphocyte % 20.7 % (19-41); Mean Corp Hgb Conc 30.1 g/dL (32-36); Mean Corpuscular Hgb 30.2 pg (27.0-32.0); Mean Corpuscular Volume 100.4 fL (81-99); Mean Platelet Vol. 9.5 fl (6.2-12.0); Monocyte# 0.77 X10^3/uL; Monocyte% 9.5 % (0-10); NRBC Flagged by Analyzer 0 % (0-5); Neutrophil # 5.46 X10^3/uL (2.7-7.7); Neutrophil % 67.2 % (47-70); Platelet Count 340 K/mm3 (150-450); RBC Distribution Width CV 14.8 % (11.6-14.6); RBC Distribution Width SD 53.8 fl (35.1-43.9); Red Blood Count 2.58 M/mm3 (4.2-5.4); White Blood Count 8.1 K/mm3 (4.4-11.0)
[2019-06-26 16:05] LABS: Anion Gap 5 (5-15); BUN 35 mg/dL (7-18); BUN/Creat Ratio 25.7 RATIO (10-20); Calcium,Total 9.5 mg/dL (8.5-10.1); Chloride 100 mmol/L (98-107); Creatinine, Serum 1.36 mg/dL (0.55-1.02); EST Glomerular Filtration Rate 41 mL/min (>60); Est Glom Filt Rate - Afr Amer 49 mL/min (>60); Glucose 92 mg/dL (74-106); Potassium 4.3 mmol/L (3.5-5.1); Sodium Level 137 mmol/L (136-145)
== END ==
LOC: LAB.FUTURE 13:11 → BFHLAB 07-04 14:32
PROVIDERS: Family Provider Family Medicine; PCP Family Medicine; Visit Provider Family Medicine
DX: N18.3 Chronic kidney disease, stage 3 (moderate) (principal); D62 Acute posthemorrhagic anemia
CPT/HCPCS: 36415; 80048; 85025

== ENCOUNTER → 2019-07-03 13:40 | Outpatient (CLI) | payer MEDICARE, SELFPAY ==
[2019-05-02 10:59] VITALS: BMI 36.3
[2019-07-03 15:02] LABS: Absolute Lymphocyte Count 1.57 X10^3/uL (0.83-4.51); Absolute Neutrophil Count 4.1 X10^3/uL (2.0-7.7); Basophil# 0.03 X10^3/uL; Basophil% 0.5 % (0-1); Eosinophil# 0.12 X10^3/uL; Eosinophils% 1.9 % (0-5); Hematocrit 27.1 % (37-47); Hemoglobin 8.3 g/dL (12.0-15.0); Lymphocyte # 1.57 X10^3/ul (4.0); Lymphocyte % 24.6 % (19-41); Mean Corp Hgb Conc 30.6 g/dL (32-36); Mean Corpuscular Hgb 31.7 pg (27.0-32.0); Mean Corpuscular Volume 103.4 fL (81-99); Mean Platelet Vol. 9.1 fl (6.2-12.0); Monocyte# 0.52 X10^3/uL; Monocyte% 8.1 % (0-10); NRBC Flagged by Analyzer 0 % (0-5); Neutrophil # 4.12 X10^3/uL (2.7-7.7); Neutrophil % 64.4 % (47-70); Platelet Count 359 K/mm3 (150-450); RBC Distribution Width CV 14.7 % (11.6-14.6); RBC Distribution Width SD 55.8 fl (35.1-43.9); Red Blood Count 2.62 M/mm3 (4.2-5.4); White Blood Count 6.4 K/mm3 (4.4-11.0)
[2019-07-03 15:09] LABS: Anion Gap 4 (5-15); BUN 29 mg/dL (7-18); Calcium,Total 9.6 mg/dL (8.5-10.1); Chloride 101 mmol/L (98-107); Creatinine, Serum 1.38 mg/dL (0.55-1.02); EST Glomerular Filtration Rate 40 mL/min (>60); Est Glom Filt Rate - Afr Amer 49 mL/min (>60); Glucose 94 mg/dL (74-106); Potassium 4.4 mmol/L (3.5-5.1); Sodium Level 138 mmol/L (136-145)
== END ==
LOC: LAB.FUTURE 13:42 → BFHLAB 13:42
PROVIDERS: PCP Family Medicine; Visit Provider Family Medicine
DX: N18.3 Chronic kidney disease, stage 3 (moderate) (principal); D50.9 Iron deficiency anemia, unspecified
CPT/HCPCS: 36415; 80048; 85025

== ENCOUNTER → 2019-07-18 11:14 | Outpatient (CLI) | payer MEDICARE, SELFPAY ==
[2019-05-02 10:59] VITALS: BMI 36.3
[2019-07-18 15:30] LABS: Absolute Lymphocyte Count 1.76 X10^3/uL (0.83-4.51); Absolute Neutrophil Count 3.2 X10^3/uL (2.0-7.7); Basophil# 0.04 X10^3/uL; Basophil% 0.7 % (0-1); Eosinophil# 0.12 X10^3/uL; Eosinophils% 2.1 % (0-5); Hematocrit 27.9 % (37-47); Hemoglobin 8.5 g/dL (12.0-15.0); Lymphocyte # 1.76 X10^3/ul (4.0); Lymphocyte % 31.1 % (19-41); Mean Corp Hgb Conc 30.5 g/dL (32-36); Mean Corpuscular Hgb 31.5 pg (27.0-32.0); Mean Corpuscular Volume 103.3 fL (81-99); Monocyte# 0.56 X10^3/uL; Monocyte% 9.9 % (0-10); NRBC Flagged by Analyzer 0 % (0-5); Neutrophil # 3.17 X10^3/uL (2.7-7.7); Platelet Count 310 K/mm3 (150-450); RBC Distribution Width CV 14.3 % (11.6-14.6); RBC Distribution Width SD 54.4 fl (35.1-43.9); White Blood Count 5.7 K/mm3 (4.4-11.0)
[2019-07-18 16:12] LABS: Anion Gap 6 (5-15); BUN 35 mg/dL (7-18); BUN/Creat Ratio 29.9 RATIO (10-20); Calcium,Total 9.9 mg/dL (8.5-10.1); Chloride 105 mmol/L (98-107); Creatinine, Serum 1.17 mg/dL (0.55-1.02); EST Glomerular Filtration Rate 49 mL/min (>60); Est Glom Filt Rate - Afr Amer 59 mL/min (>60); Glucose 67 mg/dL (74-106); Iron 130 ug/dL (50-170); Potassium 4.6 mmol/L (3.5-5.1); Sodium Level 141 mmol/L (136-145)
== END ==
PROVIDERS: PCP Family Medicine; Visit Provider Family Medicine
DX: N18.3 Chronic kidney disease, stage 3 (moderate) (principal); D50.9 Iron deficiency anemia, unspecified
CPT/HCPCS: 36415; 80048; 83540; 85025

== ENCOUNTER → 2019-12-26 11:18 | Outpatient (CLI) | payer MEDICARE, SELFPAY ==
[2019-05-02 10:59] VITALS: BMI 36.3
[2019-12-26 15:15] LABS: Absolute Lymphocyte Count 1.67 X10^3/uL (0.83-4.51); Absolute Neutrophil Count 3.5 X10^3/uL (2.0-7.7); Basophil# 0.05 X10^3/uL; Basophil% 0.8 % (0-1); Eosinophil# 0.23 X10^3/uL; Eosinophils% 3.8 % (0-5); Hematocrit 32.5 % (37-47); Hemoglobin 10.5 g/dL (12.0-15.0); Lymphocyte # 1.67 X10^3/ul (4.0); Lymphocyte % 27.9 % (19-41); Mean Corp Hgb Conc 32.3 g/dL (32-36); Mean Corpuscular Hgb 32.2 pg (27.0-32.0); Mean Corpuscular Volume 99.7 fL (81-99); Mean Platelet Vol. 9.8 fl (6.2-12.0); Monocyte# 0.54 X10^3/uL; NRBC Flagged by Analyzer 0 % (0-5); Neutrophil # 3.46 X10^3/uL (2.7-7.7); Platelet Count 308 K/mm3 (150-450); RBC Distribution Width CV 12.6 % (11.6-14.6); RBC Distribution Width SD 46.5 fl (35.1-43.9); Red Blood Count 3.26 M/mm3 (4.2-5.4)
[2019-12-26 15:47] LABS: Anion Gap 1 (5-15); BUN 35 mg/dL (7-18); BUN/Creat Ratio 29.7 RATIO (10-20); Calcium,Total 9.5 mg/dL (8.5-10.1); Chloride 100 mmol/L (98-107); Creatinine, Serum 1.18 mg/dL (0.55-1.02); EST Glomerular Filtration Rate 48 mL/min (>60); Est Glom Filt Rate - Afr Amer 58 mL/min (>60); Ferritin 42 ng/mL (8-252); Glucose 86 mg/dL (74-106); Iron 92 ug/dL (50-170); Potassium 4.7 mmol/L (3.5-5.1); Sodium Level 135 mmol/L (136-145)
[2019-12-27 07:36] LABS: SARS-COV-2 TOTAL ABS Nonreactive (Nonreactive)
== END ==
PROVIDERS: PCP Family Medicine; Visit Provider Family Medicine
DX: Z20.828 Contact with and (suspected) exposure to other viral communicable diseases (principal); I12.9 Hypertensive chronic kidney disease with stage 1 through stage 4 chronic kidney disease, or unspecified chronic kidney disease; N18.3 Chronic kidney disease, stage 3 (moderate); D64.9 Anemia, unspecified
CPT/HCPCS: 36415; 80048; 82728; 83540; 85025; 86769; G2023

== ENCOUNTER 2023-10-06 13:32 | Emergency (ER) | payer MEDICARE, SELFPAY ==
[2023-10-06 13:35] VITALS: BP 142/89; PULSE 103; RESP 18; TEMP 36.4; O2SAT 98; BMI 32.3
[2023-10-06] MEDS: Diphth,Pertuss(Acell),Tet Vac 0.5 ML Vial IM (16:06)
[2023-10-06] MEDS: HYDROcodone Bitartrate/Apap 5/325 Tablet PO (16:06)
[2023-10-06] MEDS: Lidocaine 1% /Epi 1:100 (20ml) 20 ML Vial 30 ML INFILT (16:06)
--- NOTE | 2023-10-06 16:18 | EDS_ITS ---
HPI History of Present Illness Chief Complaint: Laceration Narrative Narrative: 73-year-old female presenting for the left leg. She states that she was walking by the pool and caught her leg on something and she is not sure what it was. She states there was an iron chair and a plastic chair nearby. He states she thought she was fine surgical counts all the blood. Last tetanus unknown. She has mild pain locally. [facility] Medical History Acute anemia Acute on chronic diastolic CHF (congestive heart failure) Acute renal failure superimposed on stage 3 chronic kidney disease Acute respiratory failure with hypoxia and hypercapnia Anemia Bilateral pneumonia Cervical spondylosis with myelopathy COPD exacerbation GI bleed HH (hiatus hernia) Iron deficiency anemia Home Medications ascorbic acid (vitamin C) 500 mg capsule 500 mg PO BID supplement 03/17/19 [History Last Taken 04/13/19] aspirin 81 mg tablet,delayed release 1 tab PO DAILY heart health 03/17/19 [History Last Taken 04/13/19] budesonide 0.5 mg/2 mL suspension for nebulization 0.5 mg IH BID shortness of breath 03/17/19 [History Last Taken 04/13/19] cholecalciferol (vitamin D3) 25 mcg (1,000 unit) tablet 1,000 unit PO DAILY supplement 03/17/19 [History Last Taken 04/13/19] cyanocobalamin (vitamin B-12) 1,000 mcg tablet 1,000 mcg PO DAILY supplment 03/17/19 [History Last Taken 04/13/19] omega-3 fatty acids-fish oil 340 mg-1,000 mg capsule 2,000 mg PO DAILY supplement 03/17/19 [History Last Taken 04/13/19] pyridoxine (vitamin B6) 100 mg tablet 600 mg PO DAILY supplement 03/17/19 [History Last Taken 04/13/19] calcium carbonate 1,000 mg (5 x 200 mg calcium (500 mg)) PO Q4H PRN PRN DYSPEPSIA 03/28/19 [Rx Last Taken Unknown] sennosides 8.6 mg-docusate sodium 50 mg tablet 2 tab PO BID PRN PRN Constipation 03/28/19 [Rx Last Taken 04/11/19] sodium chloride 0.65 % nasal spray aerosol 1 spray NASAL Q1H PRN PRN NASAL DRYNESS 03/28/19 [Rx Last Taken Unknown] acetaminophen 325 mg tablet 650 mg PO Q4H PRN Pain Or Fever 04/13/19 [History Last Taken 04/13/19] albuterol sulfate 2.5 mg/3 mL (0.083 %) solution for nebulization 2.5 mg inhalation Q3H PRN Shortness Of Breath 04/13/19 [History Last Taken 04/13/19] bisacodyl 10 mg rectal suppository 10 mg RECTAL DAILY PRN Constipation 04/13/19 [History Last Taken Unknown] furosemide 20 mg tablet 60 mg PO BIDLX water pill 04/13/19 [History Last Taken 04/13/19] omeprazole 20 mg tablet,delayed release 20 mg PO DAILY acid reflux 04/13/19 [History Last Taken 04/13/19] polysaccharide iron complex 150 mg iron capsule 150 mg PO BID anemia 04/13/19 [History Last Taken 04/13/19] cyclobenzaprine 5 mg tablet 5 mg PO TID PRN PRN muscle spasms 05/02/19 [History Last Taken Unknown] ipratropium 0.5 mg-albuterol 3 mg (2.5 mg base)/3 mL nebulization soln 3 ml inhalation TID 05/02/19 [History Last Taken Unknown] tiotropium bromide 18 mcg capsule with inhalation device 2 puff inhalation DAILY 05/02/19 [History Last Taken Unknown] tramadol 50 mg tablet 50 mg PO Q6H PRN PRN Pain Or Fever 05/02/19 [History Last Taken Unknown] Allergy/AdvReac Type Severity Reaction Status Date / Time nickel Allergy Other Verified 10/06/23 13:34 Surgical History H/O hernia repair Social History Smoking Status: Former smoker ROS ROS ED Constitutional Constitutional ED: Denies chills, fever(s) or sweats Eyes Eyes: Denies blurry vision or change in vision ENT ENT ED: Denies ear pain or sore throat Cardiovascular Cardiovascular: Denies chest pain, palpitations or racing heartbeat Respiratory/Chest Respiratory/Chest: Denies cough, dyspnea or sputum Gastrointestinal Gastrointestinal: Denies abdominal pain, constipation, diarrhea, nausea or vomiting Genitourinary Genitourinary ED: Denies dysuria, hematuria or urinary frequency Musculoskeletal Musculoskeletal: Denies arthralgias, myalgias or neck pain Integumentary Reports other Details: Laceration left leg ; Denies abscess, Abrasions or rash Neurologic Neurologic: Denies headache(s), paresthesias or weakness Psychiatric Psychiatric: Denies anxiety, depression, suicidal ideation or suicidal thoughts Endocrine Endocrinology: Denies polydipsia or polyuria EXAM Physical Exam Const Vital Signs: 10/06/23 13:35 Temperature 97.6 F L Temperature Source Temporal Pulse Rate 103 H Respiratory Rate 18 Blood Pressure 142/89 H Blood Pressure Mean 106 Pulse Ox 98 Oxygen Delivery Method Room Air Positive well nourished General Appearance ED: NAD HEENT Reports moist mucous membranes normocephalic Chest Wall inspection of chest normal Neuro oriented x3 and CN's II-XII intact bilaterally Sensorium / Orientation: alert Psych mental status grossly normal Skin Skin Narrative: 13 cm inverted L-shaped laceration. Skin is thin. Fat layer is exposed. No tendon is exposed. No muscles exposed. Minimal tenderness. No bony tenderness noted. MDM MDM MDM Narrative Medical decision making narrative: Patient with laceration to left leg. [place] was given for pain. 6 tetanus was updated. Suture repair was performed. Patient tolerated procedure well. Wound care instructions and follow-up procedures discussed. All questions answered. Patient discharged stable condition. Impression: 1. 13 cm left leg laceration Procedures Lacerations left leg: Length: 5.1 in Depth: Skin Shape: Flap Prep: Sterile Conditions Laceration repair: Irrigated, Lidocaine with epi and Local Irrigated (ml): 500 Comment: 8 horizontal mattress sutures. 3?0 Ethilon 5 simple interrupted. 3-0 ethilon Discharge Plan Triage Chief Complaint: Laceration ED Provider: Abhilash Dee Dx/Rx/DC Orders Instructions: ED Laceration Extremity Prescriptions: No Action cyanocobalamin (vitamin B-12) 1,000 MCG tablet 1,000 mcg PO DAILY aspirin 81 MG tablet 1 tab PO DAILY budesonide 0.5 MG/2 ML suspension for nebulization 0.5 mg IH BID pyridoxine (vitamin B6) 100 MG tablet 600 mg PO DAILY cholecalciferol (vitamin D3) 1,000 UNIT tablet 1,000 unit PO DAILY omega-3 fatty acids-fish oil 1 EACH capsule 2,000 mg PO DAILY ascorbic acid (vitamin C) 500 MG capsule 500 mg PO BID sennosides-docusate sodium 1 TABLET tablet 2 tab PO BID PRN PRN (Reason: Constipation) 0RF calcium carbonate 500 MG tablet 1,000 mg PO Q4H PRN PRN (Reason: DYSPEPSIA) 0RF sodium chloride 1 SPRAY aerosol,spray 1 spray NASAL Q1H PRN PRN (Reason: NASAL DRYNESS) 0RF acetaminophen 325 MG tablet 650 mg PO Q4H PRN (Reason: Pain Or Fever) bisacodyl 10 MG suppository 10 mg RECTAL DAILY PRN (Reason: Constipation) omeprazole 20 MG tablet,delayed release (DR/EC) 20 mg PO DAILY albuterol sulfate 2.5 MG/3 ML solution for nebulization 2.5 mg inhalation Q3H PRN (Reason: Shortness Of Breath) polysaccharide iron complex 150 MG capsule 150 mg PO BID furosemide 20 MG tablet 60 mg PO BIDLX tramadol 50 MG tablet 50 mg PO Q6H PRN PRN (Reason: Pain Or Fever) cyclobenzaprine 5 MG tablet 5 mg PO TID PRN PRN (Reason: muscle spasms) tiotropium bromide 1 PUFF inhaler 2 puff inhalation DAILY ipratropium-albuterol 3 ML solution for nebulization 3 ml inhalation TID Primary Care Provider: Keith Ramirez Referrals: Akira Zhang MD [Non-Staff] - Disposition Disposition: Home, Self Care
[2023-10-06 17:43] VITALS: BP 138/89; PULSE 87; RESP 18; TEMP 36.4; O2SAT 100
== END 2023-10-06 17:57 | disposition home or self-care (01) ==
PROVIDERS: Emergency Provider Student in an Organized Health Care Education/Training Program; PCP Family Medicine; Visit Provider Student in an Organized Health Care Education/Training Program
DX: S81.812A Laceration without foreign body, left lower leg, initial encounter (principal); I50.32 Chronic diastolic (congestive) heart failure; J44.9 Chronic obstructive pulmonary disease, unspecified; Z23 Encounter for immunization; W22.03XA Walked into furniture, initial encounter; Y92.34 Swimming pool (public) as the place of occurrence of the external cause; Z79.82 Long term (current) use of aspirin; Z79.899 Other long term (current) drug therapy; Z87.891 Personal history of nicotine dependence
CPT/HCPCS: 12005; 90471; 90715; 99282

== ENCOUNTER → 2025-02-07 | Outpatient (CLI) | payer MEDICARE, SELFPAY ==
--- NOTE | 2025-02-07 13:06 | NEURO ---
NCS and/or EMG Patient Report Ordering Doctor: Paulino Rios DATE OF SERVICE: 02/07/25 Bianca presents with complaints of numbness tingling and weakness in the right hand. Electrodiagnostic findings: Right median motor nerve demonstrates prolonged latency with normal amplitude and reduced conduction velocity. Right ulnar motor response within normal limits. Normal median and ulnar F?waves. Prolonged right median sensory latency at the wrist. Needle EMG testing was performed in the right upper limb. All muscles tested showed no evidence of denervation with normal motor unit action potentials. Electrodiagnostic impression: This is an abnormal study. 1. Electrodiagnostic findings suggestive of right sided median mononeuropathy. This consistent with a moderate right carpal tunnel syndrome. Multi Select Codes Neurology Neurology Interp Codes: 42407-40 Musc test done w/n test comp (interp) and 08788-63 Nrv cndj tst 5-6 studies (interp)
== END | disposition home or self-care (01) ==
LOC: PSN 10:57
PROVIDERS: PCP Family Medicine; Referring Provider Student in an Organized Health Care Education/Training Program; Visit Provider Student in an Organized Health Care Education/Training Program
DX: R20.2 Paresthesia of skin (principal)
CPT/HCPCS: 95886; 95909